=== PATIENT | female | born 1950 | race Caucasian/White ===

== ENCOUNTER 2024-05-13 22:28 | Inpatient (IN) | payer OTHER, SELFPAY ==
[2024-05-13 20:55] VITALS: BP 198/90
--- NOTE | 2024-05-13 20:57 | ED.GENMED ---
History of Present Illness
<Nav Garcia PA-C - Last Filed: 05/13/24 21:42>
General
Chief Complaint: Breathing Problem
Source: patient
Exam Limitations: none
Time Seen by Provider: 05/13/24 20:55
History of Present Illness
History of Present Illness:
74-year-old female with history of myasthenia gravis presents with difficulty breathing. She is followed by neurologist at [place]. Her myasthenia gravis medication was increased recently. Patient denies any chest pain. No sore throat. There has
been no fever. No vomiting. Daughter noticed that her bilateral face seemed to be drooping as of 2 days ago which is typical of her MG.
Past History
<SELIN Angel Last Filed: 05/13/24 21:42>
Past History
ED Past Medical History: GERD, HTN, Hypercholesterolemia, Hypothyroidism, Psychiatric and Other (Osteoarthritis, neuropathy)
ED Past Surgical History: Orthopedic
Social History
Alcohol: Occasional
Personal:
Living: with family
Employment: Employed
Family History
Family History: Other (Noncontributory)
Phy Exam
<SELIN Angel Last Filed: 05/13/24 21:42>
Physical Exam
Physical Exam:
General: Well developed female with increased work of breathing
HEENT: Normocephalic no obvious facial droop posterior pharynx patent no asymmetry no stridor no drooling
Heart: Tachycardic but regular
Lungs: Subtle wheeze noted upon inspiration
Extremities: No cyanosis
Skin is warm no rash
Scores
<SELIN Angel Last Filed: 05/13/24 21:42>
Heart Failure Risk
Heart Failure Risk Score: Not Applicable
Course
<Nav Garcia PA-C - Last Filed: 05/13/24 21:42>
Orders/Labs/Results
Orders:
Orders
05/13/24 20:55
EKG [Electrocardiogram (*1)] Urgent
Reason for Study: Shortness of Breath
05/13/24 20:56
EKG- Treatment ONCE
CXR [CR Chest Portable - 1 View] Urgent
Comment:
Reason For Exam: dyspnea
Reason Study Needs to be Portable: Unable to Transport
05/13/24 20:57
Complete Blood Count/With Diff Urgent
Comprehensive Metabolic Panel Urgent
05/13/24 21:29
TSH Reflex To Free T4 Urgent
Urinalysis Reflex To Culture Urgent
05/13/24 21:30
Immune Globulin Per Pharmacy [Immune Globulin- Pharmacy To Place] 130 gram IV DIRECTED ONE
Abnormal Lab Results
05/13/24
20:57
WBC 11.4 H 10^3/uL
(4.8-10.8)
Hct 47.5 H %
(37.0-47.0)
MCH 31.2 H pg
(27.0-31.0)
Abs Immat Gran (auto) 0.1 H 10^3/uL
(0-0.05)
Absolute Neuts (auto) 8.1 H 10^3/uL
(1.4-6.5)
Absolute Monos (auto) 0.7 H 10^3/uL
(0.1-0.6)
Lymphocytes % 19.1 L %
(20.5-51.1)
BUN 21 H mg/dl
(7-17)
Glucose 132 H mg/dl
(70-99)
05/13/24 20:57
05/13/24 20:57
Vital Signs
Initial and Last Documented VS:
Initial Vital Signs
Temp Pulse Resp Pulse Ox
98.7 F 107 29 98
05/13/24 20:54 05/13/24 20:54 05/13/24 20:54 05/13/24 20:54
Last Documented Vital Signs
Temp Pulse Resp BP Pulse Ox
98.7 F 100 13 168/96 96
05/13/24 20:54 05/13/24 21:02 05/13/24 21:00 05/13/24 21:00 05/13/24 21:02
<Antonio Parkinson, DO - Last Filed: 05/13/24 21:52>
Orders/Labs/Results
Orders:
Orders
05/13/24 20:55
EKG [Electrocardiogram (*1)] Urgent
Reason for Study: Shortness of Breath
05/13/24 20:56
EKG- Treatment ONCE
CXR [CR Chest Portable - 1 View] Urgent
Comment:
Reason For Exam: dyspnea
Reason Study Needs to be Portable: Unable to Transport
05/13/24 20:57
Complete Blood Count/With Diff Urgent
Comprehensive Metabolic Panel Urgent
05/13/24 21:29
TSH Reflex To Free T4 Urgent
Urinalysis Reflex To Culture Urgent
05/13/24 21:30
Immune Globulin Per Pharmacy [Immune Globulin- Pharmacy To Place] 130 gram IV DIRECTED ONE
Abnormal Lab Results
05/13/24
20:57
WBC 11.4 H 10^3/uL
(4.8-10.8)
Hct 47.5 H %
(37.0-47.0)
MCH 31.2 H pg
(27.0-31.0)
Abs Immat Gran (auto) 0.1 H 10^3/uL
(0-0.05)
Absolute Neuts (auto) 8.1 H 10^3/uL
(1.4-6.5)
Absolute Monos (auto) 0.7 H 10^3/uL
(0.1-0.6)
Lymphocytes % 19.1 L %
(20.5-51.1)
BUN 21 H mg/dl
(7-17)
Glucose 132 H mg/dl
(70-99)
05/13/24 20:57
05/13/24 20:57
Vital Signs
Initial and Last Documented VS:
Initial Vital Signs
Temp Pulse Resp Pulse Ox
98.7 F 107 29 98
05/13/24 20:54 05/13/24 20:54 05/13/24 20:54 05/13/24 20:54
Last Documented Vital Signs
Temp Pulse Resp BP Pulse Ox
98.7 F 100 13 168/96 96
05/13/24 20:54 05/13/24 21:02 05/13/24 21:00 05/13/24 21:00 05/13/24 21:02
<Nav Garcia PA-C - Last Filed: 05/13/24 21:42>
MDM/Problems Addressed
Differential Diagnosis Includes:
Respiratory difficulty. Consider asthma versus pneumonia versus CHF versus COPD versus flare of myasthenia gravis.
Patient improved dramatically after receiving nasal cannula oxygen. Vital signs are stable other than slight tachycardia. Portable chest x-ray pending
<Nav Garcia PA-C - Last Filed: 05/13/24 21:42>
*Critical Care Note
Total Time (30-74mins, 75-104mins- exclusive of procedures): Not Applicable
<Nav Garcia PA-C - Last Filed: 05/13/24 21:42>
Update Note
Update Note:
Chest x-ray clear. Discussed with neurology. There is concern for possible myasthenia gravis flare. The daughter states that over 2 days ago the corners of her eyelids and the corners of her mouth bilaterally were drooping and this is similar to
her prior presentation of myasthenia. They also endorse that her medication for her myasthenia has been adjusted recently. Currently patient is on 2 L of oxygen respiratory status has improved. Neurology recommended 2 g/kg of IVIG and admission
to hospital.
ED Attending Note
<Nav Garcia PA-C - Last Filed: 05/13/24 21:42>
-
Portions of this chart may have been created with voice recognition software.� Occasional wrong word or��sound alike� substitutions may have occurred due to the inherent limitations of voice recognition software.
<Antonio Parkinson DO - Last Filed: 05/13/24 21:52>
ED Attending Note
Patient seen and examined by attending physician: Yes
ED Attending Note:
I reviewed and agree with patient treatment normal. My exam revealed 74-year-old, initially severely short of breath, right sided ptosis. Concern for myasthenia gravis exacerbation. Will start IVIG. Admit to ICU.
Discharge Plan
Departure
Patient Disposition: Admit
Date of Disposition: 05/13/24
Time of Disposition: 21:41
Presentation/result/management discussed w/ accepting MD/DO: Hospitalist
Discharge Problem:
Myasthenia gravis
Prescriptions:
No Action
lisinopril 20 MG tablet
20 mg PO DAILY
levothyroxine [Levothroid] 50 MCG tablet
50 mcg PO DAILY
diclofenac sodium 25 MG tablet,delayed release (DR/EC)
50 mg PO DAILY
pravastatin 20 MG tablet
20 mg PO DAILY
oxybutynin chloride 5 MG tablet
5 mg PO DAILY
alprazolam 0.5 MG tablet
0.5 mg PO HS
gabapentin 100 MG capsule
100 mg PO TID
melatonin 10 MG capsule
10 mg PO HS
oxycodone-acetaminophen 5 MG/325 MG tablet
1 tab PO Q4HPRN PRN (Reason: Headache) Qty: 10 0RF
estradiol 1 APPLIC cream
1 applic S DAILY Qty: 1 0RF
tramadol 50 MG tablet
50 mg PO Q6HPRN PRN (Reason: pain) Qty: 10 0RF
Referrals:
[facility],Guerline Carbajal MD [Family Provider] -
Interventions
Interventions:
*Risk Screen - Suicide Last Done: 05/13/24 20:54
*General Assessment Last Done: 05/13/24 20:54
*Neglect/Abuse Screening Last Done: 05/13/24 21:02
ED- Fall Risk Assessment Last Done: 05/13/24 21:00
*ED COVID-19 Vaccine History Last Done: 05/13/24 21:02
ED- Cardiac Assessment Last Done: 05/13/24 21:00
ED- Pulmonary Assessment Last Done: 05/13/24 21:00
Discharge Date and Time
Print Language: CHINESE
[2024-05-13 21:00] VITALS: BP 168/96
[2024-05-13 21:04] LABS: % Basophils 0.9 % (0-2); % Immature Granulocytes 0.5 % (0-0.5); % Lymphocytes 19.1 % (20.5-51.1); % Monocytes 6.1 % (1.7-9.3); % Neutrophils 71.4 % (42.2-75.2); Absolute Basophils 0.1 10^3/uL (0-0.2); Absolute Eosinophils 0.2 10^3/uL (0-0.7); Absolute Immature Granulocytes 0.1 10^3/uL (0-0.05); Absolute Lymphocytes 2.2 10^3/uL (1.2-3.4); Absolute Monocytes 0.7 10^3/uL (0.1-0.6); Absolute Neutrophils 8.1 10^3/uL (1.4-6.5); Hematocrit 47.5 % (37.0-47.0); Hemoglobin 15.8 g/dL (12.0-16.0); Mean Corp Hgb Conc. 33.3 g/dL (33.0-37.0); Mean Corpuscular Hgb 31.2 pg (27.0-31.0); Mean Corpuscular Volume 93.7 fL (81.0-99.0); Mean Platelet Volume 8.8 fL (7.4-10.4); Nucleated Red Blood Cells % 0 %; Platelet Count 375 10^3/uL (130-400); Red Blood Cell Count 5.07 10^6/uL (4.20-5.40); Red Cell Dist. Width 12.7 % (11.5-14.5); White Blood Cell Count 11.4 10^3/uL (4.8-10.8)
[2024-05-13 21:19] LABS: ALT (SGPT) 24 U/L (0-35); AST (SGOT) 30 U/L (14-36); Albumin 4.9 g/dl (3.5-5.0); Alkaline Phosphatase 94 U/L (38-126); Blood Urea Nitrogen 21 mg/dl (7-17); Calcium 9.9 mg/dl (8.4-10.2); Carbon Dioxide 27 mmol/L (22-30); Chloride 105 mmol/L (98-107); Glucose 132 mg/dl (70-99); Sodium 140 mmol/L (135-145); Total Bilirubin 1.2 mg/dl (0.2-1.3); Total Protein 7.2 g/dl (6.3-8.2); eGFR > 60.00
[2024-05-13 22:00] VITALS: BP 173/89
--- NOTE | 2024-05-13 22:18 | HPS.HSE ---
Addendum entered and electronically signed by Crystal Farrell MD 05/13/24 22:27:
Essential Home meds added and reconciled.
Original Note:
Family Physician
-
Family Physician: Guerline Araya MD
Chief Complaint
-
eyelid droop
History of Present Illness
74-year-old female past medical history of myasthenia gravis diagnosed 2 years ago follows at [facility], hypertension, GERD, hypercholesterolemia, hypothyroidism, osteoarthritis, chronic stool incontinence secondary to Mestinon, bladder prolapse with
pessary, presenting with 1 week of right eyelid droop. She saw her neurologist at [facility] who increased her Mestinon and prednisone. Today she developed difficulty chewing as well as shortness of breath and some chest tightness.
She had a major myasthenia gravis flare 2 years ago at which time she received IVIG. She tolerated IVIG without any complications. She has been relatively well-controlled on Mestinon and prednisone over the past 2 years with minor worsening of
symptoms. Mestinon and prednisone doses were attempted to be decreased.
She has also been having some bladder discomfort with urination over the past few days. No fevers or chills. No cough. No vomiting or diarrhea.
Her blood pressure is normally well-controlled.
She denies smoking or alcohol use.
Her daughter has Yola's/Graves' disease.
Medical History
Past Medical History
Past Medical History: Reports Other (myasthenia gravis diagnosed 2 years ago follows at [facility], hypertension, GERD, hypercholesterolemia, hypothyroidism, osteoarthritis, chronic stool incontinence secondary to Mestinon, bladder prolapse with pessary)
Past Surgical History: Reports None
Social History
Tobacco: Non-smoker
Alcohol: None
Drug: None
Family History
Family History: Not pertinent
Allergies / Home Medications
Allergies reflects when Allergies were last updated in [facility].
Home Medications with original date entered in [facility]
Allergy/Medication List:
Allergies
Allergy/AdvReac Type Severity Reaction Status Date / Time
Penicillins Allergy Severe Hives Verified 02/23/19 17:54
adhesive tape Allergy Unknown Verified 02/23/19 17:54
sulfamethoxazole Allergy chest Verified 02/23/19 17:54
[From Bactrim] tightness
trimethoprim [From Bactrim] Allergy chest Verified 02/23/19 17:54
tightness
Home Medications
diclofenac sodium 25 mg tablet,delayed release 50 mg PO DAILY 07/09/16
levothyroxine 50 mcg tablet (Levothroid) 50 mcg PO DAILY 07/09/16
lisinopril 20 mg tablet 20 mg PO DAILY 07/09/16
oxybutynin chloride 5 mg tablet 5 mg PO DAILY 07/09/16
pravastatin 20 mg tablet 20 mg PO DAILY 07/09/16
alprazolam 0.5 mg tablet 0.5 mg PO HS 07/10/16
gabapentin 100 mg capsule 100 mg PO TID 07/10/16
melatonin 10 mg capsule 10 mg PO HS 07/10/16
oxycodone-acetaminophen 5 mg-325 mg tablet 1 tab PO Q4HPRN PRN Headache #10 tabs 07/11/16
estradiol 0.01% (0.1 mg/gram) vaginal cream 1 applic S DAILY #1 tube 02/23/19
tramadol 50 mg tablet 50 mg PO Q6HPRN PRN pain #10 tabs 02/23/19
Review of Systems
-
History Source: Patient
A 12 point ROS was completed and negative except as noted: Yes
Constitutional: Reports No Symptoms
EENT: Reports No Symptoms
Respiratory: Reports See HPI
Cardiac: Reports No Symptoms
Abdomen/GI: Reports No Symptoms
: Reports See HPI
Musculoskeletal: Reports No Symptoms
Skin: Reports No Symptoms
Neurological: Reports No Symptoms
Endocrine: Reports No Symptoms
Hematologic/Lymphatic: Reports No Symptoms
Psych: Reports No Symptoms
Physical Exam
Vital Signs
Vital Signs
Temp Pulse Resp BP Pulse Ox
98.7 F 100 13 168/96 96
05/13/24 20:54 05/13/24 21:02 05/13/24 21:00 05/13/24 21:00 05/13/24 21:02
Physical Exam
General: Well Developed, Well Nourished and No Apparent Distress
HEENT: NormoCephalic, Moist mucous membranes and Atraumatic
Respiratory: Clear
Cardiac: S1/S2 and Regular Rhythm; No Murmur or Rub
GI: Soft, Non Tender, Non Distended and Normal Bowel Sounds; No Organomegaly
Rectal: Deferred by Provider
Musculoskeletal: No Clubbing, No Cyanosis and No Edema
Skin: No Rash
Neuro: Nonfocal/grossly intact
Laboratory Results
-
05/13/24 20:57
05/13/24 20:57
Laboratory Results
Total Bilirubin 1.2 mg/dl (0.2-1.3) 05/13/24 20:57
AST 30 U/L (14-36) 05/13/24 20:57
ALT 24 U/L (0-35) 05/13/24 20:57
Alkaline Phosphatase 94 U/L (38-126) 05/13/24 20:57
Data Reviewed
-
Lab Data: Labs Reviewed by me
Old Records: Reviewed
Impression/Plan
-
IMPRESSION:
PLAN:
# Myasthenia gravis flare with right eyelid droop/respiratory symptoms
-Chest x-ray appears to be normal, report pending
-Neurology recommended IVIG
-NIF every 4 hours
-Continue Mestinon, prednisone
-Neurology consulted
# Likely UTI
-Leukocytosis
-Check urinalysis
# Elevated blood pressure secondary to anxiety
-As needed hydralazine
History of bladder prolapse with current pessary
History of stool incontinence secondary to Mestinon
Essential hypertension
GERD
-Continue PPI
Hypercholesterolemia
Hypothyroidism
-Continue levothyroxine
Osteoarthritis
-Continue tramadol
DNR/DNI
DVT prophylaxis�heparin
Regular diet
[2024-05-13] MEDS: GAMMAGARD 300 IV (22:42)
[2024-05-13 23:00] VITALS: BP 179/95
[2024-05-13 23:32] LABS: TSH Reflex To Free T4 2.44 uIU/ml (0.47-4.68)
[2024-05-13 23:48] VITALS: BMI 24.6
[2024-05-14] VITALS (25 sets, daily range): BP systolic 93–198; BP diastolic 58–100; BMI 24.7
[2024-05-14] MEDS: APRESOLINE 5 MG IV ×2 (00:15→01:42)
[2024-05-14 00:31] LABS: Magnesium 2.2 mg/dl (1.6-2.3); Phosphorus 3.5 mg/dl (2.5-4.5)
[2024-05-14 00:33] LABS: APTT 24.7 Sec (23.4-35.0); INR 0.88; PT 12.2 Sec (11.4-14.6)
[2024-05-14] MEDS: XANAX 0.5 MG PO ×2 (01:15→22:42)
--- NOTE | 2024-05-14 01:22 | PTCARENOTE ---
Received patient in room 3358 on 2L/O2 nc from ED RN Nely3, and receiving IVIG therapy. Patient transferred herself to the ICU bed. Plan of care for the shift reviewed with the patient. NSR on the monitor. Palpable pulses throughout. SBP in the
170s. Clear breath sounds. SpO2 at 97% on 2L. Occasional nonproductive cough. +BS. Skin is intact. Pt's cheeks are flushed. Pt stated that her daughter made her aware of it earlier. Labs drawn and sent. Assisted the patient to the bedside commode
and voided 400 cc yellow urine. Apresoline and Xanax administered. Pt oriented to the unit. Bed in the lowest position. Call farris and personal belongings are within reach.
[2024-05-14 01:33] LABS: Urine Albumin Negative (Neg - Trace); Urine Bilirubin Negative (Negative); Urine Character Slightly Cloudy (Clear); Urine Color Yellow; Urine Glucose Negative (Negative); Urine Ketone Negative (Negative); Urine Leukocyte 2+ (Negative); Urine Nitrite Negative (Negative); Urine Occult Blood 1+ (Negative); Urine Urobilinogen Negative (Neg - 1+)
[2024-05-14 01:43] LABS: Urine Bacteria Many (Negative); Urine White Cell 16-20 /HPF (0-5)
[2024-05-14 01:47] LABS: COVID-19 Antigen Negative (Negative)
--- NOTE | 2024-05-14 04:58 | PTCARENOTE ---
Patient is awake. Reassessed pt. BP 116/58. HR 95 and remains on the 2L/o2 nc. Patient turns and repositions herself. labs drawn and sent.
[2024-05-14 05:13] LABS: % Basophils 0.8 % (0-2); % Eosinophils 2.4 % (0-6); % Immature Granulocytes 0.6 % (0-0.5); % Lymphocytes 15.1 % (20.5-51.1); % Monocytes 7.3 % (1.7-9.3); % Neutrophils 73.8 % (42.2-75.2); Absolute Basophils 0.1 10^3/uL (0-0.2); Absolute Eosinophils 0.3 10^3/uL (0-0.7); Absolute Immature Granulocytes 0.1 10^3/uL (0-0.05); Absolute Lymphocytes 1.8 10^3/uL (1.2-3.4); Absolute Monocytes 0.9 10^3/uL (0.1-0.6); Absolute Neutrophils 8.7 10^3/uL (1.4-6.5); Hematocrit 42.4 % (37.0-47.0); Mean Corpuscular Hgb 30.7 pg (27.0-31.0); Mean Platelet Volume 9.1 fL (7.4-10.4); Nucleated Red Blood Cells % 0 %; Platelet Count 337 10^3/uL (130-400); Red Blood Cell Count 4.56 10^6/uL (4.20-5.40); Red Cell Dist. Width 12.8 % (11.5-14.5); White Blood Cell Count 11.8 10^3/uL (4.8-10.8)
[2024-05-14 05:22] LABS: ALT (SGPT) 22 U/L (0-35); AST (SGOT) 25 U/L (14-36); Albumin 3.6 g/dl (3.5-5.0); Alkaline Phosphatase 75 U/L (38-126); Blood Urea Nitrogen 19 mg/dl (7-17); Calcium 9.1 mg/dl (8.4-10.2); Carbon Dioxide 28 mmol/L (22-30); Chloride 109 mmol/L (98-107); Estimated Creatinine Clearance 68 ml/min; Glucose 96 mg/dl (70-99); Potassium 3.9 mmol/L (3.5-5.1); Sodium 140 mmol/L (135-145); Total Protein 6.2 g/dl (6.3-8.2); eGFR > 60.00
[2024-05-14] MEDS: SYNTHROID 75 MCG PO (06:14)
--- NOTE | 2024-05-14 08:08 | W.PN.HOSP.TC ---
Today's Communication/Plan
-
see bold
Assessment / Plan
Assessment / Plan
Gen: NAD, AAOx3.
Eyes: EOMI, PERRLA, no scleral icterus. R ptosis, no lid lag
Neck: supple.
CV: RRR, +S1/S2, no m/r/g.
Resp: CTAB, no rales, wheezes, or rhonchi.
Abd: +BS, soft, NT, ND
Skin: No rashes.
Neuro: CN 2-12 intact, non-focal.
Psych: Normal mood and affect.
CXR:
1. Mildly decreased bilateral lung volumes.
2. Moderate-sized hiatal hernia.
Myasthenia gravis flare:
-with right eyelid droop/respiratory symptoms
-cont IVIG
-c/s neuro
-NIF Q4H
-Continue Mestinon, prednisone
Likely UTI:
-start Rocephin
-follow UCx
Other problems:
History of bladder prolapse with current pessary
History of stool incontinence secondary to Mestinon
Essential hypertension with elevated blood pressure secondary to anxiety: PRN hydralazine
GERD: Continue PPI
Hypercholesterolemia
Hypothyroidism: Continue levothyroxine
Osteoarthritis: Continue tramadol
DNR/DNI/heparin
Anticipated Discharge: > 48 hours
Subjective/Interval History
-
Date of Service: May 14, 2024
Denies shortness of breath. Patient states she feels much better than yesterday.
Objective Data
-
Labs:
Laboratory Results
05/13/24 05/14/24 05/14/24
20:57 00:07 04:50
WBC 11.4 H 11.8 H
Hgb 15.8 14.0
Hct 47.5 H 42.4
Plt Count 375 337
PT 12.2
INR 0.88
APTT 24.7
Sodium 140 140
Potassium 4.0 3.9
Chloride 105 109 H
Carbon Dioxide 27 28
BUN 21 H 19 H
Creatinine 0.7 0.6
Glucose 132 H 96
Calcium 9.9 9.1
Total Bilirubin 1.2 1.0
AST 30 25
ALT 24 22
Alkaline Phosphatase 94 75
Vital Signs:
Vital Signs
Temp Pulse Resp BP Pulse Ox
98.5 F 92 21 143/80 96
05/14/24 07:00 05/14/24 07:22 05/14/24 06:15 05/14/24 07:22 05/14/24 06:15
I&O
05/13/24 05/14/24 05/15/24
06:59 06:59 06:59
Intake Total 138.6 / 138.6
Output Total 400 / 400
Balance -261.4 / -261.4
[2024-05-14] MEDS: DITROPAN 5 MG PO (08:53)
[2024-05-14] MEDS: HEPARIN 5000 UNITS SC ×2 (08:53→20:57)
[2024-05-14] MEDS: DELTASONE 10 MG PO (08:53)
[2024-05-14] MEDS: MESTINON 60 MG PO ×3 (08:54→22:42)
[2024-05-14] MEDS: PEPCID 40 MG PO (08:54)
--- NOTE | 2024-05-14 09:13 | CON.NEURO ---
Consultation
Order
Date of Consultation: 05/14/24
Requesting Provider: Crystal Farrell MD
Reason for Consult: Myasthenia gravis
Neurology Consultation Note.
HPI: This is a 74-year-old woman who presented to [facility] on 05/13/2024 with dyspnea and dysphagia. According to the patient she noted worsening of dysphagia to solids and liquids as long as dyspnea upon awakening on the day of
presentation. She also experienced difficulty drinking water through a straw. Prior to this incident, the patient had noticed a gradual worsening of fluctuating blurred vision over the past two weeks.
Ms. Hernandez states that she was diagnosed with generalized myasthenia gravis in 2021. She underwent thymectomy in 2022. The patient is under care of Dr. Terry and was maintained on prednisone and Mestinon.
Her prednisone was reportedly reduced to 5 mg around 6 months ago and Mestinon was increased from 30 to 60 mg 3 times daily 2 weeks ago.
She also mentions having bowel incontinence, which she attributes to the Mestinon.
ER VS: 198/90, 107, 29, afebrile, 95% on 2 L.
EKG: NSR, QTc Int : 457 ms
PDMP: Alprazolam 0.5 Mg 30 tablets filled in on 01/28/2024, 04/18/2024
Labs:WBCs�11.4, normal sodium, creatinine, glucose�132, UA�positive for leukocyte esterase, WBCs, bacteria, negative for nitrates, SARS-CoV-2�negative
MAR:GAMMAGARD 30 grams given on 05/13/24 at 22:42
PMH: Generalized myasthenia gravis(2021), HTN, DLP, GERD, hypothyroidism, OA, cystocele, DIXON
PSH: thymectomy (2022) R TKA, R MATILDE, BL cataract surgery
SH: Former remote smoker; lives with family; retired mail clerk bills; denies history of excessive alcohol use; independent in IADLs
FH:daughter-Yola's/Graves' disease.
All: Penicillin, sulfas,
ROS: Constitutional: Negative. Negative for chills, fever and unexpected weight change.
HENT: Positive for right ptosis
Eyes: Positive for intermittent blurred vision
Respiratory: Negative for cough, choking and shortness of breath.
Cardiovascular: Negative for chest pain, palpitations and leg swelling.
Gastrointestinal: Positive for dysphagia to liquids and solids, chornic bowel incontinence
Endocrine: Negative. Negative for cold intolerance.
Genitourinary: Negative for dysuria, flank pain and urgency.
Musculoskeletal: Negative for back pain, gait problem, neck pain and neck stiffness.
Skin: Negative for rash.
Allergic/Immunologic: Negative. Negative for immunocompromised state.
Neurological: Positive for imbalance, numbness in the feet
Psychiatric/Behavioral: Positive for anxiety
General: Well developed. In no acute distress.
Cardio: Regular rate and rhythm without murmur. Extremities are without cyanosis or edema.
Neuro:
Mental Status: Alert, oriented to person, place, and date. Impaired attention and comprehension. Good fund of knowledge. Follows complex requests. Expressive dysphagia.
Cranial Nerves: Pupils are equally round, surgical. EOMs full. Visual richard full to confrontation. Right ptosis, no nystagmus. V1-V3 intact to light touch and pinprick bilaterally, symmetric. Face symmetric. Unable to whistle. Normal
hearing AU. The palate elevated well. SCMs and traps 5/5. Tongue midline. No dysarthria.
Motor: Normal bulk and tone. No pronator or arm drift. Strength 5/5 throughout except for neck flexors 5-5, bilateral dates, triceps 4 out of 5, bilateral iliopsoas 4 out of 5. No clonus.
Reflexes: 3+ throughout the upper extremities and knees. Plantar responses flexor bilaterally. Negative Fartun's bilaterally
Sensory: Absent vibration at the toes and impaired at the ankles
Coordination: No dysmetria or tremor.
Gait: deferred
Assessment and Plan:
I. Myasthenic crisis.
II. Seropositive generalized myasthenia gravis, status post thymectomy
III. Mild encephalopathy.
IV. 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
-Aspiration precautions
-Frequent NIFs. Elective intubation should be considered if serial measurements demonstrate one or both of the following: Vital capacity�falls below 15 to 20 mL/kg or MIP is less negative than -25 to -30 cmH20; clinical signs of respiratory
distress, evidence of progressive respiratory acidosis, difficulty handling oral secretions
- NPO. Dysphagia evaluation
- Brain MRI wo dixon.
- Continue Gammagard 400 mg/kg per day (today is day 04/27) with IV hydration as a rapid immunotherapy
- Increase Prednisone to 60 mg per day. Will consider starting azathioprine, mycophenolate mofetil after reviewing medical records as a chronic chemotherapy
- Continue Mestinon 60 mg TID
- Avoid Aminoglycosides (gentamicin, neomycin, tobramycin), Clindamycin, Fluoroquinolones (ciprofloxacin, levofloxacin, norfloxacin), Vancomycin, Beta blockers ��(atenolol, labetalol, metoprolol, propranolol), Procainamide, Quinidine, Botulinum toxin
- Please obtain medical records from [facility] and [facility]
- Outpatient urogynecology consult
- DVT prophylaxis.
I personally reviewed all radiology and labs along with past medical records pertinent to current medical problems. Total time spent in patient care is 65 minutes.
Thank you for allowing us to participate in the care of this patient. We will continue to follow. Please do not hesitate to contact us with any questions or concerns.
Subjective/Objective
Subjective Data
Date of Service: May 14, 2024
Objective Data
Vital Signs
Temp Pulse Resp BP Pulse Ox
36.9 C 92 21 143/80 96
05/14/24 07:00 05/14/24 07:22 05/14/24 06:15 05/14/24 07:22 05/14/24 06:15
Lab Results
05/14/24 04:50
05/14/24 04:50
PT 12.2 Sec (11.4-14.6) 05/14/24 00:07
INR 0.88 05/14/24 00:07
APTT 24.7 Sec (23.4-35.0) 05/14/24 00:07
Sodium 140 mmol/L (135-145) 05/14/24 04:50
Potassium 3.9 mmol/L (3.5-5.1) 05/14/24 04:50
BUN 19 mg/dl (7-17) H 05/14/24 04:50
Glucose 96 mg/dl (70-99) 05/14/24 04:50
Calcium 9.1 mg/dl (8.4-10.2) 05/14/24 04:50
Phosphorus 3.5 mg/dl (2.5-4.5) 05/14/24 00:07
Patient Allergies
Penicillins Allergy (Severe, Verified 02/23/19 17:54)
Hives
adhesive tape Allergy (Verified 02/23/19 17:54)
Unknown
sulfamethoxazole [From Bactrim] Allergy (Verified 02/23/19 17:54)
chest tightness
trimethoprim [From Bactrim] Allergy (Verified 02/23/19 17:54)
chest tightness
Medications
-
Active Medications
Generic Name Dose Route Start Last Admin
Trade Name Freq PRN Reason Stop Dose Admin
Alprazolam 0.5 mg 05/13/24 23:03 05/14/24 01:15
Alprazolam 0.5 Mg Tablet PO 06/10/24 23:02 0.5 mg
HSPRN PRN Administration
insomnia
Ceftriaxone Sodium 1,000 mg 05/14/24 10:00
Ceftriaxone 1000 Mg / 10 Ml Vial IV
Q24H ELIDIA
Famotidine 40 mg 05/14/24 08:00 05/14/24 08:54
Famotidine 40 Mg Tablet PO 06/11/24 07:59 40 mg
DAILY ELIDIA Administration
Heparin Sodium 5,000 units 05/14/24 08:00 05/14/24 08:53
Heparin 5,000 Units/Ml 1 Ml Vial SC 06/11/24 07:59 5,000 units
Q12 ELIDIA Administration
Hydralazine HCl 10 mg 05/14/24 01:32
Hydralazine 20 Mg/Ml Vial IV 06/10/24 23:02
Q6HPRN PRN
SBP>160
Immune Globulin 30 grams in 300 mls @ 0 mls/hr 05/13/24 23:00 05/13/24 22:42
Gammagard IV 05/15/24 01:01 300 mls
DAILY@0100,2300 ELIDIA Administration
Protocol
Per Protocol
Levothyroxine Sodium 75 mcg 05/14/24 06:00 05/14/24 06:14
Levothyroxine 75 Mcg Tablet PO 06/11/24 05:59 75 mcg
DAILY @ 0600 ELIDIA Administration
Oxybutynin Chloride 5 mg 05/14/24 08:00 05/14/24 08:53
Oxybutynin 5 Mg Tablet PO 06/11/24 07:59 5 mg
DAILY ELIDIA Administration
Prednisone 10 mg 05/14/24 08:00 05/14/24 08:53
Prednisone 10 Mg Tablet PO 06/11/24 07:59 10 mg
DAILY ELIDIA Administration
Pyridostigmine [place] 60 mg 05/14/24 08:00 05/14/24 08:54
Pyridostigmine 60 Mg Tablet PO 06/11/24 07:59 60 mg
TID ELIDIA Administration
Sodium Chloride 0 flush 05/13/24 23:00
Sodium Chloride 0.9% (Flush) Syringe IV 06/10/24 22:59
PER PROTOCOL ELIDIA
Sterile Water 10 ml 05/14/24 10:00
Sterile Water For Injection 10 Ml Vial IV 06/11/24 09:59
Q24H ELIDIA
Tramadol HCl 50 mg 05/13/24 23:03
Tramadol Hcl 50 Mg Tablet PO 06/10/24 23:02
Q6HPRN PRN
MODERATE PAIN
Home Medications
�Medication �Instructions �Recorded
oxybutynin chloride 5 mg tablet 5 mg PO BID Urinary Issue 07/09/16
alprazolam 0.5 mg tablet 0.5 mg PO HS Mental Health/Anxiety 07/10/16
tramadol 50 mg tablet 50 mg PO Q6HPRN PRN pain #10 tabs 02/23/19
alprazolam 0.5 mg tablet 0.25 mg PO BIDPRN PRN anxiety 05/13/24
famotidine 40 mg tablet 40 mg PO BID Gastrointestinal Issue 05/13/24
levothyroxine 75 mcg tablet 75 mcg PO HS Thyroid 05/13/24
prednisone 10 mg tablet 10 mg PO DAILY Anti-Inflammatory 05/13/24
pyridostigmine bromide 60 mg 60 mg PO TID Myashenia gravis 05/13/24
tablet (Mestinon)
acetaminophen 500 mg capsule 500 mg PO Q6H PRN pain 05/14/24
calcium 600 mg capsule 600 mg PO DAILY Supplement 05/14/24
calcium carbonate (Tums) 200 mg PO QIDPRN PRN heartburn 05/14/24
estradiol 0.01% (0.1 mg/gram) 1 applic S PRE PROCEDURE PRN prior 05/14/24
vaginal cream to pessury
naproxen 220 mg-diphenhydramine 25 2 tab PO HS Pain 05/14/24
mg tablet (Aleve PM)
vit B12 50 mcg-folic acid 200 1 cap PO DAILY Supplement 05/14/24
mcg-vit D3 100 [id number]
capsule
vitamin D3 125 mcg (5,000 1 cap PO DAILY Supplement 05/14/24
unit)-vitamin K2 100 mcg capsule
Vital Signs and Labs
-
Vital Signs and Labs:
Vital Signs
Temp Pulse Resp BP Pulse Ox
36.9 C 92 21 143/80 96
05/14/24 07:00 05/14/24 07:22 05/14/24 06:15 05/14/24 07:22 05/14/24 06:15
Lab Results
05/14/24 04:50
05/14/24 04:50
PT 12.2 Sec (11.4-14.6) 05/14/24 00:07
INR 0.88 05/14/24 00:07
APTT 24.7 Sec (23.4-35.0) 05/14/24 00:07
Sodium 140 mmol/L (135-145) 05/14/24 04:50
Potassium 3.9 mmol/L (3.5-5.1) 05/14/24 04:50
BUN 19 mg/dl (7-17) H 05/14/24 04:50
Glucose 96 mg/dl (70-99) 05/14/24 04:50
Calcium 9.1 mg/dl (8.4-10.2) 05/14/24 04:50
Phosphorus 3.5 mg/dl (2.5-4.5) 05/14/24 00:07
Medications
-
Medications:
Generic Name Dose Route Start Last Admin
Trade Name Freq PRN Reason Stop Dose Admin
Alprazolam 0.5 mg 05/13/24 23:03 05/14/24 01:15
Alprazolam 0.5 Mg Tablet PO 06/10/24 23:02 0.5 mg
HSPRN PRN Administration
insomnia
Ceftriaxone Sodium 1,000 mg 05/14/24 10:00
Ceftriaxone 1000 Mg / 10 Ml Vial IV
Q24H ELIDIA
Famotidine 40 mg 05/14/24 08:00 05/14/24 08:54
Famotidine 40 Mg Tablet PO 06/11/24 07:59 40 mg
DAILY ELIDIA Administration
Heparin Sodium 5,000 units 05/14/24 08:00 05/14/24 08:53
Heparin 5,000 Units/Ml 1 Ml Vial SC 06/11/24 07:59 5,000 units
Q12 ELIDIA Administration
Hydralazine HCl 10 mg 05/14/24 01:32
Hydralazine 20 Mg/Ml Vial IV 06/10/24 23:02
Q6HPRN PRN
SBP>160
Immune Globulin 30 grams in 300 mls @ 0 mls/hr 05/13/24 23:00 05/13/24 22:42
Gammagard IV 05/15/24 01:01 300 mls
DAILY@0100,2300 ELIDIA Administration
Protocol
Per Protocol
Levothyroxine Sodium 75 mcg 05/14/24 06:00 05/14/24 06:14
Levothyroxine 75 Mcg Tablet PO 06/11/24 05:59 75 mcg
DAILY @ 0600 ELIDIA Administration
Oxybutynin Chloride 5 mg 05/14/24 08:00 05/14/24 08:53
Oxybutynin 5 Mg Tablet PO 06/11/24 07:59 5 mg
DAILY ELIDIA Administration
Prednisone 10 mg 05/14/24 08:00 05/14/24 08:53
Prednisone 10 Mg Tablet PO 06/11/24 07:59 10 mg
DAILY ELIDIA Administration
Pyridostigmine [place] 60 mg 05/14/24 08:00 05/14/24 08:54
Pyridostigmine 60 Mg Tablet PO 06/11/24 07:59 60 mg
TID ELIDIA Administration
Sodium Chloride 0 flush 05/13/24 23:00
Sodium Chloride 0.9% (Flush) Syringe IV 06/10/24 22:59
PER PROTOCOL ELIDIA
Sterile Water 10 ml 05/14/24 10:00
Sterile Water For Injection 10 Ml Vial IV 06/11/24 09:59
Q24H ELIDIA
Tramadol HCl 50 mg 05/13/24 23:03
Tramadol Hcl 50 Mg Tablet PO 06/10/24 23:02
Q6HPRN PRN
MODERATE PAIN
Home Medications
-
Home Medications
oxybutynin chloride 5 mg tablet 5 mg PO BID Urinary Issue 07/09/16
alprazolam 0.5 mg tablet 0.5 mg PO HS Mental Health/Anxiety 07/10/16
tramadol 50 mg tablet 50 mg PO Q6HPRN PRN pain #10 tabs 02/23/19
alprazolam 0.5 mg tablet 0.25 mg PO BIDPRN PRN anxiety 05/13/24
famotidine 40 mg tablet 40 mg PO BID Gastrointestinal Issue 05/13/24
levothyroxine 75 mcg tablet 75 mcg PO HS Thyroid 05/13/24
prednisone 10 mg tablet 10 mg PO DAILY Anti-Inflammatory 05/13/24
pyridostigmine bromide 60 mg tablet (Mestinon) 60 mg PO TID Myashenia gravis 05/13/24
acetaminophen 500 mg capsule 500 mg PO Q6H PRN pain 05/14/24
calcium 600 mg capsule 600 mg PO DAILY Supplement 05/14/24
calcium carbonate (Tums) 200 mg PO QIDPRN PRN heartburn 05/14/24
estradiol 0.01% (0.1 mg/gram) vaginal cream 1 applic S PRE PROCEDURE PRN prior to pessury 05/14/24
naproxen 220 mg-diphenhydramine 25 mg tablet (Aleve PM) 2 tab PO HS Pain 05/14/24
vit B12 50 mcg-folic acid 200 mcg-vit D3 100 [id number] capsule 1 cap PO DAILY Supplement 05/14/24
vitamin D3 125 mcg (5,000 unit)-vitamin K2 100 mcg capsule 1 cap PO DAILY Supplement 05/14/24
--- NOTE | 2024-05-14 09:51 | W.PN.UPDATE ---
Update Note
Progress Note Update
Patient was admitted to the ICU overnight for suspected MG flare. No official shrimp pond laborer consult placed. I discussed the case this morning with Dr. Mark, and patient being downgraded. If official consultation is required then please contact the
on-call pulmonary/shrimp pond laborer.
[2024-05-14] MEDS: NSS 1000 IV ×2 (10:59→23:38)
[2024-05-14] MEDS: ROCEPHIN 1000 MG IV (10:59)
[2024-05-14] MEDS: STERILE WATER FOR INJECTION 10 ML IV (10:59)
[2024-05-14] MEDS: TYLENOL 500 MG PO (11:01)
--- NOTE | 2024-05-14 11:19 | CM ---
CM following re: discharge planning.
Reviewed pt's chart, met with pt.
Pt is a 74 year old female, admitted with primary dx of Myasthenia gravis flare.
Pt reports she lives with daughter 2SH, 1 step to enter, has 2 supportive children. Pt reports she has a Rollator, cane and uses them as needed. Pt reports she had VN services in the past, cannot recall the name. Pt expressed her desire to return
back home at discharge.
PT and OT will evaluate the pt to determine a level of care at discharge.
PCP: Guerline Araya
Pharmacy: [facility] [place]
D/C plan: home with anticipated no needs vs VN if recommended by PT/OT
CM will follow with discharge plan updates as hospitalization progresses
[2024-05-14 11:36] LABS: C-Reactive Protein < 5.00 mg/L (0.0-10.00)
[2024-05-14] MEDS: ATIVAN 1 MG IV (11:39)
[2024-05-14 12:49] LABS: Folate > 20.0 ng/ml (2.76-20); Vitamin B12 584 pg/ml (239-931)
--- NOTE | 2024-05-14 13:25 | PTCARENOTE ---
pt extremely claustrophobic, said ativan did not help her in past with mri. went with pt to MRI, remained in room with pt, gave some of dose prior to transfer and the rest of dose of ativan prior to test in MRI. Pt tolerated well. Fell asleep
during study.
[2024-05-14] MEDS: GAMMAGARD IV (13:55)
--- NOTE | 2024-05-14 18:23 | PTCARENOTE ---
After eating lunch, pt slept mostly until waking to see what she wanted for dinner. Pt then assisted to bathroom and sitting up in chair for dinner.
[2024-05-14] MEDS: TYLENOL 650 MG PO (20:57)
--- NOTE | 2024-05-14 21:18 | PTCARENOTE ---
Received patient OOB to chair and watching TV. AAOX3 and able to make her needs known. NIHSS 0. Pt verbalized having a headache and asked for a Tylenol. Plan of care for the shift reviewed with the patient. NSR on the monitor. Clear breath sounds on
room air. +BS. Normal saline at 75 mL/hr. Pt's family asked for physician to update them on the patient's MRI result. SANIPRACTIC PHYSICIAN made aware and the patient updated. Tylenol administered. All needs are within reach. Family remains at the bedside.
[2024-05-14] MEDS: GAMMAGARD 200 IV (22:23)
[2024-05-15] VITALS (29 sets, daily range): BP systolic 99–166; BP diastolic 54–129; PULSE 77; O2SAT 96; BMI 23.6
[2024-05-15 00:04] LABS: Erythrocyte Sed Rate 54 mm/hour (0-20)
[2024-05-15] MEDS: APRESOLINE 10 MG IV (00:39)
--- NOTE | 2024-05-15 02:17 | PTCARENOTE ---
Patient's SaO2 decreased to 78% on room air. Placed on 2L/O2 nc without improvement. Oxygen increased to 4L. SpO2 95 with intermittent desat to 84%. Patient's lying on her right side. Patient encouraged to turn to her left side. SpO2 improved and
sustained at 97% on 4L/nc
[2024-05-15 04:47] LABS: Hematocrit 38.9 % (37.0-47.0); Hemoglobin 12.9 g/dL (12.0-16.0); Mean Corp Hgb Conc. 33.2 g/dL (33.0-37.0); Mean Corpuscular Hgb 31.4 pg (27.0-31.0); Mean Corpuscular Volume 94.6 fL (81.0-99.0); Mean Platelet Volume 9.4 fL (7.4-10.4); Platelet Count 293 10^3/uL (130-400); Red Blood Cell Count 4.11 10^6/uL (4.20-5.40); Red Cell Dist. Width 12.8 % (11.5-14.5); White Blood Cell Count 8.9 10^3/uL (4.8-10.8)
[2024-05-15 05:36] LABS: Blood Urea Nitrogen 26 mg/dl (7-17); Calcium 8.7 mg/dl (8.4-10.2); Carbon Dioxide 24 mmol/L (22-30); Chloride 110 mmol/L (98-107); Estimated Creatinine Clearance 59 ml/min; Glucose 93 mg/dl (70-99); Potassium 4.1 mmol/L (3.5-5.1); Sodium 138 mmol/L (135-145); eGFR > 60.00
[2024-05-15] MEDS: SYNTHROID 75 MCG PO (07:27)
[2024-05-15] MEDS: TYLENOL 650 MG PO ×2 (07:27→21:27)
[2024-05-15] MEDS: DELTASONE 60 MG PO (07:28)
[2024-05-15] MEDS: DITROPAN 5 MG PO (07:28)
[2024-05-15] MEDS: MESTINON 60 MG PO ×3 (07:28→21:26)
[2024-05-15] MEDS: HEPARIN 5000 UNITS SC ×2 (07:28→20:16)
[2024-05-15] MEDS: PEPCID 40 MG PO (07:28)
--- NOTE | 2024-05-15 09:41 | W.PN.HOSP.TC ---
Today's Communication/Plan
-
see bold
Assessment / Plan
Assessment / Plan
Gen: NAD, AAOx3.
Eyes: EOMI, PERRLA, no scleral icterus. minimal R ptosis, no lid lag
Neck: supple.
CV: remains RRR, +S1/S2, no m/r/g.
Resp: CTAB anteriorly, no rales, wheezes, or rhonchi.
Abd: +BS, soft, NT, ND
Skin: No rashes.
Neuro: CN 2-12 intact (aside from eye findings above), non-focal.
Psych: Normal mood and affect.
CXR:
1. Mildly decreased bilateral lung volumes.
2. Moderate-sized hiatal hernia.
Myasthenia gravis flare:
-with right eyelid droop/respiratory symptoms
-cont IVIG/Mestinon/Prednisone
-neuro following
-NIF Q4H
-note, pt with hypoxemia overnight. She was saturating in the 70s and required 4L NC O2. This AM saturating 96% RA. Check nocturnal pulse ox.
Likely UTI:
-cont Rocephin
-follow UCx
Other problems:
History of bladder prolapse with current pessary
History of stool incontinence secondary to Mestinon
Essential hypertension with elevated blood pressure secondary to anxiety: PRN hydralazine
GERD: Continue PPI
Hypercholesterolemia
Hypothyroidism: Continue levothyroxine
Osteoarthritis: Continue tramadol
DNR/DNI/heparin
Transfer to Med-surg
Anticipated Discharge: 24 - 48 hours
Subjective/Interval History
-
Date of Service: May 15, 2024
Reports bifrontal headache. Denies SOB. Vision in R eye has improved.
Objective Data
-
Labs:
Laboratory Results
05/15/24
04:11
WBC 8.9
Hgb 12.9
Hct 38.9
Plt Count 293
Sodium 138
Potassium 4.1
Chloride 110 H
Carbon Dioxide 24
BUN 26 H
Creatinine 0.7
Glucose 93
Calcium 8.7
Vital Signs:
Vital Signs
Temp Pulse Resp BP Pulse Ox
97.8 F 80 20 153/83 96
05/15/24 07:37 05/15/24 09:33 05/15/24 09:33 05/15/24 09:33 05/15/24 06:30
I&O
05/14/24 05/15/24 05/16/24
06:59 06:59 06:59
Intake Total 138.6 / 178.1 1518.6 / 1593.6 225 / 225
Output Total 400 / 400 1190 / 1190
Balance -261.4 / -221.9 328.6 / 403.6 225 / 225
--- NOTE | 2024-05-15 09:54 | PTCARENOTE ---
all vss prior to 7am from previous shift
[2024-05-15] MEDS: STERILE WATER FOR INJECTION 10 ML IV (10:21)
[2024-05-15] MEDS: ROCEPHIN 1000 MG IV (10:22)
--- NOTE | 2024-05-15 12:09 | W.PN.NEURO.1 ---
Today's Communication / Plan
-
.
Subjective/Objective
Subjective Data
Date of Service: May 15, 2024
Neurology Follow Up.
Ms. Germain endorses moderate holocephalic headache.
Blood pressure has improved, afebrile. Dysphagia has improved. No reports of diplopia, dysarthria, dyspnea.
Brain MRI wo dixon(05/14/2024)no acute infarcts.
PMH: Generalized myasthenia gravis(2021), HTN, DLP, GERD, hypothyroidism, OA, cystocele, DIXON
PSH: thymectomy (2022) R TKA, R MATILDE, BL cataract surgery
SH: former remote smoker; lives with family; retired supervisor contact and service clerks; denies history of excessive alcohol use; independent in IADLs
FH:daughter-Yola's/Graves' disease.
All: Penicillin, sulfas,
ROS: Constitutional: Negative. Negative for chills, fever and unexpected weight change.
HENT: Positive for right ptosis
Eyes: Positive for intermittent blurred vision
Respiratory: Negative for cough, choking and shortness of breath.
Cardiovascular: Negative for chest pain, palpitations and leg swelling.
Gastrointestinal: Positive for dysphagia to liquids and solids, chornic bowel incontinence
Endocrine: Negative. Negative for cold intolerance.
Genitourinary: Negative for dysuria, flank pain and urgency.
Musculoskeletal: Negative for back pain, gait problem, neck pain and neck stiffness.
Skin: Negative for rash.
Allergic/Immunologic: Negative. Negative for immunocompromised state.
Neurological: Positive for imbalance, numbness in the feet
Psychiatric/Behavioral: Positive for anxiety
General: Well developed. In no acute distress.
Cardio: Regular rate and rhythm without murmur. Extremities are without cyanosis or edema.
Neuro:
Mental Status: Alert, oriented to person, place, and date. Impaired attention and comprehension. Good fund of knowledge. Follows complex requests. Expressive dysphagia.
Cranial Nerves: Pupils are equally round, surgical. EOMs full. Visual richard full to confrontation. Right ptosis, no nystagmus. V1-V3 intact to light touch and pinprick bilaterally, symmetric. Face symmetric. Unable to whistle. Normal
hearing AU. The palate elevated well. SCMs and traps 5/5. Tongue midline. No dysarthria.
Motor: Normal bulk and tone. No pronator or arm drift. Strength 5/5 throughout except for neck flexors 5-5, bilateral dates, triceps 4 out of 5, bilateral iliopsoas 4 out of 5. No clonus.
Reflexes: 3+ throughout the upper extremities and knees. Plantar responses flexor bilaterally. Negative Fartun's bilaterally
Sensory: Absent vibration at the toes and impaired at the ankles
Coordination: No dysmetria or tremor.
Gait: deferred
Assessment and Plan:
I. Myasthenic crisis
II. Seropositive generalized myasthenia gravis, status post thymectomy
III. Mild encephalopathy.
IV. 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
- Continue IV hydration
- Benadryl 25 mg IV and Tylenol 650 mg once prior Gammaguard infusion.
- Continue Gammagard 400 mg/kg per day (today is day 3/5) with IV hydration as a rapid immunotherapy
- Continue Prednisone to 60 mg per day, Mestinon 60 mg TID
- Will consider starting azathioprine, mycophenolate mofetil after reviewing medical records as a chronic immunotherapy
- Please obtain medical records from [facility] and [facility]
- DVT prophylaxis.
I personally reviewed all radiology and labs along with past medical records pertinent to current medical problems. Total time spent in patient care is 35 minutes.
Thank you for allowing us to participate in the care of this patient. We will continue to follow. Please do not hesitate to contact us with any questions or concerns.
Objective Data
Vital Signs
Temp Pulse Resp BP Pulse Ox
36.8 C 80 20 153/83 96
05/15/24 11:12 05/15/24 09:33 05/15/24 09:33 05/15/24 09:33 05/15/24 09:45
Lab Results
05/15/24 04:11
05/15/24 04:11
PT 12.2 Sec (11.4-14.6) 05/14/24 00:07
INR 0.88 05/14/24 00:07
APTT 24.7 Sec (23.4-35.0) 05/14/24 00:07
Sodium 138 mmol/L (135-145) 05/15/24 04:11
Potassium 4.1 mmol/L (3.5-5.1) 05/15/24 04:11
BUN 26 mg/dl (7-17) H 05/15/24 04:11
Glucose 93 mg/dl (70-99) 05/15/24 04:11
Calcium 8.7 mg/dl (8.4-10.2) 05/15/24 04:11
Phosphorus 3.5 mg/dl (2.5-4.5) 05/14/24 00:07
Vitamin B12 584 pg/ml (239-931) 05/14/24 10:56
Patient Allergies
Penicillins Allergy (Severe, Verified 02/23/19 17:54)
Hives
adhesive tape Allergy (Verified 02/23/19 17:54)
Unknown
sulfamethoxazole [From Bactrim] Allergy (Verified 02/23/19 17:54)
chest tightness
trimethoprim [From Bactrim] Allergy (Verified 02/23/19 17:54)
chest tightness
gabapentin Adverse Reaction (Verified 05/14/24 16:37)
severe headache
Vital Signs and Labs
-
Vital Signs and Labs:
Vital Signs
Temp Pulse Resp BP Pulse Ox
36.8 C 97 16 160/88 96
05/15/24 11:12 05/15/24 11:12 05/15/24 10:54 05/15/24 11:12 05/15/24 09:45
Lab Results
05/15/24 04:11
05/15/24 04:11
PT 12.2 Sec (11.4-14.6) 05/14/24 00:07
INR 0.88 05/14/24 00:07
APTT 24.7 Sec (23.4-35.0) 05/14/24 00:07
Sodium 138 mmol/L (135-145) 05/15/24 04:11
Potassium 4.1 mmol/L (3.5-5.1) 05/15/24 04:11
BUN 26 mg/dl (7-17) H 05/15/24 04:11
Glucose 93 mg/dl (70-99) 05/15/24 04:11
Calcium 8.7 mg/dl (8.4-10.2) 05/15/24 04:11
Phosphorus 3.5 mg/dl (2.5-4.5) 05/14/24 00:07
Vitamin B12 584 pg/ml (239-931) 05/14/24 10:56
Medications
-
Medications:
Generic Name Dose Route Start Last Admin
Trade Name Freq PRN Reason Stop Dose Admin
Acetaminophen 650 mg 05/14/24 11:18 05/15/24 07:27
Acetaminophen 325 Mg Tablet PO 06/11/24 11:17 650 mg
Q6HPRN PRN Administration
mild pain/ fever>100.5F
Alprazolam 0.5 mg 05/13/24 23:03 05/14/24 22:42
Alprazolam 0.5 Mg Tablet PO 06/10/24 23:02 0.5 mg
HSPRN PRN Administration
insomnia
Ceftriaxone Sodium 1,000 mg 05/14/24 10:00 05/15/24 10:22
Ceftriaxone 1000 Mg / 10 Ml Vial IV 1,000 mg
Q24H ELIDIA Administration
Famotidine 40 mg 05/14/24 08:00 05/15/24 07:28
Famotidine 40 Mg Tablet PO 06/11/24 07:59 40 mg
DAILY ELIDIA Administration
Heparin Sodium 5,000 units 05/14/24 08:00 05/15/24 07:28
Heparin 5,000 Units/Ml 1 Ml Vial SC 06/11/24 07:59 5,000 units
Q12 ELIDIA Administration
Hydralazine HCl 10 mg 05/14/24 01:32 05/15/24 00:39
Hydralazine 20 Mg/Ml Vial IV 06/10/24 23:02 10 mg
Q6HPRN PRN Administration
SBP>160
Sodium Chloride 1,000 mls @ 75 mls/hr 05/14/24 10:30 05/14/24 23:38
Nss IV 1,000 mls
.[id number] ELIDIA Administration
Immune Globulin 20 gram in 200 mls @ 0 mls/hr 05/14/24 22:00 05/14/24 22:23
Gammagard IV 05/17/24 22:01 200 mls
DAILY@2200 ELIDIA Administration
Protocol
Per Protocol
Levothyroxine Sodium 75 mcg 05/14/24 06:00 05/15/24 07:27
Levothyroxine 75 Mcg Tablet PO 06/11/24 05:59 75 mcg
DAILY @ 0600 ELIDIA Administration
Oxybutynin Chloride 5 mg 05/14/24 08:00 05/15/24 07:28
Oxybutynin 5 Mg Tablet PO 06/11/24 07:59 5 mg
DAILY ELIDIA Administration
Prednisone 60 mg 05/15/24 08:00 05/15/24 07:28
Prednisone 20 Mg Tablet PO 06/12/24 07:59 60 mg
DAILY ELIDIA Administration
Pyridostigmine Hasty 60 mg 05/14/24 08:00 05/15/24 07:28
Pyridostigmine 60 Mg Tablet PO 06/11/24 07:59 60 mg
TID ELIDIA Administration
Sodium Chloride 0 flush 05/13/24 23:00
Sodium Chloride 0.9% (Flush) Syringe IV 06/10/24 22:59
PER PROTOCOL ELIDIA
Sterile Water 10 ml 05/14/24 10:00 05/15/24 10:21
Sterile Water For Injection 10 Ml Vial IV 06/11/24 09:59 10 ml
Q24H ELIDIA Administration
Tramadol HCl 50 mg 05/13/24 23:03
Tramadol Hcl 50 Mg Tablet PO 06/10/24 23:02
Q6HPRN PRN
MODERATE PAIN
Home Medications
-
Home Medications
oxybutynin chloride 5 mg tablet 5 mg PO BID Urinary Issue 07/09/16
alprazolam 0.5 mg tablet 0.5 mg PO HS Mental Health/Anxiety 07/10/16
tramadol 50 mg tablet 50 mg PO Q6HPRN PRN pain #10 tabs 02/23/19
alprazolam 0.5 mg tablet 0.25 mg PO BIDPRN PRN anxiety 05/13/24
famotidine 40 mg tablet 40 mg PO BID Gastrointestinal Issue 05/13/24
levothyroxine 75 mcg tablet 75 mcg PO HS Thyroid 05/13/24
prednisone 10 mg tablet 10 mg PO DAILY Anti-Inflammatory 05/13/24
pyridostigmine bromide 60 mg tablet (Mestinon) 60 mg PO TID Myashenia gravis 05/13/24
acetaminophen 500 mg capsule 500 mg PO Q6H PRN pain 05/14/24
calcium 600 mg capsule 600 mg PO DAILY Supplement 05/14/24
calcium carbonate (Tums) 200 mg PO QIDPRN PRN heartburn 05/14/24
estradiol 0.01% (0.1 mg/gram) vaginal cream 1 applic S PRE PROCEDURE PRN prior to pessury 05/14/24
naproxen 220 mg-diphenhydramine 25 mg tablet (Aleve PM) 2 tab PO HS Pain 05/14/24
vit B12 50 mcg-folic acid 200 mcg-vit D3 100 [id number] capsule 1 cap PO DAILY Supplement 05/14/24
vitamin D3 125 mcg (5,000 unit)-vitamin K2 100 mcg capsule 1 cap PO DAILY Supplement 05/14/24
[2024-05-15] MEDS: NSS 1000 IV (12:41)
--- NOTE | 2024-05-15 13:24 | PTOTSP ---
SPEECH THERAPY SWALLOW EVALUATION:
Patient exhibits grossly functional oropharyngeal swallow at this time. Patient remains at risk for dysphagia/aspiration given MG flare and worsened dysphagia symptoms yesterday per patient report. Patient reported symptoms have largely resolved at
this time. Recommend continue Regular texture solids, thin liquids. Medications whole in puree or with thin liquid as best tolerated. General Aspiration/Reflux precautions: Upright positioning; Small single sips/bites; Slow rate of intake;
Intersperse liquids; Thorough mastication; Monitor for signs of aspiration or recurring dysphagia symptoms; Remain upright 30 minutes after eating/drinking. Oral care 3x/day and increased mobility as able/tolerated to reduce risk for nosocomial
infection. ST to follow, monitor CXR and labs, assess diet tolerance and modify as appropriate, and determine indication for VSE as appropriate.
RECOMMEND:
1) Regular texture solids, thin liquids
2) Medications whole in puree or with thin liquid as best tolerated
3) General Aspiration/Reflux precautions: Upright positioning; Small single sips/bites; Slow rate of intake; Intersperse liquids; Thorough mastication; Monitor for signs of aspiration or recurring dysphagia symptoms; Remain upright 30 minutes after
eating/drinking
4) Oral care 3x/day and increased mobility as able/tolerated to reduce risk for nosocomial infection
5) ST to follow, monitor CXR and labs, determine indication for VSE as appropriate
--- NOTE | 2024-05-15 20:00 | PTCARENOTE ---
Rec'd pt resting in bed, amb to bathroom w/o difficulty, BROOKE at 3mm, has old R smile droop per pt, MANLEY, follows commmands, speach clear, + pulses, no edema, RA, lungs clear, + bowel sounds, no n/v, voiding in bathroom
[2024-05-15] MEDS: BENADRYL 25 MG IV (21:27)
[2024-05-15] MEDS: GAMMAGARD 200 IV (21:49)
--- NOTE | 2024-05-15 22:02 | PTCARENOTE ---
IVIG started per protocal after pre med w/ tylenol & Benadryl
[2024-05-16] VITALS (31 sets, daily range): BP systolic 110–175; BP diastolic 66–108; BMI 24.6
[2024-05-16] MEDS: NSS 1000 IV (01:46)
[2024-05-16] MEDS: SYNTHROID 75 MCG PO (05:12)
[2024-05-16] MEDS: HEPARIN 5000 UNITS SC ×2 (08:21→20:37)
[2024-05-16] MEDS: DELTASONE 60 MG PO (08:21)
[2024-05-16] MEDS: MESTINON 60 MG PO ×3 (08:21→20:45)
[2024-05-16] MEDS: PEPCID 40 MG PO (08:21)
[2024-05-16] MEDS: DITROPAN 5 MG PO (08:21)
--- NOTE | 2024-05-16 09:00 | PTCARENOTE ---
Rec'd pt at 0800 awake alert and oriented resting in bed. Denies dizziness or headache. Pt still with R eyelid droop and admits to a 'sand like' sensation in her eye but not itchy. BROOKE at 3mm. SINDHU. Neuro check completed with off going shift and
currently smile is even-no droop noted. SINDHU. Will admit to intermittent 'numbness' in her legs but not currently and states its chronic. Skin is pink wm and dry. Respirs are unlabored on RA with sats of 93-94%. BS are clear. Pt aware of having an O2
study last night and admits at home that she does snore a lot. Ht tones are regular. VS as documented. No edema. + pulses. Abd is soft with + BS. Had a loose BM last pm. Voided in the toilet- denies difficulty with voiding. IV NS infusing at 75
ml/hr via L wrist IV site. Capped ints intact LAC and RAC-sites wnl. Assisted to the bathroom this am- gait steady and no c/o dizziness. Did own AM care in the bathroom and currently resting back in bed. Good appetite for breakfast. Plan of care
reviewed with pt and call farris in reach.
[2024-05-16] MEDS: ROCEPHIN 1000 MG IV (10:32)
[2024-05-16] MEDS: STERILE WATER FOR INJECTION 10 ML IV (10:34)
--- NOTE | 2024-05-16 10:40 | PTCARENOTE ---
Remains resting oob in the chair. No distinct complaints. Watching assigned Health videos
--- NOTE | 2024-05-16 13:00 | PTCARENOTE ---
Good appetite for lunch. IV fluids capped. Remains oob in the chair. Neurology in to see pt
[2024-05-16 13:18] LABS: Lyme Antibody Screen, EIA Negative (Negative)
--- NOTE | 2024-05-16 14:18 | W.PN.HOSP.TC ---
Addendum entered and electronically signed by Nehal Reaves MD 05/16/24 15:14:
I saw and evaluated the patient independently. I reviewed the resident�s note and agree with findings and plan as documented by Dr. Holloway.
GENERAL: well developed, well nourished, female in no apparent distress
HEENT: NC/AT
HEART: regular rate and rhythm, +S1, +S2
LUNGS : clear to auscultation bilaterally
ABDOM: soft, nontender, nondistended, + bowel sounds
EXT: no cyanosis, clubbing, or edema
NEUROLOGIC: grossly intact
Myasthenia gravis flare--presented with right eyelid ptosis and respiratory symptoms--apprec neuro--cont IVIG--today day 4 of 5--prednisone lowered per neuro (Dr. Stephens) today--cont mestinon
acute hypoxemic resp insufficiency--Pt desaturated to 70s a few nights ago, nocturnal pulse ox with desat <89% total about 3 minutes-- Does not meet criteria for outpt O2-- Outpt eval with pulm--may need sleep study
Likely UTI from UA perspective--urine culture negative--nevertheless, completed rocephin
History of bladder prolapse with current pessary
History of stool incontinence secondary to Mestinon
Essential hypertension with elevated blood pressure secondary to anxiety-- PRN hydralazine
GERD-- Continue PPI
Hyperlipidemia -- diet controlled
Hypothyroidism-- Continue levothyroxine
Osteoarthritis-- Continue tramadol
code status -- DNR/DNI
Original Note:
Today's Communication/Plan
-
Continue IVIG/mestinon/prednisone
PT/OT
Assessment / Plan
Assessment / Plan
74 yr old female with hx of myastenia gravis, who presents with myastenia gravis flare.
Myasthenia gravis flare:
-with right eyelid droop/respiratory symptoms
-cont IVIG day 4 of 5/Mestinon/Prednisone. Prednisone reduced to 10mg per neuro recs
-neuro following
-Pt desaturated to 70s a few nights ago, nocturnal pulse ox with desat <89% total about 3 minutes. Does not meet criteria for outpt O2. Outpt eval with pulm
Likely UTI:
-Completed recephin
-Urine Cx negative
Other problems:
History of bladder prolapse with current pessary
History of stool incontinence secondary to Mestinon
Essential hypertension with elevated blood pressure secondary to anxiety: PRN hydralazine
GERD: Continue PPI
Hypercholesterolemia
Hypothyroidism: Continue levothyroxine
Osteoarthritis: Continue tramadol
DNR/DNI/heparin
Anticipated Discharge: Within 24 hours
Subjective/Interval History
-
Date of Service: May 16, 2024
Pt reports feeling much improved, but not quite at baseline.
Objective Data
-
Vital Signs:
Vital Signs
Temp Pulse Resp BP Pulse Ox
98.6 F 102 18 163/88 93
05/16/24 07:20 05/16/24 12:45 05/16/24 12:45 05/16/24 12:45 05/16/24 08:00
I&O
05/15/24 05/16/24 05/17/24
06:59 06:59 06:59
Intake Total 1518.6 / 1593.6 1360 / 1435 725 / 725
Output Total 1190 / 1190 725 / 725
Balance 328.6 / 403.6 635 / 710 725 / 725
Review of Systems
-
History Source: Patient
Constitutional: Denies No Appetite
Respiratory: Denies Trouble Breathing
Abdomen/GI: Reports Diarrhea and Other (No dysphagia, tolerates diet); Denies Nausea or Vomiting
Neuro: Reports Weakness (mild weakness in RLL. Mild difficulty keeping right eye shut tightly, mild difficulty with L-R tongue movement)
Physical Exam
-
General: Well Developed, Well Nourished, No Apparent Distress and Comfortable
HEENT: Normocephalic, Atraumatic and Moist Mucous Membranes
Respiratory: Clear to Auscultation and Non Labored Respirations; Negative Wheezes, Rales, Rhonchi or Crackles
Cardiac: Regular Rhythm and S1/S2; Negative Murmur, Rub or Calf Tenderness
GI: Soft, Nontender, Nondistended and Normal Bowel Sounds
Musculoskeletal: No Clubbing, No Cyanosis and No Edema
Skin: Warm and Dry
Neuro: Awake, Alert, Oriented and Nonfocal/Grossly Intact
Psych: Calm
[2024-05-16 15:05] LABS: SSA 52 (Ro)(ENA) Ab, IgG 13 AU/mL (0-40); SSA 60 (Ro)(ENA) Ab, IgG 21 AU/mL (0-40); SSB (La)(ENA) Ab, IgG 4 AU/mL (0-40)
--- NOTE | 2024-05-16 15:27 | CM ---
Patient seen at bedside with physicians. PT recommending home health, CM working with physicians to clarify if patient qualified for home O2. CM will continue to follow for discharge planning needs.
Plan; home with VN; watch for home O2 needs
[2024-05-16] MEDS: APRESOLINE 10 MG IV (16:53)
[2024-05-16] MEDS: FLUSH (NSS) 2 FLUSH IV (16:54)
[2024-05-16] MEDS: FLUSH (NSS) 1 FLUSH IV (16:55)
--- NOTE | 2024-05-16 17:00 | PTCARENOTE ---
Assesssment overall is unchanged. Still with sl R eye droop and intermittently a sl R facial droop but barely noticeable. No complaints offered. BP elevated 162/101 after taking several times was the lowest reading. Hydralazine 10 mg IV given at
1655. Pt informed of possible transfer to a semi private room and anxious and concerned as she tends to have loose stools with the Mestinon. Will await a private room if possible. Remains oob- ambulates in the room intermittently. Gait is steady
--- NOTE | 2024-05-16 17:40 | PTCARENOTE ---
Bp 152/90m post Hydralazine
--- NOTE | 2024-05-16 20:00 | PTCARENOTE ---
Rec'd pt resting in bed, amb ad jenni in room without difficulty, slight droop when smiling R lip-per pt this is not new, + pulses,no pain, RA, lungs clear, sat 97, + bowel sounds, having loose stool, no n/v, abd soft, voiding without problem in
bathroom
[2024-05-16] MEDS: NORVASC 5 MG PO (20:37)
[2024-05-16] MEDS: TYLENOL 650 MG PO (20:44)
[2024-05-16] MEDS: BENADRYL 25 MG IV (20:44)
[2024-05-16] MEDS: GAMMAGARD 200 IV (21:19)
--- NOTE | 2024-05-16 21:28 | PTCARENOTE ---
IVIG started after premed w/ tylenol & benadryl
[2024-05-17] VITALS (8 sets, daily range): BP systolic 111–167; BP diastolic 59–103; BMI 24.4
--- NOTE | 2024-05-17 | PTCARENOTE ---
IVIG completed, pt sleeping
[2024-05-17] MEDS: TYLENOL 650 MG PO ×2 (03:02→07:08)
--- NOTE | 2024-05-17 03:04 | PTCARENOTE ---
2 tabs tylenolpo given for mild frontal headache
[2024-05-17 03:22] LABS: Hematocrit 36.4 % (37.0-47.0); Hemoglobin 12.5 g/dL (12.0-16.0); Mean Corp Hgb Conc. 34.3 g/dL (33.0-37.0); Mean Corpuscular Hgb 32.1 pg (27.0-31.0); Mean Corpuscular Volume 93.6 fL (81.0-99.0); Mean Platelet Volume 9.1 fL (7.4-10.4); Platelet Count 283 10^3/uL (130-400); Red Blood Cell Count 3.89 10^6/uL (4.20-5.40); White Blood Cell Count 11.1 10^3/uL (4.8-10.8)
[2024-05-17 03:45] LABS: Blood Urea Nitrogen 30 mg/dl (7-17); Calcium 9.4 mg/dl (8.4-10.2); Carbon Dioxide 22 mmol/L (22-30); Chloride 109 mmol/L (98-107); Estimated Creatinine Clearance 51 ml/min; Glucose 94 mg/dl (70-99); Magnesium 1.9 mg/dl (1.6-2.3); Sodium 138 mmol/L (135-145); eGFR > 60.00
[2024-05-17] MEDS: ULTRAM 50 MG PO ×2 (05:41→14:43)
[2024-05-17] MEDS: APRESOLINE 10 MG IV (05:41)
--- NOTE | 2024-05-17 05:42 | PTCARENOTE ---
ultram 50 mg po given for headahe, apresoline 10mg IV given for elevated bp
--- NOTE | 2024-05-17 06:34 | PTCARENOTE ---
pt states headache has not improved, Eduardo Garrido NP notified-awaiting orders
--- NOTE | 2024-05-17 07:09 | PTCARENOTE ---
tylenol 650 mg po given as ordered
--- NOTE | 2024-05-17 08:26 | PTCARENOTE ---
pt awake oriented to self confused to time and place. anxious. follows commands with encouragement. inc of urine and stool. condom cath on pt. ivf running as ordered. pt states pain in arms.
[2024-05-17 08:32] LABS: Alpha 1 Globulin 0.26 g/dL (0.19-0.46); SPEP IFE Reflex Not Done; Total Protein-Electrophoresis 8.1 g/dL (6.3-8.2)
[2024-05-17] MEDS: DITROPAN 5 MG PO (09:31)
[2024-05-17] MEDS: NORVASC 5 MG PO ×2 (09:31→20:06)
[2024-05-17] MEDS: DELTASONE 10 MG PO (09:32)
[2024-05-17] MEDS: STERILE WATER FOR INJECTION 10 ML IV (09:32)
[2024-05-17] MEDS: ROCEPHIN 1000 MG IV (09:32)
[2024-05-17] MEDS: HEPARIN 5000 UNITS SC ×2 (09:32→20:05)
[2024-05-17] MEDS: PEPCID 40 MG PO (09:32)
[2024-05-17] MEDS: MESTINON 60 MG PO ×3 (09:32→21:52)
--- NOTE | 2024-05-17 09:58 | PTCARENOTE ---
pt aaox3. forgetful at times. states pain on top of head that she gets with ivig. pain meds given as ordered. pt daughter at bedside. reviewed pt condition and plan of care. slight right eye droop noted. pt states her jaw is sore from chewing.
--- NOTE | 2024-05-17 10:42 | W.PN.NEURO.1 ---
Today's Communication / Plan
-
IVIG Day 5
prednisone 60 daily
Mestinon 60 TID
Neuro Assessment/Plan
Assessment
Myesthenia crisis, symptoms worsening worsening today
IVIG day 5 tonight
can't blame it on changing steroid dose, as the worsening symptoms began before the drop in dose took effect; however decision to not drop her dose to prednisone 10; and instead continue prednisone 60 until she sees her neurologist Dr Terry.
continue Mestinon 60 TID
hope for discharge tomorrow
Subjective/Objective
Subjective Data
Date of Service: May 17, 2024
seen yesterday - patient was doing well, feeling stronger. She had received 3 doses of IVIG, and was doing well, so we planned to lower prednisone dose back to 10 for today.
seen this morning - patient feels more fatigued, more face/eye drooping. c/o headache, moderate severity, got tramadol ~6 am, and just got tylenol - helping a little bit
Objective Data
Vital Signs
Temp Pulse Resp BP Pulse Ox
37.0 C 95 18 111/61 95
05/17/24 08:11 05/17/24 09:31 05/17/24 09:30 05/17/24 09:31 05/17/24 09:30
Lab Results
05/17/24 02:56
05/17/24 02:56
PT 12.2 Sec (11.4-14.6) 05/14/24 00:07
INR 0.88 05/14/24 00:07
APTT 24.7 Sec (23.4-35.0) 05/14/24 00:07
Sodium 138 mmol/L (135-145) 05/17/24 02:56
Potassium 4.0 mmol/L (3.5-5.1) 05/17/24 02:56
BUN 30 mg/dl (7-17) H 05/17/24 02:56
Glucose 94 mg/dl (70-99) 05/17/24 02:56
Calcium 9.4 mg/dl (8.4-10.2) 05/17/24 02:56
Phosphorus 3.5 mg/dl (2.5-4.5) 05/14/24 00:07
Vitamin B12 584 pg/ml (239-931) 05/14/24 10:56
Patient Allergies
Penicillins Allergy (Severe, Verified 02/23/19 17:54)
Hives
adhesive tape Allergy (Verified 02/23/19 17:54)
Unknown
sulfamethoxazole [From Bactrim] Allergy (Verified 02/23/19 17:54)
chest tightness
trimethoprim [From Bactrim] Allergy (Verified 02/23/19 17:54)
chest tightness
gabapentin Adverse Reaction (Verified 05/14/24 16:37)
severe headache
Physical Exam
-
transfers self bed to chair
grossly full strength
decreased tone
mild ptosis, facial droop bilateral
--- NOTE | 2024-05-17 10:47 | PN.CDI ---
CDI
- -
CDI:
Physician Documentation Request
Admit Date: 05/13/24 22:28
Dear Doctor Jelly/Resident,
Please review the following and provide your response in the progress notes.
Clinical Indicators:
Pt admitted with Myasthenia gravis flare/UTI
Documented per H&P and progress notes 05/16 & 05/17, 'Essential hypertension with elevated blood pressure secondary to anxiety-- PRN hydralazine'
Pt care note 05/16 @ 1700,'BP elevated 162/101 after taking several times was the lowest reading. Hydralazine 10 mg IV given at 1655.'
Pt care note 05/17@ 0542,' ...apresoline 10mg IV given for elevated bp.'
Per MAR Hydralazine given 5 mg IV 05/13, 10 mg IV 05/14 and 5 mg IV 05/14/Brain MRI also done
05/13/24
20:55 05/14/24
00:10 05/14/24
00:15
Blood pressure 198/90 198/99 183/93
05/14/24
08:00 05/16/24
17:00 05/16/24
21:00
Blood pressure 158/100 164/108 156/101
05/16/24
21:27 05/17/24
05:41
Blood pressure 172/90 167/103
Clarify which, if any of the following, is a more accurate diagnosis reflecting the type and acuity of the documented hypertension:
Hypertensive Urgency - B/P is severely elevated (systolic > or = to 180 or diastolic > or = to 110) but there is no associated organ damage. Symptoms may include: headache, shortness of breath, nosebleeds, severe anxiety. Treatment usually consists
of addition to or adjusting of oral medications and does not generally necessitate hospitalization.
Hypertensive Emergency - B/P is severely elevated (systolic > or = to 180 or diastolic > or = to 110) but can occur at lower levels especially in patients who did not previously have high B/P. There is usually associated organ damage. Symptoms may
include: memory loss, LOC, CVA, DC, angina, renal failure, pulmonary edema. Generally requires more aggressive treatment and a hospitalization.
Essential HTN only
Other (please specify)
Use of terms such as suspected, likely, concern for, or probable (associated with a specific diagnosis that is being evaluated, monitored, or treated as if it exists) are acceptable and can be coded in the inpatient setting, when documented at the
time of discharge.
Thank you,
Mireya Moore RN
CDI Specialist
[place] [facility]
Please use your independent medical judgment in providing your response.
--- NOTE | 2024-05-17 11:35 | CM ---
Patient seen at bedside with daughter and physicians. Patient stated that she would like PT/OT and VN and was updated that she does not qualify for home O2 at home. Patient to follow up with Pulmonary and Muscle physician. Patient daughters in
agreement when patient medically appropriate for transfer. Patient complained of feeling weaker and patient not for discharge today per physician. Family would be able to transport home. CM will continue to follow for discharge planning needs.
Plan; home with VN; pending family choice and therapy recommendation
[2024-05-17] MEDS: DELTASONE 50 MG PO (12:16)
[2024-05-17] MEDS: MOTRIN 400 MG PO (12:16)
--- NOTE | 2024-05-17 13:34 | W.PN.HOSP.TC ---
Addendum entered and electronically signed by Nehal Reaves MD 05/17/24 15:49:
I saw and evaluated the patient independently. I reviewed the resident�s note and agree with findings and plan as documented by Dr. Holloway.
GENERAL: well developed, well nourished, female in no apparent distress
HEENT: NC/AT
HEART: regular rate and rhythm, +S1, +S2
LUNGS : clear to auscultation bilaterally
ABDOM: soft, nontender, nondistended, + bowel sounds
EXT: no cyanosis, clubbing, or edema
NEUROLOGIC: grossly intact
Myasthenia gravis flare--presented with right eyelid ptosis and respiratory symptoms--apprec neuro--cont IVIG--today day 5 of 5--prednisone lowered per neuro (Dr. Stephens) but pt felt worse today--agree with Dr. Stephens, keep prednisone at 60 mg daily and f/u
with outside neurologist--cont Mestinon
acute hypoxemic resp insufficiency--Pt desaturated to 70s a few nights ago, nocturnal pulse ox with desat <89% total about 3 minutes-- Does not meet criteria for outpt O2-- Outpt eval with pulm--may need sleep study
Likely UTI from UA perspective--urine culture negative--nevertheless, completed rocephin
History of bladder prolapse with current pessary
History of stool incontinence secondary to Mestinon
Essential hypertension with elevated blood pressure secondary to anxiety-- PRN hydralazine
GERD-- Continue PPI
Hyperlipidemia -- diet controlled
Hypothyroidism-- Continue levothyroxine
Osteoarthritis-- Continue tramadol
code status -- DNR/DNI
hopeful d/c tomorrow
Original Note:
Today's Communication/Plan
-
Continue abx, discharge planning
Assessment / Plan
Assessment / Plan
74 yr old female with hx of myastenia gravis, who presents with myastenia gravis flare.
Myasthenia gravis flare:
-with right eyelid droop/respiratory symptoms
-cont IVIG day 5 of 5/Mestinon/Prednisone. Pt reports headaches, aches and gen weakness, likely secondary to steroid dose reduction. Prednisone increased to 60 daily
-appreciate neuro
-Pt desaturated to 70s a few nights ago, nocturnal pulse ox with desat <89% total about 3 minutes. Does not meet criteria for outpt O2. Outpt eval with pulm
Likely UTI:
-Completed recephin
-Urine Cx negative
Hypertensive urgency:
Hx of essential HTN. SBP >180. likely secondary to anxiety. More controlled now. Continue Amlodipine 5mg BID, PRN hydralazine.
Other problems:
History of bladder prolapse with current pessary
History of stool incontinence secondary to Mestinon
GERD: Continue PPI
Hypercholesterolemia
Hypothyroidism: Continue levothyroxine
Osteoarthritis: Continue tramadol
DNR/DNI/heparin
Anticipated Discharge: Within 24 hours
Subjective/Interval History
-
Date of Service: May 17, 2024
Feels worse today
Objective Data
-
Labs:
Laboratory Results
05/17/24
02:56
WBC 11.1 H
Hgb 12.5
Hct 36.4 L
Plt Count 283
Sodium 138
Potassium 4.0
Chloride 109 H
Carbon Dioxide 22
BUN 30 H
Creatinine 0.8
Glucose 94
Calcium 9.4
Vital Signs:
Vital Signs
Temp Pulse Resp BP Pulse Ox
98.6 F 95 18 111/61 95
05/17/24 08:11 05/17/24 09:31 05/17/24 09:30 05/17/24 09:31 05/17/24 09:30
I&O
05/16/24 05/17/24 05/18/24
06:59 06:59 06:59
Intake Total 1360 / 1435 1225 / 1225
Output Total 725 / 725
Balance 635 / 710 1225 / 1225
Review of Systems
-
History Source: Patient and Family (daughter at bedside says her mother seems somewhat confused)
Constitutional: Reports Fatigue
EENT: Reports Other (bulbar muscle fatigue, unable to finish breakfast)
Respiratory: Reports Trouble Breathing (some SOB with prolonged speaking)
Cardiac: Denies Chest Pain
Abdomen/GI: Reports Diarrhea; Denies Abdominal Pain, Nausea or Vomiting
Musculoskeletal: Reports Joint Pain and Muscle Pain (aches)
Neuro: Reports Headache
Physical Exam
-
General: Well Developed, Well Nourished, No Apparent Distress, Comfortable and Other (appears tired)
HEENT: Normocephalic, Atraumatic and Moist Mucous Membranes
Respiratory: Clear to Auscultation and Non Labored Respirations; Negative Wheezes, Rales, Rhonchi or Crackles
Cardiac: Regular Rhythm and S1/S2; Negative Murmur, Rub or Calf Tenderness
GI: Soft, Nontender, Nondistended and Normal Bowel Sounds
Skin: Warm and Dry
Neuro: Awake, Alert, Oriented and Other (mild squint of right eye)
Psych: Calm
[2024-05-17 13:49] LABS: Vitamin B1, Whole Blood 354 nmol/L (70-180)
--- NOTE | 2024-05-17 15:00 | PTCARENOTE ---
report received. aaox3. vss. plan of care updated. call farris in reach. will monitor.
[2024-05-17] MEDS: GAMMAGARD 200 IV (21:47)
[2024-05-17] MEDS: SYNTHROID 75 MCG PO (21:52)
[2024-05-18 00:46] VITALS: BP 128/71
[2024-05-18 06:38] LABS: Hematocrit 39.8 % (37.0-47.0); Mean Corp Hgb Conc. 35.2 g/dL (33.0-37.0); Mean Corpuscular Hgb 32.3 pg (27.0-31.0); Mean Corpuscular Volume 91.9 fL (81.0-99.0); Mean Platelet Volume 9.2 fL (7.4-10.4); Platelet Count 328 10^3/uL (130-400); Red Blood Cell Count 4.33 10^6/uL (4.20-5.40); Red Cell Dist. Width 13.1 % (11.5-14.5); White Blood Cell Count 12.9 10^3/uL (4.8-10.8)
[2024-05-18 07:00] VITALS: BP 151/92
[2024-05-18 07:12] LABS: Blood Urea Nitrogen 34 mg/dl (7-17); Calcium 9.5 mg/dl (8.4-10.2); Carbon Dioxide 24 mmol/L (22-30); Chloride 108 mmol/L (98-107); Estimated Creatinine Clearance 59 ml/min; Glucose 94 mg/dl (70-99); Sodium 138 mmol/L (135-145); eGFR > 60.00
[2024-05-18] MEDS: MESTINON 60 MG PO (08:52)
[2024-05-18] MEDS: DELTASONE 60 MG PO (08:52)
[2024-05-18] MEDS: PEPCID 40 MG PO (08:52)
[2024-05-18] MEDS: DITROPAN 5 MG PO (08:52)
[2024-05-18] MEDS: NORVASC 5 MG PO (08:53)
[2024-05-18] MEDS: HEPARIN 5000 UNITS SC (08:53)
--- NOTE | 2024-05-18 10:38 | CM ---
Patient seen at bedside with physicians and daughter. Plan for discharge home today. Patient referral to [facility] and daughter to transport home. IMM completed and signed form placed on chart. CM will continue to follow for discharge planning
needs.
Plan;home with family; [facility]
--- NOTE | 2024-05-18 11:44 | VNURNOTE ---
Chart reviewed. Patient DC'ed home before liaison could meet with her. Call made to patient's daughters Mansi and Annabel. Explained [facility] declined patient. daughters are agreeable to VN. Liaison explained [facility] nurse/therapy, visits,
schedule and homebound status. Daughters are agreeable and understand that visits at home will be 2-3 x per week to assess and teach medical management. [facility] contact information provided. Daughters are aware that [facility] will contact them for start of
care in 1-2 days..
[facility] referral completed in [facility].
--- NOTE | 2024-05-18 20:32 | W.PN.HOSP.TC ---
Addendum entered and electronically signed by Nehal Reaves MD 05/18/24 20:47:
I saw and evaluated the patient independently. I reviewed the resident�s note and agree with findings and plan as documented by Dr. Holloway.
GENERAL: well developed, well nourished, female in no apparent distress
HEENT: NC/AT
HEART: regular rate and rhythm, +S1, +S2
LUNGS : clear to auscultation bilaterally
ABDOM: soft, nontender, nondistended, + bowel sounds
EXT: no cyanosis, clubbing, or edema
NEUROLOGIC: grossly intact
Myasthenia gravis flare--presented with right eyelid ptosis and respiratory symptoms--apprec neuro--finished IVIG---prednisone lowered per neuro (Dr. Stephens) but pt felt worse today--agree with Dr. Stephens, keep prednisone at 60 mg daily and f/u with outside
neurologist--cont Mestinon
acute hypoxemic resp insufficiency--Pt desaturated to 70s a few nights ago, nocturnal pulse ox with desat <89% total about 3 minutes-- Does not meet criteria for outpt O2-- Outpt eval with pulm--may need sleep study
Likely UTI from UA perspective--urine culture negative--nevertheless, completed rocephin
History of bladder prolapse with current pessary
History of stool incontinence secondary to Mestinon
Essential hypertension with elevated blood pressure secondary to anxiety/IVIG/steroids-- PRN hydralazine--but started norvasc at d/c
GERD-- Continue PPI
Hyperlipidemia -- diet controlled
Hypothyroidism-- Continue levothyroxine
Osteoarthritis-- Continue tramadol
code status -- DNR/DNI
OK for d/c
Original Note:
Today's Communication/Plan
-
DC planning
Assessment / Plan
Assessment / Plan
74 yr old female with hx of myastenia gravis, who presents with myastenia gravis flare.
Myasthenia gravis flare:
-with right eyelid droop/respiratory symptoms
-completed IVIG course. Continue Mestinon and Prednisone at 60mg daily. Patients feels better today but still reports some facial fatigue with prolonged talking
-appreciate neuro. Stable for DC. Will DC with one week rx for Prednisone 60mg daily, pt is to follow up immediately with neuromuscular specialist for dose adjustment/taper
UTI:
-Completed recephin
-Urine Cx negative
Hypertensive urgency:
Hx of essential HTN. SBP >180. likely secondary to anxiety, steroids potentially contributory. More controlled now. Continue Amlodipine 5mg BID. Follow up with PCP outpt.
Other problems:
History of bladder prolapse with current pessary
History of loose stool/stool incontinence secondary to Mestinon. Loose stool currently
GERD: Continue PPI
Hypercholesterolemia
Hypothyroidism: Continue levothyroxine
Osteoarthritis: Continue tramadol
DNR/DNI/heparin
Anticipated Discharge: Today
Subjective/Interval History
-
Date of Service: May 18, 2024
No acute overnight events
Objective Data
-
Vital Signs:
Vital Signs
Temp Pulse Resp BP Pulse Ox
98.3 F 82 18 151/92 96
05/18/24 07:00 05/18/24 08:53 05/18/24 07:00 05/18/24 08:53 05/18/24 07:00
I&O
05/17/24 05/18/24 05/19/24
06:59 06:59 06:59
Intake Total 1225 / 1225 680 / 680
Balance 1225 / 1225 680 / 680
Review of Systems
-
History Source: Family
Constitutional: Reports No Symptoms
Respiratory: Denies Cough or Trouble Breathing
Cardiac: Denies Chest Pain
Abdomen/GI: Denies Abdominal Pain, Nausea or Vomiting
Neuro: Reports Other (facial fatigue with prolonged speech )
Physical Exam
-
General: No Apparent Distress and Comfortable
HEENT: Normocephalic, Atraumatic and Other (cheek flushing)
Respiratory: Clear to Auscultation and Non Labored Respirations; Negative Wheezes, Rales, Rhonchi or Crackles
Cardiac: Regular Rhythm and S1/S2; Negative Murmur, Rub or Calf Tenderness
GI: Soft, Nontender, Nondistended and Normal Bowel Sounds
Musculoskeletal: No Clubbing, No Cyanosis and No Edema
Skin: Warm and Dry
Neuro: Awake and Alert
Psych: Calm
--- NOTE | 2024-05-19 17:47 | W.DCSUMMARY ---
Addendum entered and electronically signed by Nehal Reaves MD 05/20/24 07:25:
Read, reviewed, and agree. See same day progress note for additional details. Time spent coordinating care, DC planning, review of DC plan of care with resident, transition of care, review of records in EMR, med rec, consults, notes, d/w
consultants, nursing, family, and CM = 32 minutes
Actual date of discharge was 05/18/2024.
Original Note:
Discharge Summary
Discharge Data
Date of Admission: 05/13/24
Date of Discharge: 05/19/24
-
Pending Results: No
Hospital Course
Discharging Physician : Radha Holloway MD.; Nehal Reaves MD.
Disposition : Home with home care
Primary care physician : Guerline Araya MD.
Principal Discharge diagnosis : Myasthenia gravis flare, Urinary tract infection
Chronic Discharge diagnosis : Myasthenia gravis, GERD, Essential hypertension, hyperlipidemia, hypothyroidism, osteoarthritis
Hospital Course :
HPI 05/13/2024:
74-year-old female with above history who presents with difficulty breathing. She is followed by neurologist at [facility]. Her myasthenia gravis medication was increased recently. Patient denies any chest pain. No sore throat. There has been no fever.
No vomiting. Daughter noticed that her bilateral face seemed to be drooping as of 2 days ago which is typical of her MG.
In the ED, BP was 168/96, and she was mildly tachycardic with increased work of breathing. WBC 11.4. Respiratory status improved dramatically with 2L O2 NC. She was admitted and IVIG with high dose steroids were started. Mestinon was continued. IVIG
therapy was continued for 5 days. Neurologist was in contact with patient's outpatient neuromuscular specialist throughout her treatment while admitted. Adjustments to steroid course were made as deemed appropriate.
Urinalysis was positive, and patient completed a course of Ceftriaxone. Urine cx negative.
There was an episode of acute hypoxemic respiratory insufficiency, with pt desaturating 70s at night. Nocturnal pulse ox showed desat <89% total 3 mins. This does not meet criteria for home O2, but patient can follow up with outpatient pulmonary
eval.
Chronic medications were continued as appropriate. Amlodipine 5mg BID was started while admitted with PRN Hydralazine.
Pt continued to improve and was deemed stable for discharge to home with home PT and OT, with the following recommendations:
-Continue 60mg Prednisone daily. 7-day rx provided. Be sure to follow up with your neuromuscular specialist, DR. Terry, immediately after discharge to plan taper/next steps.
-Continue Amlodipine 5mg BID
-Follow up with your PCP within one week. Also discuss your blood pressure medication.
Important imaging findings :
CXR 05/13/2024:
1. Mildly decreased bilateral lung volumes.
2. Moderate-sized hiatal hernia.
Brain MRI 05/14/2024:
1. No MRI evidence for acute infarct or intracranial hemorrhage.
2. 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
3. Moderate to severe bilateral signal abnormality in the deep pineda and white matter (basal ganglia, internal capsule, and external capsule) which asymmetrically involves the left internal capsule and surrounds bilateral dilated perivascular
spaces.
4. Mild diffuse cerebral and cerebellar volume loss.
5. Moderate chronic microvascular ischemic disease in the rashaad.
Discharge Plan
-
Patient Disposition: Home with Home Care
Discharge Diagnosis/Procedures: Myastenia Gravis flare
Condition: Fair
Diet: Low Sodium
Activity: As tolerated
Driving Restrictions: No driving
Bathing Restrictions: None
Other Services: VN, PT and OT
Referrals:
Tenthoff,Guerline Carbajal MD [Family Provider] - in less than 1 week
Additional Discharge Medication Instructions: Be sure to follow up with your neuromuscular specialist, DR. Terry, right away.
Follow up with your PCP within one week. Also discuss your blood pressure medication.
Prescriptions:
New
prednisone 20 mg Tablet
60 mg PO DAILY Qty: 7 0RF
amlodipine 5 mg Tablet
5 mg PO BID 30 Days Qty: 60 0RF
Continued
oxybutynin chloride 5 MG tablet
5 mg PO BID
alprazolam 0.5 MG tablet
0.5 mg PO HS
tramadol 50 MG tablet
50 mg PO Q6HPRN PRN (Reason: pain) Qty: 10 0RF
famotidine 40 mg Tablet
40 mg PO BID
levothyroxine 75 mcg Tablet
75 mcg PO HS
alprazolam 0.5 mg Tablet
0.25 mg PO BIDPRN PRN (Reason: anxiety)
pyridostigmine bromide [Mestinon] 60 mg Tablet
60 mg PO TID
estradiol 1 APPLIC cream
1 applic S PRE PROCEDURE PRN (Reason: prior to pessury)
calcium 600 mg Capsule
600 mg PO DAILY
calcium carbonate [Tums] 200 mg calcium (500 mg) Tablet,Chewable
200 mg PO QIDPRN PRN (Reason: heartburn)
acetaminophen 500 mg Capsule
500 mg PO Q6H PRN (Reason: pain)
vit O73-TO-mnb D3-calc cit-Zn 53-126-197-100 klv-[id number]-[id number]-mg Capsule
1 cap PO DAILY
Aleve PM 220-25 mg Tablet
2 tab PO HS
vitamin D3-vitamin K2 125 mcg (5,000 unit)-100 mcg Capsule
1 cap PO DAILY
Discontinued
prednisone 10 mg Tablet
10 mg PO DAILY
Discharge Orders:
Discharge Patient (As Directed); Ordered 05/18/24
Ordered By: Radha Holloway
Discharge Date and Time
Discharge Date/Time: 05/18/24 10:48
Print Language: SETSWANA
== END 2024-05-18 10:48 | disposition home health service (06) | DRG 57 ==
LOC: 1 ACUTE 22:28
PROVIDERS: Nurse Practitioner Family; Physician Assistant; Student in an Organized Health Care Education/Training Program; ADMITTING PHYSICIAN Hospitalist; ATTENDING PHYSICIAN Internal Medicine; CONSULT PHYSICIAN Psychiatry & Neurology Neurology; EMERGENCY PHYSICIAN Emergency Medicine; FAMILY PHYSICIAN Family Medicine
PROC: 30233S1 Transfusion of Nonautologous Globulin into Peripheral Vein, Percutaneous Approach (ICD-10-PCS; 2024-05-14)
DX: G70.01 Myasthenia gravis with (acute) exacerbation (principal); N39.0 Urinary tract infection, site not specified; G93.40 Encephalopathy, unspecified; I16.0 Hypertensive urgency; Z66 Do not resuscitate; E03.9 Hypothyroidism, unspecified; E78.00 Pure hypercholesterolemia, unspecified; F41.9 Anxiety disorder, unspecified; H02.401 Unspecified ptosis of right eyelid; R09.02 Hypoxemia; R06.89 Other abnormalities of breathing; I10 Essential (primary) hypertension; K21.9 Gastro-esophageal reflux disease without esophagitis; G62.9 Polyneuropathy, unspecified; M19.90 Unspecified osteoarthritis, unspecified site; Z88.0 Allergy status to penicillin; Z79.890 Hormone replacement therapy; Z88.2 Allergy status to sulfonamides; Z79.899 Other long term (current) drug therapy; Z87.891 Personal history of nicotine dependence; Z11.52 Encounter for screening for COVID-19; Z96.651 Presence of right artificial knee joint; Z96.641 Presence of right artificial hip joint
CPT/HCPCS: 70551; 71045; 80048; 80053; 81003; 81015; 82607; 82746; 83735; 84100; 84155; 84165; 84425; 84443; 85025; 85027; 85610; 85652; 85730; 86140; 86235; 86618; 87086; 87502; 87811; 92610; 93005; 94762; 96374; 97163; 97530; 99285; J1569

== ENCOUNTER 2024-05-29 22:46 | Emergency (ER) | payer OTHER, SELFPAY ==
[2024-05-29 22:48] VITALS: BP 157/93
[2024-05-30 00:30] VITALS: BMI 25.9
--- NOTE | 2024-05-30 00:34 | ED.GENMED ---
History of Present Illness
General
Chief Complaint: Urinary Symptoms
Source: patient and family
Time Seen by Provider: 05/30/24 00:00
History of Present Illness
History of Present Illness:
74-year-old female presents to the emergency room for evaluation of possible urinary tract infection. Patient has been having some mild flank pain. She also has some minor dysuria. She has a history of UTIs. Patient has chronic diarrhea for
which she needs to wear depends. Because of this her daughter believes she is prone to urinary tract infections. Daughter is also concerned because the patient developed 'sepsis' from a urinary tract infection that went untreated. Patient denies
any fever, chills, abdominal pain. No nausea or vomiting.
Past History
Past History
ED Past Medical History: GERD, HTN, Hypercholesterolemia, Hypothyroidism, Psychiatric and Other (Osteoarthritis, neuropathy)
ED Past Surgical History: Orthopedic
Social History
Alcohol: Occasional
Personal:
Living: with family
Employment: Employed
Family History
Family History: Other (Noncontributory)
Phy Exam
Physical Exam
Physical Exam:
General: Awake, Alert, Oriented X3. No acute distress.
Vitals: unremarkable
Head: Atraumatic
Eyes: Pupils equal, EOMI
Throat: Airway intact, no exudates
Neck: Trachea midline
Lungs: Clear and equal b/l
Heart: Regular rate, no murmurs
Abd: Soft, Nontender, No pulsatile mass
Back: No CVA tenderness to percussion
Neuro: Nonfocal
Skin: Warm, dry, no rash
Extremities: pulses equal b/l, no edema
Course
Orders/Labs/Results
Orders:
Orders
05/30/24 00:30
Urine Microscopic Reflex Cult Urgent
Urine Reflex Culture from UA [Urinalysis Reflex To Culture] Urgent
Date Specimen was Collected: 05/30/24
Time Specimen was Collected: 00:29
Urine Culture Urgent
NII Source: U
Specimen Description:
Date Specimen was Collected: 05/30/24
Time Specimen was Collected: 00:29
05/30/24 02:18
Cephalexin Monohydrate [Keflex] 500 mg PO NOW STA
Abnormal Lab Results
05/30/24
00:30
Ur Occult Blood Reflex 3+ A
(Negative)
Leukocyte Esterase Rfl 3+ A
(Negative)
Urine RBC 26-30 A /HPF
(0-2)
Urine WBC (Reflex) >100 A /HPF
(0-5)
Urine Bacteria (Reflex) Many A
(Negative)
Urine Albumin (Reflex) 1+ A
(Neg - Trace)
Vital Signs
Initial and Last Documented VS:
Initial Vital Signs
Temp Pulse Resp BP Pulse Ox
97.8 F 91 20 157/93 98
05/29/24 22:48 05/29/24 22:48 05/29/24 22:48 05/29/24 22:48 05/29/24 22:48
Last Documented Vital Signs
Temp Pulse Resp BP Pulse Ox
97.8 F 74 18 154/89 99
05/29/24 22:48 05/30/24 02:59 05/30/24 02:59 05/30/24 02:59 05/30/24 02:59
MDM/Problems Addressed
Differential Diagnosis Includes:
Cystitis, musculoskeletal back pain, pyelonephritis
MDM/Problems Addressed:
Patient presents with some dysuria and back pain. Her urinalysis is suggestive of a urinary tract infection. Patient started on Keflex. Stable for discharge to take medication at home.
*Pulse Oximetry
Patient hypoxic: no
*Critical Care Note
Total Time (30-74mins, 75-104mins- exclusive of procedures): Not Applicable
ED Attending Note
-
Portions of this chart may have been created with voice recognition software.� Occasional wrong word or��sound alike� substitutions may have occurred due to the inherent limitations of voice recognition software.
Discharge Plan
Departure
Patient Disposition: Home (Routine Discharge)
Date of Disposition: 05/30/24
Time of Disposition: 02:18
Patient with high blood pressure during this ER visit?: Yes
Condition: Good
Discharge Problem:
UTI (urinary tract infection)
Instructions: Urinary Tract Infection, Adult (DC), BLOOD PRESSURE
Prescriptions:
New
cephalexin 500 mg capsule
500 mg PO BID 7 Days Qty: 14 0RF
No Action
oxybutynin chloride 5 MG tablet
5 mg PO BID
alprazolam 0.5 MG tablet
0.5 mg PO HS
tramadol 50 MG tablet
50 mg PO Q6HPRN PRN (Reason: pain) Qty: 10 0RF
famotidine 40 mg Tablet
40 mg PO BID
levothyroxine 75 mcg Tablet
75 mcg PO HS
alprazolam 0.5 mg Tablet
0.25 mg PO BIDPRN PRN (Reason: anxiety)
pyridostigmine bromide [Mestinon] 60 mg Tablet
60 mg PO TID
estradiol 1 APPLIC cream
1 applic S PRE PROCEDURE PRN (Reason: prior to pessury)
calcium 600 mg Capsule
600 mg PO DAILY
calcium carbonate [Tums] 200 mg calcium (500 mg) Tablet,Chewable
200 mg PO QIDPRN PRN (Reason: heartburn)
acetaminophen 500 mg Capsule
500 mg PO Q6H PRN (Reason: pain)
vit D65-ZA-bgb D3-calc cit-Zn [id number] jpw-bva-utzh-mg Capsule
1 cap PO DAILY
Aleve PM 220-25 mg Tablet
2 tab PO HS
vitamin D3-vitamin K2 125 mcg (5,000 unit)-100 mcg Capsule
1 cap PO DAILY
prednisone 20 mg Tablet
60 mg PO DAILY Qty: 7 0RF
amlodipine 5 mg Tablet
5 mg PO BID 30 Days Qty: 60 0RF
Referrals:
Tenthoff,Guerline Carbajal MD [Family Provider] -
Interventions
Interventions:
*Risk Screen - Suicide Last Done: 05/29/24 22:48
*General Assessment Last Done: 05/30/24 02:59
*Neglect/Abuse Screening Last Done: 05/29/24 22:48
*ED- Fall Risk Assessment Last Done: 05/30/24 01:42
*ED COVID-19 Vaccine History Last Done: 05/30/24 02:59
*Nursing Disposition Last Done: 05/30/24 02:59
ED-Female Genitourinary Assessment Last Done: 05/30/24 01:42
Discharge Date and Time
Discharge Date/Time: 05/30/24 02:50
Print Language: [id number]
[2024-05-30 01:02] LABS: Urine Albumin 1+ (Neg - Trace); Urine Bilirubin Negative (Negative); Urine Character Slightly Cloudy (Clear); Urine Color Yellow; Urine Glucose Negative (Negative); Urine Ketone Negative (Negative); Urine Leukocyte 3+ (Negative); Urine Nitrite Negative (Negative); Urine Occult Blood 3+ (Negative); Urine Specific Gravity 1.025 (<1.030); Urine Urobilinogen Negative (Neg - 1+)
[2024-05-30 01:59] LABS: Urine Amorphous Seen; Urine Calcium Oxalate Crystals Seen; Urine Mucus Moderate; Urine Squamous Cell >30 /LPF (Few)
[2024-05-30 02:00] LABS: Urine Bacteria Many (Negative); Urine Red Blood Cell 26-30 /HPF (0-2); Urine White Cell >100 /HPF (0-5)
[2024-05-30] MEDS: KEFLEX 500 MG PO (02:39)
[2024-05-30 02:59] VITALS: BP 154/89
== END 2024-05-30 02:50 | disposition home or self-care (01) ==
LOC: EMR 22:46
PROVIDERS: EMERGENCY PHYSICIAN Emergency Medicine; FAMILY PHYSICIAN Family Medicine
DX: N39.0 Urinary tract infection, site not specified (principal); I10 Essential (primary) hypertension; K21.9 Gastro-esophageal reflux disease without esophagitis; R19.7 Diarrhea, unspecified; E78.00 Pure hypercholesterolemia, unspecified; E03.9 Hypothyroidism, unspecified; M19.90 Unspecified osteoarthritis, unspecified site; G62.9 Polyneuropathy, unspecified; Z87.440 Personal history of urinary (tract) infections; Z88.1 Allergy status to other antibiotic agents; Z88.0 Allergy status to penicillin; Z88.2 Allergy status to sulfonamides; Z88.8 Allergy status to other drugs, medicaments and biological substances; Z91.048 Other nonmedicinal substance allergy status
CPT/HCPCS: 99283; 81003; 81015; 87086

== ENCOUNTER 2024-09-14 20:29 | Inpatient (IN) | payer OTHER, SELFPAY ==
[2024-09-14 12:23] VITALS: BP 158/88
[2024-09-14 14:16] VITALS: BP 112/72
--- NOTE | 2024-09-14 17:14 | ED.SKININJ ---
HPI-Injury
General
Chief Complaint: Bite
Source: patient and family
Exam Limitations: none
Time Seen by Provider: 09/14/24 16:30
Nursing documentation reviewed up to this point in time: agreed with
History of Present Illness-Injury
Is this injury a work related problem?: No
Initial Injury comments:
Patient with right upper arm fracture from fall 2 weeks ago, presents to ED secondary to dog bite which occurred 1 week ago in her right hand by family dog. Patient's dog's vaccinations are up-to-date. Patient was evaluated at urgent care center
on the day of the incident, and was not started on antibiotics. For the past 2 days, patient and family report that her right hand appears to be more swollen. Denies open drainage. Denies fever or chills. No nausea or vomiting.
Past History
Past History
ED Past Medical History: GERD, HTN, Hypercholesterolemia, Hypothyroidism, Psychiatric and Other (Osteoarthritis, neuropathy)
ED Past Surgical History: Orthopedic
Social History
Alcohol: Occasional
Personal:
Living: with family
Employment: Employed
Family History
Family History: Other (Noncontributory)
Review of Systems
Review of Systems
Allergies reviewed?: Yes
All Other Systems: ROS reviewed and negative except as documented in HPI and ROS
Constitutional: Reports no symptoms
ABD/GI: Reports no symptoms
Musculoskeletal: Reports other (Dog bite with hand swelling)
Skin: Reports no symptoms
Neurological: Reports no symptoms
Phy Exam
Physical Exam
Physical Exam:
Physical Exam
General: no apparent distress, not acutely ill. afebrile
Head: nc/at. eomi
Neck: supple. no meningeal signs.
Neuro: alert and oriented x 3. no focal neurological deficits
Skin: right hand: puncture wound noted approx 1cm diameter over dorsal aspect without open drainage/swelling with minimal erythema. no warmth noted
Psychiatric: well kept. interactive and cooperative
Extremities: no edema. no calf tenderness.
Course
Orders/Labs/Results
Orders:
Orders
09/14/24 12:26
Hand, Right 3 View [CR Hand - Right Min 3 Views] Urgent
Comment:
Reason For Exam: R hand dog bite and pain/swelling
09/14/24 12:27
Wrist, Right 3 Views [CR Wrist - Right Min 3 Views] Urgent
Comment:
Reason For Exam: pain/swelling
09/14/24 Dinner
Regular
At Your Request: Full Participation
09/14/24 17:07
Urinalysis Reflex To Culture Urgent
Date Specimen was Collected: 09/14/24
Time Specimen was Collected: 16:57
Urine Microscopic Reflex Cult Urgent
Urine Culture Urgent
NII Source: U
Specimen Description:
Date Specimen was Collected: 09/14/24
Time Specimen was Collected: 16:57
09/14/24 18:31
Complete Blood Count/With Diff Urgent
Comprehensive Metabolic Panel Urgent
09/14/24 19:31
CefTRIAXone [Rocephin] 1,000 mg IV NOW STA
MetroNIDAZOLE 500 MG/100 ML [Flagyl 500 mg] 100 ml IV NOW
09/14/24 19:47
Blood Culture Q30M
NII Source: Blood/Venous
Specimen Description:
Blood Culture Q30M
NII Source: Blood/Venous
Specimen Description:
09/14/24 19:59
Admit/Transfer Patient As Directed
Co-Sign Provider:
Level of Care: Inpatient admission
Assign to:: Medical/Surgical
Physician / Group: Sofya
Diagnosis: Hand cellulitis,
Reason for Hospitalization: Hand cellulitis
Expected length of stay greater than two midnights?: Yes
ELOS- Estimated Length of Stay in days: 2
I certify the patient meets the requirements for IP care: Yes
PRN Pain Medication Management As Directed
May give lesser potent ordered pain med per pt: Yes
preference::
Protocol:: Medication orders for pain may be administered in a
manner that supports deferring to patient preference
when the pt is:
- Requesting an ordered lesser potent pain medication.
Least to most potent pain medications are defined
as: acetaminophen < NSAID < tramadol < opioids
(morphine, oxycodone, hydromorphone).
- Requesting a lesser dose of the same medication IF
ORDERED.
- Requesting a less intrusive route of administration
if both routes are prescribed by the provider (PO <
IV).
09/14/24 20:01
Code Status As Directed
Resuscitation Status: Full Code
09/14/24 21:18
Acetaminophen [Tylenol] 650 mg PO Q4HPRN PRN
Bisacodyl [Dulcolax] 10 mg RECTAL [id number] PRN
Docusate W/Senna [Senokot-S] 1 tablet PO BIDPRN PRN
Ketorolac [Toradol] 10 mg IV Q6HPRN PRN
Oxybutynin Chloride [Ditropan] 5 mg PO BID
Polyethylene Glycol Powder [Miralax] 17 grams PO DAILYPRN PRN
09/14/24 21:18
Activity As Directed
Activity Level: With Assistance
Elevate Extremity As Directed
Extremity:: Right hand
Elevate with:: pillow
Vital Signs As Directed
Frequency: Per unit guidelines
DX Deep Vein Thrombosis Video Routine
09/14/24 22:00
Alprazolam [Xanax] 0.5 mg PO HS
Famotidine [Pepcid] 20 mg PO BID
Levothyroxine [Synthroid] 75 mcg PO HS
Pyridostigmine [Mestinon] 60 mg PO TID
09/14/24 22:01
MRSA Screen Routine
NII Source: Nose
Specimen Description:
09/15/24 04:00
MetroNIDAZOLE 500 MG/100 ML [Flagyl 500 mg] 100 ml IV Q8H
09/15/24 06:00
Basic Metabolic Panel IN AM
Complete Blood Count/No Diff IN AM
09/15/24 08:00
Amlodipine [Norvasc] 5 mg PO DAILY
Prednisone [Deltasone] 40 mg PO Q48H
09/15/24 18:00
Enoxaparin Sodium [Lovenox] 40 mg SC QPM
09/15/24 20:00
CefTRIAXone [Rocephin] 1,000 mg IV Q24H
09/16/24 08:00
Prednisone [Deltasone] 30 mg PO Q48H
Abnormal Lab Results
09/14/24 09/14/24
17:07 18:31
WBC 15.4 H 10^3/uL
(4.8-10.8)
RBC 3.91 L 10^6/uL
(4.20-5.40)
MCH 32.5 H pg
(27.0-31.0)
Abs Immat Gran (auto) 0.3 H 10^3/uL
(0-0.05)
Absolute Neuts (auto) 13.6 H 10^3/uL
(1.4-6.5)
Absolute Lymphs (auto) 0.8 L 10^3/uL
(1.2-3.4)
Absolute Monos (auto) 0.7 H 10^3/uL
(0.1-0.6)
Immature Gran % 1.6 H %
(0-0.5)
Neutrophils % 88.3 H %
(42.2-75.2)
Lymphocytes % 5.1 L %
(20.5-51.1)
Chloride 114 H mmol/L
(98-107)
BUN 23 H mg/dl
(7-17)
Glucose 101 H mg/dl
(70-99)
Total Bilirubin 1.5 H mg/dl
(0.2-1.3)
Alkaline Phosphatase 139 H U/L
(38-126)
Total Protein 6.1 L g/dl
(6.3-8.2)
Ur Occult Blood Reflex 3+ A
(Negative)
Leukocyte Esterase Rfl 3+ A
(Negative)
Urine RBC 7-10 A /HPF
(0-2)
Urine WBC (Reflex) 40-50 A /HPF
(0-5)
Urine Bacteria (Reflex) Moderate A
(Negative)
Urine Glucose 3+ A
(Negative)
Urine Albumin (Reflex) 1+ A
(Neg - Trace)
09/14/24 18:31
09/14/24 18:31
Vital Signs
Initial and Last Documented VS:
Initial Vital Signs
Temp Pulse Resp BP Pulse Ox
98.4 F 95 16 158/88 97
09/14/24 12:23 09/14/24 12:23 09/14/24 12:23 09/14/24 12:23 09/14/24 12:23
Last Documented Vital Signs
Temp Pulse Resp BP Pulse Ox
98.1 F 105 18 132/96 97
09/14/24 21:27 09/14/24 21:27 09/14/24 21:27 09/14/24 21:27 09/14/24 21:27
MDM/Problems Addressed
MDM/Problems Addressed:
History and exam concerning for infected dog bite along with pyelonephritis. In light of patient's previous history of sepsis along with history of myasthenia gravis, limiting antibiotic use, patient will be admitted for further evaluation.
Discussed with on-call ID physician, , who recommends patient to be started on Rocephin and Flagyl.
*Pulse Oximetry
SaO2: 97
Oxygen Mode of Delivery: Room air
Patient hypoxic: no
*Critical Care Note
Total Time (30-74mins, 75-104mins- exclusive of procedures): Not Applicable
ED Attending Note
-
Portions of this chart may have been created with voice recognition software.� Occasional wrong word or��sound alike� substitutions may have occurred due to the inherent limitations of voice recognition software.
Discharge Plan
Departure
Patient Disposition: Admit
Date of Disposition: 09/14/24
Time of Disposition: 19:31
Presentation/result/management discussed w/ accepting MD/DO: Hospitalist
Discharge Problem:
Dog bite, Acute UTI
Interventions
Interventions:
*Risk Screen - Suicide Last Done: 09/14/24 22:03
*General Assessment Last Done: 09/14/24 16:30
*Neglect/Abuse Screening Last Done: 09/14/24 16:30
*ED- Fall Risk Assessment Last Done: 09/14/24 16:30
*ED COVID-19 Vaccine History Last Done: 09/14/24 22:03
*Nursing Disposition Last Done: 09/14/24 21:14
ED-Skin Assessment Last Done: 09/14/24 16:30
Discharge Date and Time
Discharge Date/Time: 09/14/24 21:14
[2024-09-14 17:16] LABS: Urine Albumin 1+ (Neg - Trace); Urine Bilirubin Negative (Negative); Urine Character Slightly Cloudy (Clear); Urine Color Yellow; Urine Glucose 3+ (Negative); Urine Ketone Negative (Negative); Urine Leukocyte 3+ (Negative); Urine Nitrite Negative (Negative); Urine Occult Blood 3+ (Negative); Urine Specific Gravity 1.025 (<1.030); Urine Urobilinogen Negative (Neg - 1+)
[2024-09-14 17:47] LABS: Urine Bacteria Moderate (Negative); Urine White Cell 40-50 /HPF (0-5)
[2024-09-14 18:32] VITALS: BP 157/89
[2024-09-14 18:39] LABS: % Basophils 0.3 % (0-2); % Immature Granulocytes 1.6 % (0-0.5); % Lymphocytes 5.1 % (20.5-51.1); % Monocytes 4.7 % (1.7-9.3); % Neutrophils 88.3 % (42.2-75.2); Absolute Basophils 0.1 10^3/uL (0-0.2); Absolute Immature Granulocytes 0.3 10^3/uL (0-0.05); Absolute Lymphocytes 0.8 10^3/uL (1.2-3.4); Absolute Monocytes 0.7 10^3/uL (0.1-0.6); Absolute Neutrophils 13.6 10^3/uL (1.4-6.5); Hematocrit 37.2 % (37.0-47.0); Hemoglobin 12.7 g/dL (12.0-16.0); Mean Corp Hgb Conc. 34.1 g/dL (33.0-37.0); Mean Corpuscular Hgb 32.5 pg (27.0-31.0); Mean Corpuscular Volume 95.1 fL (81.0-99.0); Mean Platelet Volume 8.9 fL (7.4-10.4); Nucleated Red Blood Cells % 0 %; Platelet Count 340 10^3/uL (130-400); Red Blood Cell Count 3.91 10^6/uL (4.20-5.40); Red Cell Dist. Width 14.5 % (11.5-14.5); White Blood Cell Count 15.4 10^3/uL (4.8-10.8)
[2024-09-14 18:54] LABS: ALT (SGPT) 25 U/L (0-35); AST (SGOT) 34 U/L (14-36); Albumin 3.9 g/dl (3.5-5.0); Alkaline Phosphatase 139 U/L (38-126); Blood Urea Nitrogen 23 mg/dl (7-17); Carbon Dioxide 22 mmol/L (22-30); Chloride 114 mmol/L (98-107); Glucose 101 mg/dl (70-99); Potassium 4.2 mmol/L (3.5-5.1); Sodium 139 mmol/L (135-145); Total Bilirubin 1.5 mg/dl (0.2-1.3); Total Protein 6.1 g/dl (6.3-8.2); eGFR > 60.00
--- NOTE | 2024-09-14 19:33 | HPS.HSE ---
Family Physician
-
Family Physician: Guerline Araya MD
Chief Complaint
-
Animal bite
History of Present Illness
This is a 74-year-old female with past medical history significant for myasthenia gravis, hypertension, hyperlipidemia, hypothyroid, GERD, UTI presenting to the emergency department with hand swelling following animal bite 1 week ago.
Patient suffered bite to her right hand about 1 week ago. She was seen at urgent care at that time 8 hours after the bite and was sent home with bandage. No antibiotics were provided at that time. She appeared to have had open wound with ongoing
drainage for several days. Over the last 2 days there is being right hand swelling. And then he developed swelling and redness. She was seen at urgent care and had wound culture done with a Q-tip. Thereafter the drainage stopped. The swelling
continued and she was sent to the emergency department. The dog had vaccinations are up-to-date.
Patient also noticed episode of back pain and flank pain starting today. This is typical of her urinary tract infections for which she is on suppressive methamphetamine and follows with urology. She has a history of pelvic floor prolapse/bladder
prolapse with recurrent utis.
Here in the emergency department the patient has remained afebrile, blood pressure was 150/90 with a pulse of 72 and she satting 96% on room air.
The x-ray of the hand shows no fracture or dislocation. There is soft tissue swelling. No foreign body and no subcutaneous gas. He has leukocytosis to 15,000, hemoglobin and platelets were normal. Electrolytes BUN/creatinine were all normal.
Patient had significant positive UA.
Medical History
Past Medical History
Past Medical History: Reports Other (myasthenia gravis diagnosed 2 years ago follows at [facility], hypertension, GERD, hypercholesterolemia, hypothyroidism, osteoarthritis, chronic stool incontinence secondary to Mestinon, bladder prolapse with pessary)
Past Surgical History: Reports None
Social History
Tobacco: Non-smoker
Alcohol: None
Drug: None
Family History
Family History: Not pertinent
Allergies / Home Medications
Allergies reflects when Allergies were last updated in [employer].
Home Medications with original date entered in [employer]
Allergy/Medication List:
Allergies
Allergy/AdvReac Type Severity Reaction Status Date / Time
Penicillins Allergy Severe Hives Verified 02/23/19 17:54
adhesive tape Allergy Unknown Verified 02/23/19 17:54
sulfamethoxazole Allergy chest Verified 02/23/19 17:54
[From Bactrim] tightness
trimethoprim [From Bactrim] Allergy chest Verified 02/23/19 17:54
tightness
Home Medications
diclofenac sodium 25 mg tablet,delayed release 50 mg PO DAILY 07/09/16
levothyroxine 50 mcg tablet (Levothroid) 50 mcg PO DAILY 07/09/16
lisinopril 20 mg tablet 20 mg PO DAILY 07/09/16
oxybutynin chloride 5 mg tablet 5 mg PO DAILY 07/09/16
pravastatin 20 mg tablet 20 mg PO DAILY 07/09/16
alprazolam 0.5 mg tablet 0.5 mg PO HS 07/10/16
gabapentin 100 mg capsule 100 mg PO TID 07/10/16
melatonin 10 mg capsule 10 mg PO HS 07/10/16
oxycodone-acetaminophen 5 mg-325 mg tablet 1 tab PO Q4HPRN PRN Headache #10 tabs 07/11/16
estradiol 0.01% (0.1 mg/gram) vaginal cream 1 applic S DAILY #1 tube 02/23/19
tramadol 50 mg tablet 50 mg PO Q6HPRN PRN pain #10 tabs 02/23/19
Review of Systems
-
History Source: Patient
A 12 point ROS was completed and negative except as noted: Yes
Constitutional: Reports No Symptoms
EENT: Reports No Symptoms
Respiratory: Reports See HPI
Cardiac: Reports No Symptoms
Abdomen/GI: Reports No Symptoms
: Reports See HPI
Musculoskeletal: Reports No Symptoms
Skin: Reports See HPI
Neurological: Reports No Symptoms
Endocrine: Reports No Symptoms
Hematologic/Lymphatic: Reports No Symptoms
Psych: Reports No Symptoms
Physical Exam
Vital Signs
Vital Signs
Temp Pulse Resp BP Pulse Ox
98.4 F 77 18 157/89 96
09/14/24 12:23 09/14/24 18:32 09/14/24 18:32 09/14/24 18:32 09/14/24 18:32
Physical Exam
General: Well Developed, Well Nourished and No Apparent Distress
HEENT: NormoCephalic, Moist mucous membranes and Atraumatic
Respiratory: Clear
Cardiac: S1/S2 and Regular Rhythm; No Murmur or Rub
GI: Soft, Non Tender, Non Distended and Normal Bowel Sounds; No Organomegaly
Rectal: Deferred by Provider
Musculoskeletal: No Clubbing, No Cyanosis, No Edema and Other (Right arm in sling, edematous right hand with edema and erythema from the dorsum of the right hand to just proximal to wrist. No fluid collection. No open drainage at this time. She
has difficulty making a complete fist. Range of motion at the wrist remains intact but limited due to pain.)
Skin: No Rash
Neuro: Nonfocal/grossly intact
Laboratory Results
-
09/14/24 18:31
09/14/24 18:31
Laboratory Results
Total Bilirubin 1.5 mg/dl (0.2-1.3) H 09/14/24 18:31
AST 34 U/L (14-36) 09/14/24 18:31
ALT 25 U/L (0-35) 09/14/24 18:31
Alkaline Phosphatase 139 U/L (38-126) H 09/14/24 18:31
Data Reviewed
-
Diagnostic Radiology: Image Personally Visualized and interpreted and Report Reviewed by me
Lab Data: Labs Reviewed by me
Old Records: Reviewed
Impression/Plan
-
IMPRESSION:
Cellulitis of the hand following dog bite to 1 week ago. No evidence of flexor tenosynovitis. No foreign body. Prior records were animal vaccinations were up-to-date and patient did not receive any rabies vaccine. There is no abscess or open
drainage.
PLAN:
Hand infection secondary animal bite
- Ad[facility] to [facility]
- Blood cultures
- No abscess or fluid collection for cultures at this time
- IV ceftriaxone plus Flagyl
- ID consult
UTI-history of recurrent UTI now on suppressive methenamine
- Urine culture sent
- Continue with the ceftriaxone as above
- Holding methenamine for now
- Continue oxybutynin
Myasthenia gravis -stable
- Continue pyridostigmine 60 mg 3 times daily
- Continue prednisone 30/40 alternating
Hypothyroid
- Continue levothyroxine 75 mcg
Hypertension
- Continue amlodipine
[2024-09-14] MEDS: ROCEPHIN 1000 MG IV (19:48)
[2024-09-14] MEDS: FLAGYL 500 MG 100 IV (20:05)
[2024-09-14 21:27] VITALS: BP 132/96; BMI 25.5
[2024-09-14] MEDS: MESTINON 60 MG PO (21:57)
[2024-09-14] MEDS: PEPCID 20 MG PO (21:57)
[2024-09-14] MEDS: DITROPAN 5 MG PO (21:57)
[2024-09-14] MEDS: ULTRAM 50 MG PO (21:57)
[2024-09-14] MEDS: SYNTHROID 75 MCG PO (21:57)
[2024-09-14] MEDS: XANAX 0.5 MG PO (21:57)
[2024-09-14] MEDS: TORADOL 10 MG IV (23:28)
[2024-09-14 23:29] VITALS: BP 138/78
[2024-09-15] MEDS: FLAGYL 500 MG 100 IV ×3 (03:30→19:22)
[2024-09-15 06:00] VITALS: BMI 25.6
[2024-09-15 06:46] LABS: Hematocrit 34.8 % (37.0-47.0); Hemoglobin 11.5 g/dL (12.0-16.0); Mean Corpuscular Volume 96.9 fL (81.0-99.0); Platelet Count 325 10^3/uL (130-400); Red Blood Cell Count 3.59 10^6/uL (4.20-5.40); Red Cell Dist. Width 14.6 % (11.5-14.5); White Blood Cell Count 12.2 10^3/uL (4.8-10.8)
[2024-09-15 07:00] VITALS: BP 120/70
[2024-09-15 07:14] LABS: Blood Urea Nitrogen 24 mg/dl (7-17); Calcium 8.6 mg/dl (8.4-10.2); Carbon Dioxide 26 mmol/L (22-30); Chloride 114 mmol/L (98-107); Estimated Creatinine Clearance 57 ml/min; Glucose 81 mg/dl (70-99); Potassium 3.8 mmol/L (3.5-5.1); Sodium 141 mmol/L (135-145); eGFR > 60.00
[2024-09-15] MEDS: NORVASC 5 MG PO (08:34)
[2024-09-15] MEDS: MESTINON 60 MG PO ×3 (08:34→21:25)
[2024-09-15] MEDS: DELTASONE 40 MG PO (08:34)
[2024-09-15] MEDS: DITROPAN 5 MG PO ×2 (08:34→19:22)
[2024-09-15] MEDS: PEPCID 20 MG PO ×2 (08:34→19:22)
--- NOTE | 2024-09-15 10:58 | W.PN.HOSP.TC ---
Today's Communication/Plan
-
CT scan RUE
continue current abx
ID consult
consider hand surgery consult depending on results of CT scan
Assessment / Plan
Assessment / Plan
This is a 74-year-old female with past medical history significant for myasthenia gravis, hypertension, hyperlipidemia, hypothyroid, GERD, UTI presenting to the emergency department with hand swelling following animal bite 1 week ago.
Patient suffered bite to her right hand about 1 week ago. She was seen at urgent care at that time 8 hours after the bite and was sent home with bandage. No antibiotics were provided at that time. She appeared to have had open wound with ongoing
drainage for several days. Over the last 2 days there is being right hand swelling. And then he developed swelling and redness. She was seen at urgent care and had wound culture done with a Q-tip. Thereafter the drainage stopped. The swelling
continued and she was sent to the emergency department. The dog had vaccinations are up-to-date.
Patient also noticed episode of back pain and flank pain starting today. This is typical of her urinary tract infections for which she is on suppressive methamphetamine and follows with urology. She has a history of pelvic floor prolapse/bladder
prolapse with recurrent utis.
Cellulitis of the hand following dog bite to 1 week ago. No evidence of flexor tenosynovitis. No foreign body. Prior records were animal vaccinations were up-to-date and patient did not receive any rabies vaccine. There is no abscess or open
drainage.
PLAN:
Hand infection secondary animal bite
- Admit to [facility]
- Blood cultures
- No abscess or fluid collection for cultures at this time
- IV ceftriaxone plus Flagyl
- ID consult
-CT scan of hand and wrist
WBC 15.4-->12.2
UTI-history of recurrent UTI now on suppressive methenamine
- Urine culture sent
- Continue with the ceftriaxone as above
- Holding methenamine for now
- Continue oxybutynin
UA: E.Coli, sens pending
Myasthenia gravis -stable
- Continue pyridostigmine 60 mg 3 times daily
- Continue prednisone 30/40 alternating
Hypothyroid
- Continue levothyroxine 75 mcg
Hypertension
- Continue amlodipine
Full code
Anticipated Discharge: > 48 hours
Subjective/Interval History
-
Date of Service: September 15, 2024
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 Became more swollen and red past 2 days
Objective Data
-
Labs:
Laboratory Results
09/15/24
05:55
WBC 12.2 H
Hgb 11.5 L
Hct 34.8 L
Plt Count 325
Sodium 141
Potassium 3.8
Chloride 114 H
Carbon Dioxide 26
BUN 24 H
Creatinine 0.7
Glucose 81
Calcium 8.6
Vital Signs:
Vital Signs
Temp Pulse Resp BP Pulse Ox
98.1 F 81 16 120/70 94
09/15/24 07:00 09/15/24 08:34 09/15/24 07:00 09/15/24 08:34 09/15/24 08:10
I&O
09/14/24 09/15/24 09/16/24
06:59 06:59 06:59
Intake Total 480 / 480 320 / 320
Balance 480 / 480 320 / 320
Review of Systems
-
History Source: Patient and Coordinated Provider
Constitutional: Denies Fever
EENT: Reports No Symptoms Reported
Respiratory: Reports No Symptoms
Cardiac: Reports No Symptoms
Abdomen/GI: Reports No Symptoms
Genitourinary: Reports Dysuria and Flank Pain (bilaterally)
Neuro: Reports No Symptoms
Physical Exam
-
General: Well Developed, Well Nourished and No Apparent Distress
HEENT: Normocephalic, Atraumatic and Moist Mucous Membranes
Respiratory: Clear to Auscultation; Negative Wheezes, Rales or Rhonchi
Cardiac: Regular Rhythm and S1/S2
GI: Soft, Nontender and Nondistended
Genito-urinary: Costovertebral Angle Tend
Musculoskeletal: No Clubbing, No Cyanosis and Other (rt hand, swollen, warm and tender)
Neuro: Awake, Alert and Oriented
--- NOTE | 2024-09-15 11:39 | CON.ID ---
Consultation
-
Date/Time Consultation Requested: September 15, 2024 1048
Date/Time Consultation Performed: September 15, 2024 1140
Requesting Provider: Dr. Gene Rodriguez
Performing Provider: Dr. Gaby Bobby
Reason for Consultation: Dog bite
Chief Complaint / Past History
Chief Complaint
Right hand dog bite
History of Present Illness
74-year-old female with history of myasthenia gravis, hypertension who presented to the hospital on September 14 due to right hand swelling after a dog bite. Last week, her pet dog got spooked and unintentionally bit her dorsal right hand .. Dog is
up-to-date with vaccinations. Patient cannot recall last tetanus vaccine but she reports since diagnosis of myasthenia gravis, does not want to receive any vaccines. After the dog bite the next day she went to urgent care due to the open wound.
She did not get any antibiotic. 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 3 days ago, right hand started to become edematous with redness and therefore came to the
ER for yesterday. White count 15.4. Hand x-ray, no osteomyelitis. Penicillin and sulfa allergies ED upon discussion with infectious disease, started her on ceftriaxone and metronidazole. Patient reports no fevers or chills. No drainage from the
wound. No other complaints.
Past History
Additional Past Medical History:
Myasthenia gravis status post thymectomy
Hypertension
Hypothyroidism
Stool incontinence
Osteoarthritis
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
Allergy History:
adhesive tape Allergy (Verified 09/14/24 21:22)
causes skin tears easily
amoxicillin Allergy (Verified 09/14/24 12:28)
Hives
gabapentin Allergy (Verified 09/14/24 21:22)
severe headache
lidocaine Allergy (Verified 09/14/24 21:22)
IV only causes Mystinia gravis
Penicillins Allergy (Verified 09/14/24 21:22)
Hives/SWELLING
sulfamethoxazole (From Bactrim) Allergy (Verified 09/14/24 12:28)
chest tightness
trimethoprim (From Bactrim) Allergy (Verified 09/14/24 12:28)
chest tightness
Medications Reviewed: Yes
Current Antibiotics:
Ceftriaxone
Metronidazole
Social History
Tobacco: Non-Smoker
Alcohol: None
Drug: None
Living: With Family
Family History
Family History: Not Pertinent
Review of Systems
Review of Systems
General: Negative Fever, Chills or Change in Appetite
HEENT: Negative Sinus Problems or Headache
Cardiovascular: Negative Chest Pain
Respiratory: Negative Dyspnea or Cough
Gasteroenterology: Negative Nausea, Vomiting or Diarrhea
Genital / Urological: Negative Dysuria or Flank Pain
Endocrine: Negative Weakness
Neurological: Negative Headache
All systems: All other systems were reviewed and were negative
Vital Signs
Temp Pulse Resp BP Pulse Ox
98.1 F 81 16 120/70 94
09/15/24 07:00 09/15/24 08:34 09/15/24 07:00 09/15/24 08:34 09/15/24 08:10
Physical Exam
Physical Exam
Constitutional: No Acute Distress and Comfortable
Eyes: No Conjunctival Hemorrhage and Sclera Anicteric
Cardiovascular: Regular Rate and S1/S2
Pulmonary: Clear
Gastrointestinal: Soft, Non Tender and Non Distended
Genito-Urinary: Negative CVA Tenderness
Extremities: Other (Dorsum of right hand 3+ edema, mild erythema. Wound on mid- MCP no drainage, closed)
Musculoskeletal: Other (RUE in sling due to recent bone fracture.); Negative Spinal Tenderness
Neurological: AO x 3
Lab / Diagnostic Study Results
09/15/24 05:55
09/15/24 05:55
Abs Immat Gran (auto) 0.3 10^3/uL (0-0.05) H 09/14/24 18:31
Absolute Neuts (auto) 13.6 10^3/uL (1.4-6.5) H 09/14/24 18:31
Absolute Lymphs (auto) 0.8 10^3/uL (1.2-3.4) L 09/14/24 18:31
Absolute Monos (auto) 0.7 10^3/uL (0.1-0.6) H 09/14/24 18:31
Absolute Basos (auto) 0.1 10^3/uL (0-0.2) 09/14/24 18:31
Immature Gran % 1.6 % (0-0.5) H 09/14/24 18:31
Neutrophils % 88.3 % (42.2-75.2) H 09/14/24 18:31
Lymphocytes % 5.1 % (20.5-51.1) L 09/14/24 18:31
Monocytes % 4.7 % (1.7-9.3) 09/14/24 18:31
Eosinophils % 0.0 % (0-6) 09/14/24 18:31
Basophils % 0.3 % (0-2) 09/14/24 18:31
Ur Squamous Epith Cells 3-5 /LPF (Few) 09/14/24 17:07
Microbiology Results
Micro:
09/14/24 17:07 Urine Culture - Preliminary
Urine Escherichia coli
Diptheroids
09/14/24 22:01 MRSA Screen - Pending
Nose
09/14/24 19:47 Blood Culture - Pending
Blood/Venous
09/14/24 19:47 Blood Culture - Pending
Blood/Venous
09/14/24 Hand XRAY: No acute fracture or dislocation. Soft tissue swelling about the hand and wrist. No radiopaque foreign body or soft tissue gas
Assessment / Plan
# Right hand dog bite cellulitis
# Leukocytosis
# History of myasthenia gravis
# Penicillin and sulfa allergies
- CT RUE + subcut edema, no abscess, no emphysema, no osteomyelitis.
- Continue with ceftriaxone and metronidazole.
- Elevate extremity.
- Follow clinically.
- Follow WBC
# Conditions LITIGATION ASSISTANT
Myasthenia gravis status post thymectomy
Hypertension
Hypothyroidism
Stool incontinence
Osteoarthritis
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
[2024-09-15 15:00] VITALS: BP 120/80
[2024-09-15] MEDS: LOVENOX 40 MG SC (17:04)
--- NOTE | 2024-09-15 17:18 | CM ---
Alert awake oriented patient who lives with her dgt Jing and her family in a 2 story home with 2 steps to enter and 11 steps to bed/bathroom. She is independent in activates of daily living.She does not drive .She used a walker as needed.She has a
sling on right arm due to fx 2 weeks ago.
Had [facility] in past [facility]
Pharmacy [facility]
PCP Dr Araya
PLAN Will depend on hospital course of care
[2024-09-15] MEDS: ROCEPHIN 1000 MG IV (19:22)
[2024-09-15] MEDS: STERILE WATER FOR INJECTION 10 ML IV (19:22)
[2024-09-15] MEDS: XANAX 0.5 MG PO (21:25)
[2024-09-15] MEDS: SYNTHROID 75 MCG PO (21:25)
[2024-09-15] MEDS: ULTRAM 50 MG PO (21:27)
[2024-09-15 23:15] VITALS: BP 141/84
[2024-09-16] MEDS: TORADOL 10 MG IV (02:13)
[2024-09-16] MEDS: FLAGYL 500 MG 100 IV (04:02)
[2024-09-16 07:17] LABS: % Basophils 0.5 % (0-2); % Eosinophils 0.7 % (0-6); % Immature Granulocytes 1.9 % (0-0.5); % Lymphocytes 11.7 % (20.5-51.1); % Monocytes 6.7 % (1.7-9.3); % Neutrophils 78.5 % (42.2-75.2); Absolute Basophils 0.1 10^3/uL (0-0.2); Absolute Eosinophils 0.1 10^3/uL (0-0.7); Absolute Immature Granulocytes 0.2 10^3/uL (0-0.05); Absolute Lymphocytes 1.5 10^3/uL (1.2-3.4); Absolute Monocytes 0.9 10^3/uL (0.1-0.6); Hematocrit 34.2 % (37.0-47.0); Hemoglobin 11.5 g/dL (12.0-16.0); Mean Corp Hgb Conc. 33.6 g/dL (33.0-37.0); Mean Corpuscular Hgb 32.5 pg (27.0-31.0); Mean Corpuscular Volume 96.6 fL (81.0-99.0); Mean Platelet Volume 9.1 fL (7.4-10.4); Nucleated Red Blood Cells % 0 %; Platelet Count 306 10^3/uL (130-400); Red Blood Cell Count 3.54 10^6/uL (4.20-5.40); Red Cell Dist. Width 14.4 % (11.5-14.5); White Blood Cell Count 12.8 10^3/uL (4.8-10.8)
[2024-09-16 07:45] LABS: Blood Urea Nitrogen 25 mg/dl (7-17); Calcium 8.5 mg/dl (8.4-10.2); Carbon Dioxide 24 mmol/L (22-30); Chloride 114 mmol/L (98-107); Estimated Creatinine Clearance 57 ml/min; Glucose 74 mg/dl (70-99); Potassium 3.5 mmol/L (3.5-5.1); Sodium 141 mmol/L (135-145); eGFR > 60.00
[2024-09-16] MEDS: NORVASC 5 MG PO (08:05)
[2024-09-16] MEDS: PEPCID 20 MG PO ×2 (08:05→21:39)
[2024-09-16] MEDS: DITROPAN 5 MG PO ×2 (08:05→21:39)
[2024-09-16] MEDS: MESTINON 60 MG PO ×3 (08:05→21:39)
[2024-09-16] MEDS: DELTASONE 30 MG PO (08:06)
[2024-09-16 08:15] VITALS: BP 130/79
--- NOTE | 2024-09-16 10:46 | W.PN.ID1 ---
Date of Service
Date of Service: September 16, 2024
Today's Communication
See below.
Assessment / Plan
# Right hand dog bite cellulitis improving
# Leukocytosis, on prednisone
# History of myasthenia gravis
# E coli (pansensitive) bacteruria
# Penicillin and sulfa allergies
- CT RUE + subcut edema, no abscess, no emphysema, no osteomyelitis.
- Elevate extremity.
- Continue with ceftriaxone and metronidazole (d3)
- At time of dc, can transition to cefdinir 300mg po bid and metronidazole 500mg po bid through 09/23/24.
# Erythematous nodules/papules
- Do not appear infectious
- ? 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
- Refer to derm or rheum
# Conditions [employer]
Myasthenia gravis status post thymectomy
Hypertension
Hypothyroidism
Stool incontinence
Osteoarthritis
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
Chief Complaint
-: Cellulitis
Subjective / Review of Systems
Right hand swelling improving.
c/o migrating papular red lesions left hand.
Also nodule over right wrist.
Vital Signs / Physical Exam
Vital Signs
Vital Signs
Temp Pulse Resp BP Pulse Ox
97.7 F 94 18 130/79 98
09/16/24 08:15 09/16/24 08:15 09/16/24 08:15 09/16/24 08:15 09/16/24 08:15
Physical Exam
Constitutional: No Acute Distress and Comfortable
Cardiovascular: Regular Rate and S1/S2
Pulmonary: Clear
Gastrointestinal: Soft, Non Tender and Non Distended
Extremities: Other (Right hand dorsum edema decreased, no erythema, puncture wound dry.)
Skin: Other (Round firm red nodule over dorsal right wrist , ulnar side. Round firm red papule on medial pointer finger; healing papule palmar 2nd MCP)
Neurological: AO x 3
Objective Data
Lab Data
Lab Results
09/16/24 05:45
09/16/24 05:45
Estimated Creat Clear 57 ml/min 09/16/24 05:45
Total Bilirubin 1.5 mg/dl (0.2-1.3) H 09/14/24 18:31
AST 34 U/L (14-36) 09/14/24 18:31
ALT 25 U/L (0-35) 09/14/24 18:31
Alkaline Phosphatase 139 U/L (38-126) H 09/14/24 18:31
Most recent labs reviewed.
Micro Results:
09/14/24 17:07 Urine Culture - Final
Urine Escherichia coli
Diptheroids
09/14/24 22:01 MRSA Screen - Final
Nose No Methicillin Resistant Staphylococcus aureus isolated.
09/14/24 19:47 Blood Culture - Preliminary
Blood/Venous No Growth in 24 hours- Final report to follow
09/14/24 19:47 Blood Culture - Preliminary
Blood/Venous No Growth in 24 hours- Final report to follow
09/14/24 Hand XRAY: No acute fracture or dislocation. Soft tissue swelling about the hand and wrist. No radiopaque foreign body or soft tissue gas
Care Review
Plan reviewed with: Physician (Dr. Rodriguez)
--- NOTE | 2024-09-16 11:47 | W.PN.HOSP.TC ---
Today's Communication/Plan
-
continue IV abx
reviewed with Dr. Bobby
Assessment / Plan
Assessment / Plan
This is a 74-year-old female with past medical history significant for myasthenia gravis, hypertension, hyperlipidemia, hypothyroid, GERD, UTI presenting to the emergency department with hand swelling following animal bite 1 week ago.
Patient suffered bite to her right hand about 1 week ago. She was seen at urgent care at that time 8 hours after the bite and was sent home with bandage. No antibiotics were provided at that time. She appeared to have had open wound with ongoing
drainage for several days. Over the last 2 days there is being right hand swelling. And then he developed swelling and redness. She was seen at urgent care and had wound culture done with a Q-tip. Thereafter the drainage stopped. The swelling
continued and she was sent to the emergency department. The dog had vaccinations are up-to-date.
Patient also noticed episode of back pain and flank pain starting today. This is typical of her urinary tract infections for which she is on suppressive methamphetamine and follows with urology. She has a history of pelvic floor prolapse/bladder
prolapse with recurrent utis.
Cellulitis of the hand following dog bite to 1 week ago. No evidence of flexor tenosynovitis. No foreign body. Prior records were animal vaccinations were up-to-date and patient did not receive any rabies vaccine. There is no abscess or open
drainage.
rt arm with small red lesion - not warm, not tender. Pt and dgt want my opinion as to what this is. Not sure, examined with Dr. Bobby who also did not know, possibly rheumatologic in origin. Will need outpt follow up
PLAN:
Hand infection secondary animal bite
- Admit to [facility]
- Blood cultures
- No abscess or fluid collection for cultures at this time
- IV ceftriaxone plus Flagyl
- ID consult appreciated and discussed with Dr. Bobby
-CT scan of hand and wrist: Edema within the subcutaneous fat and dorsal soft tissues involving the hands, wrists, and forearm. No focal rim-enhancing fluid collection to indicate abscess. No subcutaneous emphysema. No radiopaque foreign body. No
periosteal reaction, localized demineralization, or bony destruction to suggest osteomyelitis. No fracture.
WBC 15.4-->12.2-->12.8
UTI-history of recurrent UTI now on suppressive methenamine
- Continue with the ceftriaxone as above
- Holding methenamine for now
- Continue oxybutynin
UA: E.Coli, pansensitive
Myasthenia gravis -stable
- Continue pyridostigmine 60 mg 3 times daily
- Continue prednisone 30/40 alternating
Hypothyroid
- Continue levothyroxine 75 mcg
Hypertension
- Continue amlodipine
reviewed with dgt on patient's cellphone speaker, many questions and concerns answered 20 minutes explaining
total time 55 minutes
Full code
Anticipated Discharge: > 48 hours
Subjective/Interval History
-
Date of Service: September 16, 2024
In good spirits
Objective Data
-
Labs:
Laboratory Results
09/16/24
05:45
WBC 12.8 H
Hgb 11.5 L
Hct 34.2 L
Plt Count 306
Sodium 141
Potassium 3.5
Chloride 114 H
Carbon Dioxide 24
BUN 25 H
Creatinine 0.7
Glucose 74
Calcium 8.5
Vital Signs:
Vital Signs
Temp Pulse Resp BP Pulse Ox
97.7 F 94 18 130/79 98
09/16/24 08:15 09/16/24 08:15 09/16/24 08:15 09/16/24 08:15 09/16/24 08:15
I&O
09/15/24 09/16/24 09/17/24
06:59 06:59 06:59
Intake Total 480 / 480 960 / 960 480 / 480
Balance 480 / 480 960 / 960 480 / 480
Review of Systems
-
History Source: Patient and Coordinated Provider
Constitutional: Denies Fever
EENT: Reports No Symptoms Reported
Respiratory: Reports No Symptoms
Cardiac: Reports No Symptoms
Abdomen/GI: Reports No Symptoms
Genitourinary: Reports Dysuria and Flank Pain (bilaterally, better)
Musculoskeletal: Reports Other (rt hand swelling and pain less severe)
Neuro: Reports No Symptoms
Physical Exam
-
General: Well Developed, Well Nourished and No Apparent Distress
HEENT: Normocephalic, Atraumatic and Moist Mucous Membranes
Respiratory: Clear to Auscultation; Negative Wheezes, Rales or Rhonchi
Cardiac: Regular Rhythm and S1/S2
GI: Soft, Nontender and Nondistended
Genito-urinary: Costovertebral Angle Tend
Musculoskeletal: No Clubbing, No Cyanosis and Other (rt hand, swollen, warm and tender, though probably 25% reduced)
Skin: Lesions (small lesion noted rt lower forearm, ?rheumatologic, should be eval by derm or rheum post dc)
Neuro: Awake, Alert and Oriented
[2024-09-16 14:24] VITALS: BP 144/84; PULSE 104; O2SAT 95
--- NOTE | 2024-09-16 14:30 | PN.CDI ---
CDI
- -
CDI:
Physician Documentation Request
Admit Date: 09/14/24 20:29
Dear Doctor Michael,
Please review the following and provide your response in the progress notes.
Clinical Indicators:
Pt admitted with right hand cellulitis / UTI /Being treated with Flagyl/Ceftriaxone
Progress note 09/16,' WBC 15.4-->12.2-->12.8...'
On admission WBC 15.4, HR 105
Please clarify which of the following most accurately describes the status of the patient's infection:
Sepsis-POA
- Systemic manifestations of infection, with 2 or more SIRS criteria which include:
- Fever >100.9 degrees F or hypothermia < 96.8 degrees F
- Leukocytosis - WBC > 12,000 or leukopenia - WBC < 4,000 or > 10% bands
- Tachycardia > 90 beats per minute
- Tachypnea - RR > 20 breaths per minute or PaCO2 , 32mmHg
Source: Merck Manual 2013
Right hand cellulitis/ UTI only , Without Systemic Illness
Other ( please specify)
Use of terms such as suspected, likely, concern for, or probable (associated with a specific diagnosis that is being evaluated, monitored, or treated as if it exists) are acceptable and can be coded in the inpatient setting, when documented at the
time of discharge.
Thank you,
Mireya Moore RN
CDI Specialist
[facility] [employer]
Please use your independent medical judgment in providing your response.
--- NOTE | 2024-09-16 14:38 | PTOTSP ---
Patient demonstrates safe and independent mobility, no skilled physical therapy needs at this time.
--- NOTE | 2024-09-16 14:55 | CM ---
Spoke with patient in room.
On IV antibiotics.ID note said change to po antibiotics at dc.
Offered VN she requested [facility] . DR Araya.
[facility] liaison aware of referral.
PLAN Home with [facility]
[2024-09-16 15:32] VITALS: BP 134/78
[2024-09-16 15:42] VITALS: BMI 25.7
--- NOTE | 2024-09-16 16:19 | VNURNOTE ---
Home Health Liaison met with patient at bedside to discuss [facility] nurse/therapy, visits, schedule and homebound status. Patient is agreeable and understands that visits at home will be 2-3 x per week to assess and teach medical management.
Patient is aware that [facility] will contact them for start of care in 1-2 days after discharge from .
[facility] referral completed in [facility].
[2024-09-16] MEDS: LOVENOX 40 MG SC (17:09)
[2024-09-16] MEDS: SYNTHROID 75 MCG PO (21:39)
[2024-09-16] MEDS: ULTRAM 50 MG PO (21:39)
[2024-09-16] MEDS: TUMS CHEWABLE TABLET 200 MG PO (21:39)
[2024-09-16] MEDS: FLAGYL 500 MG PO (21:39)
[2024-09-16] MEDS: STERILE WATER FOR INJECTION 10 ML IV (21:40)
[2024-09-16] MEDS: XANAX 0.5 MG PO (21:40)
[2024-09-16] MEDS: ROCEPHIN 1000 MG IV (21:40)
[2024-09-16 23:37] VITALS: BP 124/76
[2024-09-17] MEDS: BENADRYL 25 MG PO (03:19)
[2024-09-17 05:15] LABS: % Basophils 0.5 % (0-2); % Eosinophils 0.9 % (0-6); % Immature Granulocytes 2.3 % (0-0.5); % Lymphocytes 11.5 % (20.5-51.1); % Neutrophils 78.8 % (42.2-75.2); Absolute Basophils 0.1 10^3/uL (0-0.2); Absolute Eosinophils 0.1 10^3/uL (0-0.7); Absolute Immature Granulocytes 0.3 10^3/uL (0-0.05); Absolute Lymphocytes 1.5 10^3/uL (1.2-3.4); Absolute Monocytes 0.8 10^3/uL (0.1-0.6); Absolute Neutrophils 10.5 10^3/uL (1.4-6.5); Hematocrit 34.3 % (37.0-47.0); Hemoglobin 11.7 g/dL (12.0-16.0); Mean Corp Hgb Conc. 34.1 g/dL (33.0-37.0); Mean Corpuscular Hgb 32.7 pg (27.0-31.0); Mean Corpuscular Volume 95.8 fL (81.0-99.0); Mean Platelet Volume 8.8 fL (7.4-10.4); Nucleated Red Blood Cells % 0 %; Platelet Count 311 10^3/uL (130-400); Red Blood Cell Count 3.58 10^6/uL (4.20-5.40); Red Cell Dist. Width 14.4 % (11.5-14.5); White Blood Cell Count 13.3 10^3/uL (4.8-10.8)
[2024-09-17 05:41] LABS: Blood Urea Nitrogen 28 mg/dl (7-17); Carbon Dioxide 24 mmol/L (22-30); Chloride 115 mmol/L (98-107); Estimated Creatinine Clearance 57 ml/min; Glucose 87 mg/dl (70-99); Potassium 3.5 mmol/L (3.5-5.1); Sodium 141 mmol/L (135-145); eGFR > 60.00
[2024-09-17 07:05] VITALS: BP 155/82
[2024-09-17] MEDS: PEPCID 20 MG PO ×2 (08:24→21:23)
[2024-09-17] MEDS: DELTASONE 40 MG PO (08:24)
[2024-09-17] MEDS: MESTINON 60 MG PO ×3 (08:24→21:23)
[2024-09-17] MEDS: FLAGYL 500 MG PO ×2 (08:24→21:23)
[2024-09-17] MEDS: DITROPAN 5 MG PO ×2 (08:24→21:23)
[2024-09-17] MEDS: NORVASC 5 MG PO (08:24)
[2024-09-17] MEDS: ULTRAM 50 MG PO ×2 (08:29→21:23)
[2024-09-17] MEDS: TYLENOL 650 MG PO (08:30)
--- NOTE | 2024-09-17 10:01 | W.PN.HOSP.TC ---
Today's Communication/Plan
-
continue abx for potential dc tomorrow
Assessment / Plan
Assessment / Plan
This is a 74-year-old female with past medical history significant for myasthenia gravis, hypertension, hyperlipidemia, hypothyroid, GERD, UTI presenting to the emergency department with hand swelling following dog bite 1 week ago.
Patient suffered bite to her right hand about 1 week ago. She was seen at urgent care at that time 8 hours after the bite and was sent home with bandage. No antibiotics were provided at that time. She appeared to have had open wound with ongoing
drainage for several days. Over the last 2 days [employer] there is being right hand swelling. And then she developed swelling and redness. She was seen at urgent care and had wound culture done with a Q-tip. Thereafter the drainage stopped. The
swelling continued and she was sent to the emergency department. The dog had vaccinations are up-to-date.
Patient also noticed episode of back pain and flank pain starting day of admission. This is typical of her urinary tract infections for which she is on suppressive methamphetamine and follows with urology. She has a history of pelvic floor
prolapse/bladder prolapse with recurrent utis. UA - E. Coli, pansensitive
Right hand cellulitis/ UTI only , Without Systemic Illness
pt never had a fever, WBC elevation most likely due to steroids, she was tachycardic, most likely due to pain
Cellulitis of the hand following dog bite to 1 week ago. No evidence of flexor tenosynovitis. No foreign body. Prior records were animal vaccinations were up-to-date and patient did not receive any rabies vaccine. There is no abscess or open
drainage.
rt arm with small red lesion - not warm, not tender. Pt and dgt want my opinion as to what this is. Not sure, examined with Dr. Bobby who also did not know, possibly rheumatologic in origin. Will need outpt follow up, ?related to sling
left index finger with 2 small areas of redness, ?insect biet
PLAN:
Hand infection secondary animal bite
- Admit to [facility]
- Blood cultures
- No abscess or fluid collection for cultures at this time
- IV ceftriaxone plus Flagyl
- ID consult appreciated and discussed with Dr. Bobby
-CT scan of hand and wrist: Edema within the subcutaneous fat and dorsal soft tissues involving the hands, wrists, and forearm. No focal rim-enhancing fluid collection to indicate abscess. No subcutaneous emphysema. No radiopaque foreign body. No
periosteal reaction, localized demineralization, or bony destruction to suggest osteomyelitis. No fracture.
WBC 15.4-->12.2-->12.8-->13.3
pt on chronic steroids
UTI-history of recurrent UTI now on suppressive methenamine
- Continue with the ceftriaxone as above
- Holding methenamine for now
- Continue oxybutynin
UA: E.Coli, pansensitive
Myasthenia gravis -stable
- Continue pyridostigmine 60 mg 3 times daily
- Continue prednisone 30/40 alternating
Hypothyroid
- Continue levothyroxine 75 mcg
Hypertension
- Continue amlodipine
reviewed with 2 dgts on patient's cellphone speaker, many questions and concerns answered 10 minutes explaining
total time 40 minutes
Full code
Anticipated Discharge: Within 24 hours
Subjective/Interval History
-
Date of Service: September 17, 2024
Still with hand limitation on ability to close, but pain has lessened
Objective Data
-
Labs:
Laboratory Results
09/17/24
05:00
WBC 13.3 H
Hgb 11.7 L
Hct 34.3 L
Plt Count 311
Sodium 141
Potassium 3.5
Chloride 115 H
Carbon Dioxide 24
BUN 28 H
Creatinine 0.7
Glucose 87
Calcium 9.0
Vital Signs:
Vital Signs
Temp Pulse Resp BP Pulse Ox
97.9 F 82 18 155/82 94
09/17/24 07:05 09/17/24 07:05 09/17/24 07:05 09/17/24 07:05 09/17/24 07:05
I&O
09/16/24 09/17/24 09/18/24
06:59 06:59 06:59
Intake Total 960 / 960 960 / 960
Balance 960 / 960 960 / 960
Review of Systems
-
History Source: Patient and Coordinated Provider
Constitutional: Denies Fever
EENT: Reports No Symptoms Reported
Respiratory: Reports No Symptoms
Cardiac: Reports No Symptoms
Abdomen/GI: Reports No Symptoms
Genitourinary: Reports Dysuria and Flank Pain (bilaterally, better, almost fully resolved)
Musculoskeletal: Reports Other (rt hand swelling and pain less severe, redness now limited to 3rd MCP joint and significantly reduced)
Neuro: Reports No Symptoms
Physical Exam
-
General: Well Developed, Well Nourished and No Apparent Distress
HEENT: Normocephalic, Atraumatic and Moist Mucous Membranes
Respiratory: Clear to Auscultation; Negative Wheezes, Rales or Rhonchi
Cardiac: Regular Rhythm and S1/S2
GI: Soft, Nontender and Nondistended
Genito-urinary: Negative Costovertebral Angle Tend (resolved)
Musculoskeletal: No Clubbing, No Cyanosis and Other (rt hand, swollen, warm and tender, though probably 75% reduced)
Skin: Rash (small (<1 cm) circular area on left index finger PIP joint and resolving area on MCP joint) and Lesions (small lesion noted rt lower forearm, ?rheumatologic, should be eval by derm or rheum post dc, pt believes may be irritation from her
sling and this is certainly feasible)
Neuro: Awake, Alert and Oriented
[2024-09-17 15:05] VITALS: BP 116/71
[2024-09-17] MEDS: LOVENOX 40 MG SC (16:57)
[2024-09-17] MEDS: ROCEPHIN 1000 MG IV (21:22)
[2024-09-17] MEDS: STERILE WATER FOR INJECTION 10 ML IV (21:23)
[2024-09-17] MEDS: XANAX 0.5 MG PO (21:23)
[2024-09-17] MEDS: SYNTHROID 75 MCG PO (21:23)
[2024-09-17] MEDS: TUMS CHEWABLE TABLET 200 MG PO (21:29)
[2024-09-17 23:18] VITALS: BP 140/89
[2024-09-18] MEDS: TYLENOL 650 MG PO (04:17)
[2024-09-18] MEDS: BENADRYL 25 MG PO (04:18)
[2024-09-18 07:15] VITALS: BP 122/74
[2024-09-18] MEDS: DELTASONE 30 MG PO (07:48)
[2024-09-18] MEDS: MESTINON 60 MG PO (07:48)
[2024-09-18] MEDS: DITROPAN 5 MG PO (07:48)
[2024-09-18] MEDS: FLAGYL 500 MG PO (07:48)
[2024-09-18] MEDS: ULTRAM 50 MG PO (07:49)
[2024-09-18] MEDS: PEPCID 20 MG PO (07:49)
[2024-09-18] MEDS: NORVASC 5 MG PO (07:49)
--- NOTE | 2024-09-18 10:23 | W.PN.HOSP.TC ---
Today's Communication/Plan
-
dc now
Assessment / Plan
Assessment / Plan
This is a 74-year-old female with past medical history significant for myasthenia gravis, hypertension, hyperlipidemia, hypothyroid, GERD, UTI presenting to the emergency department with hand swelling following dog bite 1 week ago.
Patient suffered bite to her right hand about 1 week ago. She was seen at urgent care at that time 8 hours after the bite and was sent home with bandage. No antibiotics were provided at that time. She appeared to have had open wound with ongoing
drainage for several days. Over the last 2 days [employer] there is being right hand swelling. And then she developed swelling and redness. She was seen at urgent care and had wound culture done with a Q-tip. Thereafter the drainage stopped. The
swelling continued and she was sent to the emergency department. The dog had vaccinations are up-to-date.
Patient also noticed episode of back pain and flank pain starting day of admission. This is typical of her urinary tract infections for which she is on suppressive methamphetamine and follows with urology. She has a history of pelvic floor
prolapse/bladder prolapse with recurrent utis. UA - E. Coli, pansensitive. Much improved/resolved
Right hand cellulitis/ UTI only , Without Systemic Illness
pt never had a fever, WBC elevation most likely due to steroids, she was tachycardic, most likely due to pain
Cellulitis of the hand following dog bite to 1 week ago. No evidence of flexor tenosynovitis. No foreign body. Prior records were animal vaccinations were up-to-date and patient did not receive any rabies vaccine. There is no abscess or open
drainage.
rt arm with small red lesion - not warm, not tender. Pt and dgt want my opinion as to what this is. Not sure, examined with Dr. Bobby who also did not know, possibly rheumatologic in origin. Will need outpt follow up, ?related to sling
left index finger with 2 small areas of redness, ?insect biet
PLAN:
Hand infection secondary animal bite
- Admit to [facility]
- Blood cultures
- No abscess or fluid collection for cultures at this time
- IV ceftriaxone plus Flagyl
- ID consult appreciated and discussed with Dr. Bobby
-CT scan of hand and wrist: Edema within the subcutaneous fat and dorsal soft tissues involving the hands, wrists, and forearm. No focal rim-enhancing fluid collection to indicate abscess. No subcutaneous emphysema. No radiopaque foreign body. No
periosteal reaction, localized demineralization, or bony destruction to suggest osteomyelitis. No fracture.
WBC 15.4-->12.2-->12.8-->13.3
pt on chronic steroids
UTI-history of recurrent UTI now on suppressive methenamine
- Continue with the ceftriaxone as above
- Holding methenamine for now
- Continue oxybutynin
UA: E.Coli, pansensitive
Myasthenia gravis -stable
- Continue pyridostigmine 60 mg 3 times daily
- Continue prednisone 30/40 alternating
Hypothyroid
- Continue levothyroxine 75 mcg
Hypertension
- Continue amlodipine
hand infection doing well, will dc
see dictated note
Full code
More than 30 minutes spent in discharge including
Final examination of the patient
Summarizing hospital stay
Instructions for continuing care to all relevant caregivers
Preparation of discharge records, prescriptions, and referral forms
Total time spent (in minutes): 45
Anticipated Discharge: Today
Subjective/Interval History
-
Date of Service: September 18, 2024
Hand is less swollen and tender
Objective Data
-
Vital Signs:
Vital Signs
Temp Pulse Resp BP Pulse Ox
98.5 F 80 16 122/74 94
09/18/24 07:15 09/18/24 07:15 09/18/24 07:15 09/18/24 07:15 09/18/24 07:15
I&O
09/17/24 09/18/24 09/19/24
06:59 06:59 06:59
Intake Total 960 / 960 1140 / 1140
Balance 960 / 960 1140 / 1140
Review of Systems
-
History Source: Patient and Coordinated Provider
Constitutional: Denies Fever
EENT: Reports No Symptoms Reported
Respiratory: Reports No Symptoms
Cardiac: Reports No Symptoms
Abdomen/GI: Reports No Symptoms
Genitourinary: Reports Dysuria and Flank Pain (bilaterally, better, almost fully resolved)
Musculoskeletal: Reports Other (rt hand swelling and pain less severe, redness now limited to 3rd MCP joint and significantly reduced)
Neuro: Reports No Symptoms
Physical Exam
-
General: Well Developed, Well Nourished and No Apparent Distress
HEENT: Normocephalic, Atraumatic and Moist Mucous Membranes
Respiratory: Clear to Auscultation; Negative Wheezes, Rales or Rhonchi
Cardiac: Regular Rhythm and S1/S2
GI: Soft, Nontender and Nondistended
Genito-urinary: Negative Costovertebral Angle Tend (resolved)
Musculoskeletal: No Clubbing, No Cyanosis and Other (rt hand, swelling essentially resolved, minimal redness over 3rd MCP)
Skin: Rash (small (<1 cm) circular area on left index finger PIP joint and resolving area on MCP joint) and Lesions (small lesion noted rt lower forearm, ?rheumatologic, should be eval by derm or rheum post dc, pt believes may be irritation from her
sling and this is certainly feasible)
Neuro: Awake, Alert and Oriented
--- NOTE | 2024-09-18 11:18 | CM ---
Spoke with RN. Patient medically stable for discharge. Met with patient who signed IMM. It was reviewed and is on chart. She is still agreeable to [facility]. Sent TT to Ashley weekend coverage at [facility]. She confirmed that she had received referral.
Plan: Case management will continue to follow and assist with discharge planning. Patient's daughter will transport home. VN will call to schedule.
--- NOTE | 2024-09-18 14:41 | W.DS.TRANS ---
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
-
Discharge Instructions:
Discharge Diagnosis/Procedures Right Hand Dog Bite Infection
Diet No restrictions
Activity No restrictions
Driving Restrictions No driving
Bathing Restrictions OK to Shower
Other Services VN,PT,OT
Instructions:
Stand-Alone Forms:
Changes to Home Medications: Yes
Discharge Medications:
DC Medications w/original date entered in [employer]
oxybutynin chloride 5 mg tablet 5 mg PO BID Urinary Issue 07/09/16
alprazolam 0.5 mg tablet 0.5 mg PO HS Mental Health/Anxiety 07/10/16
famotidine 40 mg tablet 40 mg PO BID Gastrointestinal Issue 05/13/24
levothyroxine 75 mcg tablet 75 mcg PO HS Thyroid 05/13/24
pyridostigmine bromide 60 mg tablet (Mestinon) 60 mg PO AC Myashenia gravis 05/13/24
calcium carbonate (Tums) 200 mg PO QIDPRN PRN heartburn 05/14/24
Vitamin O97-[place] D3 1 tab PO DAILY 09/14/24
acetaminophen 500 mg tablet 500 mg PO Q6H PRN mild pain 09/14/24
amlodipine 5 mg tablet 5 mg PO DAILY Blood pressure 09/14/24
ascorbic acid (vitamin C) 500 mg tablet (Vitamin C) 500 mg PO DAILY 09/14/24
aspirin 81 mg tablet,delayed release 81 mg PO HS 09/14/24
calcium carbonate (Calcium 600) 600 mg PO DAILY 09/14/24
methenamine hippurate 1 gram tablet 1 g PO DAILY 09/14/24
prednisone 20 mg tablet 30 mg PO Q48H Autoimmune disorder 09/14/24
prednisone 20 mg tablet 40 mg PO Q48H 09/14/24
tramadol 50 mg tablet 50 mg PO Q6HPRN PRN mild pain 09/14/24
vitamin D3-vitamin K2 1 tab PO DAILY 09/14/24
cefdinir 300 mg capsule 300 mg PO BID #10 caps 09/18/24
metronidazole 500 mg tablet 500 mg PO BID #10 tabs 09/18/24
mupirocin 2 % topical ointment 1 applic topical BID #22 grams 09/18/24
Home Medication Changes
antibiotics added
Pending Results: No
== END 2024-09-18 11:49 | disposition home health service (06) | DRG 603 ==
LOC: 4 EAST ACU 20:29
PROVIDERS: Emergency Medicine; ADMITTING PHYSICIAN Internal Medicine; ATTENDING PHYSICIAN Internal Medicine; CONSULT PHYSICIAN Internal Medicine Infectious Disease; EMERGENCY PHYSICIAN Emergency Medicine; FAMILY PHYSICIAN Family Medicine
DX: L03.113 Cellulitis of right upper limb (principal); N39.0 Urinary tract infection, site not specified; W54.0XXA Bitten by dog, initial encounter; S61.451A Open bite of right hand, initial encounter; G70.00 Myasthenia gravis without (acute) exacerbation; E03.9 Hypothyroidism, unspecified; I10 Essential (primary) hypertension
CPT/HCPCS: 73110; 73130; 73201; 80048; 80053; 81003; 81015; 85025; 85027; 87040; 87070; 87086; 87088; 87186; 96374; 97162; 97166; 99285; Q9967

== ENCOUNTER 2024-09-26 08:19 | Inpatient (IN) | payer OTHER, SELFPAY ==
[2024-09-22 16:23] VITALS: BP 147/94
--- NOTE | 2024-09-22 18:17 | ED.SKININJ ---
HPI-Injury
<Nav Garcia PA-C - Last Filed: 09/22/24 20:06>
General
Chief Complaint: Skin Problem
Source: patient
Exam Limitations: none
Time Seen by Provider: 09/22/24 18:06
History of Present Illness-Injury
Initial Injury comments:
74-year-old female presents for reevaluation. She was discharged from this hospital 4 days ago for recurrent UTI and dog bite to the right hand with infection. She was discharged on cefdinir and metronidazole. She is due to finish her antibiotics
tomorrow. She saw her family doctor for the first time in follow-up and they sent her here as they felt that the wrist and hand did not look well. She notes chills. She denies fever. She notes increased swelling pain and stiffness to the hand
and wrist. She also is in a sling for a right humerus fracture.
Past History
<Nav Garcia PA-C - Last Filed: 09/22/24 20:06>
Past History
ED Past Medical History: GERD, HTN, Hypercholesterolemia, Hypothyroidism, Psychiatric and Other (Osteoarthritis, neuropathy)
ED Past Surgical History: Orthopedic
Social History
Alcohol: Occasional
Personal:
Living: with family
Employment: Employed
Family History
Family History: Other (Noncontributory)
Phy Exam
<Nav Garcia PA-C - Last Filed: 09/22/24 20:06>
Physical Exam
Physical Exam:
General: Well-appearing female no acute respiratory distress
HEENT: Normocephalic atraumatic
Heart: Regular rate and rhythm
Lungs: Clear no wheeze
Skin: Subtle erythema noted of the MCP joint of the long finger with soft tissue swelling of the dorsum of the hand and mild swelling into the wrist. Range of motion of the fingers is slightly limited with extreme flexion of the fingers. There is
no lymphangitic streaking.
Vascular: 2+ radial pulse right wrist with brisk capillary refill to the fingers
Course
<Nav Garcia PA-C - Last Filed: 09/22/24 20:06>
Orders/Labs/Results
Orders:
Orders
09/22/24 18:26
CRP [C-Reactive Protein] Urgent
Complete Blood Count/With Diff Urgent
Comprehensive Metabolic Panel Urgent
Sed Rate [Erythrocyte Sed Rate] Urgent
09/22/24 19:59
CefTRIAXone [Rocephin] 1,000 mg IV NOW STA
MetroNIDAZOLE 500 MG/100 ML [Flagyl 500 mg] 100 ml IV NOW
Abnormal Lab Results
09/22/24
18:26
WBC 12.5 H 10^3/uL
(4.8-10.8)
RBC 3.92 L 10^6/uL
(4.20-5.40)
MCH 31.6 H pg
(27.0-31.0)
MCHC 32.8 L g/dL
(33.0-37.0)
RDW 14.6 H %
(11.5-14.5)
Abs Immat Gran (auto) 0.2 H 10^3/uL
(0-0.05)
Absolute Neuts (auto) 10.8 H 10^3/uL
(1.4-6.5)
Absolute Lymphs (auto) 0.9 L 10^3/uL
(1.2-3.4)
Immature Gran % 1.7 H %
(0-0.5)
Neutrophils % 86.1 H %
(42.2-75.2)
Lymphocytes % 7.0 L %
(20.5-51.1)
Chloride 112 H mmol/L
(98-107)
AST 37 H U/L
(14-36)
Alkaline Phosphatase 157 H U/L
(38-126)
Total Protein 6.0 L g/dl
(6.3-8.2)
09/22/24 18:26
09/22/24 18:26
Vital Signs
Initial and Last Documented VS:
Initial Vital Signs
Temp Pulse Resp BP Pulse Ox
98.6 F 95 18 147/94 95
09/22/24 16:23 09/22/24 16:23 09/22/24 16:23 09/22/24 16:23 09/22/24 16:23
Last Documented Vital Signs
Temp Pulse Resp BP Pulse Ox
98.6 F 95 18 147/94 95
09/22/24 16:23 09/22/24 16:23 09/22/24 16:23 09/22/24 16:23 09/22/24 18:17
<John Zapata, DO - Last Filed: 09/22/24 19:58>
Orders/Labs/Results
Orders:
Orders
09/22/24 18:26
CRP [C-Reactive Protein] Urgent
Complete Blood Count/With Diff Urgent
Comprehensive Metabolic Panel Urgent
Sed Rate [Erythrocyte Sed Rate] Urgent
09/22/24 19:59
CefTRIAXone [Rocephin] 1,000 mg IV NOW STA
MetroNIDAZOLE 500 MG/100 ML [Flagyl 500 mg] 100 ml IV NOW
Abnormal Lab Results
09/22/24
18:26
WBC 12.5 H 10^3/uL
(4.8-10.8)
RBC 3.92 L 10^6/uL
(4.20-5.40)
MCH 31.6 H pg
(27.0-31.0)
MCHC 32.8 L g/dL
(33.0-37.0)
RDW 14.6 H %
(11.5-14.5)
Abs Immat Gran (auto) 0.2 H 10^3/uL
(0-0.05)
Absolute Neuts (auto) 10.8 H 10^3/uL
(1.4-6.5)
Absolute Lymphs (auto) 0.9 L 10^3/uL
(1.2-3.4)
Immature Gran % 1.7 H %
(0-0.5)
Neutrophils % 86.1 H %
(42.2-75.2)
Lymphocytes % 7.0 L %
(20.5-51.1)
Chloride 112 H mmol/L
(98-107)
AST 37 H U/L
(14-36)
Alkaline Phosphatase 157 H U/L
(38-126)
Total Protein 6.0 L g/dl
(6.3-8.2)
09/22/24 18:26
09/22/24 18:26
Vital Signs
Initial and Last Documented VS:
Initial Vital Signs
Temp Pulse Resp BP Pulse Ox
98.6 F 95 18 147/94 95
09/22/24 16:23 09/22/24 16:23 09/22/24 16:23 09/22/24 16:23 09/22/24 16:23
Last Documented Vital Signs
Temp Pulse Resp BP Pulse Ox
98.6 F 95 18 147/94 95
09/22/24 16:23 09/22/24 16:23 09/22/24 16:23 09/22/24 16:23 09/22/24 18:17
Christinelt;Nav Garcia PA-C - Last Filed: 09/22/24 20:06>
MDM/Problems Addressed
Differential Diagnosis Includes:
Patient with worsening symptoms of swelling and pain to the right hand. Recent dog bite with cellulitis to right hand and recently discharged. Sent in by family doctor for further IV antibiotics secondary to increased swelling and pain. Labs
reviewed. Discussed with emergency room attending who saw the patient as well. Given worsening symptoms and prior history of sepsis secondary to infection similar to this we will keep patient in hospital.
<Nav Garcia PA-C - Last Filed: 09/22/24 20:06>
*Pulse Oximetry
SaO2: 95
Patient hypoxic: no
*Critical Care Note
Total Time (30-74mins, 75-104mins- exclusive of procedures): Not Applicable
ED Attending Note
<Nav Garcia PA-C - Last Filed: 09/22/24 20:06>
-
Portions of this chart may have been created with voice recognition software.� Occasional wrong word or��sound alike� substitutions may have occurred due to the inherent limitations of voice recognition software.
<John Zapata DO - Last Filed: 09/22/24 19:58>
ED Attending Note
Patient seen and examined by attending physician: Yes
I performed the substantive portion of visit, reviewed & personally made and approve the management plan that is documented in note by myself or FRANCESCA.: Yes
ED Attending Note:
I evaluated the patient at bedside. The patient was sent to a hospital for admission for IV antibiotics by primary care. The patient refused to go to [facility]. She was just discharged here recently. Overall she does not feel that she is
improving appropriately on oral antibiotics. White count remains elevated but slightly lower than prior. Although the overall appearance is not significantly concerning, she does report decreased function at the right hand. Daughter is very
concerned that she has been septic in the past.
Discharge Plan
Departure
Patient Disposition: Admit
Date of Disposition: 09/22/24
Time of Disposition: 20:05
Presentation/result/management discussed w/ accepting MD/DO: Hospitalist
Discharge Problem:
Dog bite
Prescriptions:
No Action
oxybutynin chloride 5 MG tablet
5 mg PO BID
alprazolam 0.5 MG tablet
0.5 mg PO HS
famotidine 40 mg Tablet
40 mg PO BID
levothyroxine 75 mcg Tablet
75 mcg PO HS
pyridostigmine bromide [Mestinon] 60 mg Tablet
60 mg PO AC
calcium carbonate [Tums] 200 mg calcium (500 mg) Tablet,Chewable
200 mg PO QIDPRN PRN (Reason: heartburn)
prednisone 20 mg Tablet
40 mg PO Q48H
aspirin 81 mg Tablet,Delayed Release (Dr/Ec)
81 mg PO HS
acetaminophen 500 mg Tablet
500 mg PO Q6H PRN (Reason: mild pain)
calcium carbonate [Calcium 600] 600 mg calcium (1,500 mg) Tablet
600 mg PO DAILY
methenamine hippurate 1 gram Tablet
1 g PO DAILY
Patient Comments:
09/14/2024, take with 500 mg of vitamin C.
ascorbic acid (vitamin C) [Vitamin C] 500 mg Tablet
500 mg PO DAILY
Patient Comments:
09/14/2024, take with 1 gm of methenamine hippurate.
Vitamin M36-Hsgqezj D3
1 tab PO DAILY
vitamin D3-vitamin K2
1 tab PO DAILY
prednisone 20 mg tablet
30 mg PO Q48H
amlodipine 5 mg tablet
5 mg PO DAILY
tramadol 50 MG tablet
50 mg PO Q6HPRN PRN (Reason: mild pain)
metronidazole 500 mg Tablet
500 mg PO BID Qty: 10 0RF
cefdinir 300 mg capsule
300 mg PO BID Qty: 10 0RF
mupirocin 2 % ointment
1 applic topical BID Qty: 22 0RF
Referrals:
Guerline Araya MD [Family Provider, Family Practice]
Interventions
Interventions:
*Risk Screen - Suicide Last Done: 09/22/24 16:24
Discharge Date and Time
Print Language: SAMI
[2024-09-22 18:32] LABS: Hematocrit 37.8 % (37.0-47.0); Hemoglobin 12.4 g/dL (12.0-16.0); Mean Corp Hgb Conc. 32.8 g/dL (33.0-37.0); Mean Corpuscular Volume 96.4 fL (81.0-99.0); Nucleated Red Blood Cells % 0 %; Platelet Count 379 10^3/uL (130-400); Red Cell Dist. Width 14.6 % (11.5-14.5)
[2024-09-22 19:06] LABS: ALT (SGPT) 31 U/L (0-35); AST (SGOT) 37 U/L (14-36); Albumin 3.8 g/dl (3.5-5.0); Alkaline Phosphatase 157 U/L (38-126); Blood Urea Nitrogen 17 mg/dl (7-17); Calcium 9.2 mg/dl (8.4-10.2); Carbon Dioxide 24 mmol/L (22-30); Chloride 112 mmol/L (98-107); Glucose 96 mg/dl (70-99); Potassium 4.1 mmol/L (3.5-5.1); Sodium 138 mmol/L (135-145); Total Protein 6.0 g/dl (6.3-8.2); eGFR > 60.00
[2024-09-22 19:08] LABS: C-Reactive Protein < 5.00 mg/L (0.0-10.00)
--- NOTE | 2024-09-22 20:23 | HPS.HSE ---
Family Physician
-
Family Physician: Guerline Araya MD
Chief Complaint
-
R Wrist swelling
History of Present Illness
Patient is a 74y F with PMH significant for myasthenia, hypertension and hypothyroidism who presents to ED complaining of R hand / wrist swelling and redness. Patient was admitted to 09/14 - 09/18 for R hand cellulitis. Initial injury was dog
bite (her own pet) in mid-August (approx 09/07). Swelling and redness occurred some time later. Patient received IV ceftriaxone and metronidazole from 09/14 - 09/18 and was discharged to home on cefdinir and metronidazole. She denies any fevers /
chills, N/V or other systemic symptoms. She complains of continued swelling and discomfort in the R hand - mostly in the dorsal wrist area.
She was seen by her PCP today for follow-up who advised her to present immediately to the ED for further evaluation and additional IV antibiotics.
Patient notes that she has had sepsis in the past from a completely different / unrelated infection.
Medical History
Past Medical History
Past Medical History: Reports Other (myasthenia gravis diagnosed 2 years ago follows at [place], hypertension, GERD, hypercholesterolemia, hypothyroidism, osteoarthritis, chronic stool incontinence secondary to Mestinon, bladder prolapse with pessary)
Past Surgical History: Reports None
Social History
Tobacco: Non-smoker
Alcohol: None
Drug: None
Family History
Family History: Not pertinent
Allergies / Home Medications
Allergies reflects when Allergies were last updated in [facility].
Home Medications with original date entered in [facility]
Allergy/Medication List:
Allergies
Allergy/AdvReac Type Severity Reaction Status Date / Time
adhesive tape Allergy causes Verified 09/14/24 21:22
skin tears
easily
amoxicillin Allergy Hives Verified 09/14/24 12:28
gabapentin Allergy severe Verified 09/14/24 21:22
headache
lidocaine Allergy IV only Verified 09/14/24 21:22
causes
Mystinia
gravis
Penicillins Allergy Hives/SWELL Verified 09/14/24 21:22
ING
sulfamethoxazole (From Allergy chest Verified 09/14/24 12:28
Bactrim) tightness
trimethoprim (From Bactrim) Allergy chest Verified 09/14/24 12:28
tightness
Home Medications
oxybutynin chloride 5 mg tablet 5 mg PO BID Urinary Issue 07/09/16
alprazolam 0.5 mg tablet 0.5 mg PO HS Mental Health/Anxiety 07/10/16
famotidine 40 mg tablet 40 mg PO BID Gastrointestinal Issue 05/13/24
levothyroxine 75 mcg tablet 75 mcg PO HS Thyroid 05/13/24
pyridostigmine bromide 60 mg tablet (Mestinon) 60 mg PO AC Myashenia gravis 05/13/24
calcium carbonate (Tums) 200 mg PO QIDPRN PRN heartburn 05/14/24
Vitamin F93-Btupgay D3 1 tab PO DAILY 09/14/24
acetaminophen 500 mg tablet 500 mg PO Q6H PRN mild pain 09/14/24
amlodipine 5 mg tablet 5 mg PO DAILY Blood pressure 09/14/24
ascorbic acid (vitamin C) 500 mg tablet (Vitamin C) 500 mg PO DAILY 09/14/24
aspirin 81 mg tablet,delayed release 81 mg PO HS 09/14/24
calcium carbonate (Calcium 600) 600 mg PO DAILY 09/14/24
methenamine hippurate 1 gram tablet 1 g PO DAILY 09/14/24
prednisone 20 mg tablet 30 mg PO Q48H Autoimmune disorder 09/14/24
prednisone 20 mg tablet 40 mg PO Q48H 09/14/24
tramadol 50 mg tablet 50 mg PO Q6HPRN PRN mild pain 09/14/24
vitamin D3-vitamin K2 1 tab PO DAILY 09/14/24
cefdinir 300 mg capsule 300 mg PO BID #10 caps 09/18/24
metronidazole 500 mg tablet 500 mg PO BID #10 tabs 09/18/24
mupirocin 2 % topical ointment 1 applic topical BID #22 grams 09/18/24
Review of Systems
-
History Source: Patient
A 12 point ROS was completed and negative except as noted: Yes
Constitutional: Denies Fever or Chills
Respiratory: Denies Cough or Trouble Breathing
Cardiac: Denies Chest Pain or Palpitations
Abdomen/GI: Denies Abdominal Pain, Nausea, Vomiting or Diarrhea
: Denies Dysuria or Frequency
Musculoskeletal: Reports Joint Pain and Edema
Psych: Denies Depression or Anxiety
Physical Exam
Vital Signs
Vital Signs
Temp Pulse Resp BP Pulse Ox
98.6 F 95 18 147/94 95
09/22/24 16:23 09/22/24 16:23 09/22/24 16:23 09/22/24 16:23 09/22/24 18:17
Physical Exam
General: Other (74y F in no acute distress.)
HEENT: Moist mucous membranes and PERRLA
Respiratory: Clear; No Wheezes, Rales or Rhonchi
Cardiac: S1/S2 and Regular Rhythm; No Murmur
GI: Soft, Non Tender, Non Distended and Normal Bowel Sounds
Musculoskeletal: Other (RUE in sling secondary to proximal humerus fracture (present on admission))
Skin: Other (Erythema with focal tenderness and swelling over the R ulnar head. Lesion over dorsum of hand / bite healing well without significant erythema / discharge / etc.)
Neuro: AO x 3 and Nonfocal/grossly intact
Laboratory Results
-
09/22/24 18:26
09/22/24 18:26
Laboratory Results
Total Bilirubin 0.8 mg/dl (0.2-1.3) 09/22/24 18:26
AST 37 U/L (14-36) H 09/22/24 18:26
ALT 31 U/L (0-35) 09/22/24 18:26
Alkaline Phosphatase 157 U/L (38-126) H 09/22/24 18:26
Impression/Plan
-
A/P: Patient is a 74y F with PMH significant for myasthenia, hypertension and recent admission for cellulitis following dog bite who presents to ED complaining of continued swelling and redness.
Right Hand / Wrist Cellulitis
- Observe overnight for further evaluation and treatment.
- Minimal erythema and tenderness over ulna / wrist - as described during previous admission.
- Change back to IV ceftriaxone for now. Continue PO metronidazole.
- ID re-evaluation.
- Note that x-ray and CT imaging of the wrist / hand done during recent admission and was negative for collection, abscess, osteo, etc.
- Pain control / supportive care.
- OT eval given wrist discomfort AND proximal humerus fracture.
Right Humerus Fracture
- Fall about 3 weeks ago with proximal, non-displaced humerus fracture.
- Maintain sling / immobility.
- OT eval as noted above.
- Follow-up with Ortho as an outpatient as planned.
Myasthenia Gravis
- Stable. No current / new complaints.
- Continue current med regimen including prednisone.
- Note chronic leukocytosis secondary to prednisone.
Benign Hypertension
- Stable. Continue usual BP med regimen.
Hypothyroidism
- Stable. Continue T4 supplementation.
DVT Prophylaxis: SCDs
Code Status: Full
[2024-09-22] MEDS: ROCEPHIN 1000 MG IV (20:33)
[2024-09-22] MEDS: FLAGYL 500 MG 100 IV (20:33)
[2024-09-22 20:34] VITALS: BMI 25.7
[2024-09-22 21:18] VITALS: BP 166/93; BMI 25.6
--- NOTE | 2024-09-22 21:48 | TRANSFER ---
pt rec'd from ED at 2100. pt ambulated from stretcher to bed without assistance. pt AAOx3, c/o 5/10 pain in R hand. BP elevated at 166/93 and HR 101 upon arrival. all other VSS. will continue to monitor.
[2024-09-22] MEDS: ASPIR LOW (ENTERIC COATED) 81 MG PO (22:02)
[2024-09-22] MEDS: SYNTHROID 75 MCG PO (22:02)
[2024-09-22] MEDS: XANAX 0.5 MG PO (22:02)
[2024-09-22] MEDS: ULTRAM 50 MG PO (22:03)
[2024-09-22] MEDS: MESTINON 60 MG PO (22:34)
[2024-09-22 23:25] VITALS: BP 108/65
[2024-09-23] MEDS: TYLENOL 650 MG PO (03:07)
[2024-09-23] MEDS: ULTRAM 50 MG PO ×2 (04:14→20:58)
[2024-09-23] MEDS: FLAGYL 500 MG PO ×3 (05:15→20:59)
[2024-09-23 07:08] LABS: Hematocrit 35.2 % (37.0-47.0); Hemoglobin 11.5 g/dL (12.0-16.0); Mean Corp Hgb Conc. 32.7 g/dL (33.0-37.0); Mean Corpuscular Volume 98.1 fL (81.0-99.0); Platelet Count 371 10^3/uL (130-400); Red Cell Dist. Width 14.6 % (11.5-14.5)
[2024-09-23 07:47] LABS: Blood Urea Nitrogen 19 mg/dl (7-17); Calcium 8.7 mg/dl (8.4-10.2); Carbon Dioxide 23 mmol/L (22-30); Chloride 113 mmol/L (98-107); Estimated Creatinine Clearance 57 ml/min; Glucose 76 mg/dl (70-99); Potassium 3.8 mmol/L (3.5-5.1); Sodium 139 mmol/L (135-145); eGFR > 60.00
[2024-09-23 07:55] VITALS: BP 123/75
[2024-09-23] MEDS: NORVASC 5 MG PO (08:09)
[2024-09-23] MEDS: DELTASONE 30 MG PO (08:10)
[2024-09-23] MEDS: MESTINON 60 MG PO ×3 (08:11→15:39)
[2024-09-23] MEDS: PEPCID 20 MG PO (08:11)
[2024-09-23] MEDS: DITROPAN 5 MG PO ×2 (08:11→20:49)
--- NOTE | 2024-09-23 13:28 | CON.ID ---
Consultation
-
Date/Time Consultation Requested: 09/23/2024 0049
Date/Time Consultation Performed: 09/23/2024 1400
Requesting Provider: Dr. Marsh
Performing Provider: Dr. Marquez
Reason for Consultation: Right wrist swelling
Chief Complaint / Past History
Chief Complaint
Right hand dog bite
History of Present Illness
Jennifer Germain is a 74-year-old female being evaluated at the request of Dr. Deshpande in regards to right wrist swelling. History is obtained from chart review, along with patient interview. Additional history was obtained from the patient's
daughters via telephone conversation.
The patient is known to the Infectious Diseases service, having been seen on her last admission in late August. At that time, she reports that she had sustained a dog bite to her right hand by her family dog. The dog is up-to-date on all
vaccinations. After the bite, the patient was seen at a urgent care center and the area was dressed, but she was not placed on any antibiotics. She noted several days of swelling and presented to [facility] on 09/14. She was placed on
antibiotics, with improvement, and was ultimately discharged on 09/18 to complete a course of cefdinir and metronidazole. The patient presents back to the hospital yesterday secondary to swelling of the right wrist (proximal to the actual bite
area), following evaluation by her PCP. At the time of admission, she was still on her course of outpatient antibiotics.
At this time she reports ongoing swelling of the right wrist and some difficulty with hand clenching. She notes right wrist discomfort. Prior site of the dog bite has crusted over and without the surrounding erythema. Patient denies any fevers or
chills.
Past History
Additional Past Medical History:
Myasthenia gravis status post thymectomy
Hypertension
Hypothyroidism
Stool incontinence
Osteoarthritis
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
Allergy History:
adhesive tape Allergy (Verified 09/14/24 21:22)
causes skin tears easily
amoxicillin Allergy (Verified 09/14/24 12:28)
Hives
gabapentin Allergy (Verified 09/14/24 21:22)
severe headache
lidocaine Allergy (Verified 09/14/24 21:22)
IV only causes Mystinia gravis
Penicillins Allergy (Verified 09/14/24 21:22)
Hives/SWELLING
sulfamethoxazole (From Bactrim) Allergy (Verified 09/14/24 12:28)
chest tightness
trimethoprim (From Bactrim) Allergy (Verified 09/14/24 12:28)
chest tightness
Medications Reviewed: Yes
Current Antibiotics:
Ceftriaxone
Metronidazole
Social History
Tobacco: Non-Smoker
Alcohol: None
Drug: None
Living: With Family
Family History
Family History: Not Pertinent
Review of Systems
Vital Signs
Temp Pulse Resp BP Pulse Ox
97.9 F 82 16 123/75 96
09/23/24 07:55 09/23/24 07:55 09/23/24 07:55 09/23/24 07:55 09/23/24 07:55
Physical Exam
Physical Exam
Constitutional: No Acute Distress and Comfortable
Eyes: No Conjunctival Hemorrhage and Sclera Anicteric
Cardiovascular: Regular Rate and S1/S2; Negative S3/S4
Pulmonary: Clear and Non Labored
Gastrointestinal: Soft, Non Tender and Non Distended
Genito-Urinary: Negative CVA Tenderness
Extremities: Other (Hand properties without significant edema. No erythema. Wrist area with swelling and tenderness to palpation. Only mild erythema.)
Musculoskeletal: Other (RUE in sling due to recent bone fracture.); Negative Spinal Tenderness
Neurological: AO x 3
Lab / Diagnostic Study Results
09/23/24 05:47
09/23/24 05:47
Abs Immat Gran (auto) 0.2 10^3/uL (0-0.05) H 09/22/24 18:26
Absolute Neuts (auto) 10.8 10^3/uL (1.4-6.5) H 09/22/24 18:26
Absolute Lymphs (auto) 0.9 10^3/uL (1.2-3.4) L 09/22/24 18:26
Absolute Monos (auto) 0.6 10^3/uL (0.1-0.6) 09/22/24 18:26
Absolute Basos (auto) 0.0 10^3/uL (0-0.2) 09/22/24 18:
Immature Gran % 1.7 % (0-0.5) H 09/22/24 18:
Neutrophils % 86.1 % (42.2-75.2) H 09/22/24 18:26
Lymphocytes % 7.0 % (20.5-51.1) L 09/22/24 18:
Monocytes % 4.8 % (1.7-9.3) 09/22/24 18:
Eosinophils % 0.1 % (0-6) 09/22/24 18:
Basophils % 0.3 % (0-2) 09/22/24 18:
ESR 9 mm/hour (0-20) 09/22/24 18:26
C-Reactive Protein < 5.00 mg/L (0.0-10.00) 09/22/24 18:
Microbiology Results
Micro:
09/14/24 17:07 Urine Culture - Preliminary
Urine Escherichia coli
Diptheroids
09/14/24 22:01 MRSA Screen - Pending
Nose
09/14/24 19:47 Blood Culture - Pending
Blood/Venous
09/14/24 19:47 Blood Culture - Pending
Blood/Venous
09/14/24 Hand XRAY: No acute fracture or dislocation. Soft tissue swelling about the hand and wrist. No radiopaque foreign body or soft tissue gas
Assessment / Plan
Hx recent dog bite right hand.
Right wrist swelling ?infection ?Crystal arthropathy ?Other
Leukocytosis
Myasthenia gravis status post thymectomy
Hypertension
Hypothyroidism
Stool incontinence
Osteoarthritis
Recommendations:
Patient has been restarted on ceftriaxone and metronidazole.
Anaerobic infection somewhat unlikely. Further metronidazole can be discontinued.
Continue with ceftriaxone. Add doxycycline.
Consider Orthopedics evaluation for possible wrist aspiration.
Check MRI to assess for tenosynovitis or possible septic arthritis, although normal ESR and CRP suggest against a septic arthritis picture.
[2024-09-23 14:10] VITALS: BP 122/75
--- NOTE | 2024-09-23 14:55 | W.PN.HOSP.TC ---
Today's Communication/Plan
-
Assessment / Plan
Assessment / Plan
NAD
Scleral Anicteric
MMM
No JVD
CTABL
RRR, S1/S2
Soft, NT, ND, BS+
Warm, Dry
Right hand/wrist upper aspect of the right wrist noted slight bump with erythema but no drainage.
AAOx3
Calm
Dog bite of right hand right wrist
Continue Rocephin
ID added doxycycline and Flagyl was discontinued
MRI ordered
Orthopedic consulted however they have recommended IR sure arthrocentesis
ESR/CRP negative, interventional radiology has recommended to await MRI to determine if they will do a arthrocentesis
Myasthenia gravis s/p thymectomy continue pyridostigmine
Hypertension continue antihypertensives
Hypothyroidism continue levothyroxine
Anticipated Discharge: > 48 hours
Subjective/Interval History
-
Date of Service: September 23, 2024
Seen and examined. No new complaints. No acute overnight events.
States that the redness swelling has improved. Has focality on the top of her right wrist where her pain is
Objective Data
-
Labs:
Laboratory Results
09/23/24
05:47
WBC 11.4 H
Hgb 11.5 L
Hct 35.2 L
Plt Count 371
Sodium 139
Potassium 3.8
Chloride 113 H
Carbon Dioxide 23
BUN 19 H
Creatinine 0.7
Glucose 76
Calcium 8.7
Vital Signs:
Vital Signs
Temp Pulse Resp BP Pulse Ox
97.9 F 82 16 123/75 96
09/23/24 07:55 09/23/24 07:55 09/23/24 07:55 09/23/24 07:55 09/23/24 07:55
I&O
09/22/24 09/23/24 09/24/24
06:59 06:59 06:59
Intake Total 240 / 240
Balance 240 / 240
[2024-09-23 15:05] LABS: C-Reactive Protein < 5.00 mg/L (0.0-10.00)
[2024-09-23 15:50] VITALS: BP 127/76
[2024-09-23] MEDS: ASPIR LOW (ENTERIC COATED) 81 MG PO (20:48)
[2024-09-23] MEDS: ROCEPHIN 1000 MG IV (20:49)
[2024-09-23] MEDS: VIBRAMYCIN 100 MG PO (20:49)
[2024-09-23] MEDS: STERILE WATER FOR INJECTION 10 ML IV (20:49)
[2024-09-23] MEDS: SYNTHROID 75 MCG PO (20:49)
[2024-09-23] MEDS: XANAX 0.5 MG PO (20:58)
[2024-09-23 23:46] VITALS: BP 116/74
[2024-09-24] MEDS: TYLENOL 650 MG PO (02:07)
[2024-09-24] MEDS: FLAGYL 500 MG PO (05:01)
[2024-09-24 07:52] VITALS: BP 131/83
[2024-09-24] MEDS: MESTINON 60 MG PO ×3 (07:54→18:12)
[2024-09-24] MEDS: NORVASC 5 MG PO (07:54)
[2024-09-24] MEDS: VIBRAMYCIN 100 MG PO ×2 (07:55→20:13)
[2024-09-24] MEDS: DITROPAN 5 MG PO ×2 (07:55→20:13)
[2024-09-24] MEDS: DELTASONE 40 MG PO (07:56)
[2024-09-24] MEDS: ATIVAN 1 MG PO (07:56)
[2024-09-24] MEDS: PEPCID 20 MG PO (07:56)
--- NOTE | 2024-09-24 09:46 | W.PN.HOSP.TC ---
Today's Communication/Plan
-
Assessment / Plan
Assessment / Plan
NAD
Scleral Anicteric
MMM
No JVD
CTABL
RRR, S1/S2
Soft, NT, ND, BS+
Warm, Dry
Right hand/wrist upper aspect of the right wrist noted slight bump with erythema but no drainage. pain when wrist flex
AAOx3
Calm
Dog bite of right hand right wrist
Continue Rocephin and odxy
ID following
MRI right wrist pending
Orthopedic consulted however they have recommended IR sure arthrocentesis
ESR/CRP negative, interventional radiology has recommended to await MRI to determine if they will do a arthrocentesis
Myasthenia gravis s/p thymectomy continue pyridostigmine
Hypertension continue antihypertensives
Hypothyroidism continue levothyroxine
Anticipated Discharge: 24 - 48 hours
Subjective/Interval History
-
Date of Service: September 24, 2024
seen and examined
no new complaints
no acute overnight events
Objective Data
-
Vital Signs:
Vital Signs
Temp Pulse Resp BP Pulse Ox
98.4 F 79 16 131/83 95
09/24/24 07:52 09/24/24 07:52 09/24/24 07:52 09/24/24 07:54 09/24/24 07:52
I&O
09/23/24 09/24/24 09/25/24
06:59 06:59 06:59
Intake Total 720 / 720 1110 / 1110
Output Total 900 / 900
Balance 720 / 720 210 / 210
--- NOTE | 2024-09-24 12:57 | CON.ORTHO ---
Consultation
-
Date/Time Consultation Performed: 1245 09/24/24
Consultation - Orthopedics
History
74-year-old female history of myasthenia's gravis and recent dog bite to right hand presented to the emergency department complaints of right hand/wrist swelling and redness. She was subsequently admitted to the hospitalist service. ID was
consulted. Orthopedics is consulted for further evaluation and treatment. This morning patient reports that redness and pain have substantially improved. She reports that she has a history of a dog bite to her hand about 4 weeks ago. She was
previously admitted treated with antibiotics and discharged. She had worsening wrist pain that prompted her reevaluation emergency department. She lives at home with her daughter uses a walker for ambulatory assistance. Denies any fevers or chills
Allergies / Home Medications
Past medical history: Myasthenia's gravis, hypertension, GERD, hypercholesterolemia, hypothyroidism
Past surgical history: None reported
Family history: Not pertinent
Social history: Non-smoker, lives with daughter
Allergy/AdvReac Type Severity Reaction Status Date / Time
adhesive tape Allergy causes Verified 09/14/24 21:22
skin tears
easily
amoxicillin Allergy Hives Verified 09/14/24 12:28
gabapentin Allergy severe Verified 09/14/24 21:22
headache
lidocaine Allergy IV only Verified 09/14/24 21:22
causes
Mystinia
gravis
Penicillins Allergy Hives/SWELL Verified 09/14/24 21:22
ING
sulfamethoxazole (From Allergy chest Verified 09/14/24 12:28
Bactrim) tightness
trimethoprim (From Bactrim) Allergy chest Verified 09/14/24 12:28
tightness
�Medication �Instructions �Recorded
oxybutynin chloride 5 mg tablet 5 mg PO BID Urinary Issue 07/09/16
alprazolam 0.5 mg tablet 0.5 mg PO HS Mental Health/Anxiety 07/10/16
famotidine 40 mg tablet 40 mg PO BID Gastrointestinal Issue 05/13/24
levothyroxine 75 mcg tablet 75 mcg PO HS Thyroid 05/13/24
pyridostigmine bromide 60 mg 60 mg PO AC Myashenia gravis 05/13/24
tablet (Mestinon)
calcium carbonate (Tums) 200 mg PO QIDPRN PRN heartburn 05/14/24
Vitamin M45-Qrhfnot D3 1 tab PO DAILY Supplement 09/14/24
acetaminophen 500 mg tablet 500 mg PO Q6H PRN mild pain 09/14/24
amlodipine 5 mg tablet 5 mg PO DAILY Blood pressure 09/14/24
ascorbic acid (vitamin C) 500 mg 500 mg PO DAILY Supplement 09/14/24
tablet (Vitamin C)
aspirin 81 mg tablet,delayed 81 mg PO HS Blood Clot 09/14/24
release Prevention/Tx
calcium carbonate (Calcium 600) 600 mg PO DAILY Supplement 09/14/24
methenamine hippurate 1 gram tablet 1 g PO DAILY Infection 09/14/24
prednisone 20 mg tablet 30 mg PO Q48H Autoimmune disorder 09/14/24
prednisone 20 mg tablet 40 mg PO Q48H INFLAMMATION 09/14/24
tramadol 50 mg tablet 50 mg PO Q6HPRN PRN mild pain 09/14/24
vitamin D3-vitamin K2 1 tab PO DAILY Supplement 09/14/24
cefdinir 300 mg capsule 300 mg PO BID #10 caps 09/18/24
metronidazole 500 mg tablet 500 mg PO BID #10 tabs 09/18/24
Vital Signs / Lab Results
Temp Pulse Resp BP Pulse Ox
98.4 F 79 16 131/83 95
09/24/24 07:52 09/24/24 07:52 09/24/24 07:52 09/24/24 07:54 09/24/24 07:52
09/23/24 05:47
09/23/24 05:47
10 point review systems reviewed and negative unless otherwise stated
General: Pleasant, no acute distress at rest
Musculoskeletal right upper extremity
Small scab over the dorsal aspect of the hand in line with the long finger
No palpable excessive warmth compared to contralateral extremity
No significant erythema today visualized on examination
There is some mild swelling noted over the dorsal aspect of her wrist
Nontender to palpation over flexor tendon sheath digits without any significant tenderness palpation or swelling
Patient is able to actively flex and extend wrist with mild pain
Brisk cap refill
Diagnostic studies
MRI pending
X-ray hand without evidence of radiopaque foreign bodies
Assessment / Plan
74-year-old female now 4-week status post dog bite to right hand with right wrist pain mild swelling. Reportedly erythema has improved significantly during this hospitalization. Patient does have normal inflammatory markers CRP/ESR. Given
examination low index of suspicion for septic joint or flexor tenosynovitis. MRI is pending to rule out any fluid collection or soft tissue abscesses although again her examination is relatively benign today. Will plan to follow-up final MRI
results. Would recommend continued immobilization ice pain control. Antibiotics per infectious disease recommendations. Please reach out any questions or concerns
--- NOTE | 2024-09-24 13:11 | W.PN.ID1 ---
Date of Service
Date of Service: September 24, 2024
Today's Communication
Continue antibiotics.
Assessment / Plan
Hx recent dog bite right hand.
Right wrist swelling ?infection ?Crystal arthropathy ?Other
Leukocytosis
Myasthenia gravis status post thymectomy
Hypertension
Hypothyroidism
Stool incontinence
Osteoarthritis
Recommendations:
Continue with ceftriaxone / doxycycline
MRI performed; awaiting report.
����������������������������������������������������������
Chief Complaint
-: Other (Right wrist swelling)
Subjective / Review of Systems
Patient seen and examined. Reports some mild improvement in right wrist swelling.
Review of Systems: No Fever and No Chills
Vital Signs / Physical Exam
Vital Signs
Vital Signs
Temp Pulse Resp BP Pulse Ox
98.4 F 79 16 131/83 95
09/24/24 07:52 09/24/24 07:52 09/24/24 07:52 09/24/24 07:54 09/24/24 07:52
Physical Exam
Constitutional: No Acute Distress, Comfortable and Non-toxic
Eyes: Sclera Anicteric
Pulmonary: Non Labored
Extremities: Edema (Right wrist)
Neurological: Awake and Alert
Psychological: Calm
Objective Data
Lab Data
Lab Results
09/23/24 05:47
09/23/24 05:47
ESR 6 mm/hour (0-20) 09/23/24 05:47
Estimated Creat Clear 57 ml/min 09/23/24 05:47
Total Bilirubin 0.8 mg/dl (0.2-1.3) 09/22/24 18:26
AST 37 U/L (14-36) H 09/22/24 18:26
ALT 31 U/L (0-35) 09/22/24 18:26
Alkaline Phosphatase 157 U/L (38-126) H 09/22/24 18:26
C-Reactive Protein < 5.00 mg/L (0.0-10.00) 09/23/24 05:47
Most recent labs reviewed.
09/14/24 Hand XRAY: No acute fracture or dislocation. Soft tissue swelling about the hand and wrist. No radiopaque foreign body or soft tissue gas
Care Review
Plan reviewed with: Physician (Orthopedics)
[2024-09-24 15:45] VITALS: BP 116/72
--- NOTE | 2024-09-24 16:30 | CM ---
Alert awake oriented patient who lives with her dgt Jing and her family in a 2 story home with 2 steps to enter and 11 steps to bed/bathroom. She is independent in activates of daily living.She does not drive .She uses a walker as needed.She has a
sling on right arm due to fx 3 weeks ago. [facility] letter given explained signed on chart.
Had [facility] in past [facility] [place]
Pharmacy [facility]
PCP Dr Araya
PLAN Home with [facility]
[2024-09-24] MEDS: ROCEPHIN 1000 MG IV (20:13)
[2024-09-24] MEDS: STERILE WATER FOR INJECTION 10 ML IV (20:14)
[2024-09-24] MEDS: SYNTHROID 75 MCG PO (21:49)
[2024-09-24] MEDS: ASPIR LOW (ENTERIC COATED) 81 MG PO (21:49)
[2024-09-24] MEDS: XANAX 0.5 MG PO (21:53)
[2024-09-24 23:24] VITALS: BP 129/75
[2024-09-25 07:15] VITALS: BP 137/92
[2024-09-25 07:44] LABS: C-Reactive Protein 5.20 mg/L (0.0-10.00)
[2024-09-25] MEDS: DELTASONE 30 MG PO (09:11)
[2024-09-25] MEDS: VIBRAMYCIN 100 MG PO ×2 (09:12→20:20)
[2024-09-25] MEDS: NORVASC 5 MG PO (09:12)
[2024-09-25] MEDS: DITROPAN 5 MG PO ×2 (09:12→20:20)
[2024-09-25] MEDS: PEPCID 20 MG PO (09:12)
[2024-09-25] MEDS: MESTINON 60 MG PO ×3 (09:12→16:26)
[2024-09-25] MEDS: ULTRAM 50 MG PO ×2 (09:14→20:25)
--- NOTE | 2024-09-25 11:05 | W.PN.ORTHO ---
Today's Communication / Plan
-
74-year-old female myasthenia's gravis several weeks status post dog bite with right extensor tenosynovitis. MRI does show some she is enhancement extensor tendons wrist. Her inflammatory markers however remain within normal limits and she is not
ill in appearance. At this point would recommend continued observation immobilization with splint elevation. I would defer antibiotic treatment to the infectious disease specialist. I would not be overly aggressive treating this surgically given
involvement of extensor tendons as well as normal inflammatory markers. Will continue to follow patient. Please reach out with any questions or concerns.
Subjective
.
.:
Patient resting comfortably in bed this morning. Reports room no change in symptoms. Continues to complain of some right wrist pain along dorsal aspect of wrist.
Vital Signs and Labs
.
Vital Signs and Labs:
Lab Results
09/23/24 05:47
09/23/24 05:47
Temp Pulse Resp BP Pulse Ox
99.2 F 100 16 137/92 97
09/25/24 07:15 09/25/24 07:15 09/25/24 07:15 09/25/24 07:15 09/25/24 07:15
Physical Exam
-
Musculoskeletal right upper extremity
Skin intact, scab noted over the dorsal aspect of the hand with very minimal surrounding erythema
Mild to moderate swelling noted fairly discretely over the dorsal ulnar aspect of the wrist, this area is mildly tender to palpation
Patient with some restriction and associated pain with active wrist extension
Brisk cap refill
[2024-09-25 15:55] VITALS: BP 128/75
--- NOTE | 2024-09-25 16:16 | W.PN.HOSP.TC ---
Today's Communication/Plan
-
Assessment / Plan
Assessment / Plan
NAD
Scleral Anicteric
MMM
No JVD
CTABL
RRR, S1/S2
Soft, NT, ND, BS+
Warm, Dry
Right hand/wrist upper aspect of the right wrist noted slight bump with erythema but no drainage. pain when wrist flex
AAOx3
Calm
Dog bite of right hand right wrist
Continue Rocephin and odxy
ID following
MRI right wrist showing tenosynovitis that is mild, Ortho updated about findings does not think needs washout right now/today, reassess tomorrow
Orthopedic following
Myasthenia gravis s/p thymectomy continue pyridostigmine
Hypertension continue antihypertensives
Hypothyroidism continue levothyroxine
Anticipated Discharge: 24 - 48 hours
Subjective/Interval History
-
Date of Service: September 25, 2024
Seen and examined. no new complaints. No acute overnight events
Objective Data
-
Vital Signs:
Vital Signs
Temp Pulse Resp BP Pulse Ox
98.5 F 95 16 128/75 95
09/25/24 15:55 09/25/24 15:55 09/25/24 15:55 09/25/24 15:55 09/25/24 15:55
I&O
09/24/24 09/25/24 09/26/24
06:59 06:59 06:59
Intake Total 1110 / 1110 720 / 720 960 / 960
Output Total 900 / 900
Balance 210 / 210 720 / 720 960 / 960
[2024-09-25] MEDS: STERILE WATER FOR INJECTION 10 ML IV (20:21)
[2024-09-25] MEDS: ROCEPHIN 1000 MG IV (20:21)
[2024-09-25] MEDS: XANAX 0.5 MG PO (22:13)
[2024-09-25] MEDS: ASPIR LOW (ENTERIC COATED) 81 MG PO (22:13)
[2024-09-25] MEDS: SYNTHROID 75 MCG PO (22:13)
[2024-09-25 23:14] VITALS: BP 133/82
[2024-09-26 07:25] VITALS: BP 140/73
[2024-09-26] MEDS: DITROPAN 5 MG PO (09:38)
[2024-09-26] MEDS: PEPCID 20 MG PO (09:38)
[2024-09-26] MEDS: DELTASONE 40 MG PO (09:39)
[2024-09-26] MEDS: NORVASC 5 MG PO (09:39)
[2024-09-26] MEDS: VIBRAMYCIN 100 MG PO (09:40)
[2024-09-26] MEDS: MESTINON 60 MG PO ×2 (09:40→11:55)
--- NOTE | 2024-09-26 10:11 | VNURNOTE ---
Chart reviewed.� Patient is current with [facility] nursing.� Will continue to follow hospital course and DC plans.
--- NOTE | 2024-09-26 10:36 | CM ---
Addendum entered by Yolanda Fu 09/26/24 11:26:
LOC change to inpatient - per tt from UR
IMM explained & signed. In chart
Original Note:
Patient chart reviewed
Current with [facility]
referral in [facility] - accepted
PLAN: home with [facility] when stable
--- NOTE | 2024-09-26 12:56 | W.PN.ORTHO ---
Today's Communication / Plan
-
74-year-old female now 4 weeks status post cat bite with MRI evidence of some extensor tenosynovitis. No large abscesses fluid collections noted MRI. At this point patient continues to improve on conservative treatment. Would not recommend any
surgical intervention. Recommend continued temporary splinting. Certainly if symptoms should worsen or change, reevaluation/reconsideration of surgical intervention I would be recommended.
Nonweightbearing right upper extremity in splint
Continue medical management per primary team/infectious disease
Pain control
Elevate extremity
Follow-up outpatient with myself or Win Turner in 7 to 10 days for repeat clinical assessment
Subjective
.
.:
Patient resting comfortably in bed. She does report that symptoms have improved with use of splint.
Vital Signs and Labs
.
Vital Signs and Labs:
Lab Results
09/23/24 05:47
09/23/24 05:47
Temp Pulse Resp BP Pulse Ox
98.1 F 89 16 140/73 93
09/26/24 07:25 09/26/24 09:39 09/26/24 07:25 09/26/24 09:39 09/26/24 07:25
Physical Exam
-
Musculoskeletal right upper extremity
Skin intact, improved swelling over dorsal hand and wrist, no significant erythema noted today
Patient is able to actively extend flex all fingers now brisk cap refill distally
Sensation tact light touch
--- NOTE | 2024-09-26 13:06 | W.PN.HOSP.TC ---
Today's Communication/Plan
-
Discharge
Assessment / Plan
Assessment / Plan
Gen-AAOx3, NAD
HEENT-NC, AT, anicteric, clear oral mm
Neck-supple
CV-reg, no M, +S1/S2
Lungs-clear B/L
Abd-soft, NT, ND
Ext-no edema
Musculoskeletal-no cyanosis, clubbing, tender right wrist with limited range of motion due to pain, no edema
Skin-warm and dry
Neuro-grossly non-focal
Psych-calm, cooperative
Acute right wrist tenosynovitis -proximal location compared to recent dog bite wound. Unclear if infectious versus noninfectious such as crystal synovitis, unfortunately no fluid aspirate was performed. No cultures obtained.
Inflammatory markers remain normal. Presentation with mild leukocytosis, afebrile.
MRI of the wrist confirms soft tissue edema and tenosynovitis.
Discussed with ID service, empiric trial of antibiotics.
Myasthenia gravis -s/p thymectomy, continue pyridostigmine, prednisone taper.
Essential hypertension -continue antihypertensives
Hypothyroidism -continue levothyroxine
Full code
Dispo -anticipate discharge today if cleared by ID service. Outpatient follow-up.
Anticipated Discharge: Within 24 hours
Subjective/Interval History
-
Date of Service: September 26, 2024
Patient seen and examined. No complaints.
Objective Data
-
Vital Signs:
Vital Signs
Temp Pulse Resp BP Pulse Ox
98.1 F 89 16 140/73 93
09/26/24 07:25 09/26/24 09:39 09/26/24 07:25 09/26/24 09:39 09/26/24 07:25
I&O
09/25/24 09/26/24 09/27/24
06:59 06:59 06:59
Intake Total 720 / 720 1680 / 1680
Balance 1679
Review of Systems
-
History Source: Patient
All other systems: Reviewed and negative
--- NOTE | 2024-09-26 13:14 | W.PN.ID1 ---
Date of Service
Date of Service: September 26, 2024
Today's Communication
Continue antibiotics. See below�
Assessment / Plan
Hx recent dog bite right hand.
Right wrist swelling ?infection ?Crystal arthropathy ?Other
Leukocytosis
Myasthenia gravis status post thymectomy
Hypertension
Hypothyroidism
Stool incontinence
Osteoarthritis
Recommendations:
Etiology of recurrent swelling of the right wrist is unclear. Blood cultures unrevealing.
Discussed further care with patient. Offered both IV and oral antibiotic therapy, but did note that it is unclear if it is going to do anything as all cultures thus far have been negative
Patient declined IV therapy, and via shared decision making, have settled on ongoing oral antibiotic therapy
At discharge, will transition to oral cefdinir 300 mg p.o. twice daily, along with twice daily doxycycline 100 mg, with both to continue for an additional 21 days.
Patient has been counseled to follow for any additional swelling.
Would advise follow-up with Ortho hand
����������������������������������������������������������
Chief Complaint
-: Other (Right wrist swelling)
Subjective / Review of Systems
Patient seen and examined. Reports right wrist is feeling somewhat improved. Decreased overall edema. Some increase in ROM.
Review of Systems: No Fever and No Chills
Vital Signs / Physical Exam
Vital Signs
Vital Signs
Temp Pulse Resp BP Pulse Ox
98.1 F 89 16 140/73 93
09/26/24 07:25 09/26/24 09:39 09/26/24 07:25 09/26/24 09:39 09/26/24 07:25
Physical Exam
Constitutional: No Acute Distress, Comfortable and Non-toxic
Eyes: Sclera Anicteric
Pulmonary: Non Labored
Musculoskeletal: Joint Swelling (Right wrist) and Joint Effusion (Right wrist)
Skin: Warm and Dry; Negative Rash
Neurological: Awake and Alert
Psychological: Calm
Objective Data
Lab Data
Lab Results
09/23/24 05:47
09/23/24 05:47
ESR 15 mm/hour (0-20) 09/25/24 08:33
Estimated Creat Clear 57 ml/min 09/23/24 05:47
Total Bilirubin 0.8 mg/dl (0.2-1.3) 09/22/24 18:26
AST 37 U/L (14-36) H 09/22/24 18:26
ALT 31 U/L (0-35) 09/22/24 18:26
Alkaline Phosphatase 157 U/L (38-126) H 09/22/24 18:26
C-Reactive Protein 5.20 mg/L (0.0-10.00) 09/25/24 06:57
Most recent labs reviewed.
09/14/24 Hand XRAY: No acute fracture or dislocation. Soft tissue swelling about the hand and wrist. No radiopaque foreign body or soft tissue gas
Care Review
Plan reviewed with: Physician (Hospitalist)
--- NOTE | 2024-09-26 13:22 | W.DS.TRANS ---
DC Summary - [facility]
-
Discharge Instructions:
Discharge Diagnosis/Procedures Right wrist tenosynovitis
Diet Regular
Activity As tolerated
Driving Restrictions As prior to admission
Bathing Restrictions None
Instructions:
Stand-Alone Forms:
Changes to Home Medications: No
Discharge Medications:
DC Medications w/original date entered in [facility]
oxybutynin chloride 5 mg tablet 5 mg PO BID Urinary Issue 07/09/16
alprazolam 0.5 mg tablet 0.5 mg PO HS Mental Health/Anxiety 07/10/16
famotidine 40 mg tablet 40 mg PO BID Gastrointestinal Issue 05/13/24
levothyroxine 75 mcg tablet 75 mcg PO HS Thyroid 05/13/24
pyridostigmine bromide 60 mg tablet (Mestinon) 60 mg PO AC Myashenia gravis 05/13/24
calcium carbonate (Tums) 200 mg PO QIDPRN PRN heartburn 05/14/24
Vitamin J71-Zmvleiq D3 1 tab PO DAILY Supplement 09/14/24
acetaminophen 500 mg tablet 500 mg PO Q6H PRN mild pain 09/14/24
amlodipine 5 mg tablet 5 mg PO DAILY Blood pressure 09/14/24
ascorbic acid (vitamin C) 500 mg tablet (Vitamin C) 500 mg PO DAILY Supplement 09/14/24
aspirin 81 mg tablet,delayed release 81 mg PO HS Blood Clot Prevention/Tx 09/14/24
calcium carbonate (Calcium 600) 600 mg PO DAILY Supplement 09/14/24
methenamine hippurate 1 gram tablet 1 g PO DAILY Infection 09/14/24
prednisone 20 mg tablet 30 mg PO Q48H Autoimmune disorder 09/14/24
prednisone 20 mg tablet 40 mg PO Q48H INFLAMMATION 09/14/24
tramadol 50 mg tablet 50 mg PO Q6HPRN PRN mild pain 09/14/24
vitamin D3-vitamin K2 1 tab PO DAILY Supplement 09/14/24
cefdinir 300 mg capsule 300 mg PO BID #42 caps 09/26/24
doxycycline monohydrate 100 mg tablet 100 mg PO BID #42 tabs 09/26/24
Home Medication Changes
Pending Results: No
[2024-09-26 15:25] VITALS: BP 121/73
[2024-09-26] MEDS: MESTINON PO (15:51)
== END 2024-09-26 16:45 | disposition home health service (06) | DRG 558 ==
LOC: 4 EAST ACU 08:19
PROVIDERS: Hospitalist; Physician Assistant; ADMITTING PHYSICIAN Hospitalist; ATTENDING PHYSICIAN Hospitalist; CONSULT PHYSICIAN Internal Medicine Infectious Disease; CONSULT PHYSICIAN Orthopaedic Surgery; EMERGENCY PHYSICIAN Emergency Medicine; FAMILY PHYSICIAN Family Medicine
DX: M65.931 Unspecified synovitis and tenosynovitis, right forearm (principal); S61.451D Open bite of right hand, subsequent encounter; W54.0XXD Bitten by dog, subsequent encounter; G70.00 Myasthenia gravis without (acute) exacerbation; I10 Essential (primary) hypertension; E03.9 Hypothyroidism, unspecified; D72.829 Elevated white blood cell count, unspecified; Z88.0 Allergy status to penicillin; Z88.1 Allergy status to other antibiotic agents; Z88.2 Allergy status to sulfonamides; Z79.82 Long term (current) use of aspirin; Z79.890 Hormone replacement therapy; Z87.440 Personal history of urinary (tract) infections; E78.00 Pure hypercholesterolemia, unspecified; G62.9 Polyneuropathy, unspecified; K21.9 Gastro-esophageal reflux disease without esophagitis; T38.0X5A Adverse effect of glucocorticoids and synthetic analogues, initial encounter
CPT/HCPCS: 73223; 80048; 80053; 85025; 85027; 85652; 86140; 96365; 96375; 97166; 99284; A9575

== ENCOUNTER 2024-11-10 10:32 | Emergency (ER) | payer OTHER, SELFPAY ==
[2024-11-10 10:37] VITALS: BP 144/80
--- NOTE | 2024-11-10 11:16 | ED.GENMED ---
History of Present Illness
<MARIETTA Dietz - Last Filed: 11/10/24 15:51>
General
Chief Complaint: Breathing Problem
Source: patient
Exam Limitations: none
Time Seen by Provider: 11/10/24 11:03
Nursing documentation reviewed up to this point in time: agreed with
History of Present Illness
History of Present Illness:
74-year-old female past medical history of myasthenia gravis, hypertension hyperlipidemia presents to the ER for evaluation. Patient has had low back for the past several weeks however 2 days ago noticed some worsening of urinary incontinence and
urgency. She seemed a little irritable and confused as well as per daughter. Urinalysis was obtained by PCP not resulted yet however patient was started on Macrobid 2 days ago Thursday. This morning however she noticed increasing weakness in both
legs and felt like she was having difficulty breathing while doing physical therapy. She is unsure if this is an acute myasthenia gravis flare. Daughter reports she is followed Dr. Steffany Terry of neurology and they have been decreasing her
prednisone since October 21. She is presently on 30 mg a day.
Past History
<MARIETTA Dietz - Last Filed: 11/10/24 15:51>
Past History
ED Past Medical History: GERD, HTN, Hypercholesterolemia, Hypothyroidism, Psychiatric and Other (Osteoarthritis, neuropathy)
ED Past Surgical History: Orthopedic
Social History
Alcohol: Occasional
Personal:
Living: with family
Employment: Employed
Family History
Family History: Other (Noncontributory)
Phy Exam
<MARIETTA Dietz - Last Filed: 11/10/24 15:51>
General Physical Exam
General Presentation: no apparent distress
General age: appears stated age
General Skin: warm and dry
General Habitus: normal
General Mental: alert
General Hydration: appears well hydrated
ENT Exam
ENT Exam: EOMI and neck supple
Cardiovascular Exam
Cardiovascular Exam: regular rate/rhythm, no murmur and normal peripheral pulses
Pulmonary Exam
Pulmonary Exam: lungs clear and no respiratory distress
Neurological Exam
Neurological Exam: alert and oriented x3
Musculoskeletal Exam
Musculoskeletal Exam: full ROM
Skin Exam
Skin Exam: normal color and warm/dry
Psychiatric Exam
Psychiatric Exam: normal mood/affect
Scores
<MARIETTA Dietz - Last Filed: 11/10/24 15:51>
Heart Failure Risk
Heart Failure Risk Score: Not Applicable
Course
<MARIETTA Dietz - Last Filed: 11/10/24 15:51>
Orders/Labs/Results
Orders:
Orders
11/10/24 11:29
IV Insert/Care/Rem.- Treatment PRN
11/10/24 11:30
Electrocardiogram (*1) Stat
Reason for Study: Other
Other Reason for Exam: chest pain
Cardiac Monitoring- Treatment ONCE
EKG- Treatment ONCE
11/10/24 11:53
Chest [CR Chest - 2 Views ] Urgent
Comment:
Reason For Exam: sob
11/10/24 12:06
Pft Nif [RESP] Urgent
11/10/24 12:27
Complete Blood Count/With Diff Urgent
UA [Urinalysis] Urgent
Date Specimen was Collected: 11/10/24
Time Specimen was Collected: 12:19
Urine Microscopic Urgent
Date Specimen was Collected: 11/10/24
Time Specimen was Collected: 12:19
11/10/24 13:30
Lidocaine [Lidocaine 4% Patch] 1 patch TOPICAL DAILY
Apply Lidocaine patch(s) to:: back
11/10/24 13:31
Basic Metabolic Panel Urgent
Abnormal Lab Results
11/10/24 11/10/24
12:27 13:31
WBC 17.2 H 10^3/uL
(4.8-10.8)
MCH 31.1 H pg
(27.0-31.0)
MCHC 32.5 L g/dL
(33.0-37.0)
Abs Immat Gran (auto) 0.2 H 10^3/uL
(0-0.05)
Absolute Neuts (auto) 16.0 H 10^3/uL
(1.4-6.5)
Absolute Lymphs (auto) 0.6 L 10^3/uL
(1.2-3.4)
Immature Gran % 1.0 H %
(0-0.5)
Neutrophils % 93.3 H %
(42.2-75.2)
Lymphocytes % 3.3 L %
(20.5-51.1)
Chloride 113 H mmol/L
(98-107)
BUN 19 H mg/dl
(7-17)
Glucose 118 H mg/dl
(70-99)
Ur Leukocyte Esterase 2+ A
(Negative)
Urine RBC 3-6 A /HPF
(0-2)
Urine WBC 6-10 A /HPF
(0-5)
11/10/24 12:27
11/10/24 13:31
Vital Signs
Initial and Last Documented VS:
Initial Vital Signs
Temp Pulse Resp BP Pulse Ox
98 F 88 16 144/80 96
11/10/24 10:37 11/10/24 10:37 11/10/24 10:37 11/10/24 10:37 11/10/24 10:37
Last Documented Vital Signs
Temp Pulse Resp BP Pulse Ox
98 F 85 16 144/80 96
11/10/24 10:37 11/10/24 13:37 11/10/24 13:37 11/10/24 13:37 11/10/24 13:37
<Jessica Baez MD - Last Filed: 11/10/24 12:27>
Orders/Labs/Results
Orders:
Orders
11/10/24 11:29
IV Insert/Care/Rem.- Treatment PRN
11/10/24 11:30
Electrocardiogram (*1) Stat
Reason for Study: Other
Other Reason for Exam: chest pain
Cardiac Monitoring- Treatment ONCE
EKG- Treatment ONCE
11/10/24 11:53
Chest [CR Chest - 2 Views ] Urgent
Comment:
Reason For Exam: sob
11/10/24 12:06
Pft Nif [RESP] Urgent
11/10/24 12:27
Complete Blood Count/With Diff Urgent
UA [Urinalysis] Urgent
Date Specimen was Collected: 11/10/24
Time Specimen was Collected: 12:19
Urine Microscopic Urgent
Date Specimen was Collected: 11/10/24
Time Specimen was Collected: 12:19
11/10/24 13:30
Lidocaine [Lidocaine 4% Patch] 1 patch TOPICAL DAILY
Apply Lidocaine patch(s) to:: back
11/10/24 13:31
Basic Metabolic Panel Urgent
Abnormal Lab Results
11/10/24 11/10/24
12:27 13:31
WBC 17.2 H 10^3/uL
(4.8-10.8)
MCH 31.1 H pg
(27.0-31.0)
MCHC 32.5 L g/dL
(33.0-37.0)
Abs Immat Gran (auto) 0.2 H 10^3/uL
(0-0.05)
Absolute Neuts (auto) 16.0 H 10^3/uL
(1.4-6.5)
Absolute Lymphs (auto) 0.6 L 10^3/uL
(1.2-3.4)
Immature Gran % 1.0 H %
(0-0.5)
Neutrophils % 93.3 H %
(42.2-75.2)
Lymphocytes % 3.3 L %
(20.5-51.1)
Chloride 113 H mmol/L
(98-107)
BUN 19 H mg/dl
(7-17)
Glucose 118 H mg/dl
(70-99)
Ur Leukocyte Esterase 2+ A
(Negative)
Urine RBC 3-6 A /HPF
(0-2)
Urine WBC 6-10 A /HPF
(0-5)
11/10/24 12:27
11/10/24 13:31
Vital Signs
Initial and Last Documented VS:
Initial Vital Signs
Temp Pulse Resp BP Pulse Ox
98 F 88 16 144/80 96
11/10/24 10:37 11/10/24 10:37 11/10/24 10:37 11/10/24 10:37 11/10/24 10:37
Last Documented Vital Signs
Temp Pulse Resp BP Pulse Ox
98 F 85 16 144/80 96
11/10/24 10:37 11/10/24 13:37 11/10/24 13:37 11/10/24 13:37 11/10/24 13:37
<MARIETTA Dietz - Last Filed: 11/10/24 15:51>
MDM/Problems Addressed
Differential Diagnosis Includes:
Not limited to myasthenia gravis flare UTI dehydration infection
MDM/Problems Addressed:
74 yr old female with history of myasthenia gravis presents for some weakness in her legs when she felt that she has some difficulty breathing. She is being treated for UTI. She is a patient of Dr. Terry. She presents however awake alert no
acute distress not hypoxic lungs are clear nontachypneic. She denies any recent fevers white count is minimally elevated 17,000 but she is on steroids her neurologist Dr. Terry has weaned her her prednisone since October 21 she is currently on 30
mg of prednisone a day. Case reviewed with Dr. Baez. Respiratory consulted and NIF (negative inspiratory force test) done and normal.
patient was initially seen by Dr. Mcmillan here as a neuro consult. He did recommend increasing prednisone back up to 60 mg however patient was uncomfortable with this I did reach out to her primary neurologist Dr. Terry.
Who does state the patient was supposed to get IVIG. I did speak again with patient IVIG has been approved she is waiting for the call to come in to receive it. Neurology Dr. Terry recommends that she calls [facility] and if she cannot get that within
the week then she is to call Dr. Terry's office.
Patient otherwise stable for discharge home. She is currently being treated for UTI on Macrobid, will have pt continue.
Chronic conditions affecting care:
Myasthenia gravis
<MARIETTA Dietz - Last Filed: 11/10/24 15:51>
*Radiology
Radiology exam reviewed: radiology read reviewed
*Pulse Oximetry
SaO2: 96
Oxygen Mode of Delivery: Room air
Patient hypoxic: no
*EKG
Interpreted by ED Provider?: Yes
Heart Rate: 75
Rate: normal
Rhythm: sinus
Ischemia: no ischemia
*Critical Care Note
Total Time (30-74mins, 75-104mins- exclusive of procedures): Not Applicable
<MARIETTA Dietz - Last Filed: 11/10/24 15:51>
Patient Management
Discussion with other providers: Clinic Nurse
Escalation/DeEscalation of care consider admission/obs:
neuro DR Terry
ED Attending Note
<MARIETTA Dietz - Last Filed: 11/10/24 15:51>
-
Portions of this chart may have been created with voice recognition software.� Occasional wrong word or��sound alike� substitutions may have occurred due to the inherent limitations of voice recognition software.
<Jessica Baez MD - Last Filed: 11/10/24 12:27>
ED Attending Note
Patient seen and examined by attending physician: Yes
I performed the substantive portion of visit, reviewed & personally made and approve the management plan that is documented in note by myself or FRANCESCA.: Yes
ED Attending Note:
74-year-old female presents emergency department with recent agitation and irritability, associated with mild urinary incontinence. Daughter says she seemed a little bit confused. She had a UA done and was started on Macrobid. Then, she developed
leg weakness bilaterally yesterday, and mild dyspnea on exertion. Patient is concerned that this may be an MG flare. She denies fever, chills, nausea, vomiting, chest pain, headache, dizziness, numbness, tingling, focal weakness. Patient is
compliant with her medications. She also notes pain across her lower back, no recent trauma or falls. Pain is present with certain movements. On exam, patient overall well-appearing, no respiratory distress, speaks in full sentences easily, pulse
ox normal. Lungs CTA, heart regular rate and rhythm. Able to pull herself up in an upright position but notes discomfort across her lower back with these movements. No CVA tenderness, no abdominal tenderness. Moves all extremities equally but
expresses a feeling of weakness with raising legs bilaterally, 4+/5 bilat. NIF performed. Ua pending. doubt sepsis. Will ask neuro c/s re possibility of MG flare.
Discharge Plan
Departure
Patient Disposition: Home (Routine Discharge)
Date of Disposition: 11/10/24
Time of Disposition: 15:43
Patient with high blood pressure during this ER visit?: Yes
Condition: Fair
Covid-19: Not Applicable
Discharge Problem:
MG (myasthenia gravis)
Instructions: BLOOD PRESSURE
Prescriptions:
No Action
oxybutynin chloride 5 MG tablet
5 mg PO BID
alprazolam 0.5 MG tablet
0.5 mg PO HS
famotidine 40 mg Tablet
40 mg PO BID
levothyroxine 75 mcg Tablet
75 mcg PO HS
pyridostigmine bromide [Mestinon] 60 mg Tablet
60 mg PO AC
calcium carbonate [Tums] 200 mg calcium (500 mg) Tablet,Chewable
200 mg PO QIDPRN PRN (Reason: heartburn)
prednisone 20 mg Tablet
40 mg PO Q48H
aspirin 81 mg Tablet,Delayed Release (Dr/Ec)
81 mg PO HS
acetaminophen 500 mg Tablet
500 mg PO Q6H PRN (Reason: mild pain)
calcium carbonate [Calcium 600] 600 mg calcium (1,500 mg) Tablet
600 mg PO DAILY
methenamine hippurate 1 gram Tablet
1 g PO DAILY
Patient Comments:
09/22/2024, take with 500 mg of vitamin C.
ascorbic acid (vitamin C) [Vitamin C] 500 mg Tablet
500 mg PO DAILY
Patient Comments:
09/22/2024, take with 1 gm of methenamine hippurate.
Vitamin [id number] D3
1 tab PO DAILY
vitamin D3-vitamin K2
1 tab PO DAILY
prednisone 20 mg tablet
30 mg PO Q48H
amlodipine 5 mg tablet
5 mg PO DAILY
tramadol 50 MG tablet
50 mg PO Q6HPRN PRN (Reason: mild pain)
cefdinir 300 mg capsule
300 mg PO BID Qty: 42 0RF
doxycycline monohydrate 100 mg tablet
100 mg PO BID Qty: 42 0RF
Referrals:
Steffany Terry MD [Non-Admitting Privileges, Psychiatry]
Guerline Arayaleen, MD [Family Provider, [facility]]
Activity Restrictions/Additional Instructions:
As discussed it is recommended that you call to get your IVIG as soon as possible. If you cannot get it within the next week and do not have an appointment to get it scheduled within the next week ,then please call your neurologist. Continue to
stay on antibiotics for urinary tract infection. Return if any worsening of symptoms
Interventions
Interventions:
ED- Cardiac Assessment Last Done: 11/10/24 12:47
ED- Pulmonary Assessment Last Done: 11/10/24 12:47
Discharge Date and Time
Print Language: IRANIAN
--- NOTE | 2024-11-10 12:37 | CON.NEURO4 ---
Addendum entered and electronically signed by Jeff Mcmillan MD 11/10/24 17:05:
Studies reviewed.
I have personally examined the patient. I reviewed and agree with the [employer] YE[employer] OPERATOR's Note.
My addenda:
Awake, alert, interactive. No acute distress.
Speech intact.
Follows 2-step requests w/o difficulty. No tremor.
Extra-ocular movements grossly intact.
Facial movements full and symmetric. Hearing intact to normal conversational volume.
Normal UE movements bilaterally.
Neck: full ROM.
Chest: no dyspnea
Heart: no JVD
Ext: (-) Clubbing, (-) Cyanosis, (-) Edema
IMPRESSIONS/RECOMMENDATIONS:
Abrupt onset of worsening shortness of breath, bilateral lower extremity weakness and urinary incontinence of longstanding
As the patient is not in extremis, negative inspiratory force is normal, would recommend increasing the patient's prednisone from current dosing of 30 mg to dosing of 60 mg with plan for restarting immunoglobulin as predetermined
Continue aspirin 81 mg daily
Outpatient consideration for MRI of thoracic spine
D/W patient / family / nursing
All questions answered.
Will continue to follow as needed. Patient should follow-up with her usual outpatient neurologist.
Original Note:
Consultation - Neurology 4
-
CONSULTING PHYSICIAN: Jeff Mcmillan MD
REFERRING PHYSICIAN: ER/MARIETTA Mcfadden
DICTATED BY: MARIETTA Flaherty
DATE/TIME OF REQUEST: 11/10/24
DATE/TIME OF CONSULTATION: 11/10/24
Reason for Consultation: Weakness and dyspnea
History of Present Illness:
This is a 74-year-old female who has presented to the hospital with report of back pain, worsened urinary incontinence, and bilateral lower extremity weakness. Patient has a history of myasthenia gravis s/p thymectomy in 2022 and is followed by
Neurology Dr. Steffany Terry at [facility].
From last outpatient encounter by Neurology Dr. Terry on 10/13/24:
'As you know, she had a shingles vaccine on 11/30/2021 and afterwards developed ptosis, dysarthria and dysphasia which progressed to involve shortness of breath and proximal right leg weakness (history of right hip replacement). She was admitted to
[facility] and had a negative stroke workup but did have a positive acetylcholine receptor antibody and was diagnosed with myasthenia gravis. She was started on prednisone 40 mg daily and Mestinon 120 mg t.i.d. but developed severe side effects to
both of these medications. The prednisone had unfortunately caused her to have brain fog, edema with facial sweating, irritability weight gain, reduced bone density and bruising, while the Mestinon caused significant diarrhea and fecal incontinence
prompting the medication to be weaned. She has been doing well in the prednisone wean up until May of 2022 in which her myasthenia gravis symptoms started to again return with the weaning of the medication, prompting her to receive a round of
IVIG x3 days in August of 2022 prior to her thymectomy on 09/11/2022. Her condition remained stable on prednisone 5 mg daily and Mestinon 30 mg t.i.d. between the months of September 2022 until early April 2024. At that time, she began to have weakness
in her legs, ptosis, followed by shortness of breath prompting an emergency room visit to [facility] on May 13, 2024. While in the hospital, she received 5 days of IVIG and her prednisone dosage was increased to 60 mg daily as well as
Mestinon dosage increase to 60 mg t.i.d.. She continues to have fatigability with chewing, shortness of breath with exertion, proximal muscle weakness, intermittent double vision, and ptosis. She desires to start a different immunosuppressive agent
for her myasthenia gravis and again attempt to wean off of prednisone and Mestinon due to side effects.'
Patient reports she has been slowly weaning off of her prednisone, since 10/21/24, she has been taking 30mg daily down from alternating 30mg/40mg. She has stopped Vyvgart due to side effects and is planning to start routine IVIG as an outpatient but
this has been challenging to get approved by insurance and has been delayed. About two weeks ago she reports starting to have mid back pain brought on by movement. She rates this a 7/10. She notes that her chronic stress incontinence has been worse
over the past few days. Starting last evening she began to feel mildly dyspneic and bilateral legs felt weak. She notes almost constant diplopia at baseline and intermittent mild dysphagia. She denies any headache, dizziness, numbness, and bowel
incontinence. She notes that she frequently gets UTIs and her family is concerned the back pain may be due to a kidney issue.
Past Medical History: Myasthenia gravis, HTN, HLD, GERD, chronic stress incontinence, osteoarthritis, osteoporosis, hypothyroidism, neuropathy
Surgical History: Thymectomy, tubal ligation, total hip replacement
Family History: Mother- Alzheimer's disease
Social History: Occasional alcohol. Denies tobacco and illicit drug use.
Allergies: Amoxicillin, gabapentin, penicillins, Bactrim, lidocaine,
Home Medications: See below.
Review of Symptoms:
Patient denies any fever, headache, chest pain, shortness of breath, GI or symptoms.
�Per the HPI.�All systems are reviewed negative except above.
Physical Exam:
The patient is afebrile, abdomen is nondistended, breathing is unlabored, skin is warm and dry, no edema.
Neurologic Examination:
The patient is awake, alert and oriented x 3. Next holiday- . Most recent holiday- September 23. She is able to follow commands and answer questions appropriately. There is no aphasia or dysarthria. On cranial nerve
assessment, pupils are 3 mm bilateral, round and reactive to light and accommodation. Visual richard are full. Extraocular movements are intact. Facial sensations are intact and bilaterally symmetrical, there is no facial asymmetry. Hearing is intact
bilaterally to normal conversation volume. Tongue palate and uvula are midline. Sternocleidomastoid strengths are full bilaterally. Neck flexion is 4+/5, neck ext 5/5, shoulder ext 5/5, hip flexion 5/5. Motor strengths are 5/5 bilateral upper and
lower extremities on medical research [place] scale. There is no drift or involuntary movement noted. Deep tendon reflexes are 2+ bilateral upper and lower extremities and Babinski is absent bilaterally. Coordination is intact by finger to nose
bilaterally.
Lab Results: See below.
Neuro Imaging:
1. MRI brain 11/10/24: No MRI evidence for acute infarct or intracranial hemorrhage. 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 Moderate to severe bilateral signal abnormality in the deep pineda and white matter (basal ganglia,
internal capsule, and external capsule) which asymmetrically involves the left internal capsule and surrounds bilateral dilated perivascular spaces. Mild diffuse cerebral and cerebellar volume loss. Moderate chronic microvascular ischemic disease in
the rashaad.
Differentials for the patient's presentation include:
1. Myasthenia gravis, not under great control currently but not in crisis.
2. History of a left cerebellar ischemic infarct.
Patient has the following risk factors for their symptoms: MG, frequent UTIs, back pain, hx stroke
Recommendations:
-Would recommend increasing steroids back up to 60mg daily until IVIG can be arranged as an outpatient. Family does not wish to do this and would like to speak to Dr. Terry before making decisions.
-No role for inpatient IVIG.
-Continue aspirin 81mg daily.
-Infection workup per primary team.
-Consideration for thoracic spine MRI imaging.
-Physical therapy evaluation.
Discussed patient care with: Dr. Mcmillan, the patient, patient's daughter on phone
Vital Signs and Labs
-
Vital Signs and Labs:
Vital Signs
Temp Pulse Resp BP Pulse Ox
98 F 88 16 149/93 96
11/10/24 10:37 11/10/24 12:47 11/10/24 12:47 11/10/24 12:47 11/10/24 12:47
Lab Results
11/10/24 12:27
Sodium Cancelled 11/10/24 12:27
Potassium Cancelled 11/10/24 12:27
BUN Cancelled 11/10/24 12:27
Glucose Cancelled 11/10/24 12:27
Calcium Cancelled 11/10/24 12:27
Medications
-
Home Medications
�Medication �Instructions �Recorded
oxybutynin chloride 5 mg tablet 5 mg PO BID Urinary Issue 07/09/16
alprazolam 0.5 mg tablet 0.5 mg PO HS Mental Health/Anxiety 07/10/16
famotidine 40 mg tablet 40 mg PO BID Gastrointestinal Issue 05/13/24
levothyroxine 75 mcg tablet 75 mcg PO HS Thyroid 05/13/24
pyridostigmine bromide 60 mg 60 mg PO AC Myashenia gravis 05/13/24
tablet (Mestinon)
calcium carbonate (Tums) 200 mg PO QIDPRN PRN heartburn 05/14/24
Vitamin K98-[id number] D3 1 tab PO DAILY Supplement 09/14/24
acetaminophen 500 mg tablet 500 mg PO Q6H PRN mild pain 09/14/24
amlodipine 5 mg tablet 5 mg PO DAILY Blood pressure 09/14/24
ascorbic acid (vitamin C) 500 mg 500 mg PO DAILY Supplement 09/14/24
tablet (Vitamin C)
aspirin 81 mg tablet,delayed 81 mg PO HS Blood Clot 09/14/24
release Prevention/Tx
calcium carbonate (Calcium 600) 600 mg PO DAILY Supplement 09/14/24
methenamine hippurate 1 gram tablet 1 g PO DAILY Infection 09/14/24
prednisone 20 mg tablet 30 mg PO Q48H Autoimmune disorder 09/14/24
prednisone 20 mg tablet 40 mg PO Q48H INFLAMMATION 09/14/24
tramadol 50 mg tablet 50 mg PO Q6HPRN PRN mild pain 09/14/24
vitamin D3-vitamin K2 1 tab PO DAILY Supplement 09/14/24
cefdinir 300 mg capsule 300 mg PO BID #42 caps 09/26/24
doxycycline monohydrate 100 mg 100 mg PO BID #42 tabs 09/26/24
tablet
[2024-11-10 12:47] VITALS: BP 149/93; BMI 26.2
[2024-11-10 13:03] LABS: Hematocrit 43.4 % (37.0-47.0); Hemoglobin 14.1 g/dL (12.0-16.0); Mean Corp Hgb Conc. 32.5 g/dL (33.0-37.0); Mean Corpuscular Volume 95.6 fL (81.0-99.0); Nucleated Red Blood Cells % 0 %; Platelet Count 337 10^3/uL (130-400); Red Cell Dist. Width 13.2 % (11.5-14.5)
[2024-11-10 13:04] LABS: Urine Character Clear (Clear)
[2024-11-10 13:35] LABS: Urine Squamous Cell >30 /LPF (Few)
[2024-11-10 13:37] VITALS: BP 144/80
[2024-11-10] MEDS: LIDOCAINE 4% PATCH 1 PATCH TOPICAL (13:42)
[2024-11-10 14:14] LABS: Blood Urea Nitrogen 19 mg/dl (7-17); Calcium 9.5 mg/dl (8.4-10.2); Carbon Dioxide 23 mmol/L (22-30); Chloride 113 mmol/L (98-107); Estimated Creatinine Clearance 67 ml/min; Glucose 118 mg/dl (70-99); Sodium 139 mmol/L (135-145); eGFR > 60.00
== END 2024-11-10 17:12 | disposition home or self-care (01) ==
LOC: EMR 10:32
PROVIDERS: Nurse Practitioner; EMERGENCY PHYSICIAN Emergency Medicine; FAMILY PHYSICIAN Family Medicine
DX: G70.00 Myasthenia gravis without (acute) exacerbation (principal); I10 Essential (primary) hypertension; E78.00 Pure hypercholesterolemia, unspecified; E03.9 Hypothyroidism, unspecified; K21.9 Gastro-esophageal reflux disease without esophagitis; N39.3 Stress incontinence (female) (male); G62.9 Polyneuropathy, unspecified; M19.90 Unspecified osteoarthritis, unspecified site; M81.0 Age-related osteoporosis without current pathological fracture; Z79.52 Long term (current) use of systemic steroids; Z79.82 Long term (current) use of aspirin; Z88.0 Allergy status to penicillin; Z88.1 Allergy status to other antibiotic agents; Z88.8 Allergy status to other drugs, medicaments and biological substances; Z96.641 Presence of right artificial hip joint
CPT/HCPCS: 99284; 71046; 80048; 81003; 81015; 85025; 93005

== ENCOUNTER 2025-03-12 23:02 | Inpatient (IN) | payer OTHER, SELFPAY ==
[2025-03-12] VITALS (17 sets, daily range): BP systolic 118–191; BP diastolic 69–118; BMI 22.8
[2025-03-12 16:10] LABS: Hematocrit 44.8 % (37.0-47.0); Hemoglobin 15.1 g/dL (12.0-16.0); Mean Corp Hgb Conc. 33.7 g/dL (33.0-37.0); Mean Corpuscular Volume 88.2 fL (81.0-99.0); Nucleated Red Blood Cells % 0 %; Platelet Count 354 10^3/uL (130-400); Red Cell Dist. Width 12.7 % (11.5-14.5)
--- NOTE | 2025-03-12 17:26 | EDRN ---
per Johanna Rodríguez NP the pt was placed on RA, Sp02 remains at 94%
--- NOTE | 2025-03-12 17:33 | ED.GENMED ---
History of Present Illness
<Johanna Rodríguez NP - Last Filed: 03/15/25 21:16>
General
Chief Complaint: Breathing Problem
Source: patient and family
Exam Limitations: none
Time Seen by Provider: 03/12/25 16:16
Nursing documentation reviewed up to this point in time: agreed with
History of Present Illness
History of Present Illness:
Patient to the emergency department with concern for possible myasthenia gravis crisis. Patient states that she has been on prednisone long-term. Her neurologist decreased her prednisone from 5 mg to 2.5 mg daily approximately 1 week ago. Patient
states that approximately 4 days ago she felt increasing weakness, increasing fatigue. Neurologist increased the prednisone from 2.5 mg to 10 mg daily on Thursday. Patient does not feel that there has been any improvement. Patient states that she
feels her lower extremities are becoming weaker with ambulation. Daughter feels that patient is experiencing an increase in drooping to the left side of her mouth. Daughter also reports tachypnea at home. Patient is not on home O2. She was
placed on nasal cannula O2 by EMS and route to ED. On room air patient pulse ox is measuring 92 to 93%. She is currently back on 2 L nasal cannula and measuring 95%. She denies any fever or chills. She denies any cough.
Past History
<Johanna Rodríguez WELFARE ELIGIBILITY WORKER - Last Filed: 03/15/25 21:16>
Past History
ED Past Medical History: GERD, HTN, Hypercholesterolemia, Hypothyroidism, Psychiatric and Other (Osteoarthritis, neuropathy)
ED Past Surgical History: Orthopedic
Social History
Alcohol: Occasional
Personal:
Living: with family
Employment: Employed
Family History
Family History: Other (Noncontributory)
Review of Systems
<Johanna Rordíguez WELFARE ELIGIBILITY WORKER - Last Filed: 03/15/25 21:16>
Review of Systems
Allergies reviewed?: Yes
All Other Systems: ROS reviewed and negative except as documented in HPI and ROS
Constitutional: Reports no symptoms
EENT: Reports no symptoms
Respiratory: Reports trouble breathing and other (Tachypnea)
Cardiac: Reports no symptoms
ABD/GI: Reports no symptoms
: Reports no symptoms
Musculoskeletal: Reports other (Patient reports weakness to bilateral lower extremities.)
Skin: Reports no symptoms
Neurological: Reports weakness (Generalized fatigue)
Psychiatric: Reports no symptoms
Phy Exam
<Johanna Rodríguez WELFARE ELIGIBILITY WORKER - Last Filed: 03/15/25 21:16>
General Physical Exam
General Presentation: mild distress
General age: appears stated age
General Skin: warm and dry
General Habitus: normal
General Mental: alert
Cardiovascular Exam
Cardiovascular Exam: regular rate/rhythm and no edema
Pulmonary Exam
Pulmonary Exam: decreased breath sounds
Oxygen Status: oxygen 2 liters via NC (95%.) and other (Pulse ox 92% RA)
Musculoskeletal Exam
Musculoskeletal Exam: full ROM and neuro vasc intact
Skin Exam
Skin Exam: normal color, warm/dry and no rash
Psychiatric Exam
Psychiatric Exam: normal mood/affect
Scores
<Johanna Rodríguez WELFARE ELIGIBILITY WORKER - Last Filed: 03/15/25 21:16>
Heart Failure Risk
Heart Failure Risk Score: Not Applicable
Course
<Johanna Rodríguez WELFARE ELIGIBILITY WORKER - Last Filed: 03/15/25 21:16>
Orders/Labs/Results
Orders:
Orders
03/12/25 16:01
Electrocardiogram (*1) Urgent
Reason for Study: Shortness of Breath
EKG- Treatment ONCE
CXR2 [CR Chest - 2 Views ] Urgent
Comment:
Reason For Exam: shortness of breath
03/12/25 16:03
Complete Blood Count/With Diff Urgent
NT-proBNP Urgent
03/12/25 17:34
Comprehensive Metabolic Panel Urgent
Magnesium Urgent
03/12/25 22:31
Consult Neurology [NEUROLOGY CONSULT] Urgent
Consulting Provider: Alejandro Finney
Was physician already notified: Yes
03/12/25 22:49
Admit/Transfer Patient As Directed
Co-Sign Provider:
Level of Care: Inpatient admission
Assign to:: IMU- Intermediate Care
Physician / Group: Sofya
Diagnosis: Myasthenia gravis exacerbation
Reason for Hospitalization: Myasthenia gravis exacerbation
Expected length of stay greater than two midnights?: Yes
ELOS- Estimated Length of Stay in days: 2
I certify the patient meets the requirements for IP care: Yes
PRN Pain Medication Management As Directed
May give lesser potent ordered pain med per pt: Yes
preference::
Protocol:: Medication orders for pain may be administered in a
manner that supports deferring to patient preference
when the pt is:
- Requesting an ordered lesser potent pain medication.
Least to most potent pain medications are defined
as: acetaminophen < NSAID < tramadol < opioids
(morphine, oxycodone, hydromorphone).
- Requesting a lesser dose of the same medication IF
ORDERED.
- Requesting a less intrusive route of administration
if both routes are prescribed by the provider (PO <
IV).
03/12/25 22:50
Code Status As Directed
Resuscitation Status: Full Code
03/12/25 23:00
Immune Globulin 5 Grams/50 ml [Gammagard] 5 gram in 50 ml IV ONCE
03/12/25 23:48
Acetaminophen [Tylenol] 650 mg PO Q4HPRN PRN
Bisacodyl [Dulcolax] 10 mg RECTAL [id number] PRN
Docusate W/Senna [Senokot-S] 1 tablet PO BIDPRN PRN
Ondansetron Injectable [Zofran] 4 mg IV Q6HPRN PRN
Polyethylene Glycol Powder [Miralax] 17 grams PO DAILYPRN PRN
03/12/25 23:48
Activity As Directed
Activity Level: With Assistance
Intake/ Output As Directed
Frequency: Per unit guidelines
Neurological Checks As Directed
Frequency: Per unit guidelines
Vital Signs As Directed
Frequency: Per unit guidelines
Pulse Ox/cont/shift [RESP] Routine
Quantity: 1
DX Deep Vein Thrombosis Video Routine
03/13/25 00:00
Immune Globulin 20 Grams/200Ml [Gammagard] 20 gram in 200 ml IV ONCE
03/13/25 04:25
Basic Metabolic Panel IN AM
Complete Blood Count/No Diff IN AM
Magnesium IN AM
Venous Blood Gas IN AM
%Oxygen/Room Air: RA
03/13/25 Breakfast
Regular
At Your Request: Full Participation
03/13/25 08:00
Famotidine [Pepcid] 40 mg PO BID
Oxybutynin Chloride [Ditropan] 5 mg PO BID
Prednisone [Deltasone] 10 mg PO DAILY
03/13/25 18:00
Enoxaparin Sodium [Lovenox] 40 mg SC QPM
03/13/25 22:00
Alprazolam [Xanax] 0.5 mg PO HS
Levothyroxine [Synthroid] 75 mcg PO HS
Abnormal Lab Results
03/12/25 03/12/25
16:03 17:34
Absolute Neuts (auto) 7.2 H 10^3/uL
(1.4-6.5)
Absolute Lymphs (auto) 1.0 L 10^3/uL
(1.2-3.4)
Neutrophils % 83.5 H %
(42.2-75.2)
Lymphocytes % 11.1 L %
(20.5-51.1)
Chloride 112 H mmol/L
(98-107)
BUN 20 H mg/dl
(7-17)
03/12/25 16:03
03/12/25 17:34
Vital Signs
Initial and Last Documented VS:
Initial Vital Signs
BP
167/108
03/12/25 15:58
Last Documented Vital Signs
Temp Pulse Resp BP Pulse Ox
98.2 F 87 20 141/86 95
03/15/25 19:12 03/15/25 20:00 03/14/25 20:00 03/15/25 20:00 03/15/25 20:00
<Jessica Baez MD - Last Filed: 03/12/25 18:06>
Orders/Labs/Results
Orders:
Orders
03/12/25 16:01
Electrocardiogram (*1) Urgent
Reason for Study: Shortness of Breath
EKG- Treatment ONCE
CXR2 [CR Chest - 2 Views ] Urgent
Comment:
Reason For Exam: shortness of breath
03/12/25 16:03
Complete Blood Count/With Diff Urgent
NT-proBNP Urgent
03/12/25 17:34
Comprehensive Metabolic Panel Urgent
Magnesium Urgent
03/12/25 22:31
Consult Neurology [NEUROLOGY CONSULT] Urgent
Consulting Provider: Alejandro Finney
Was physician already notified: Yes
03/12/25 22:49
Admit/Transfer Patient As Directed
Co-Sign Provider:
Level of Care: Inpatient admission
Assign to:: IMU- Intermediate Care
Physician / Group: Sofya
Diagnosis: Myasthenia gravis exacerbation
Reason for Hospitalization: Myasthenia gravis exacerbation
Expected length of stay greater than two midnights?: Yes
ELOS- Estimated Length of Stay in days: 2
I certify the patient meets the requirements for IP care: Yes
PRN Pain Medication Management As Directed
May give lesser potent ordered pain med per pt: Yes
preference::
Protocol:: Medication orders for pain may be administered in a
manner that supports deferring to patient preference
when the pt is:
- Requesting an ordered lesser potent pain medication.
Least to most potent pain medications are defined
as: acetaminophen < NSAID < tramadol < opioids
(morphine, oxycodone, hydromorphone).
- Requesting a lesser dose of the same medication IF
ORDERED.
- Requesting a less intrusive route of administration
if both routes are prescribed by the provider (PO <
IV).
03/12/25 22:50
Code Status As Directed
Resuscitation Status: Full Code
03/12/25 23:00
Immune Globulin 5 Grams/50 ml [Gammagard] 5 gram in 50 ml IV ONCE
03/12/25 23:48
Acetaminophen [Tylenol] 650 mg PO Q4HPRN PRN
Bisacodyl [Dulcolax] 10 mg RECTAL [id number] PRN
Docusate W/Senna [Senokot-S] 1 tablet PO BIDPRN PRN
Ondansetron Injectable [Zofran] 4 mg IV Q6HPRN PRN
Polyethylene Glycol Powder [Miralax] 17 grams PO DAILYPRN PRN
03/12/25 23:48
Activity As Directed
Activity Level: With Assistance
Intake/ Output As Directed
Frequency: Per unit guidelines
Neurological Checks As Directed
Frequency: Per unit guidelines
Vital Signs As Directed
Frequency: Per unit guidelines
Pulse Ox/cont/shift [RESP] Routine
Quantity: 1
DX Deep Vein Thrombosis Video Routine
03/13/25 00:00
Immune Globulin 20 Grams/200Ml [Gammagard] 20 gram in 200 ml IV ONCE
03/13/25 04:25
Basic Metabolic Panel IN AM
Complete Blood Count/No Diff IN AM
Magnesium IN AM
Venous Blood Gas IN AM
%Oxygen/Room Air: RA
03/13/25 Breakfast
Regular
At Your Request: Full Participation
03/13/25 08:00
Famotidine [Pepcid] 40 mg PO BID
Oxybutynin Chloride [Ditropan] 5 mg PO BID
Prednisone [Deltasone] 10 mg PO DAILY
03/13/25 18:00
Enoxaparin Sodium [Lovenox] 40 mg SC QPM
03/13/25 22:00
Alprazolam [Xanax] 0.5 mg PO HS
Levothyroxine [Synthroid] 75 mcg PO HS
Abnormal Lab Results
03/12/25 03/12/25
16:03 17:34
Absolute Neuts (auto) 7.2 H 10^3/uL
(1.4-6.5)
Absolute Lymphs (auto) 1.0 L 10^3/uL
(1.2-3.4)
Neutrophils % 83.5 H %
(42.2-75.2)
Lymphocytes % 11.1 L %
(20.5-51.1)
Chloride 112 H mmol/L
(98-107)
BUN 20 H mg/dl
(7-17)
03/12/25 16:03
03/12/25 17:34
Vital Signs
Initial and Last Documented VS:
Initial Vital Signs
BP
167/108
03/12/25 15:58
Last Documented Vital Signs
Temp Pulse Resp BP Pulse Ox
98.2 F 87 20 141/86 95
03/15/25 19:12 03/15/25 20:00 03/14/25 20:00 03/15/25 20:00 03/15/25 20:00
<Johanna Rodríguez NP - Last Filed: 03/15/25 21:16>
*Radiology
Radiology exam reviewed: radiology read reviewed
*Pulse Oximetry
SaO2: 96
Nasal Cannula flow liters per minute: 3
Patient hypoxic: no
*Critical Care Note
Total Time (30-74mins, 75-104mins- exclusive of procedures): Not Applicable
<Johanna Rodríguez NP - Last Filed: 03/15/25 21:16>
Update Note
Update Note:
Patient to the emergency department with concern for a myasthenia gravis flare. She follows with Dr. eTrry. She reports that she is taking prednisone daily. She was recently decreased from 5 mg daily to 2.5 mg. Over the past week she has noted
increasing weakness and fatigue. Prednisone was increased to 10 mg on Thursday. Patient states she has not noticed any improvement. Today her family felt that she was winded when she was talking. Patient reports feeling weakness in bilateral lower
extremities. She states that she feels some heaviness in her chest and is unable to take a deep breath. She was placed on 2 L of nasal cannula by EMS on arrival to home. On room air in the ED her pulse ox dropped to 91-92%. She remains on 2 L
nasal cannula in the ED and pulse ox is holding and it is 96-97%. She denies any cough. Chest x-ray shows low lung volume. NIF was completed by respiratory. Result 30. Case was discussed with Dr. Finney. Will start IVIG at 0.4 g/kg for 5
days. He advises to continue with her current steroid (Prednisone 10mg daily), hold Mestinon for now. He also recommends every 4 hour NIF, low threshold for intubation. Patient will be admitted to the hospital service. Discussed plan with
patient, she is agreeable to admission.
ED Attending Note
<Johanna Rodríguez NP - Last Filed: 03/15/25 21:16>
-
Portions of this chart may have been created with voice recognition software.� Occasional wrong word or��sound alike� substitutions may have occurred due to the inherent limitations of voice recognition software.
<Jessica Baez MD - Last Filed: 03/12/25 18:06>
ED Attending Note
Patient seen and examined by attending physician: Yes
I performed the substantive portion of visit, reviewed & personally made and approve the management plan that is documented in note by myself or FRANCESCA.: Yes
ED Attending Note:
74-year-old female who does not have a history of clotting disorder, heart failure, COPD, but does have myasthenia gravis who recently as per doctors instructions decreased her prednisone dose has been noted to be sleeping more than usual with
decreased energy for the past week or so. Then, on Thursday, patient was noted to be short of breath particular with exertion, not associated with chest pain or pressure. Case was discussed with neurology and her steroids were increased. However,
patient noted to have increasing dyspnea today which prompted her visit here. Of note, family thinks that her neck is slightly weak meaning that she is holding her head down more than she typically would. Patient also describes just overall limb
weakness. She denies cough, sore throat, rhinorrhea, fever, chills, chest pain, abdominal pain, or other complaints. On exam, no facial droop, cranial nerves II through XII intact, no respiratory distress, nasal cannula in place. Lungs CTA heart
regular rate and rhythm, abdomen soft and nontender, moves all extremities equally. Differential includes exacerbation of myasthenia gravis. Workup in progress including nif.
Discharge Plan
Departure
Patient Disposition: Admit
Date of Disposition: 03/12/25
Time of Disposition: 22:31
Presentation/result/management discussed w/ accepting MD/DO: Hospitalist
Patient with high blood pressure during this ER visit?: No
Condition: Fair
Covid-19: Not Applicable
Discharge Problem:
Myasthenia gravis with exacerbation
Interventions
Interventions:
*General Assessment Last Done: 03/12/25 16:30
*Neglect/Abuse Screening Last Done: 03/12/25 16:30
*ED Influenza Vaccine History Last Done: 03/12/25 16:30
[facility] Fall Risk Assessment Tool Last Done: 03/12/25 16:30
*Risk Screen - Suicide (C-SSRS) Last Done: 03/12/25 16:30
*Nursing Disposition Last Done: 03/12/25 23:40
ED- Cardiac Assessment Last Done: 03/12/25 16:30
ED- Pulmonary Assessment Last Done: 03/12/25 16:30
Discharge Date and Time
Discharge Date/Time: 03/12/25 23:59
[2025-03-12 18:06] LABS: ALT (SGPT) 23 U/L (0-35); AST (SGOT) 31 U/L (14-36); Albumin 4.1 g/dl (3.5-5.0); Alkaline Phosphatase 78 U/L (38-126); Blood Urea Nitrogen 20 mg/dl (7-17); Calcium 9.7 mg/dl (8.4-10.2); Carbon Dioxide 26 mmol/L (22-30); Chloride 112 mmol/L (98-107); Estimated Creatinine Clearance 73 ml/min; Glucose 99 mg/dl (70-99); Magnesium 1.9 mg/dl (1.6-2.3); Potassium 3.8 mmol/L (3.5-5.1); Sodium 140 mmol/L (135-145); Total Protein 7.0 g/dl (6.3-8.2); eGFR > 60.00
--- NOTE | 2025-03-12 22:43 | HPS.HSE ---
Family Physician
-
Family Physician: Steffany Terry
Chief Complaint
-
SOB
History of Present Illness
This is a 74-year-old female with past medical history significant for myasthenia gravis, hypertension, hyperlipidemia, hypothyroid, GERD, UTI presenting to the emergency department with shortness of breath.
The patient reported that she Premeal to bring down on prednisone over last several months when she was down to 2.5 mg few days ago. Few days later which she is now about 2 days ago she started having symptoms such as difficulty catching her
breath. Not able to inhale deeply. She also reports that she had some difficulty with ambulating such as dropping her foot when she walks. She denies having a fall. She discussed this with neurologist will recommended that she be admitted for
evaluation for myasthenia gravis exacerbation.
Patient does get monthly IVIG infusions for MS and gravis and her last infusion was on February 24. She reports no fevers or chills. No URI symptom. She denies any chest pain. She denies lower extremity swelling. She denies orthopnea or PND.
She denies any recent urinary infections, diarrhea nausea or vomiting. She denies any rash.
In the emergency department the patient was afebrile, blood pressure was 147 100, pulse was 95 and she was satting 95% on room air. Respiratory was 24. Chest x-ray shows mild atelectasis but no acute infiltrate. BNP was negative. ECG shows a
normal sinus rhythm. CBC was completely unremarkable. Electrolytes BUN and creatinine were all normal.
Medical History
Past Medical History
Past Medical History: Reports Other (myasthenia gravis diagnosed 2 years ago follows at [facility], hypertension, GERD, hypercholesterolemia, hypothyroidism, osteoarthritis, chronic stool incontinence secondary to Mestinon, bladder prolapse with pessary)
Past Surgical History: Reports None
Social History
Tobacco: Non-smoker
Alcohol: None
Drug: None
Family History
Family History: Not pertinent
Allergies / Home Medications
Allergies reflects when Allergies were last updated in [employer]
Home Medications with original date entered in [employer]
Allergy/Medication List:
Allergies
Allergy/AdvReac Type Severity Reaction Status Date / Time
adhesive tape Allergy causes Verified 11/10/24 10:37
skin tears
easily
amoxicillin Allergy Hives Verified 11/10/24 10:37
gabapentin Allergy severe Verified 11/10/24 10:37
headache
lidocaine Allergy IV only Verified 11/10/24 10:37
causes
Mystinia
gravis
Penicillins Allergy Hives/SWELL Verified 11/10/24 10:37
ING
sulfamethoxazole (From Allergy chest Verified 11/10/24 10:37
Bactrim) tightness
trimethoprim (From Bactrim) Allergy chest Verified 11/10/24 10:37
tightness
Home Medications
oxybutynin chloride 5 mg tablet 5 mg PO BID Urinary Issue 07/09/16
alprazolam 0.5 mg tablet 0.5 mg PO HS Mental Health/Anxiety 07/10/16
famotidine 40 mg tablet 40 mg PO BID Gastrointestinal Issue 05/13/24
levothyroxine 75 mcg tablet 75 mcg PO HS Thyroid 05/13/24
Vitamin X68-Ajacboz D3 1 tab PO DAILY Supplement 09/14/24
acetaminophen 500 mg tablet 500 mg PO Q6H PRN mild pain 09/14/24
ascorbic acid (vitamin C) 500 mg tablet (Vitamin C) 500 mg PO DAILY Supplement 09/14/24
calcium carbonate (Calcium 600) 600 mg PO DAILY Supplement 09/14/24
prednisone 20 mg tablet 7 mg PO DAILY Autoimmune disorder 09/14/24
vitamin D3-vitamin K2 1 tab PO DAILY Supplement 09/14/24
pyridostigmine bromide 60 mg tablet (Mestinon) 30 mg PO TID 03/12/25
Review of Systems
-
History Source: Patient
A 12 point ROS was completed and negative except as noted: Yes
Constitutional: Reports No Symptoms
EENT: Reports No Symptoms
Respiratory: Reports See HPI
Cardiac: Reports No Symptoms
Abdomen/GI: Reports No Symptoms
: Reports No Symptoms
Musculoskeletal: Reports No Symptoms
Skin: Reports No Symptoms
Neurological: Reports No Symptoms
Endocrine: Reports No Symptoms
Hematologic/Lymphatic: Reports No Symptoms
Psych: Reports No Symptoms
Physical Exam
Vital Signs
Vital Signs
Temp Pulse Resp BP Pulse Ox
98.6 F 95 24 147/101 95
03/12/25 16:30 03/12/25 22:15 03/12/25 22:15 03/12/25 22:00 03/12/25 22:15
Physical Exam
General: Well Developed, Well Nourished and No Apparent Distress
HEENT: NormoCephalic, Moist mucous membranes and Atraumatic
Respiratory: Clear
Cardiac: S1/S2 and Regular Rhythm; No Murmur or Rub
GI: Soft, Non Tender, Non Distended and Normal Bowel Sounds; No Organomegaly
Rectal: Deferred by Provider
Musculoskeletal: No Clubbing, No Cyanosis and No Edema
Skin: No Rash
Neuro: AO x 3 and Nonfocal/grossly intact
Laboratory Results
-
03/12/25 16:03
03/12/25 17:34
Laboratory Results
Total Bilirubin 1.0 mg/dl (0.2-1.3) 03/12/25 17:34
AST 31 U/L (14-36) 03/12/25 17:34
ALT 23 U/L (0-35) 03/12/25 17:34
Alkaline Phosphatase 78 U/L (38-126) 03/12/25 17:34
Data Reviewed
-
Diagnostic Radiology: Image Personally Visualized and interpreted and Report Reviewed by me
Medical Tests (Nuc Med, Echo, EKG etc): Image Personally Visualized and interpreted
Lab Data: Labs Reviewed by me
Old Records: Reviewed
Impression/Plan
-
IMPRESSION:
Is a 4-year-old female with history of myasthenia gravis, hypothyroidism who presents to the emergency department with complaints of worsening shortness of breath. She is not hypoxic and has no infiltrates on x-ray. She has no signs of an acute
infection. She has no evidence of congestive heart failure. She has no chest pain and no evidence of PE. She has no acute respiratory symptoms. This case was discussed with neurology and there is concern for exacerbation of myasthenia gravis.
PLAN:
Myasthenia gravis exacerbation
� Admit to IMU
� Start IVIG 0.4 g/kg for 5 days
� Continue prednisone 10 mg daily
� Hold Mestinon
� NIF every 4 hours
� Per neurology threshold for intubation
� Check daily VBG
Hypothyroid
- Continue levothyroxine 75 mcg
Hypertension
- Continue amlodipine
DVT prophylaxis�Lovenox subcu
CODE STATUS�full code
[2025-03-12] MEDS: GAMMAGARD 50 IV (23:20)
[2025-03-13] VITALS (23 sets, daily range): BP systolic 120–180; BP diastolic 73–104; BMI 22.7
[2025-03-13] MEDS: GAMMAGARD 200 IV (00:32)
[2025-03-13] MEDS: TYLENOL 650 MG PO ×3 (00:41→22:14)
--- NOTE | 2025-03-13 01:27 | PTCARENOTE ---
Received patient from ED at approximately 2345. AAOx3, drowsy/forgetful @ times - easily arouses to voice. Mildly anxious @ times. Complains of worsening weakness over past few weeks. SR on the monitor - HR in 80s-90s. BP elevated upon admission -
patient asymptomatic - house [employer]OP[employer] SUPER[employer] aware. (+) Pedal pulses bilaterally. POX 95% on 4L NC. Lungs diminished in the bases bilaterally. Patient's breathing shallow - complaining of [place] and occasional chest tightness which has been present prior to
admission. +BS - round/nontender abdomen. Patient reports stress incontinence of bowel and bladder @ baseline. Sacrum/groin w/ blanchable redness. 20 LAC w/ IVIG infusing as ordered - see worklist. Patient updated on plan of care. Call farris within
reach. Bed in lowest position. Bed alarm activated for patient safety.
[2025-03-13] MEDS: PEPCID 40 MG PO ×3 (01:47→19:21)
[2025-03-13] MEDS: XANAX 0.5 MG PO ×2 (01:47→22:14)
[2025-03-13] MEDS: DITROPAN 5 MG PO ×3 (01:47→19:21)
[2025-03-13 04:34] LABS: Venous Blood Gas B.E. 1.2 mmol/L (-4 to +4); Venous Blood Gas O2 Sat % 93.9 %
[2025-03-13 04:40] LABS: Hematocrit 41.8 % (37.0-47.0); Hemoglobin 14.1 g/dL (12.0-16.0); Mean Corp Hgb Conc. 33.7 g/dL (33.0-37.0); Mean Corpuscular Volume 89.7 fL (81.0-99.0); Platelet Count 335 10^3/uL (130-400); Red Cell Dist. Width 12.9 % (11.5-14.5)
[2025-03-13 05:15] LABS: Blood Urea Nitrogen 19 mg/dl (7-17); Calcium 9.6 mg/dl (8.4-10.2); Carbon Dioxide 27 mmol/L (22-30); Chloride 111 mmol/L (98-107); Estimated Creatinine Clearance 73 ml/min; Glucose 80 mg/dl (70-99); Magnesium 2.0 mg/dl (1.6-2.3); Potassium 3.7 mmol/L (3.5-5.1); Sodium 139 mmol/L (135-145); eGFR > 60.00
[2025-03-13] MEDS: DELTASONE 10 MG PO (09:03)
--- NOTE | 2025-03-13 09:52 | CON.NEURO ---
Addendum entered and electronically signed by Sergio Delong MD 03/13/25 21:23:
I saw and examined the patient along with the nurse practitioner Marichuy Caruso, and agree with her assessment and management plan. Given below is my addendum.
This is a 74-year-old female with past medical history significant for myasthenia gravis, hypertension, hyperlipidemia, hypothyroid, GERD, UTI presented to [facility] on 03/12/2025 with shortness of breath. Her symptoms are likely secondary to myasthenia
gravis exacerbation. The patient was on prednisone which was being tapered, and according to her she decreased her dose from 5 mg daily to 2.5 mg daily a few days ago, and she started to have difficulty catching her breath. Patient's prednisone
dose has been increased up to 10 mg daily and she says that she feels a little better today. The plan is to increase the dose of prednisone further to 20 mg daily.
On neurologic examination today, the patient was sitting in a chair and was able to breathe comfortably. She is alert and oriented x 3, speech is clear, she has antigravity strength in all 4 extremities and she does not appear to have limb ataxia.
Please have the vital capacity and and NIF done twice a day.
Original Note:
Neuro Assessment/Plan
Assessment
This is a 74-year-old female with past medical history significant for myasthenia gravis, hypertension, hyperlipidemia, hypothyroid, GERD, UTI presented to [facility] on 03/12/2025 with shortness of breath.
Plan
Impression: abrupt onset of shortness of breath most likely due to myasthenia gravis exacerbation
-increase prednisone from 10 mg to 20 mg
-continue to follow NIF and vital capacity
-continue IVIG
-continue aspirin 81 mg daily
-continue to follow up with usual neurologist Dr. Terry outpatient
All questions encouraged and answered, plan of care discussed with Dr. Delong and patient
Consultation
Order
Date of Consultation: 03/13/25
Requesting Provider: Hospitalist
Reason for Consult: MG
Subjective/Objective
Subjective Data
Date of Service: March 13, 2025
This is a 74-year-old female with past medical history significant for myasthenia gravis, hypertension, hyperlipidemia, hypothyroid, GERD, UTI presented to [facility] on 03/12/2025 with shortness of breath. The patient reports her neurologist has been
trying to decrease her Prednisone and she was down to 2.5 mg few days ago. Few days later which she is now about 2 days ago she started having symptoms such as difficulty catching her breath. Not able to inhale deeply. She also reports that she
had some difficulty with ambulating such as dropping her foot when she walks. She denies having a fall. On 03/10 she reached out to her neurologist who instructed her to increase her steroids to 10mg and if no improvement in symptoms to come to ED
to be evaluated for myasthenia gravis exacerbation. Patient does get monthly IVIG infusions for MS and gravis and her last infusion was on February 24. She reports no fevers or chills. No URI symptom. She denies any chest pain. She denies lower
extremity swelling. She denies orthopnea or PND. She denies any recent urinary infections, diarrhea nausea or vomiting. She denies any rash. In the emergency department the patient was afebrile, blood pressure was 147 100, pulse was 95 and she
was satting 95% on room air. Respiratory was 24. Chest x-ray shows mild atelectasis but no acute infiltrate. BNP was negative. ECG shows a normal sinus rhythm. CBC was completely unremarkable. Electrolytes BUN and creatinine were all normal.
Follows with neurologist Dr. Steffany Terry last seen 02/23 last dose of IVIG 02/24. Note taken from last visit.
'History of Present Illness
The patient is a 74-year-old female who presents for a follow-up on myasthenia gravis.
�
She has been on a regimen of prednisone 5 mg for the past month. She reports a slight decrease in her condition prior to each IVIG treatment, which she attributes to muscle weakness. However, she does not believe this warrants a change in the
frequency of her treatments. She continues to experience ptosis, but it has not worsened since the decrease in her prednisone dosage. She also reports watering eyes .A recent consultation with an territory sales representative at [facility] revealed excessive
lacrimation, but no further action was taken. She is currently on Mestinon, taking three full tablets daily.
�
She reports no issues with speech or swallowing, although she occasionally experiences difficulty swallowing large amounts of food, which resolves upon standing and drinking water.
�
She expresses concern about potential cognitive issues noting that she has been experiencing confusion and memory problems. She recalls an incident at [employer] where she was unable to locate her card and was unsure of their purpose at the store. She
also reports difficulty recalling words during conversation and frequently repeats herself. She is uncertain if these symptoms are related to her age or her medications.
�
INTERVAL: Since last visit, the patient has been on prednisone 5 mg for a month and continues to experience ptosis and muscle weakness prior to IVIG treatments. She has also noted new cognitive concerns.
Assessment & Plan
1. Myasthenia gravis.
Her symptoms of dry eyes are likely attributable to Mestinon (SLUDE).A reduction in her prednisone dosage to 2.5 mg was recommended for the next month.continue monthly IVIG
�
2. MCI
a computer-based neuropsychological evaluation will be scheduled to assess cognition and Blood work will be ordered . Consider checking [id number] depending on results of neurosych testing'
Objective Data
Vital Signs
Temp Pulse Resp BP Pulse Ox
98.2 F 92 23 136/88 97
03/13/25 07:26 03/13/25 06:00 03/13/25 06:00 03/13/25 06:00 03/13/25 05:00
Lab Results
03/13/25 04:25
03/13/25 04:25
Sodium 139 mmol/L (135-145) 03/13/25 04:25
Potassium 3.7 mmol/L (3.5-5.1) 03/13/25 04:25
BUN 19 mg/dl (7-17) H 03/13/25 04:25
Glucose 80 mg/dl (70-99) 03/13/25 04:25
Calcium 9.6 mg/dl (8.4-10.2) 03/13/25 04:25
Seu-O-Oykaapdxzqh Pept 107 pg/ml 03/12/25 16:03
Patient Allergies
adhesive tape Allergy (Verified 11/10/24 10:37)
causes skin tears easily
amoxicillin Allergy (Verified 11/10/24 10:37)
Hives
gabapentin Allergy (Verified 11/10/24 10:37)
severe headache
lidocaine Allergy (Verified 11/10/24 10:37)
IV only causes Mystinia gravis
Penicillins Allergy (Verified 11/10/24 10:37)
Hives/SWELLING
sulfamethoxazole (From Bactrim) Allergy (Verified 11/10/24 10:37)
chest tightness
trimethoprim (From Bactrim) Allergy (Verified 11/10/24 10:37)
chest tightness
Physical Exam
-
General: Appears Chronically Ill and Wearing Oxygen
HEENT: Normocephalic and Atraumatic
Neck: Full Range of Motion
Respiratory: Accessory Resp Muscle Use
Cardiac: No JVD
GI: Non-distended
Skin: Unremarkable
Extremities: No Clubbing, No Cyanosis and No Edema
Psych: Unremarkable
Extended Neurological Exam
Mood & Affect: Mood Unremarkable
Attention Span & Concentration: Awake, Alert, Interactive and No Difficulty with 2 Step Request
Memory: Unremarkable
Speech: Quality Unremarkable, Quantity Unremarkable and Rate of Production Unremarkable
Cranial Nerves III, IV, : Extraocular Movement: Extraocular Movement Full in all Directions and Ptosis on Right
Cranial Nerve VII: Facial Symmetry: Normal Facial Symmetry
Cranial Nerve VIII: Hearing: Unremarkable Hearing to Normal Conversational Volume
Data Reviewed
-
Medical Test Reports: Report Reviewed
Labs: Report Reviewed
Reviewed with: Physician and Patient
Old Records: Summarized
Medications
-
Active Medications
Generic Name Dose Route Start Last Admin
Trade Name Freq PRN Reason Stop Dose Admin
Acetaminophen 650 mg 03/12/25 23:48 03/13/25 00:41
Acetaminophen 325 Mg Tablet PO 04/09/25 23:47 650 mg
Q4HPRN PRN Administration
mild pain/NAVA/temp> 100.4F
Alprazolam 0.5 mg 03/13/25 02:00 03/13/25 01:47
Alprazolam 0.5 Mg Tablet PO 04/10/25 01:59 0.5 mg
HS ELIDIA Administration
Bisacodyl 10 mg 03/12/25 23:48
Bisacodyl 10 Mg Rectal Suppository RECTAL 04/09/25 23:47
[id number] PRN
constipation
Enoxaparin Sodium 40 mg 03/13/25 18:00
Enoxaparin Sodium 40 Mg/0.4 Ml Syringe SC 04/10/25 17:59
QPM ELIDIA
Famotidine 40 mg 03/13/25 02:00 03/13/25 09:03
Famotidine 20 Mg Tablet PO 04/10/25 01:59 40 mg
BID ELIDIA Administration
Immune Globulin 25 gram 03/13/25 08:00
Immune Globulin (Calculator Uses Ibw) - Pharmacy To Place Order 0.4 gram/kg (25 gram) 04/10/25 07:59
IV
DAILY ELIDIA
Levothyroxine Sodium 75 mcg 03/13/25 22:00
Levothyroxine 75 Mcg Tablet PO 04/10/25 21:59
HS ELIDIA
Ondansetron HCl 4 mg 03/12/25 23:48
Ondansetron 4 Mg/2 Ml Vial IV 04/09/25 23:47
Q6HPRN PRN
nausea and vomiting
Oxybutynin Chloride 5 mg 03/13/25 02:00 03/13/25 09:04
Oxybutynin 5 Mg Tablet PO 04/10/25 01:59 5 mg
BID ELIDIA Administration
Polyethylene Glycol 17 grams 03/12/25 23:48
Polyethylene Glycol Powder 17 Grams Packet PO 04/09/25 23:47
DAILYPRN PRN
constipation
Prednisone 10 mg 03/13/25 08:00 03/13/25 09:03
Prednisone 10 Mg Tablet PO 04/10/25 07:59 10 mg
DAILY ELIDIA Administration
Senna/Docusate Sodium 1 tablet 03/12/25 23:48
Docusate W/Senna (Doreen-Colace) Tablet PO 04/09/25 23:47
BIDPRN PRN
constipation
Sodium Chloride 0 flush 03/13/25 02:00
Sodium Chloride 0.9% (Flush) Syringe IV 04/10/25 01:59
PER PROTOCOL ELIDIA
Home Medications
�Medication �Instructions �Recorded
oxybutynin chloride 5 mg tablet 5 mg PO BID Urinary Issue 07/09/16
alprazolam 0.5 mg tablet 0.5 mg PO HS Mental Health/Anxiety 07/10/16
famotidine 40 mg tablet 40 mg PO BID Gastrointestinal Issue 05/13/24
levothyroxine 75 mcg tablet 75 mcg PO HS Thyroid 05/13/24
Vitamin S48-Izdtsoz D3 1 tab PO DAILY Supplement 09/14/24
acetaminophen 500 mg tablet 500 mg PO Q6H PRN mild pain 09/14/24
ascorbic acid (vitamin C) 500 mg 500 mg PO DAILY Supplement 09/14/24
tablet (Vitamin C)
calcium carbonate (Calcium 600) 600 mg PO DAILY Supplement 09/14/24
prednisone 20 mg tablet 7 mg PO DAILY Autoimmune disorder 09/14/24
vitamin D3-vitamin K2 1 tab PO DAILY Supplement 09/14/24
pyridostigmine bromide 60 mg 30 mg PO TID 03/12/25
tablet (Mestinon)
Past History
Past History
ED Past Medical History: GERD, HTN, Hypercholesterolemia, Hypothyroidism, Psychiatric and Other (Osteoarthritis, neuropathy)
ED Past Surgical History: Orthopedic
Family/Social History
Alcohol: Occasional
Personal:
Living: with family
Employment: Employed
Family History: Other (Noncontributory)
--- NOTE | 2025-03-13 10:40 | CM ---
I.A: Completed By DOMI Llamas. Unable to speak to patient. Chart reviewed. 74-year-old female with past medical history significant for myasthenia gravis, presenting to the emergency department with shortness of breath.
Patient lives with her daughter (Dtalejandro Ch and her family in a 2 story home with 2 SHREYA to enter and 11 STI. DME: [employer] Independent with [employer]. Had [facility] in past and STR at [facility].
PCP: / Steffany Terry
Pharmacy [facility]
Patient should have transport home. PLAN: Home VN vs. No Needs.
--- NOTE | 2025-03-13 11:46 | PTCARENOTE ---
Pt rec'd this morning from night RN, Salvatore, LANDERS, satting 97% on 4L, weaned to 2L at this time, sa02 maintaining mid 90s, will cont to monitor. Pt assisted oob to chair and to use bathroom for toileting and oral care, pt washed self at sink, new gown
provided. Pt tolerated 100% of breakfast tray. Pt complains of headache 8/10 intermittently, medicated with PRN Tylenol as ordered. Plan discussed with care team. Safe environment maintained.
--- NOTE | 2025-03-13 14:50 | W.PN.HOSP.TC ---
Today's Communication/Plan
-
see PN
Assessment / Plan
Assessment / Plan
74yo F with PMHx of anxiety, hypothyroidism, GERD, urinary urgency, Miasthenia Gravis came with worsening weakness and SOB started after her Prednisone was tapered to 2.5mg, found in MG crisis, started on IVIG with MIP and VC monitoring
A/P:
#MG crisis
#Acute hypoxic inefficiency 2/2 MG and atelectasis
usual MIP -[id number], now -30. COnt VC and MIP q4h with hypoxia monitoring in IMU
IVIG and Prednisone as per neurologist
proBNP low - no concern for CHF component
Incentive spirometry
cont O2 NC
#GERD
#Hypothyroidism
#Urinary urgency
#Anxiety
cont home meds
Check TSH
DVT ppx lovenox
Full code
I have spent at least 58min of critical care reviewing chart, test results, communication with consultants and providing direct patient care
Anticipated Discharge: > 48 hours
Subjective/Interval History
-
Date of Service: March 13, 2025
Objective Data
-
Labs:
Laboratory Results
03/13/25
04:25
WBC 8.2
Hgb 14.1
Hct 41.8
Plt Count 335
Sodium 139
Potassium 3.7
Chloride 111 H
Carbon Dioxide 27
BUN 19 H
Creatinine 0.6
Glucose 80
Calcium 9.6
Vital Signs:
Vital Signs
Temp Pulse Resp BP Pulse Ox
97.6 F 89 18 156/91 94
03/13/25 11:12 03/13/25 12:00 03/13/25 12:00 03/13/25 12:00 03/13/25 12:00
I&O
03/12/25 03/13/25 03/14/25
06:59 06:59 06:59
Intake Total 440 / 440 240 / 240
Balance 440 / 440 240 / 240
Review of Systems
-
History Source: Patient
Constitutional: Reports Fatigue
Physical Exam
-
General: Comfortable
HEENT: Normocephalic
Respiratory: Clear to Auscultation
GI: Soft, Nontender and Nondistended
Neuro: Awake, Alert, Oriented and AO x 3
Psych: Calm
[2025-03-13 16:58] LABS: TSH 1.84 uIU/ml (0.47-4.68)
[2025-03-13] MEDS: LOVENOX 40 MG SC (17:01)
--- NOTE | 2025-03-13 19:42 | PTCARENOTE ---
Vital signs downloaded from previous shift - unable to verify vitals prior to 1900.
[2025-03-13 19:50] LABS: Glucose - Point of Care 109 mg/dl (70-99)
--- NOTE | 2025-03-13 20:27 | W.PN.UPDATE ---
Update Note
Progress Note Update
-Reported by the nursing staff that the daughter Annabel is concerning about the patient`s mental status as she seems little confused. Vital signs and bs within baseline.
-On assessment, patient is alert and oriented x 3, patient mentioned that she probably was confused as she just woke from nap also morning med time switched to PM which gets her confused about time and thinking that still morning. Also she mentioned
that she had dementia test, no result yet but she thinking that confusion possibly is related to dementia.
-Spoke to both daughters on the phone and mentioned the patient seems different today with some of confusion at different times earlier.
-head CT, cbc, bmp, UA, abg ordered.
Head CT result shows
1. No CT evidence for acute intracranial hemorrhage or transcortical infarct.
2. SEVERE WHITE MATTER LEUKOARAIOSIS in the periventricular frontal lobes and internal capsules.
3. Mild diffuse cerebral and cerebellar volume loss.
Abg (Ph 7.4, PCO2 40, PO2 70, Hco3 25.4, Abg O2 Sat 95.2)
Abnormal UA result (Leukocyte 2+, Urine WBC 11-15, urine bacteria few A) Patient asymptomatic. afebrile. Urine culture is pending.
[2025-03-13 21:24] LABS: B.E. 0.7 mmol/L; HCO3 25.4 mmol/L (21-28); O2 Saturation % 95.2 % (94-98); PCO2 40 mmHg (32-35); PO2 70 mmHg (83-108)
[2025-03-13 21:27] LABS: Hematocrit 41.4 % (37.0-47.0); Hemoglobin 13.9 g/dL (12.0-16.0); Mean Corp Hgb Conc. 33.6 g/dL (33.0-37.0); Mean Corpuscular Volume 88.8 fL (81.0-99.0); Platelet Count 368 10^3/uL (130-400); Red Cell Dist. Width 13.0 % (11.5-14.5)
[2025-03-13 21:45] LABS: Blood Urea Nitrogen 30 mg/dl (7-17); Calcium 9.7 mg/dl (8.4-10.2); Carbon Dioxide 22 mmol/L (22-30); Chloride 109 mmol/L (98-107); Estimated Creatinine Clearance 55 ml/min; Glucose 94 mg/dl (70-99); Potassium 3.5 mmol/L (3.5-5.1); Sodium 137 mmol/L (135-145); eGFR > 60.00
[2025-03-13] MEDS: GAMMAGARD 50 IV (22:14)
[2025-03-13] MEDS: SYNTHROID 75 MCG PO (22:14)
[2025-03-13 22:32] LABS: Urine Character Clear (Clear)
[2025-03-13 23:03] LABS: Urine Red Blood Cell 0-2 /HPF (0-2); Urine Squamous Cell >30 /LPF (Few)
[2025-03-14] VITALS (26 sets, daily range): BP systolic 119–188; BP diastolic 71–108; BMI 22.1
--- NOTE | 2025-03-14 00:40 | PTCARENOTE ---
Assumed care of patient at 1900. Patient AAOx3 - having oriented conversation, but verbalizing she feels more confused. Patient w/ no other complaints at that time. Stated she thought it was morning, although this RN and her daughter explained to
her it was night. Patient reoriented multiple times. Patient's daughter, who was on phone with patient at the time, expressed her concerns to this RN. House provider notified of daughter's concerns. Vital signs and blood sugar obtained. COIL FORMER ordered
labs/UA and CT scan of head. Patient transported to CT scan w/ no event. After returning from CT scan - patient stated she was feeling less confused. Labs and urine sent. Patient remains AAOx3 and forgetful - no other complaints. COIL FORMER notified of
lab/CT results. No new orders at this time.
[2025-03-14] MEDS: GAMMAGARD 200 IV ×2 (01:10→20:34)
[2025-03-14] MEDS: TYLENOL 650 MG PO ×2 (02:33→20:31)
[2025-03-14 05:51] LABS: Hematocrit 44.3 % (37.0-47.0); Hemoglobin 14.5 g/dL (12.0-16.0); Mean Corp Hgb Conc. 32.7 g/dL (33.0-37.0); Mean Corpuscular Volume 90.4 fL (81.0-99.0); Nucleated Red Blood Cells % 0 %; Platelet Count 361 10^3/uL (130-400); Red Cell Dist. Width 12.9 % (11.5-14.5)
[2025-03-14 06:18] LABS: ALT (SGPT) 26 U/L (0-35); AST (SGOT) 31 U/L (14-36); Albumin 4.6 g/dl (3.5-5.0); Alkaline Phosphatase 93 U/L (38-126); Blood Urea Nitrogen 25 mg/dl (7-17); Calcium 9.9 mg/dl (8.4-10.2); Carbon Dioxide 27 mmol/L (22-30); Chloride 108 mmol/L (98-107); Estimated Creatinine Clearance 62 ml/min; Glucose 84 mg/dl (70-99); Potassium 3.7 mmol/L (3.5-5.1); Sodium 140 mmol/L (135-145); Total Protein 9.9 g/dl (6.3-8.2); eGFR > 60.00
--- NOTE | 2025-03-14 07:40 | PTCARENOTE ---
Pt rec'd from night RN, now awake and getting to side of bed, alarm set off. Aox3, pleasant, apologetic for setting off alarm. This RN assisted pt oob to use bathroom and sit in chair, pt is still having headache pain she states since yesterday,
will discuss with Dr. Rios upon rounds. Pt sa02 94% on 1L nc, still feels LANDERS and 'heaviness' with breathing. Orders reviewed, phone and call farris in reach.
[2025-03-14] MEDS: DELTASONE 20 MG PO (09:03)
[2025-03-14] MEDS: DITROPAN 5 MG PO ×2 (09:03→20:01)
[2025-03-14] MEDS: PEPCID 40 MG PO ×2 (09:03→20:01)
[2025-03-14] MEDS: ULTRAM 25 MG PO (09:04)
--- NOTE | 2025-03-14 10:02 | CM ---
patient chart reviewed
patient seen today
tt hospitalist for PT/OT orders
PLAN: anticipate home, CM to follow for VN needs, await PT/OT evals
--- NOTE | 2025-03-14 10:55 | W.PN.HOSP.TC ---
Today's Communication/Plan
-
cont q12h VC and MIP - stable and even slightly improving now
Cont IVIG and Prednisone
Mestinon still on hold due to upper airways secretions
Atrest patient ot hypoxic on RA as per AM rounds seen
Assessment / Plan
Assessment / Plan
74yo F with PMHx of anxiety, hypothyroidism, GERD, urinary urgency, Miasthenia Gravis came with worsening weakness and SOB started after her Prednisone was tapered to 2.5mg, found in MG crisis, started on IVIG with MIP and VC monitoring
A/P:
#MG crisis
#Acute hypoxic inefficiency 2/2 MG and atelectasis
usual MIP -[id number], now -30. COnt VC and MIP q4h with hypoxia monitoring in IMU
IVIG and Prednisone as per neurologist
proBNP low - no concern for CHF component
Incentive spirometry
cont O2 NC
#In hospital delirium
combination of sun-downing, increased steroids on baseline cognitive dficit. As previous discussed with daughter -patient with significant impairment of short memory, most likely due to dementia
Head CT neg
#Recurrent UTI
UA on 03/13/25 with minimaly elevated WBC, but no leukocytosis on CBC, no fever and patient does not report urinary symptoms
Will monitor off Abx
#GERD
#Hypothyroidism
#Urinary urgency
#Anxiety
cont home meds
TSH 1.84
DVT ppx lovenox
Full code
I have spent at least 51min of critical care reviewing chart, test results, communication with consultants and providing direct patient care
Anticipated Discharge: > 48 hours
Subjective/Interval History
-
Date of Service: March 14, 2025
Objective Data
-
Labs:
Laboratory Results
03/14/25
05:35
WBC 7.7
Hgb 14.5
Hct 44.3
Plt Count 361
Sodium 140
Potassium 3.7
Chloride 108 H
Carbon Dioxide 27
BUN 25 H
Creatinine 0.7
Glucose 84
Calcium 9.9
Total Bilirubin 1.3
AST 31
ALT 26
Alkaline Phosphatase 93
Vital Signs:
Vital Signs
Temp Pulse Resp BP Pulse Ox
97.7 F 95 19 156/95 96
03/14/25 08:00 03/14/25 06:00 03/14/25 06:00 03/14/25 06:00 03/14/25 06:00
I&O
03/13/25 03/14/25 03/15/25
06:59 06:59 06:59
Intake Total 440 / 440 480 / 480
Output Total 100 / 100
Balance 440 / 440 380 / 380
Review of Systems
-
History Source: Patient
All other systems: Reviewed and negative
Physical Exam
-
General: No Apparent Distress
HEENT: Normocephalic
Respiratory: Clear to Auscultation
Cardiac: Regular Rhythm
Skin: Warm
Neuro: Awake, Alert, Oriented, AO x 3, No Motor Deficits and Other (mild ptosis)
Psych: Apparent Dementia
[2025-03-14] MEDS: ATARAX 10 MG PO (12:20)
--- NOTE | 2025-03-14 12:29 | PTCARENOTE ---
Pt c/o anxiety re: her breathing, feeling SOB, sa02 remains stable on 1L, HTN continues, Dr. Rios notified, orders rec'd and carried out for 10 mg Atarax stat. continued close monitoring and emotional support provided.
[2025-03-14] MEDS: PROCARDIA XL (EXTENDED RELEASE) 30 MG PO (13:51)
--- NOTE | 2025-03-14 13:54 | PTCARENOTE ---
Pt bps continue running high, Dr. Rios updated, orders rec'd for procardia xl which was administered at this time. Pt updated and education provided, requires much reinforcement of medications and what they are for. Pleasantly forgetful as
prior, safe enviroment continues. Pt assisted to bathroom , now resting back in bed.
--- NOTE | 2025-03-14 14:27 | W.PN.NEURO.1 ---
Addendum entered and electronically signed by Sergio Delong MD 03/14/25 20:45:
The patient was seen and examined today along with the nurse practitioner Marichuy Caruso, and I agree with her assessment and management plan. Given below is my addendum.
The patient appears to be short of breath while lying in the bed, and she appeared to be anxious about her breathing.
She was alert and oriented x 3 and had antigravity strength in bilateral upper and lower extremities.
The MIP was -22 in the morning with a vital capacity of 0.91
In the evening the MIP was -25 and the vital capacity was 0.9
Plan to get VC and MIP every 4 hours.
Continue prednisone 60 mg daily and IVIG.
Mestinon is still on hold due to risk of increased upper airway secretions.
I had a detailed discussion with the patient and her daughter regarding the assessment and management plan, and they verbalized understanding of our discussion.
Original Note:
Today's Communication / Plan
-
-increase prednisone from 20 mg to 60 mg
-consider resuming her pyridostigmine 30 mg TID given no longer having secretions
-continue to follow NIF and vital capacity
-continue IVIG
Neuro Assessment/Plan
Assessment
This is a 74-year-old female with past medical history significant for myasthenia gravis, hypertension, hyperlipidemia, hypothyroid, GERD, UTI presented to [facility] on 03/12/2025 with shortness of breath.
Plan
Impression: abrupt onset of shortness of breath most likely due to myasthenia gravis exacerbation
-increase prednisone from 20 mg to 60 mg
-consider resuming her pyridostigmine 30 mg TID given no longer having secretions
-continue to follow NIF and vital capacity
-continue IVIG
-continue to follow up with usual neurologist Dr. Terry outpatient
All questions encouraged and answered, plan of care discussed with Dr. Delong and patient
Subjective/Objective
Subjective Data
Date of Service: March 14, 2025
One episode of confusion last night which prompted head CT which showed no CT evidence for acute intracranial hemorrhage or transcortical infarct. UA with Leukocyte 2+, Urine WBC 11-15, urine bacteria few A, culture pending. MIP worse today went
from 30 to 22. Patient states she feels like she is still having difficulty with breathing.
Objective Data
Vital Signs
Temp Pulse Resp BP Pulse Ox
97.9 F 109 33 163/88 95
03/14/25 12:01 03/14/25 13:51 03/14/25 08:41 03/14/25 14:00 03/14/25 14:00
Lab Results
03/14/25 05:35
03/14/25 05:35
Sodium 140 mmol/L (135-145) 03/14/25 05:35
Potassium 3.7 mmol/L (3.5-5.1) 03/14/25 05:35
BUN 25 mg/dl (7-17) H 03/14/25 05:35
Glucose 84 mg/dl (70-99) 03/14/25 05:35
Calcium 9.9 mg/dl (8.4-10.2) 03/14/25 05:35
Sib-K-Btlwcrvnkoh Pept 107 pg/ml 03/12/25 16:03
Patient Allergies
adhesive tape Allergy (Verified 11/10/24 10:37)
causes skin tears easily
amoxicillin Allergy (Verified 11/10/24 10:37)
Hives
gabapentin Allergy (Verified 11/10/24 10:37)
severe headache
lidocaine Allergy (Verified 11/10/24 10:37)
IV only causes Mystinia gravis
Penicillins Allergy (Verified 11/10/24 10:37)
Hives/SWELLING
sulfamethoxazole (From Bactrim) Allergy (Verified 11/10/24 10:37)
chest tightness
trimethoprim (From Bactrim) Allergy (Verified 11/10/24 10:37)
chest tightness
Physical Exam
-
General: Appears Chronically Ill and Wearing Oxygen
HEENT: Normocephalic and Atraumatic
Neck: Full Range of Motion
Respiratory: Accessory Resp Muscle Use
Cardiac: No JVD
GI: Non-distended
Skin: Unremarkable
Extremities: No Clubbing, No Cyanosis and No Edema
Psych: Unremarkable
Extended Neurological Exam
Mood & Affect: Mood Unremarkable
Attention Span & Concentration: Awake, Alert, Interactive and No Difficulty with 2 Step Request
Memory: Unremarkable
Speech: Quality Unremarkable, Quantity Unremarkable and Rate of Production Unremarkable
Cranial Nerves III, IV, : Extraocular Movement: Extraocular Movement Full in all Directions and Ptosis on Right
Cranial Nerve VII: Facial Symmetry: Normal Facial Symmetry
Cranial Nerve VIII: Hearing: Unremarkable Hearing to Normal Conversational Volume
Data Reviewed
-
CT Head: Report Reviewed and Image Reviewed
MRI Head: Report Reviewed and Image Reviewed
Medical Test Reports: Report Reviewed
Labs: Report Reviewed
Reviewed with: Physician, Patient and Family
Old Records: Summarized
--- NOTE | 2025-03-14 15:17 | PTCARENOTE ---
Daughter Sulema called to request neurologist to call her to discuss plan of care, upon rounds, plan discussed with neuro team -they will call daughter to discuss medications and adjustments. Orders for steroid increase to 60 mgn rec'd.
[2025-03-14] MEDS: LOVENOX 40 MG SC (16:26)
[2025-03-14] MEDS: DELTASONE 40 MG PO (16:26)
--- NOTE | 2025-03-14 17:26 | PTCARENOTE ---
Pt's daughter reported to RN that pt feels like she is choking when she eats food, Dr. Rios notified. Pt has not demonstrated any overt signs of aspiration but does acknowldge that soft or puree foods are easier for her to eat.
--- NOTE | 2025-03-14 18:10 | PTCARENOTE ---
Diet changed to pureed as ordered. CXR results noted, Mestinon ordered and given.
[2025-03-14] MEDS: MESTINON 30 MG PO (18:15)
--- NOTE | 2025-03-14 19:30 | PTCARENOTE ---
found pt walking in hallway, 'I'm trying to find the bathroom', pt disoriented to person & place, oriented to month, assisted back to bed, bed alarm on, pt denies pain, very forgetful, ST/SR, weak distal pulses, skin warm/dry, O2 1 liter nc, lungs
decr, sat 92, + LANDERS, + bowel sounds, no bm, abd soft, no n/v, voids in bathroom
[2025-03-14] MEDS: SYNTHROID 75 MCG PO (20:31)
[2025-03-14] MEDS: XANAX 0.5 MG PO (22:42)
[2025-03-14] MEDS: GAMMAGARD 50 IV (23:25)
[2025-03-15] VITALS (23 sets, daily range): BP systolic 109–187; BP diastolic 65–117; PULSE 98; O2SAT 93
--- NOTE | 2025-03-15 00:19 | PTCARENOTE ---
assumed care at 2300 ax2-3 forgetful ivig completed- sinus afebrile bp wnl. bed alarm in place
[2025-03-15] MEDS: MESTINON 30 MG PO ×4 (00:22→21:53)
[2025-03-15 04:35] LABS: Hematocrit 38.7 % (37.0-47.0); Hemoglobin 13.6 g/dL (12.0-16.0); Mean Corp Hgb Conc. 35.1 g/dL (33.0-37.0); Mean Corpuscular Volume 89.4 fL (81.0-99.0); Nucleated Red Blood Cells % 0 %; Platelet Count 332 10^3/uL (130-400); Red Cell Dist. Width 13.1 % (11.5-14.5)
--- NOTE | 2025-03-15 04:56 | PTCARENOTE ---
pt transferred to 0378- all belongings sent.
[2025-03-15 05:07] LABS: ALT (SGPT) 23 U/L (0-35); AST (SGOT) 29 U/L (14-36); Albumin 3.9 g/dl (3.5-5.0); Alkaline Phosphatase 74 U/L (38-126); Blood Urea Nitrogen 21 mg/dl (7-17); Calcium 9.3 mg/dl (8.4-10.2); Carbon Dioxide 26 mmol/L (22-30); Chloride 107 mmol/L (98-107); Estimated Creatinine Clearance 62 ml/min; Glucose 105 mg/dl (70-99); Potassium 4.5 mmol/L (3.5-5.1); Sodium 136 mmol/L (135-145); Total Protein 8.7 g/dl (6.3-8.2); eGFR > 60.00
[2025-03-15 06:52] LABS: LDH 231 U/L (120-246)
[2025-03-15] MEDS: PEPCID 40 MG PO ×2 (08:17→19:50)
[2025-03-15] MEDS: DITROPAN 5 MG PO ×2 (08:18→19:50)
[2025-03-15] MEDS: PROCARDIA XL (EXTENDED RELEASE) 30 MG PO (08:18)
[2025-03-15] MEDS: DELTASONE 60 MG PO (08:18)
[2025-03-15 08:40] LABS: Reticulocyte Count 1.4 % (0.4-2.8)
--- NOTE | 2025-03-15 09:00 | PTCARENOTE ---
Assumed care at 0700. BP elevated before receiving scheduled AM nifedipine, but trended down after administration. Oriented to self, place, time and situation but forgetful to details. Bed alarm on and monitoring.
--- NOTE | 2025-03-15 09:19 | W.PN.NEURO.1 ---
Addendum entered and electronically signed by Sergio Delong MD 03/15/25 21:28:
The patient was seen and examined with the Nurse Practitioner Marichuy Caruso, and I agree with her assessment and management plan. Given below is my addendum.
The patient is a 74 years old female, with a past medical history of Myasthenia Gravis, currently getting IVIG and also is on prednisone 60 mg daily and mestinon 30 mg TID.
The patient is clinically better and also the MIP has improved to -40. She denies any issue with increased secretions.
Continue current medications.
Discussed with Dr. Rich Rios.
Will follow.
Original Note:
Today's Communication / Plan
-
-continue prednisone 60 mg
-continue pyridostigmine 30 mg TID, monitor secretions
-continue to follow NIF and vital capacity
-continue IVIG
Neuro Assessment/Plan
Assessment
This is a 74-year-old female with past medical history significant for myasthenia gravis, hypertension, hyperlipidemia, hypothyroid, GERD, UTI presented to [facility] on 03/12/2025 with shortness of breath.
Plan
Impression: abrupt onset of shortness of breath most likely due to myasthenia gravis exacerbation
-continue prednisone 60 mg
-continue pyridostigmine 30 mg TID, monitor secretions
-continue to follow NIF and vital capacity
-continue IVIG
-continue to follow up with usual neurologist Dr. Terry outpatient
All questions encouraged and answered, plan of care discussed with Dr. Delong and patient
Subjective/Objective
Subjective Data
Date of Service: March 15, 2025
Today day 3/4 of IVIG. Patient continues to report difficulty 'catching her breath'. MIPs improved from 25 to 40. Denies issues with secretions.
Objective Data
Vital Signs
Temp Pulse Resp BP Pulse Ox
97.9 F 80 20 161/85 93
03/15/25 03:08 03/15/25 06:00 03/14/25 20:00 03/15/25 06:00 03/15/25 06:00
Lab Results
03/15/25 04:00
03/15/25 04:00
Sodium 136 mmol/L (135-145) 03/15/25 04:00
Potassium 4.5 mmol/L (3.5-5.1) 03/15/25 04:00
BUN 21 mg/dl (7-17) H 03/15/25 04:00
Glucose 105 mg/dl (70-99) H 03/15/25 04:00
Calcium 9.3 mg/dl (8.4-10.2) 03/15/25 04:00
Kgo-A-Isfhxquvrps Pept 107 pg/ml 03/12/25 16:03
Patient Allergies
adhesive tape Allergy (Verified 11/10/24 10:37)
causes skin tears easily
amoxicillin Allergy (Verified 11/10/24 10:37)
Hives
gabapentin Allergy (Verified 11/10/24 10:37)
severe headache
lidocaine Allergy (Verified 11/10/24 10:37)
IV only causes Mystinia gravis
Penicillins Allergy (Verified 11/10/24 10:37)
Hives/SWELLING
sulfamethoxazole (From Bactrim) Allergy (Verified 11/10/24 10:37)
chest tightness
trimethoprim (From Bactrim) Allergy (Verified 11/10/24 10:37)
chest tightness
Physical Exam
-
General: Appears Chronically Ill and Wearing Oxygen
HEENT: Normocephalic and Atraumatic
Neck: Full Range of Motion
Respiratory: Accessory Resp Muscle Use
Cardiac: No JVD
GI: Non-distended
Skin: Unremarkable
Extremities: No Clubbing, No Cyanosis and No Edema
Psych: Unremarkable
Extended Neurological Exam
Mood & Affect: Mood Unremarkable
Attention Span & Concentration: Awake, Alert, Interactive and No Difficulty with 2 Step Request
Memory: Unremarkable
Speech: Quality Unremarkable, Quantity Unremarkable and Rate of Production Unremarkable
Cranial Nerves III, IV, : Extraocular Movement: Extraocular Movement Full in all Directions and Ptosis on Right
Cranial Nerve VII: Facial Symmetry: Normal Facial Symmetry
Cranial Nerve VIII: Hearing: Unremarkable Hearing to Normal Conversational Volume
--- NOTE | 2025-03-15 10:23 | CON.PUL ---
Consultation
Consultation Request
Date/Time Consultation Requested: 03/15/2025
Date/Time Consultation Performed: 03/15/2024
Requesting Provider: Dr. Rios
Performing Provider: Dr. Omar Mckenzie
Reason for Consultation: Hypoxemic respiratory failure-myasthenia gravis crisis
Medical History
-
History of Present Illness:
74-year-old woman with past medical history significant for myasthenia gravis, hypertension, hyperlipidemia, hypothyroidism, GERD presented to the emergency room complaining of shortness of breath.
Previous to admission her prednisone was being tapered down, when she got to dose of 2.5 mg for a few days she started developing shortness of breath, difficulty taking a deep breath. Difficulty ambulating. She was referred to the emergency room
to be evaluated for myasthenia gravis crisis.
In the outpatient setting she gets IVIG infusions monthly her last infusion was February 24.
She denies any signs or symptoms suggestive of infection.
Past Medical History
Past Medical History: Other (See assessment and plan.)
Social History
Tobacco: Non-smoker
Alcohol: None
Drug: None
Family History
Family History: Reviewed & Not Pertinent
Allergies / Home Medications
Allergies
Allergy/AdvReac Type Severity Reaction Status Date / Time
adhesive tape Allergy causes Verified 11/10/24 10:37
skin tears
easily
amoxicillin Allergy Hives Verified 11/10/24 10:37
gabapentin Allergy severe Verified 11/10/24 10:37
headache
lidocaine Allergy IV only Verified 11/10/24 10:37
causes
Mystinia
gravis
Penicillins Allergy Hives/SWELL Verified 11/10/24 10:37
ING
sulfamethoxazole (From Allergy chest Verified 11/10/24 10:37
Bactrim) tightness
trimethoprim (From Bactrim) Allergy chest Verified 11/10/24 10:37
tightness
Home Medications
�Medication �Instructions �Recorded �Confirmed �Last Taken �Type
oxybutynin chloride 5 mg tablet 5 mg PO BID Urinary Issue 07/09/16 03/12/25 09/22/24 History
alprazolam 0.5 mg tablet 0.5 mg PO HS Mental Health/Anxiety 07/10/16 03/12/25 09/21/24 History
famotidine 40 mg tablet 40 mg PO BID Gastrointestinal Issue 05/13/24 03/12/25 09/22/24 History
levothyroxine 75 mcg tablet 75 mcg PO HS Thyroid 05/13/24 03/12/25 09/21/24 History
Vitamin G51-Onsacqv D3 1 tab PO DAILY Supplement 09/14/24 03/12/25 09/22/24 History
acetaminophen 500 mg tablet 500 mg PO Q6H PRN mild pain 09/14/24 03/12/25 09/22/24 History
ascorbic acid (vitamin C) 500 mg 500 mg PO DAILY Supplement 09/14/24 03/12/25 09/22/24 History
tablet (Vitamin C)
calcium carbonate (Calcium 600) 600 mg PO DAILY Supplement 09/14/24 03/12/25 09/22/24 History
prednisone 20 mg tablet 7 mg PO DAILY Autoimmune disorder 09/14/24 03/12/25 09/21/24 History
vitamin D3-vitamin K2 1 tab PO DAILY Supplement 09/14/24 03/12/25 09/22/24 History
pyridostigmine bromide 60 mg 30 mg PO TID myasthenia gravis 03/12/25 03/12/25 Unknown History
tablet (Mestinon)
Review of Systems
-
History Source: Patient
All other systems: Negative unless noted
Vitals / Labs / Diagnostic Testing
Vital Signs
Temp Pulse Resp BP Pulse Ox
97.9 F 100 20 149/83 92
03/15/25 03:08 03/15/25 10:00 03/14/25 20:00 03/15/25 10:00 03/15/25 10:00
Lab Data
03/15/25 04:00
03/15/25 04:00
Diagnostic Testing:
Physical Exam
-
HEENT: Normocephalic
Cardiovascular: S1/S2
Respiratory: Non-Labored Respirations
GI: Soft and Non Distended
Neurology: Awake and Oriented
Skin: Warm
General: Comfortable
Assessment
-
74-year-old woman with history of myasthenia gravis-reports worsening respiratory symptoms including shortness of breath, difficulty taking a deep breath as her prednisone was tapered down. She was referred to the emergency room and she was
diagnosed with myasthenia gravis crisis. Now we were consulted for pulmonary evaluation regarding worsening respiratory status,
Myasthenia gravis crisis
Hypoxemic respiratory failure: Likely due to hypoventilation from muscle weakness
Chest x-ray 03/14/2025: Low lung volumes with subsegmental atelectasis.
AB.41/40/70
Conditions present prior admission:
Myasthenia gravis-on low-dose prednisone and IVIG infusions/Mestinon in the outpatient setting--diagnosed 2 years ago follows up at [facility]
Hypertension
GERD
Hypercholesterolemia
Hypothyroidism
Osteoarthritis
Bladder prolapse
Assessment and plan:
-
Continue with myasthenia gravis crisis therapy per neurology
Prednisone 60 mg
Pyridostigmine
IVIG infusions
-
From the respiratory perspective we will continue to monitor closely: High risk for intubation.
Encourage incentive spirometry
ABG noted currently compensated--not hypercapnic.
-
Continue to monitor NIF and vital capacity daily and PRN.
Patient has a strong cough effort
Her voice is clear and strong
She does report some swallowing difficulty at times.
Vital capacity 43%-->(0.9L) 38% ---->1 L (43%)
MIP 22--->25---> - 40
Pressures appear to be holding to improve.
Continue to monitor once or twice a day.
-
1L NC -continue to maintain pulse ox above 90%
Avoid sedatives
Incentive spirometry encouraged
-
Avoid sedatives
-
Aspiration precautions
Intermittent suctioning if needed
-
Will continue to follow
--- NOTE | 2025-03-15 10:51 | W.PN.HOSP.TC ---
Today's Communication/Plan
-
Discussed plan in details [id number] with neurology - cont prednisone and IVIG. As per neurologist attending - would hold Mestinon, however no secretions at this time
Pulm eval
cont VC and MIP - unfortunately no imprvement
Assessment / Plan
Assessment / Plan
74yo F with PMHx of anxiety, hypothyroidism, GERD, urinary urgency, Miasthenia Gravis came with worsening weakness and SOB started after her Prednisone was tapered to 2.5mg, found in MG crisis, started on IVIG with MIP and VC monitoring
A/P:
#MG crisis
#Acute hypoxic inefficiency 2/2 MG and atelectasis
usual MIP -[id number], now -30. COnt VC and MIP q4h with hypoxia monitoring in IMU
IVIG and Prednisone as per neurologist. Inconsistent recommendations for Mestinon - discussed with pulm also - will defer to neurology to place order if they conisrer it useful in acute flare
proBNP low - no concern for CHF component
Incentive spirometry
cont O2 NC
Watch for deterioration as will need intubation
#In hospital delirium
combination of sun-downing, increased steroids on baseline cognitive dficit. As previous discussed with daughter -patient with significant impairment of short memory, most likely due to dementia
Head CT neg
#Indirect bilirubinemia
normal LDH and retics - [place]
#Recurrent UTI
UA on 03/13/25 with minimal elevated WBC, but no leukocytosis on CBC, no fever and patient does not report urinary symptoms
Will monitor off Abx
#GERD
#Hypothyroidism
#Urinary urgency
#Anxiety
cont home meds
TSH 1.84
DVT ppx Lovenox
Full code
I have spent at least 51min of critical care reviewing chart, test results, communication with consultants and providing direct patient care
Anticipated Discharge: > 48 hours
Subjective/Interval History
-
Date of Service: March 15, 2025
Objective Data
-
Labs:
Laboratory Results
03/15/25
04:00
WBC 5.6
Hgb 13.6
Hct 38.7
Plt Count 332
Sodium 136
Potassium 4.5
Chloride 107
Carbon Dioxide 26
BUN 21 H
Creatinine 0.7
Glucose 105 H
Calcium 9.3
Total Bilirubin 2.0 H
AST 29
ALT 23
Alkaline Phosphatase 74
Vital Signs:
Vital Signs
Temp Pulse Resp BP Pulse Ox
97.9 F 100 20 149/83 92
03/15/25 03:08 03/15/25 10:00 03/14/25 20:00 03/15/25 10:00 03/15/25 10:00
I&O
03/14/25 03/15/25 03/16/25
06:59 06:59 06:59
Intake Total 480 / 480 820 / 820
Output Total 100 / 100
Balance 380 / 380 820 / 820
Review of Systems
-
History Source: Patient
All other systems: Reviewed and negative
Physical Exam
-
General: No Apparent Distress
HEENT: Normocephalic and Other (ptosis b/l)
Respiratory: Clear to Auscultation; Negative Wheezes or Crackles
Cardiac: Regular Rhythm
GI: Soft, Nontender and Nondistended
Musculoskeletal: No Clubbing, No Cyanosis and No Edema
Neuro: Awake, Alert, Oriented and AO x 3
Psych: Calm
--- NOTE | 2025-03-15 11:08 | PTOTSP ---
Speech Therapy Evaluation:
Pt with acute on chronic risk factors of dysphagia including MG/MG flare with associated dyspnea. At beside, oral phase appeared WFL. No overt s/sx of aspiration, however pt reported intermittent globus sensation with puree, which cleared with
liquid wash (consistent with prior FACTORY MANAGER evaluation). CXRs without PNA. Recommend modified diet with low threshold for NPO given tenuous respiratory status.
Recommend:
1. Puree and thin liquids
2. Medications as best tolerated
3. Strict aspiration and reflux precautions
4. Oral care 3x/daily
5. ST to follow to monitor tolerance of diet, assess candidacy for diet upgrades, monitor CXR and labs, and determine indication for VSE as appropriate
[2025-03-15] MEDS: HIPREX 1 GRAM PO (12:05)
--- NOTE | 2025-03-15 14:41 | CM ---
Chart reviewed
Per Neuro attnding hold mestinon and cont prednison and IVIG. pending pulm eval
[2025-03-15] MEDS: ULTRAM 25 MG PO (16:19)
[2025-03-15] MEDS: LOVENOX 40 MG SC (16:19)
--- NOTE | 2025-03-15 17:34 | PTCARENOTE ---
Unable to wean O2. SaO2 88% on room air. Remains on 2L, 93-95%. Tolerating pureed diet and thin liquids. Able to take pills whole in puree without signs of aspiration. Able to sit OOB in chair x4 hours this afternoon. Chair alarm in place d/t fall
risk and forgetfulness.
--- NOTE | 2025-03-15 20:00 | PTCARENOTE ---
Assumed care, patient received sitting up in the chair, awake, alert and oriented watching TV. Noted to be forgetful. Cooperative and pleasant. See lead material handler charted on worklist flowsheet. BBS with UL clear anteriorly, diminished posteriorly
with left base coarse. S1S2 regular with positive murmur. Good pulses, no edema. Sats 95% on 2L/nc. Chair alarm on. Call farris within reach. No c/o pain.
[2025-03-15] MEDS: GAMMAGARD 50 IV (21:53)
[2025-03-15] MEDS: GAMMAGARD 200 IV (21:53)
[2025-03-15] MEDS: XANAX 0.5 MG PO (21:54)
[2025-03-15] MEDS: SYNTHROID 75 MCG PO (21:56)
--- NOTE | 2025-03-15 22:47 | PTCARENOTE ---
BP noted elevated 170-180s/98-107. JOHANNA Samano notified, no new orders at this time. Will continue to monitor.
[2025-03-16] VITALS (18 sets, daily range): BP systolic 126–175; BP diastolic 74–98
[2025-03-16 03:26] LABS: Hematocrit 42.2 % (37.0-47.0); Hemoglobin 14.6 g/dL (12.0-16.0); Mean Corp Hgb Conc. 34.6 g/dL (33.0-37.0); Mean Corpuscular Volume 90.9 fL (81.0-99.0); Nucleated Red Blood Cells % 0 %; Platelet Count 348 10^3/uL (130-400); Red Cell Dist. Width 13.6 % (11.5-14.5)
[2025-03-16 03:50] LABS: ALT (SGPT) 24 U/L (0-35); AST (SGOT) 29 U/L (14-36); Albumin 4.1 g/dl (3.5-5.0); Alkaline Phosphatase 78 U/L (38-126); Blood Urea Nitrogen 27 mg/dl (7-17); Calcium 9.4 mg/dl (8.4-10.2); Carbon Dioxide 28 mmol/L (22-30); Chloride 108 mmol/L (98-107); Estimated Creatinine Clearance 62 ml/min; Glucose 93 mg/dl (70-99); Potassium 4.2 mmol/L (3.5-5.1); Sodium 139 mmol/L (135-145); Total Protein 9.9 g/dl (6.3-8.2); eGFR > 60.00
--- NOTE | 2025-03-16 06:55 | PTCARENOTE ---
Report given verbally to oncoming lilibeth, Betsy LAM. Bedside rounds complete. Questions answered.
[2025-03-16] MEDS: PEPCID 40 MG PO ×2 (07:56→20:02)
[2025-03-16] MEDS: DELTASONE 60 MG PO (07:56)
[2025-03-16] MEDS: HIPREX 1 GRAM PO (07:56)
[2025-03-16] MEDS: MESTINON 30 MG PO ×3 (07:57→21:59)
[2025-03-16] MEDS: PROCARDIA XL (EXTENDED RELEASE) 30 MG PO (07:57)
[2025-03-16] MEDS: DITROPAN 5 MG PO ×2 (07:57→20:02)
[2025-03-16] MEDS: ULTRAM 25 MG PO (10:09)
--- NOTE | 2025-03-16 11:01 | PTCARENOTE ---
Rec'd care of patient at 0700. AAOx3. MAEx4. Anxious and forgetful at times. NSR, 90's. Pulse ox 93-95% on 2L nc. Lung sounds shallow, diminished throughout. LANDERS. Occasional non-productive cough. +BS. Tolerating PO medications whole in applesauce.
Voiding in bathroom. OOB to chair around 0810. Standby supervision with ambulation.
--- NOTE | 2025-03-16 11:04 | W.PN.HOSP.TC ---
Today's Communication/Plan
-
Numbers improving
plan for 5 days IVIG
PT/OT recommended home - possible D/C in AM if not hypoxic - home O2 assessmetn in AM
Assessment / Plan
Assessment / Plan
74yo F with PMHx of anxiety, hypothyroidism, GERD, urinary urgency, Miasthenia Gravis came with worsening weakness and SOB started after her Prednisone was tapered to 2.5mg, found in MG crisis, started on IVIG with MIP and VC monitoring
A/P:
#MG crisis
#Acute hypoxic inefficiency 2/2 MG and atelectasis
usual MIP -[id number], now -30. COnt VC and MIP q4h with hypoxia monitoring in IMU
IVIG and Prednisone as per neurologist. Inconsistent recommendations for Mestinon - discussed with pulm also - will defer to neurology to place order if they conisrer it useful in acute flare
proBNP low - no concern for CHF component
Incentive spirometry
cont O2 NC
Watch for deterioration as will need intubation
#In hospital delirium
combination of sun-downing, increased steroids on baseline cognitive dficit. As previous discussed with daughter -patient with significant impairment of short memory, most likely due to dementia
Head CT neg
#Indirect bilirubinemia
normal LDH and retics - [place]
#Recurrent UTI
UA on 03/13/25 with minimal elevated WBC, but no leukocytosis on CBC, no fever and patient does not report urinary symptoms
Will monitor off Abx
#GERD
#Hypothyroidism
#Urinary urgency
#Anxiety
cont home meds
TSH 1.84
DVT ppx Lovenox
Full code
I have spent at least 51min of critical care reviewing chart, test results, communication with consultants and providing direct patient care
Anticipated Discharge: Within 24 hours
Subjective/Interval History
-
Date of Service: March 16, 2025
Objective Data
-
Labs:
Laboratory Results
12/25/25
03:15
WBC 9.5
Hgb 14.6
Hct 42.2
Plt Count 348
Sodium 139
Potassium 4.2
Chloride 108 H
Carbon Dioxide 28
BUN 27 H
Creatinine 0.7
Glucose 93
Calcium 9.4
Total Bilirubin 2.8 H
AST 29
ALT 24
Alkaline Phosphatase 78
Vital Signs:
Vital Signs
Temp Pulse Resp BP Pulse Ox
97.8 F 94 16 127/90 95
03/16/25 07:20 03/16/25 10:00 03/16/25 10:11 03/16/25 10:00 03/16/25 10:00
I&O
03/15/25 03/16/25 03/17/25
06:59 06:59 06:59
Intake Total 820 / 820 850 / 850
Balance 820 / 820 850 / 850
Review of Systems
-
History Source: Patient
All other systems: Reviewed and negative
Physical Exam
-
General: No Apparent Distress
HEENT: Normocephalic
Respiratory: Clear to Auscultation
Neuro: Awake, Oriented and AO x 3
Psych: Calm
--- NOTE | 2025-03-16 11:45 | W.PN.PUL3 ---
Today's Communication / Plan
-
Home oxygen assessment tomorrow
Continue myasthenia gravis therapy
Incentive spirometer
Increase activity as able
Recommend outpatient pulmonary follow-up for obstructive sleep apnea evaluation and alpha-1 antitrypsin deficiency evaluation.
Assessment
-
74-year-old woman with history of myasthenia gravis-reports worsening respiratory symptoms including shortness of breath, difficulty taking a deep breath as her prednisone was tapered down. She was referred to the emergency room and she was
diagnosed with myasthenia gravis crisis. Now we were consulted for pulmonary evaluation regarding worsening respiratory status,
Myasthenia gravis crisis
Hypoxemic respiratory failure: Likely due to hypoventilation from muscle weakness
Chest x-ray 03/14/2025: Low lung volumes with subsegmental atelectasis.
AB.
Conditions present prior admission:
Myasthenia gravis-on low-dose prednisone and IVIG infusions/Mestinon in the outpatient setting--diagnosed 2 years ago follows up at [facility]
Hypertension
GERD
Hypercholesterolemia
Hypothyroidism
Osteoarthritis
Bladder prolapse
Assessment and plan:
-
Continue with myasthenia gravis crisis therapy per neurology
Prednisone 60 mg
Pyridostigmine
IVIG infusions-per neurology.05/24
-
From the respiratory perspective we will continue to monitor closely: She seems to be slowly improving.
Encourage incentive spirometry
ABG noted currently compensated--not hypercapnic.
-
Continue to monitor NIF and vital capacity daily and PRN.
Patient has a strong cough effort
Her voice is clear and strong
She does report some swallowing difficulty at times.
Vital capacity 43%-->(0.9L) 38% ---->1 L (43%)>>>1L(43%)
MIP 22--->25---> - ?40>>>>25
Pressures appear to be holding to improve.
Continue to monitor once or twice a day.
-
1L NC -continue to maintain pulse ox above 90%-wean off as able.
Avoid sedatives
Incentive spirometry encouraged
Home oxygen assessment tomorrow
-
Avoid sedatives
-
Aspiration precautions
Intermittent suctioning if needed
- Transfer to [facility].
Discussed with patient possibility of obstructive sleep apnea she is a snorer. She is interested.
She has family history of alpha-1 antitrypsin and she is a distant former smoker.
Pulmonary function testing will be performed.
Alpha-1 type analysis could be performed in the outpatient setting as well.
Agree with possible discharge in the next 24 hours if she continues to improve.
Pulmonary will follow
Subjective Data
-
Date of Service:
Date of Service: March 16, 2025
Chief Complaint: Pulmonary Follow Up (Myasthenia gravis crisis-hypoxemic respiratory insufficiency)
Subjective:
Patient reports that she is feeling better.
No significant difficulty swallowing this morning
She has a strong cough effort
Denies shortness of breath at rest
Review of Systems
Cardiopulmonary: Dyspnea (none at rest), Wheezing (n) and Chest Pain (n)
GI: Abdominal Pain (n) and Nausea (n)
Neuro: Headache (n)
Objective Data
Data Reviewed
Vital Signs / I&O / Oxygen:
Vital Signs
Temp Pulse Resp BP Pulse Ox
98.3 F 94 16 127/90 95
03/16/25 11:33 03/16/25 10:00 03/16/25 10:11 03/16/25 10:00 03/16/25 10:00
Intake and Output
03/15/25 03/16/25 03/17/25
06:59 06:59 06:59
Intake Total 820 / 820 850 / 850
Balance 820 / 820 850 / 850
SaO2 95
Nasal Cannula flow liters per 2
minute
Physical Exam
General: Comfortable
HEENT: Normocephalic
Cardiovascular: S1-S2
Respiratory: Non-Labored Respirations
GI: Soft and Non Distended
Neurology: Awake
Skin: Warm
Labs/Micro/Reports
Lab Data
03/16/25 03:15
03/16/25 03:15
Microbiology
03/13/25 22:17 Urine Urine Culture - Final
Escherichia coli
--- NOTE | 2025-03-16 14:50 | W.PN.NEURO.1 ---
Today's Communication / Plan
-
The patient is clinically better, however MIP is -25 today, which was -40 yesterday evening.
She denies any issue with increased secretions.
Continue current medications.
Discussed with Dr. Rich Rios.
Will follow.
Neuro Assessment/Plan
Assessment
This is a 74-year-old female with past medical history significant for myasthenia gravis, hypertension, hyperlipidemia, hypothyroid, GERD, UTI presented to [facility] on 03/12/2025 with shortness of breath.
Plan
Impression: abrupt onset of shortness of breath most likely due to myasthenia gravis exacerbation
-continue prednisone 60 mg
-continue pyridostigmine 30 mg TID, monitor secretions
-continue to follow NIF and vital capacity
-continue IVIG
-continue to follow up with usual neurologist Dr. Terry outpatient
All questions encouraged and answered, plan of care discussed with Dr. Delong and patient
Subjective/Objective
Subjective Data
Date of Service: March 16, 2025
The patient was seen and examined today. The patient was sitting comfortably in the chair and did not appear to have any breathing difficulty. The patient also says that she is feeling better today.
The patient is a 74 years old female, with a past medical history of Myasthenia Gravis, currently getting IVIG and also is on prednisone 60 mg daily and mestinon 30 mg TID.
The patient is clinically better, however MIP is -25 today, which was -40 yesterday evening.
She denies any issue with increased secretions.
Continue current medications.
Discussed with Dr. Rich Rios.
Objective Data
Vital Signs
Temp Pulse Resp BP Pulse Ox
36.8 C 100 14 132/98 94
03/16/25 11:33 03/16/25 14:07 03/16/25 14:07 03/16/25 14:07 03/16/25 14:07
Lab Results
03/16/25 03:15
03/16/25 03:15
Sodium 139 mmol/L (135-145) 03/16/25 03:15
Potassium 4.2 mmol/L (3.5-5.1) 03/16/25 03:15
BUN 27 mg/dl (7-17) H 03/16/25 03:15
Glucose 93 mg/dl (70-99) 03/16/25 03:15
Calcium 9.4 mg/dl (8.4-10.2) 03/16/25 03:15
Uhy-Q-Oxxcmyqyfis Pept 107 pg/ml 03/12/25 16:03
Patient Allergies
adhesive tape Allergy (Verified 11/10/24 10:37)
causes skin tears easily
amoxicillin Allergy (Verified 11/10/24 10:37)
Hives
gabapentin Allergy (Verified 11/10/24 10:37)
severe headache
lidocaine Allergy (Verified 11/10/24 10:37)
IV only causes Mystinia gravis
Penicillins Allergy (Verified 11/10/24 10:37)
Hives/SWELLING
sulfamethoxazole (From Bactrim) Allergy (Verified 11/10/24 10:37)
chest tightness
trimethoprim (From Bactrim) Allergy (Verified 11/10/24 10:37)
chest tightness
[2025-03-16] MEDS: LOVENOX 40 MG SC (17:49)
[2025-03-16] MEDS: SYNTHROID 75 MCG PO (21:58)
[2025-03-16] MEDS: XANAX 0.5 MG PO (21:59)
[2025-03-16] MEDS: GAMMAGARD 50 IV (22:00)
[2025-03-16] MEDS: GAMMAGARD 200 IV (22:04)
--- NOTE | 2025-03-16 22:48 | PTCARENOTE ---
Received pt from previous RN. Pt OOB in the chair, chair alarm in place. Pt is AAOx3, forgetful, anxious, neuro checks qshift. NSR on the monitor. 2L NC O2 sat 92%, lungs diminished. BRPx1 assist. Pt receiving IVIG (see worklist). Mouth care and CHG
bath provided. Call farris in reach. Safe environment maintained.
[2025-03-17] VITALS (13 sets, daily range): BP systolic 102–178; BP diastolic 64–100; BMI 21.9
[2025-03-17] MEDS: DITROPAN 5 MG PO ×2 (08:36→21:10)
[2025-03-17] MEDS: DELTASONE 60 MG PO (08:36)
[2025-03-17] MEDS: HIPREX 1 GRAM PO (08:36)
[2025-03-17] MEDS: MESTINON PO (08:36)
[2025-03-17] MEDS: PEPCID 40 MG PO ×2 (08:37→21:09)
[2025-03-17] MEDS: PROCARDIA XL (EXTENDED RELEASE) 60 MG PO (08:39)
[2025-03-17] MEDS: ULTRAM 25 MG PO (08:45)
[2025-03-17] MEDS: MESTINON 30 MG PO ×3 (08:55→21:11)
--- NOTE | 2025-03-17 09:29 | PTCARENOTE ---
Rec'd care of patient at 0700. AAOx3. MAEx4. OOB in chair. NSR, 90-100's. Lung sounds diminished throughout. Weaned to RA. Ambulatory in joseph with RN and RT. Pulse ox 92-94% during ambulation. X1 assistance during ambulation due to unsteady gait.
+BS. Appetite remains poor. No BM. Voiding in bathroom. Resting comfortably. No complaints.
--- NOTE | 2025-03-17 10:09 | W.PN.NEURO.1 ---
Addendum entered and electronically signed by Sergio Delong MD 03/18/25 16:51:
The patient is on prednisone 60 mg daily and pyridostigmine 30 mg 3 times a day. She is also on Pepcid 40 mg twice a day.
Addendum entered and electronically signed by Sergio Delong MD 03/17/25 23:11:
I saw and examined the patient along with the Nurse Practitioner Marichuy Caruso, and I agree with her assessment and management plan. Given below is my addendum.
The patient is a 74 years old female, with a past medical history of Myasthenia Gravis, who is doing better today than yesterday. She was sitting in the chair today, and did not have any difficulty with breathing. She likely had an exacerbation of
Myasthenia Gravis. She is reported to have walked in the hallway today.
Plan to continue with prednisone 60 mg daily and pyridostigmine 30 mg daily.
She denies any problem with excessive secretions.
Follow NIF and vital capacity.
Original Note:
Today's Communication / Plan
-
-continue prednisone 60 mg
-continue pyridostigmine 30 mg TID, monitor secretions
-continue to follow NIF and vital capacity
Neuro Assessment/Plan
Assessment
This is a 74-year-old female with past medical history significant for myasthenia gravis, hypertension, hyperlipidemia, hypothyroid, GERD, UTI presented to [facility] on 03/12/2025 with shortness of breath.
Plan
Impression: abrupt onset of shortness of breath most likely due to myasthenia gravis exacerbation
-continue prednisone 60 mg
-continue pyridostigmine 30 mg TID, monitor secretions
-continue to follow NIF and vital capacity
All questions encouraged and answered, plan of care discussed with Dr. Delong and patient
Subjective/Objective
Subjective Data
Date of Service: March 17, 2025
Patient feels much better today. She is off of her oxygen. She has been up and out of bed and walking about the halls. Denies secretions.
Objective Data
Vital Signs
Temp Pulse Resp BP Pulse Ox
97.5 F 109 16 114/86 91
03/17/25 08:04 03/17/25 10:00 03/16/25 18:04 03/17/25 10:00 03/17/25 10:00
Lab Results
03/16/25 03:15
03/16/25 03:15
Sodium 139 mmol/L (135-145) 03/16/25 03:15
Potassium 4.2 mmol/L (3.5-5.1) 03/16/25 03:15
BUN 27 mg/dl (7-17) H 03/16/25 03:15
Glucose 93 mg/dl (70-99) 03/16/25 03:15
Calcium 9.4 mg/dl (8.4-10.2) 03/16/25 03:15
Jjo-H-Vdwltnpckhr Pept 107 pg/ml 03/12/25 16:03
Patient Allergies
adhesive tape Allergy (Verified 11/10/24 10:37)
causes skin tears easily
amoxicillin Allergy (Verified 11/10/24 10:37)
Hives
gabapentin Allergy (Verified 11/10/24 10:37)
severe headache
lidocaine Allergy (Verified 11/10/24 10:37)
IV only causes Mystinia gravis
Penicillins Allergy (Verified 11/10/24 10:37)
Hives/SWELLING
sulfamethoxazole (From Bactrim) Allergy (Verified 11/10/24 10:37)
chest tightness
trimethoprim (From Bactrim) Allergy (Verified 11/10/24 10:37)
chest tightness
--- NOTE | 2025-03-17 10:21 | W.PN.HOSP.TC ---
Addendum entered and electronically signed by Rich Rios MD 03/17/25 10:26:
#Indirect bilirubinemia
Retics and LDH WNL - most likely gilberts
Original Note:
Today's Communication/Plan
-
Weaned off O2 - cont to monitor VC and MIP, possible d/c in the nxt 24h
transfer to [facility]
Assessment / Plan
Assessment / Plan
74yo F with PMHx of anxiety, hypothyroidism, GERD, urinary urgency, Myasthenia Gravis came with worsening weakness and SOB started after her Prednisone was tapered to 2.5mg, found in MG crisis, started on IVIG with MIP and VC monitoring. Functions
remained fluctuating however hypoxia resolved after IVIG course.
A/P:
#MG crisis
#Acute hypoxic inefficiency 2/2 MG and atelectasis
usual MIP -[id number], now -30. COnt VC and MIP q4h with hypoxia monitoring in IMU
IVIG and Prednisone as per neurologist. Mestinon as per neurology
proBNP low - no concern for CHF component
Incentive spirometry
cont O2 NC
Watch for deterioration as will need intubation
#In hospital delirium
combination of sun-downing, increased steroids on baseline cognitive deficit. As previous discussed with daughter -patient with significant impairment of short memory, most likely due to dementia
Head CT neg
#Indirect bilirubinemia
normal LDH and retics - [place]
#Recurrent UTI
#Asymptomatic bacteriuria
UA on 03/13/25 with minimal elevated WBC, but no leukocytosis on CBC, no fever and patient does not report urinary symptoms
Will monitor off Abx
Ucx with 30kk of E.coli - no indication to treat
#GERD
#Hypothyroidism
#Urinary urgency
#Anxiety
cont home meds
TSH 1.84
DVT ppx Lovenox
Full code
I have spent at least 51min of critical care reviewing chart, test results, communication with consultants and providing direct patient care
Anticipated Discharge: 24 - 48 hours
Subjective/Interval History
-
Date of Service: March 17, 2025
Objective Data
-
Vital Signs:
Vital Signs
Temp Pulse Resp BP Pulse Ox
97.5 F 109 16 114/86 91
03/17/25 08:04 03/17/25 10:00 03/16/25 18:04 03/17/25 10:00 03/17/25 10:00
I&O
03/16/25 03/17/25 03/18/25
06:59 06:59 06:59
Intake Total 850 / 850 970 / 970
Balance 850 / 850 970 / 970
Review of Systems
-
History Source: Patient
All other systems: Reviewed and negative
Physical Exam
-
General: No Apparent Distress
HEENT: Normocephalic
GI: Soft, Nontender and Nondistended
Musculoskeletal: No Clubbing, No Cyanosis and No Edema
Neuro: Awake, Alert, Oriented and AO x 3
Psych: Calm
--- NOTE | 2025-03-17 10:23 | CM ---
Chart reviewed and spoke with nurse Meyer at ICU
Plan to tx to med/surg Needs PT eval , pt wants to go home with VN over SNF
DC > 24 hours
--- NOTE | 2025-03-17 10:35 | PTCARENOTE ---
Patient downgraded to tele level.
--- NOTE | 2025-03-17 11:22 | W.PN.PUL3 ---
Today's Communication / Plan
-
Continue myasthenia gravis therapy
Oxygen has been weaned off
Discharge planning
Sign off
Please call with question
Assessment
-
74-year-old woman with history of myasthenia gravis-reports worsening respiratory symptoms including shortness of breath, difficulty taking a deep breath as her prednisone was tapered down. She was referred to the emergency room and she was
diagnosed with myasthenia gravis crisis. Now we were consulted for pulmonary evaluation regarding worsening respiratory status,
Myasthenia gravis crisis
Hypoxemic respiratory failure: Likely due to hypoventilation from muscle weakness
Chest x-ray 03/14/2025: Low lung volumes with subsegmental atelectasis.
AB.
Conditions present prior admission:
Myasthenia gravis-on low-dose prednisone and IVIG infusions/Mestinon in the outpatient setting--diagnosed 2 years ago follows up at [facility]
Hypertension
GERD
Hypercholesterolemia
Hypothyroidism
Osteoarthritis
Bladder prolapse
Assessment and plan:
-
Continue with myasthenia gravis crisis therapy per neurology
Prednisone 60 mg
Pyridostigmine
IVIG infusions-per neurology.06/24
-
Clinically improved.
Was able to ambulate in the hallway-no oxygen requirements 03/17/2025.
Encourage incentive spirometry
ABG noted currently compensated--not hypercapnic.
-
Continue to monitor NIF and vital capacity daily and PRN.
Patient has a strong cough effort
Her voice is clear and strong
She does report some swallowing difficulty at times.
Vital capacity 43%-->(0.9L) 38% ---->1 L (43%)>>>1L(43%)...1L
MIP 22--->25---> - ?40>>>>25...25 (03/17/2025)
Overall vital capacity and negative inspiratory pressure stable.
Continue to monitor once or twice a day.
-
Oxygen has been weaned off. No oxygen requirements with ambulation per
Avoid sedatives
Incentive spirometry encouraged
Home oxygen assessment tomorrow
-
Avoid sedatives
-
Aspiration precautions
Intermittent suctioning if needed
- Transfer to [facility].
Discussed with patient possibility of obstructive sleep apnea she is a snorer. She is interested.
She has family history of alpha-1 antitrypsin and she is a distant former smoker.
Pulmonary function testing will be performed.
Alpha-1 type analysis could be performed in the outpatient setting as well.
No additional recommendation from the pulmonary perspective.
Sign off
Information has been left in the chart for follow-up
Subjective Data
-
Date of Service:
Date of Service: March 17, 2025
Chief Complaint: Pulmonary Follow Up (Myasthenia gravis crisis-hypoxemic respiratory insufficiency)
Subjective:
She is clinically improved
Strong cough effort
Denies shortness of breath
Swallowing improved
No new complaints.
Review of Systems
Cardiopulmonary: Dyspnea (Improved) and Cough ( improved)
Objective Data
Data Reviewed
Vital Signs / I&O / Oxygen:
Vital Signs
Temp Pulse Resp BP Pulse Ox
97.5 F 109 16 114/86 91
03/17/25 08:04 03/17/25 10:00 03/16/25 18:04 03/17/25 10:00 03/17/25 10:00
Intake and Output
03/16/25 03/17/25 03/18/25
06:59 06:59 06:59
Intake Total 850 / 850 970 / 970
Balance 850 / 850 970 / 970
SaO2 91
Nasal Cannula flow liters per 2
minute
Physical Exam
General: Comfortable
HEENT: Normocephalic
Cardiovascular: S1-S2
Respiratory: Non-Labored Respirations
GI: Soft and Non Distended
Neurology: Awake
Skin: Warm
Labs/Micro/Reports
Lab Data
03/16/25 03:15
03/16/25 03:15
Microbiology
03/13/25 22:17 Urine Urine Culture - Final
Escherichia coli
--- NOTE | 2025-03-17 13:26 | PTOTSP ---
Speech Therapy
Patient tolerated solids with mild oral stasis mainly sticking to teeth - cleared with liquid wash. Thin liquid tolerated with cues to avoid hyperextending neck. No complaint or symptoms to suggest pharyngeal stasis. Mild belching which patient
reports is baseline.
Recommend
1. Advance to Level 6/soft/bite-sized and continue thin liquids
2. Aspiration precautions.
3. Alternate sips of liquid with solids.
4. Head in neutral posture.
5. Remain upright for at least 30 minutes after meals given esophageal complaints.
ST will follow to ensure diet tolerance or identify further modifications/advances.
--- NOTE | 2025-03-17 15:20 | PTCARENOTE ---
Report received from CAROLE Meyer.
Patient resting in bed, respirations even and unlabored. Pt offers no complaints. 2L NC 92-94%. NSR on tele. Call farris within reach.
[2025-03-17] MEDS: SENOKOT-S 1 TABLET PO (16:14)
[2025-03-17] MEDS: LOVENOX 40 MG SC (17:20)
--- NOTE | 2025-03-17 21:00 | PTCARENOTE ---
Patient with periods of confusion. Consistently oriented to person/birthday, month, but tends to not know where she is and why. Daughter on phone said she was told patient may be battling some ICU delirium. Forgetful and anxious at times, Xanax
given as ordered. MANLEY. No c/o pain. As per shift report, confusion seems worse at night time. Bed alarm on, chair alarm on when in chair. Frequent reorientation and education for safety. Afebrile, heart rate 90s-100. BP stable. Pulses palpable, no
edema. Nasal cannula removed by patient and she is currently angrily refusing to wear it. Will monitor pulse ox closely. 93% on room air. Encouraged IS. Tolerating diet. Voids in bathroom. Will monitor.
[2025-03-17] MEDS: XANAX 0.5 MG PO (21:10)
[2025-03-17] MEDS: SYNTHROID 75 MCG PO (21:11)
[2025-03-18] MEDS: ULTRAM 25 MG PO (01:09)
--- NOTE | 2025-03-18 04:24 | PTCARENOTE ---
Overnight patient more lucid and cooperative. Oriented and pleasant. Confusion if woken from sleep. Encouraged to rest and stay on a normal sleep schedule. Will monitor.
[2025-03-18 04:37] LABS: ALT (SGPT) 33 U/L (0-35); AST (SGOT) 47 U/L (14-36); Albumin 4.6 g/dl (3.5-5.0); Alkaline Phosphatase 89 U/L (38-126); Total Protein 11.4 g/dl (6.3-8.2)
--- NOTE | 2025-03-18 08:10 | PTCARENOTE ---
Assumed care at 0715 following shift report. Pt awake and resting quietly in bed. Pt denies c/o pain or SOB other than 'I can't breathe out very long'. Pt received on RA w/ POX 91-93%. No respiratory distress noted. Physical assessment completed as
documented. Pt assisted in calling to order breakfast. Call farris w/in pt reach and safe environment maintained.
[2025-03-18] MEDS: DELTASONE 60 MG PO (08:41)
[2025-03-18] MEDS: MESTINON 30 MG PO ×3 (08:41→21:16)
[2025-03-18] MEDS: PEPCID 40 MG PO ×2 (08:41→21:16)
[2025-03-18] MEDS: PROCARDIA XL (EXTENDED RELEASE) 60 MG PO (08:42)
[2025-03-18] MEDS: HIPREX 1 GRAM PO (08:42)
[2025-03-18 08:43] VITALS: BP 164/89
[2025-03-18] MEDS: DITROPAN 5 MG PO ×2 (08:44→21:16)
[2025-03-18 09:13] LABS: Hematocrit 41.0 % (37.0-47.0); Hemoglobin 14.6 g/dL (12.0-16.0); Mean Corp Hgb Conc. 35.6 g/dL (33.0-37.0); Mean Corpuscular Volume 87.6 fL (81.0-99.0); Nucleated Red Blood Cells % 0 %; Platelet Count 400 10^3/uL (130-400); Red Cell Dist. Width 15.1 % (11.5-14.5)
[2025-03-18 09:22] LABS: INR 0.99; PT 13.2 Sec (11.4-14.6)
[2025-03-18 09:25] LABS: GGTP 19 U/L (12-43); LDH 262 U/L (120-246)
--- NOTE | 2025-03-18 10:52 | W.PN.HOSP.TC ---
Addendum entered and electronically signed by Rich Rios MD 03/18/25 11:30:
As per daughter - she has alpha-antitrypsin deficiency as well as 4 grandkids. that can cause indirect bilirubinemia
appropriate to send test to follow up with pulm eventually
Ammonia level would be reasonable. Also US liver
Original Note:
Today's Communication/Plan
-
follow LFT
follow VC and MIP as still low last PM
Assessment / Plan
Assessment / Plan
74yo F with PMHx of anxiety, hypothyroidism, GERD, urinary urgency, Myasthenia Gravis came with worsening weakness and SOB started after her Prednisone was tapered to 2.5mg, found in MG crisis, started on IVIG with MIP and VC monitoring. Functions
remained fluctuating however hypoxia resolved after IVIG course.
A/P:
#MG crisis
#Acute hypoxic inefficiency 2/2 MG and atelectasis
usual MIP -[id number], now -30. COnt VC and MIP q4h with hypoxia monitoring in IMU
IVIG and Prednisone as per neurologist. Mestinon as per neurology
proBNP low - no concern for CHF component
Incentive spirometry
cont O2 NC
Watch for deterioration as will need intubation
#In hospital delirium
combination of sun-downing, increased steroids on baseline cognitive deficit. As previous discussed with daughter -patient with significant impairment of short memory, most likely due to dementia
Head CT neg
#Indirect bilirubinemia
minimal LDH elevation with no anemia and normal retics, but positive Celestino (IgG and complement pending)
Follow LFT
check Blood smear
GGT WNL
Retics not elevated
INR WNL
Unclear reason, can be liver uptake, however with normal alk.phos and GGT -would not be concernedof PBC
cont following
#Recurrent UTI
#Asymptomatic bacteriuria
UA on 03/13/25 with minimal elevated WBC, but no leukocytosis on CBC, no fever and patient does not report urinary symptoms
Will monitor off Abx
Ucx with 30kk of E.coli - no indication to treat
#GERD
#Hypothyroidism
#Urinary urgency
#Anxiety
cont home meds
TSH 1.84
DVT ppx Lovenox
Full code
I have spent at least 51min of critical care reviewing chart, test results, communication with consultants and providing direct patient care
Anticipated Discharge: 24 - 48 hours
Subjective/Interval History
-
Date of Service: March 18, 2025
Objective Data
-
Labs:
Laboratory Results
03/18/25 03/18/25
03:58 09:01
WBC 12.2 H
Hgb 14.6
Hct 41.0
Plt Count 400
PT 13.2
INR 0.99
Total Bilirubin 6.5 H D
AST 47 H
ALT 33
Alkaline Phosphatase 89
Vital Signs:
Vital Signs
Temp Pulse Resp BP Pulse Ox
97.4 F 99 16 164/89 91
03/18/25 07:39 03/18/25 10:00 03/17/25 12:14 03/18/25 08:43 03/18/25 08:43
I&O
03/17/25 03/18/25 03/19/25
06:59 06:59 06:59
Intake Total 970 / 970 240 / 240
Balance 970 / 970 240 / 240
Review of Systems
-
History Source: Patient
All other systems: Reviewed and negative
Physical Exam
-
General: Comfortable
HEENT: Normocephalic
GI: Soft, Nontender and Nondistended
Musculoskeletal: No Clubbing, No Cyanosis and No Edema
Neuro: Awake, Alert, Oriented and AO x 3
Psych: Calm
--- NOTE | 2025-03-18 10:56 | PTCARENOTE ---
Pt sitting OOB in chair. Pox dipping down to 88-90% on RA. No respiratory distress noted although pt reports breathing 'feels a little tight'. Breath sounds unchanged from previous assessment findings. O2 applied at 2l/min via NC w/ Pox improved to
93%. Will continue to monitor.
[2025-03-18 14:57] VITALS: BP 150/63
[2025-03-18 15:12] VITALS: BP 150/63; PULSE 109; O2SAT 93
[2025-03-18 16:06] VITALS: BP 152/83
--- NOTE | 2025-03-18 16:48 | W.PN.NEURO.1 ---
Today's Communication / Plan
-
Plan to continue with prednisone 60 mg daily and pyridostigmine 30 mg TID. She is also on Pepcid 40 mg twice a day.
The patient also received IVIG in hospital. She also get IVIG every month as an outpatient.
The MIP is -30 today and the vital capacity is 1.21
She denies any problem with excessive secretions.
Please get MIP and VC twice a day.
Will follow.
Neuro Assessment/Plan
Assessment
This is a 74-year-old female with past medical history significant for myasthenia gravis, hypertension, hyperlipidemia, hypothyroid, GERD, UTI presented to [facility] on 03/12/2025 with shortness of breath.
Plan
Impression: abrupt onset of shortness of breath most likely due to myasthenia gravis exacerbation
-continue prednisone 60 mg
-continue pyridostigmine 30 mg TID, monitor secretions
-continue to follow NIF and vital capacity
All questions encouraged and answered, plan of care discussed with Dr. Delong and patient
Subjective/Objective
Subjective Data
Date of Service: March 18, 2025
The patient is a 74 years old female, with a past medical history of Myasthenia Gravis, who says that she is doing better today than yesterday. She was sitting in the chair today, and did not have any difficulty with breathing. She likely had an
exacerbation of Myasthenia Gravis. She is reported to have walked in the hallway yesterday.
Plan to continue with prednisone 60 mg daily and pyridostigmine 30 mg TID. She is also on Pepcid 40 mg twice a day.
The patient also received IVIG in hospital. She also get IVIG every month as an outpatient.
The MIP is -30 today and the vital capacity is 1.21
She denies any problem with excessive secretions.
Objective Data
Vital Signs
Temp Pulse Resp BP Pulse Ox
36.4 C 94 16 164/89 95
12/27/25 15:25 03/18/25 12:00 03/17/25 12:14 03/18/25 08:43 03/18/25 12:00
Lab Results
03/18/25 09:01
03/16/25 03:15
PT 13.2 Sec (11.4-14.6) 03/18/25 09:01
INR 0.99 03/18/25 09:01
Sodium 139 mmol/L (135-145) 03/16/25 03:15
Potassium 4.2 mmol/L (3.5-5.1) 03/16/25 03:15
BUN 27 mg/dl (7-17) H 03/16/25 03:15
Glucose 93 mg/dl (70-99) 03/16/25 03:15
Calcium 9.4 mg/dl (8.4-10.2) 03/16/25 03:15
Rfu-E-Dgtpmhgldwr Pept 107 pg/ml 03/12/25 16:03
Patient Allergies
adhesive tape Allergy (Verified 11/10/24 10:37)
causes skin tears easily
amoxicillin Allergy (Verified 11/10/24 10:37)
Hives
gabapentin Allergy (Verified 11/10/24 10:37)
severe headache
lidocaine Allergy (Verified 11/10/24 10:37)
IV only causes Mystinia gravis
Penicillins Allergy (Verified 11/10/24 10:37)
Hives/SWELLING
sulfamethoxazole (From Bactrim) Allergy (Verified 11/10/24 10:37)
chest tightness
trimethoprim (From Bactrim) Allergy (Verified 11/10/24 10:37)
chest tightness
--- NOTE | 2025-03-18 16:58 | PTCARENOTE ---
Pt returned to bed after ambulating from chair to BR to void. LANDERS noted w/ Pox down to 89% w/ exertion- recovered to 95% at rest.
[2025-03-18 17:49] LABS: ALT (SGPT) 31 U/L (0-35); AST (SGOT) 41 U/L (14-36); Albumin 4.3 g/dl (3.5-5.0); Alkaline Phosphatase 77 U/L (38-126); Total Protein 9.9 g/dl (6.3-8.2)
[2025-03-18] MEDS: LOVENOX 40 MG SC (18:20)
[2025-03-18] MEDS: D5LR 1000 IV (18:21)
[2025-03-18 19:07] VITALS: BP 147/94
[2025-03-18] MEDS: SYNTHROID 75 MCG PO (21:17)
[2025-03-18] MEDS: XANAX 0.5 MG PO (22:05)
[2025-03-19 04:00] VITALS: BMI 21.8
[2025-03-19 04:02] VITALS: BP 163/83
[2025-03-19 04:15] LABS: Ammonia < 9 umol/L (9-30)
[2025-03-19 04:17] LABS: Hematocrit 38.2 % (37.0-47.0); Hemoglobin 13.6 g/dL (12.0-16.0); Mean Corp Hgb Conc. 35.6 g/dL (33.0-37.0); Mean Corpuscular Volume 89.7 fL (81.0-99.0); Nucleated Red Blood Cells % 0 %; Platelet Count 415 10^3/uL (130-400); Red Cell Dist. Width 15.9 % (11.5-14.5)
[2025-03-19 04:26] LABS: ALT (SGPT) 28 U/L (0-35); AST (SGOT) 34 U/L (14-36); Albumin 4.0 g/dl (3.5-5.0); Alkaline Phosphatase 77 U/L (38-126); Blood Urea Nitrogen 28 mg/dl (7-17); Calcium 9.4 mg/dl (8.4-10.2); Carbon Dioxide 29 mmol/L (22-30); Chloride 109 mmol/L (98-107); Estimated Creatinine Clearance 62 ml/min; Glucose 78 mg/dl (70-99); Potassium 4.0 mmol/L (3.5-5.1); Sodium 141 mmol/L (135-145); Total Protein 9.6 g/dl (6.3-8.2); eGFR > 60.00
[2025-03-19 07:16] LABS: LDH 313 U/L (120-246)
[2025-03-19 08:03] VITALS: BP 138/79
[2025-03-19] MEDS: D5LR IV (08:12)
[2025-03-19] MEDS: PEPCID 40 MG PO ×2 (08:12→20:24)
[2025-03-19] MEDS: ZESTRIL 10 MG PO (08:12)
[2025-03-19] MEDS: DITROPAN 5 MG PO ×2 (08:12→20:24)
[2025-03-19] MEDS: DELTASONE 60 MG PO (08:13)
[2025-03-19] MEDS: MESTINON 30 MG PO ×3 (08:13→21:36)
[2025-03-19 10:57] VITALS: BP 120/75
--- NOTE | 2025-03-19 11:30 | W.PN.HOSP.TC ---
Today's Communication/Plan
-
GI cosnult
US RUQ
follow AM labs
Assessment / Plan
Assessment / Plan
74yo F with PMHx of anxiety, hypothyroidism, GERD, urinary urgency, Myasthenia Gravis came with worsening weakness and SOB started after her Prednisone was tapered to 2.5mg, found in MG crisis, started on IVIG with MIP and VC monitoring. Functions
remained fluctuating however hypoxia resolved after IVIG course. Developed unexplained indirect bilirubinemia
A/P:
#Indirect bilirubinemia
minimal LDH elevation with no anemia and normal retics, but positive Celestino (IgG and complement pending)
Follow LFT
Blood smear neg for parasites
GGT WNL
Retics not elevated
INR WNL
Unclear reason, can be liver uptake, however with normal alk.phos and GGT - would not be concerned of PBC
IVF
GI consult
Follow CBC, LDH, LFT, retics
US RUQ
#MG crisis
#Acute hypoxic inefficiency 2/2 MG and atelectasis
usual MIP -[id number], now -30. COnt VC and MIP q12h - remains stable around -[id number] and 1.0L
IVIG (completed) and Prednisone as per neurologist. Mestinon as per neurology
proBNP low - no concern for CHF component
Incentive spirometry
cont O2 NC
#In hospital delirium
combination of sun-downing, increased steroids on baseline cognitive deficit. As previous discussed with daughter -patient with significant impairment of short memory, most likely due to dementia
Head CT neg
#Recurrent UTI
#Asymptomatic bacteriuria
UA on 03/13/25 with minimal elevated WBC, but no leukocytosis on CBC, no fever and patient does not report urinary symptoms
Will monitor off Abx
Ucx with 30kk of E.coli - no indication to treat
#GERD
#Hypothyroidism
#Urinary urgency
#Anxiety
cont home meds
TSH 1.84
DVT ppx Lovenox
Full code
I have spent at least 51min of critical care reviewing chart, test results, communication with consultants and providing direct patient care
Anticipated Discharge: Within 24 hours
Subjective/Interval History
-
Date of Service: March 19, 2025
Objective Data
-
Labs:
Laboratory Results
03/19/25 03/19/25
03:26 03:47
WBC 13.3 H
Hgb 13.6
Hct 38.2
Plt Count 415 H
Sodium 141
Potassium 4.0
Chloride 109 H
Carbon Dioxide 29
BUN 28 H
Creatinine 0.7
Glucose 78
Calcium 9.4
Total Bilirubin 6.6 H
AST 34
ALT 28
Alkaline Phosphatase 77
Vital Signs:
Vital Signs
Temp Pulse Resp BP Pulse Ox
98.1 F 102 18 120/75 93
03/19/25 11:22 03/19/25 10:57 03/19/25 10:59 03/19/25 10:57 03/19/25 10:57
I&O
03/18/25 03/19/25 03/20/25
06:59 06:59 06:59
Intake Total 480 / 480
Balance 480 / 480
Review of Systems
-
History Source: Patient
All other systems: Reviewed and negative
Physical Exam
-
General: Comfortable
HEENT: Normocephalic
Cardiac: Regular Rhythm
GI: Soft, Nontender and Nondistended
Musculoskeletal: No Clubbing, No Cyanosis and No Edema
Psych: Calm
--- NOTE | 2025-03-19 12:08 | CM ---
Chart reviewed, on O2 2L NC, Seen by PT yesterday who recommended Home PT/OT at discharge.
CM will continue to follow.
[2025-03-19] MEDS: D5LR 1000 IV (13:34)
[2025-03-19 13:49] VITALS: BP 155/92
--- NOTE | 2025-03-19 14:03 | TRANSFER ---
report provided to Vinh Pham via Phone. pt will be transported on bus driver/monitor on hospital bed.
--- NOTE | 2025-03-19 15:02 | PTCARENOTE ---
Pt was received from ICU. Pt ambulated from the wheelchair to the room with assistance. Steady gait. Pt is AAOx3, VSS. SR/ST on tele monitor. Pt oriented to the room. Bed alarm in use. Sent to US soon after admission on a stretcher.
--- NOTE | 2025-03-19 15:21 | CON.GI ---
Consultation
-
Date/Time Consultation Requested: 03/19/2025
Date/Time Consultation Performed: 03/19/2025
Requesting Provider: Hospitalist
Performing Provider: Marcie PASTOR
Reason for Consultation: Elevated indirect bilirubin
Medical History
Chief Complaint / HPI
Chief Complaint: SOB
History of Present Illness:
74-year-old female with past medical history of myasthenia gravis hypertension, dyslipidemia, hypothyroidism, GERD admitted to emergency room 03/12/2025 with shortness of breath. Patient is being treated for myasthenia gravis exacerbation and was
admitted to IMU and was started on IVIG by neurology . GI was consulted by medical team for elevated indirect bilirubinemia noted in the labs since 03/15/2025. No prior history of any liver disease. Denies any significant alcohol use in the past.
Ex- with history of alpha-1 antitrypsin deficiency
Past Medical History
Past Medical History: Other ((myasthenia gravis diagnosed 2 years ago follows at [place], hypertension, GERD, hypercholesterolemia, hypothyroidism, osteoarthritis, chronic stool incontinence secondary to Mestinon, bladder prolapse with pessary)
Social History
Tobacco: Non-Smoker
Alcohol: None
Allergies / Home Medications
Allergy/AdvReac Type Severity Reaction Status Date / Time
adhesive tape Allergy causes Verified 11/10/24 10:37
skin tears
easily
amoxicillin Allergy Hives Verified 11/10/24 10:37
gabapentin Allergy severe Verified 11/10/24 10:37
headache
lidocaine Allergy IV only Verified 11/10/24 10:37
causes
Mystinia
gravis
Penicillins Allergy Hives/SWELL Verified 11/10/24 10:37
ING
sulfamethoxazole (From Allergy chest Verified 11/10/24 10:37
Bactrim) tightness
trimethoprim (From Bactrim) Allergy chest Verified 11/10/24 10:37
tightness
�Medication �Instructions �Recorded
oxybutynin chloride 5 mg tablet 5 mg PO BID Urinary Issue 07/09/16
alprazolam 0.5 mg tablet 0.5 mg PO HS Mental Health/Anxiety 07/10/16
famotidine 40 mg tablet 40 mg PO BID Gastrointestinal Issue 05/13/24
levothyroxine 75 mcg tablet 75 mcg PO HS Thyroid 05/13/24
Vitamin Z85-Poxzjxg D3 1 tab PO DAILY Supplement 09/14/24
acetaminophen 500 mg tablet 500 mg PO Q6H PRN mild pain 09/14/24
ascorbic acid (vitamin C) 500 mg 500 mg PO DAILY Supplement 09/14/24
tablet (Vitamin C)
calcium carbonate (Calcium 600) 600 mg PO DAILY Supplement 09/14/24
prednisone 20 mg tablet 7 mg PO DAILY Autoimmune disorder 09/14/24
vitamin D3-vitamin K2 1 tab PO DAILY Supplement 09/14/24
pyridostigmine bromide 60 mg 30 mg PO TID myasthenia gravis 03/12/25
tablet (Mestinon)
Review of Systems
Vital Signs
Temp Pulse Resp BP Pulse Ox
97.9 F 98 18 155/92 93
03/19/25 13:51 03/19/25 14:00 03/19/25 13:51 03/19/25 13:49 03/19/25 14:53
Physical Exam
Exam
General: Comfortable
Respiratory: Clear
Cardiac: S1/S2
GI: Soft, Non Tender, Non Distended and Normal Bowel Sounds
Results
WBC 13.3 10^3/uL (4.8-10.8) H 03/19/25 03:47
Hgb 13.6 g/dL (12.0-16.0) 03/19/25 03:47
Hct 38.2 % (37.0-47.0) 03/19/25 03:47
MCV 89.7 fL (81.0-99.0) 03/19/25 03:47
Plt Count 415 10^3/uL (130-400) H 03/19/25 03:47
Absolute Neuts (auto) 10.1 10^3/uL (1.4-6.5) H 03/19/25 03:47
PT 13.2 Sec (11.4-14.6) 03/18/25 09:01
INR 0.99 03/18/25 09:01
Sodium 141 mmol/L (135-145) 03/19/25 03:26
Potassium 4.0 mmol/L (3.5-5.1) 03/19/25 03:26
Chloride 109 mmol/L (98-107) H 03/19/25 03:26
Carbon Dioxide 29 mmol/L (22-30) 03/19/25 03:26
BUN 28 mg/dl (7-17) H 03/19/25 03:26
Creatinine 0.7 mg/dL (0.6-1.0) 03/19/25 03:26
Calcium 9.4 mg/dl (8.4-10.2) 03/19/25 03:26
Total Bilirubin 6.6 mg/dl (0.2-1.3) H 03/19/25 03:26
AST 34 U/L (14-36) 03/19/25 03:26
ALT 28 U/L (0-35) 03/19/25 03:26
Alkaline Phosphatase 77 U/L (38-126) 03/19/25 03:26
Diagnostic Image Results:
Prior GI Procedures:
EGD: Unable to recall
Colonoscopy: Unable to recall
Assessment / Plan
-
74-year-old female with prior history of myasthenia gravis admitted with shortness of breath/ weakness. Treated as exacerbation of myasthenia gravis with IVIG during this admission (completed) . GI was consulted for elevated indirect bilirubin
noted since 03/15/2025 - Initially total bilirubin was 2 with indirect bilirubin 1.8. Recent labs 03/19/2025 total bilirubin 6.6 with indirect bilirubin 6.2. AST/ALT/alkaline phosphatase/albumin normal.
Platelets normal. No prior history of any liver disease.
Patient was noted to have elevated LDH 262 --- repeat 313 . Reticulocyte count/haptoglobin normal. Celestino test was positive as well. As per medical note blood smear is pending.
Indirect bilirubinemia with normal AST/ALT/alkaline phosphatase/albumin/platelets -less likely secondary to any intrinsic liver disease. (Of note alpha-1 antitrypsin deficiency does not cause elevated indirect bilirubinemia)
Elevated LDH/positive Celestino test suggestive of possible hemolytic anemia although normal reticulocyte count/haptoglobin. Other differential possibilities are component of Gilbert's disease ( exacerbated by MG crisis ) with component of hemolytic
anemia with IVIG use.
-- Will follow-up ultrasound abdomen ordered by medical team
-- Continue to monitor LFT/Hb/LDH/reticulocyte count/blood smear
-- Will recommend hematology evaluation
Total Time Spent with Patient (in minutes): 35
-
-
Thank you for consultation and allowing me to participate in the patient's care. Please call the solutions operator GI physician during the after hours with any questions or concerns.
[2025-03-19] MEDS: LOVENOX 40 MG SC (17:01)
--- NOTE | 2025-03-19 18:39 | W.PN.NEURO.1 ---
Today's Communication / Plan
-
She has had the MIP and VC around -30 and 1.0 L respectively for last many days. She has been stable for the last many days and was transferred to regular floor today, however considering the patient's overall condition the plan is to transfer the
patient to IMU. The plan is to give consider plasma exchange if there is no significant improvement in MIP and VC. The plan is to gradually increase the dose of Mestinon if excessive secretions do not cause a problem.
Continue incentive spirometry.
Plan to continue with prednisone 60 mg daily and pyridostigmine 30 mg TID. She is also on Pepcid 40 mg twice a day.
The patient also received IVIG in hospital. She also get IVIG every month as an outpatient.
She denies any problem with excessive secretions.
Please get MIP and VC twice a day.
Neuro Assessment/Plan
Assessment
This is a 74-year-old female with past medical history significant for myasthenia gravis, hypertension, hyperlipidemia, hypothyroid, GERD, UTI presented to [facility] on 03/12/2025 with shortness of breath.
Plan
Impression: abrupt onset of shortness of breath most likely due to myasthenia gravis exacerbation
-continue prednisone 60 mg
-continue pyridostigmine 30 mg TID, monitor secretions
-continue to follow NIF and vital capacity
All questions encouraged and answered, plan of care discussed with Dr. Delong and patient
Subjective/Objective
Subjective Data
Date of Service: March 19, 2025
This is a 74-year-old female with past medical history significant for myasthenia gravis, hypertension, hyperlipidemia, hypothyroid, GERD, UTI presented to [facility] on 03/12/2025 with shortness of breath.
The NIF is -30 and VC is 1.04 today. The NIF was -30 and VC was 1.2 yesterday.
She has had the MIP and VC around -30 and 1.0 L respectively for last many days. She has been stable for the last many days and was transferred to regular floor today, however considering the patient's overall condition the plan is to transfer the
patient to IMU. The plan is to give consider plasma exchange if there is no significant improvement in MIP and VC. The plan is to gradually increase the dose of Mestinon if excessive secretions do not cause a problem.
Continue incentive spirometry.
Plan to continue with prednisone 60 mg daily and pyridostigmine 30 mg TID. She is also on Pepcid 40 mg twice a day.
The patient also received IVIG in hospital. She also get IVIG every month as an outpatient.
She denies any problem with excessive secretions.
Please get MIP and VC twice a day.
Objective Data
Vital Signs
Temp Pulse Resp BP Pulse Ox
36.6 C 98 18 155/92 93
03/19/25 13:51 03/19/25 14:00 03/19/25 13:51 03/19/25 13:49 03/19/25 14:53
Lab Results
03/19/25 03:47
03/19/25 03:26
PT 13.2 Sec (11.4-14.6) 03/18/25 09:01
INR 0.99 03/18/25 09:01
Sodium 141 mmol/L (135-145) 03/19/25 03:26
Potassium 4.0 mmol/L (3.5-5.1) 03/19/25 03:26
BUN 28 mg/dl (7-17) H 03/19/25 03:26
Glucose 78 mg/dl (70-99) 03/19/25 03:26
Calcium 9.4 mg/dl (8.4-10.2) 03/19/25 03:26
Ojc-D-Pwkrstclxtu Pept 107 pg/ml 03/12/25 16:03
Patient Allergies
adhesive tape Allergy (Verified 11/10/24 10:37)
causes skin tears easily
amoxicillin Allergy (Verified 11/10/24 10:37)
Hives
gabapentin Allergy (Verified 11/10/24 10:37)
severe headache
lidocaine Allergy (Verified 11/10/24 10:37)
IV only causes Mystinia gravis
Penicillins Allergy (Verified 11/10/24 10:37)
Hives/SWELLING
sulfamethoxazole (From Bactrim) Allergy (Verified 11/10/24 10:37)
chest tightness
trimethoprim (From Bactrim) Allergy (Verified 11/10/24 10:37)
chest tightness
Vital Signs and Labs
-
Vital Signs and Labs:
Vital Signs
Temp Pulse Resp BP Pulse Ox
36.6 C 98 18 155/92 93
03/19/25 13:51 03/19/25 14:00 03/19/25 13:51 03/19/25 13:49 03/19/25 14:53
Lab Results
03/19/25 03:47
03/19/25 03:26
PT 13.2 Sec (11.4-14.6) 03/18/25 09:01
INR 0.99 03/18/25 09:01
Sodium 141 mmol/L (135-145) 03/19/25 03:26
Potassium 4.0 mmol/L (3.5-5.1) 03/19/25 03:26
BUN 28 mg/dl (7-17) H 03/19/25 03:26
Glucose 78 mg/dl (70-99) 03/19/25 03:26
Calcium 9.4 mg/dl (8.4-10.2) 03/19/25 03:26
Fzq-Y-Kunvjfivnab Pept 107 pg/ml 03/12/25 16:03
Medications
-
Active Medications
Generic Name Dose Route Start Last Admin
Trade Name Freq PRN Reason Stop Dose Admin
Acetaminophen 650 mg 03/12/25 23:48 03/14/25 20:31
Acetaminophen 325 Mg Tablet PO 04/09/25 23:47 650 mg
Q4HPRN PRN Administration
mild pain/NAVA/temp> 100.4F
Alprazolam 0.5 mg 03/14/25 22:00 03/18/25 22:05
Alprazolam 0.25 Mg Tablet PO 04/11/25 21:59 0.5 mg
HS ELIDIA Administration
Bisacodyl 10 mg 03/12/25 23:48
Bisacodyl 10 Mg Rectal Suppository RECTAL 04/09/25 23:47
[id number] PRN
constipation
Enoxaparin Sodium 40 mg 03/13/25 18:00 03/19/25 17:01
Enoxaparin Sodium 40 Mg/0.4 Ml Syringe SC 04/10/25 17:59 40 mg
QPM ELIDIA Administration
Famotidine 40 mg 03/13/25 02:00 03/19/25 08:12
Famotidine 20 Mg Tablet PO 04/10/25 01:59 40 mg
BID ELIDIA Administration
Dextrose/Lactated Ringer's 1,000 mls @ 75 mls/hr 03/18/25 18:00 03/19/25 13:34
D5lr IV 1,000 mls
.[id number] ELIDIA Administration
Levothyroxine Sodium 75 mcg 03/13/25 22:00 03/18/25 21:17
Levothyroxine 75 Mcg Tablet PO 04/10/25 21:59 75 mcg
HS ELIDIA Administration
Lisinopril 10 mg 03/19/25 08:00 03/19/25 08:12
Lisinopril 10 Mg Tablet PO 04/16/25 07:59 10 mg
DAILY ELIDIA Administration
Methenamine Hippurate 1 gram 03/20/25 08:00
Methenamine Hippurate 1 Gram Tablet PO
DAILY ELIDIA
Ondansetron HCl 4 mg 03/12/25 23:48
Ondansetron 4 Mg/2 Ml Vial IV 04/09/25 23:47
Q6HPRN PRN
nausea and vomiting
Oxybutynin Chloride 5 mg 03/13/25 02:00 03/19/25 08:12
Oxybutynin 5 Mg Tablet PO 04/10/25 01:59 5 mg
BID ELIDIA Administration
Polyethylene Glycol 17 grams 03/12/25 23:48
Polyethylene Glycol Powder 17 Grams Packet PO 04/09/25 23:47
DAILYPRN PRN
constipation
Prednisone 60 mg 03/14/25 15:05 03/19/25 08:13
Prednisone 20 Mg Tablet PO 04/11/25 07:59 60 mg
DAILY ELIDIA Administration
Pyridostigmine [place] 30 mg 03/15/25 16:00 03/19/25 16:03
Pyridostigmine 60 Mg Tablet PO 04/12/25 15:59 30 mg
TID ELIDIA Administration
Senna/Docusate Sodium 1 tablet 03/12/25 23:48 03/17/25 16:14
Docusate W/Senna (Doreen-Colace) Tablet PO 04/09/25 23:47 1 tablet
BIDPRN PRN Administration
constipation
Sodium Chloride 0 flush 03/13/25 02:00
Sodium Chloride 0.9% (Flush) Syringe IV 04/10/25 01:59
PER PROTOCOL ELIDIA
Tramadol HCl 25 mg 03/14/25 08:32 03/18/25 01:09
Tramadol Hcl 50 Mg Tablet PO 04/11/25 08:31 25 mg
Q8HPRN PRN Administration
moderate-severe pain
Home Medications
�Medication �Instructions �Recorded
oxybutynin chloride 5 mg tablet 5 mg PO BID Urinary Issue 07/09/16
alprazolam 0.5 mg tablet 0.5 mg PO HS Mental Health/Anxiety 07/10/16
famotidine 40 mg tablet 40 mg PO BID Gastrointestinal Issue 05/13/24
levothyroxine 75 mcg tablet 75 mcg PO HS Thyroid 05/13/24
Vitamin R34-Wgugjea D3 1 tab PO DAILY Supplement 09/14/24
acetaminophen 500 mg tablet 500 mg PO Q6H PRN mild pain 09/14/24
ascorbic acid (vitamin C) 500 mg 500 mg PO DAILY Supplement 09/14/24
tablet (Vitamin C)
calcium carbonate (Calcium 600) 600 mg PO DAILY Supplement 09/14/24
prednisone 20 mg tablet 7 mg PO DAILY Autoimmune disorder 09/14/24
vitamin D3-vitamin K2 1 tab PO DAILY Supplement 09/14/24
pyridostigmine bromide 60 mg 30 mg PO TID myasthenia gravis 03/12/25
tablet (Mestinon)
--- NOTE | 2025-03-19 19:05 | PTCARENOTE ---
Neurologist assessed the patient on this afternoon after the transfer from ICU. Neurology stated 'Looking at NIF and VC I would recommend to keep her in Step down unit.' Dr Rios notified but not available anymore. Cross cover Dr Davidson
notified of the need to transfer to IMU. Transfer order received from Dr Davidson to transfer IMU. Report given to CAROLE Velásquez in IMU. Pt was transferred via wheelchair to room 3353 with all her belongings.
[2025-03-19 19:16] VITALS: BP 164/83
[2025-03-19] MEDS: XANAX 0.5 MG PO (21:39)
[2025-03-19] MEDS: SYNTHROID 75 MCG PO (21:39)
[2025-03-19 22:00] VITALS: BP 126/88
--- NOTE | 2025-03-19 22:59 | PTCARENOTE ---
Assumed care for patient overnight. Pt transported to IMU via wheelchair. Pt oriented to the new room/unit. Pt AAOx3, pleasant and appropriate. Pt states experiencing some confusion at nighttime. Pt utilizing IS. Pt remains on RA, 95%. Pt w/ dyspnea
on exertion. Pt encouraged deep breathing. NSR on the monitor. IVF cont. Pt ambulating to the bathroom w/ standby assistance and rolling walker. Pt has call farris within reach, bed alarm on for safety.
[2025-03-20] VITALS (13 sets, daily range): BP systolic 91–157; BP diastolic 53–104; BMI 21.6
[2025-03-20] MEDS: D5LR 1000 IV ×2 (03:17→15:53)
[2025-03-20 05:05] LABS: ALT (SGPT) 27 U/L (0-35); AST (SGOT) 33 U/L (14-36); Albumin 3.6 g/dl (3.5-5.0); Alkaline Phosphatase 73 U/L (38-126); LDH 290 U/L (120-246); Total Protein 8.4 g/dl (6.3-8.2)
--- NOTE | 2025-03-20 07:32 | W.PN.GI.CBS2 ---
Today's Communication / Plan
-
recommend hematology eval, gi signing off
Assessment / Plan
-
74-year-old female with prior history of myasthenia gravis admitted with shortness of breath/ weakness. Treated as exacerbation of myasthenia gravis with IVIG during this admission (completed) . GI was consulted for elevated indirect bilirubin
noted since 03/15/2025 - Initially total bilirubin was 2 with indirect bilirubin 1.8. Recent labs 03/19/2025 total bilirubin 6.6 with indirect bilirubin 6.2. AST/ALT/alkaline phosphatase/albumin normal.
Platelets normal. No prior history of any liver disease.
Patient was noted to have elevated LDH 262 --- repeat 313 . Reticulocyte count/haptoglobin normal. Celestino test was positive as well. As per medical note blood smear is pending.
Indirect bilirubinemia with normal AST/ALT/alkaline phosphatase/albumin/platelets. US with gallstones (some tenderness with US probe denies any abd pain, n/v or GI symptoms at this time).
Indirect hyperbilirubinemia hematologic in etiology.
Elevated LDH/positive Celestino test suggestive of possible hemolytic anemia although normal reticulocyte count/haptoglobin. Other differential possibilities are component of Gilbert's disease ( exacerbated by MG crisis ) with component of hemolytic
anemia with IVIG use.
-Recommend hematology evaluation
GI will sign off please call with ?s
Subjective
Subjective
Date of Service: March 20, 2025
Pt upgraded to IMU due to SOB thought to be due to MG exacerbation
Denies any GI complaints
Objective
Data Reviewed
Laboratory Data:
Laboratory Results
03/19/25 03:26
Laboratory Results
PT 13.2 Sec (11.4-14.6) 03/18/25 09:01
INR 0.99 03/18/25 09:01
Magnesium 2.0 mg/dl (1.6-2.3) 03/13/25 04:25
Total Bilirubin 5.6 mg/dl (0.2-1.3) H 03/20/25 04:12
AST 33 U/L (14-36) 03/20/25 04:12
ALT 27 U/L (0-35) 03/20/25 04:12
Alkaline Phosphatase 73 U/L (38-126) 03/20/25 04:12
Vital Signs and I&O:
Vital Signs
Temp Pulse Resp BP Pulse Ox
97.8 F 88 15 149/80 92
03/20/25 02:14 03/20/25 06:00 03/20/25 06:00 03/20/25 06:00 03/20/25 06:00
I&O
03/19/25 03/20/25 03/21/25
06:59 06:59 06:59
Intake Total 480 / 480 1025 / 1025
Balance 480 / 480 1025 / 1025
Physical Exam
Physical Exam
Cardiology: Normal Sinus Rhythm
Pulmonary: Clear
GI: Non Distended and Non Tender
[2025-03-20] MEDS: PEPCID 40 MG PO ×2 (08:42→20:51)
[2025-03-20] MEDS: DELTASONE 60 MG PO (08:43)
[2025-03-20] MEDS: ZESTRIL 10 MG PO (08:43)
[2025-03-20] MEDS: MESTINON 60 MG PO ×3 (08:43→21:32)
[2025-03-20] MEDS: DITROPAN 5 MG PO ×2 (08:44→20:51)
[2025-03-20] MEDS: HIPREX 1 GRAM PO (08:44)
--- NOTE | 2025-03-20 09:00 | W.PN.NEURO.1 ---
Addendum entered and electronically signed by Jeff Mcmillan MD 03/20/25 10:35:
Studies reviewed.
I have personally examined the patient. I reviewed and agree with the SHOT FIREMAN's Note.
My addenda:
Awake, alert, interactive. Appears to be minimally dyspneic at rest
Speech intact.
Follows 2-step requests w/o difficulty. No tremor.
Extra-ocular movements grossly intact.
Facial movements full and symmetric. Hearing intact to normal conversational volume.
Normal UE movements bilaterally.
Neck: full ROM.
Chest: no dyspnea
Heart: no JVD
Ext: (-) Clubbing, (-) Cyanosis, (-) Edema
IMPRESSIONS/RECOMMENDATIONS:
Abrupt onset of respiratory decline attributable to underlying myasthenia gravis
Patient has not had significant improvement despite use of immunoglobulin
Advance pyridostigmine from 30 mg 3 times a day to 60 mg 3 times a day
Provide a 5th dose of immunoglobulin
Continue to follow forced vital capacity and negative inspiratory force
Provide BiPAP 12/8 nightly to ensure that the patient is receiving additional respite
Check echocardiogram to ensure a cardiac dysfunction is not also contributing to the patient's issues although unlikely
D/W patient
All questions answered.
Will continue to follow patient.
Original Note:
Today's Communication / Plan
-
-continue prednisone 60 mg
-increase pyridostigmine 60 mg TID, monitor secretions
-continue to follow NIF and vital capacity
-start bipap at hs
Neuro Assessment/Plan
Assessment
This is a 74-year-old female with past medical history significant for myasthenia gravis, hypertension, hyperlipidemia, hypothyroid, GERD, UTI presented to [facility] on 03/12/2025 with shortness of breath.
Plan
Impression: abrupt onset of shortness of breath most likely due to myasthenia gravis exacerbation
-continue prednisone 60 mg
-increase pyridostigmine 60 mg TID, monitor secretions
-continue to follow NIF and vital capacity
-start bipap at hs
All questions encouraged and answered, plan of care discussed with Dr. Mcmillan and patient
Subjective/Objective
Subjective Data
Date of Service: March 20, 2025
No acute overnight events, patient continues off of O2. Denies diplopia, denies difficulty swallowing. Continues to c/o dyspnea on exertion. MIP increased from 30 to 44 today.
Objective Data
Vital Signs
Temp Pulse Resp BP Pulse Ox
98.2 F 88 15 149/80 92
03/20/25 07:25 03/20/25 06:00 03/20/25 06:00 03/20/25 06:00 03/20/25 06:00
Lab Results
03/19/25 03:26
PT 13.2 Sec (11.4-14.6) 03/18/25 09:01
INR 0.99 03/18/25 09:01
Sodium 141 mmol/L (135-145) 03/19/25 03:26
Potassium 4.0 mmol/L (3.5-5.1) 03/19/25 03:26
BUN 28 mg/dl (7-17) H 03/19/25 03:26
Glucose 78 mg/dl (70-99) 03/19/25 03:26
Calcium 9.4 mg/dl (8.4-10.2) 03/19/25 03:26
Sqv-A-Qxnxrrdarbm Pept 107 pg/ml 03/12/25 16:03
Patient Allergies
adhesive tape Allergy (Verified 11/10/24 10:37)
causes skin tears easily
amoxicillin Allergy (Verified 11/10/24 10:37)
Hives
gabapentin Allergy (Verified 11/10/24 10:37)
severe headache
lidocaine Allergy (Verified 11/10/24 10:37)
IV only causes Mystinia gravis
Penicillins Allergy (Verified 11/10/24 10:37)
Hives/SWELLING
sulfamethoxazole (From Bactrim) Allergy (Verified 11/10/24 10:37)
chest tightness
trimethoprim (From Bactrim) Allergy (Verified 11/10/24 10:37)
chest tightness
Physical Exam
-
General: Appears Chronically Ill and Wearing Oxygen
HEENT: Normocephalic and Atraumatic
Neck: Full Range of Motion
Respiratory: Accessory Resp Muscle Use
Cardiac: No JVD
GI: Non-distended
Skin: Unremarkable
Extremities: No Clubbing, No Cyanosis and No Edema
Psych: Unremarkable
Extended Neurological Exam
Mood & Affect: Mood Unremarkable
Attention Span & Concentration: Awake, Alert, Interactive and No Difficulty with 2 Step Request
Memory: Unremarkable
Speech: Quality Unremarkable, Quantity Unremarkable and Rate of Production Unremarkable
Cranial Nerves III, IV, : Extraocular Movement: Extraocular Movement Full in all Directions and Ptosis on Right
Cranial Nerve VII: Facial Symmetry: Normal Facial Symmetry
Cranial Nerve VIII: Hearing: Unremarkable Hearing to Normal Conversational Volume
Muscle Strength, Overall: Reduced Bilaterally (5-/5 b/l UEs)
--- NOTE | 2025-03-20 09:10 | W.PN.HOSP.TC ---
Today's Communication/Plan
-
steroids mestinon IVIG as per neurology
Assessment / Plan
Assessment / Plan
Physical Exam
General: No acute distress, appears comfortable
HEENT: Normocephalic atraumatic EOMI
Cardiac: Regular Rhythm no murmurs rubs gallops
GI: Soft, Nontender, Nondistended, bowel sounds present
Musculoskeletal: No Clubbing, No Cyanosis and No Edema
Neuro: AOx3 conversant coherent some confusion/memory issues noted
Psych: Calm
74yo F with PMHx of anxiety, hypothyroidism, GERD, urinary urgency, Myasthenia Gravis came with worsening weakness and SOB started after her Prednisone was tapered to 2.5mg, found in MG crisis, started on IVIG with MIP and VC monitoring. Functions
remained fluctuating however hypoxia resolved after IVIG course. Developed unexplained indirect bilirubinemia
A/P:
#Indirect bilirubinemia suspect Gilbert syndrome exacerbated by IVIG
minimal LDH elevation with no anemia and normal retics, but positive Celestino (IgG and complement pending)
Follow LFT
Blood smear neg for parasites
GGT WNL
Retics not elevated
INR WNL
Unclear reason, can be liver uptake, however with normal alk.phos and GGT - would not be concerned of PBC
IVF completed
GI consult appreciated
US RUQ appreciated cholelithiasis no bile duct dilation
#MG crisis
#Acute hypoxic inefficiency 2/2 MG and atelectasis
usual MIP -91syO2L, now -30. COnt VC and MIP q12h - remains stable around -[id number] and 1.0L
IVIG Prednisone Mestinon as per neurology
proBNP low - no concern for CHF component
Incentive spirometry
cont O2 NC
#In hospital delirium
combination of sun-downing, increased steroids on baseline cognitive deficit
patient with significant impairment of short memory, most likely due to dementia
Head CT neg
#Recurrent UTI
#Asymptomatic bacteriuria
UA on 03/13/25 with minimal elevated WBC, but no leukocytosis on CBC, no fever and patient does not report urinary symptoms
Will monitor off Abx
Ucx with 30kk of E.coli - no indication to treat
#GERD
#Hypothyroidism
#Urinary urgency
#Anxiety
cont home meds
TSH 1.84
DVT ppx Lovenox
Full code
Discussed with patient and patient's daughter Annabel
I spent a total of 40 minutes with the patient or on the floor. More than 50% of this time involved counseling and coordination of care.
Anticipated Discharge: 24 - 48 hours
Subjective/Interval History
-
Date of Service: March 20, 2025
No acute distress, sitting up comfortably in bed. AOx3 conversant largely coherent. Some memory issues/confusion noted. Overall patient appears well, mildly anxious.
Objective Data
-
Labs:
Laboratory Results
03/20/25
04:12
WBC Pending
Hgb Pending
Hct Pending
Plt Count Pending
Total Bilirubin 5.6 H
AST 33
ALT 27
Alkaline Phosphatase 73
Vital Signs:
Vital Signs
Temp Pulse Resp BP Pulse Ox
98.2 F 88 15 149/80 92
03/20/25 07:25 03/20/25 06:00 03/20/25 06:00 03/20/25 06:00 03/20/25 06:00
I&O
03/19/25 03/20/25 03/21/25
06:59 06:59 06:59
Intake Total 480 / 480 1025 / 1025
Balance 480 / 480 1025 / 1025
[2025-03-20 11:03] LABS: Blood Urea Nitrogen 24 mg/dl (7-17); Calcium 9.1 mg/dl (8.4-10.2); Carbon Dioxide 28 mmol/L (22-30); Chloride 110 mmol/L (98-107); Estimated Creatinine Clearance 62 ml/min; Glucose 88 mg/dl (70-99); Potassium 3.8 mmol/L (3.5-5.1); Sodium 140 mmol/L (135-145); eGFR > 60.00
--- NOTE | 2025-03-20 12:06 | PTCARENOTE ---
Assumed care of patient this AM. Patient awake and alert. Patient is forgetful and has some word recall, some intermittent confusion. Patient can be reoriented. Assist x1 with walker to bathroom. Bed alarm on, it was reported that patient
forgot where she was and was getting out of bed on her own. NSR on monitor with HR's 90's. VS stable. Call farris in reach. Will monitor.
[2025-03-20 14:48] LABS: Hematocrit 38.4 % (37.0-47.0); Hemoglobin 12.7 g/dL (12.0-16.0); Mean Corp Hgb Conc. 33.1 g/dL (33.0-37.0); Mean Corpuscular Volume 93.0 fL (81.0-99.0); Platelet Count 414 10^3/uL (130-400); Red Cell Dist. Width 15.1 % (11.5-14.5); Reticulocyte Count 2.7 % (0.4-2.8)
[2025-03-20] MEDS: LOVENOX 40 MG SC (17:08)
[2025-03-20] MEDS: SYNTHROID 75 MCG PO (21:32)
[2025-03-20] MEDS: XANAX 0.5 MG PO (21:33)
--- NOTE | 2025-03-20 22:21 | PTCARENOTE ---
Patient on room air, 96%. Despite education regarding BiPAP, pt refusing to wear BiPAP overnight. Will pass along to dayshift.
[2025-03-21] VITALS (12 sets, daily range): BP systolic 86–158; BP diastolic 52–87; BMI 22.0
[2025-03-21] MEDS: D5LR 1000 IV (04:35)
[2025-03-21 05:07] LABS: Hematocrit 33.7 % (37.0-47.0); Hemoglobin 11.8 g/dL (12.0-16.0); Mean Corp Hgb Conc. 35.0 g/dL (33.0-37.0); Mean Corpuscular Volume 86.6 fL (81.0-99.0); Platelet Count 325 10^3/uL (130-400); Red Cell Dist. Width 14.9 % (11.5-14.5)
--- NOTE | 2025-03-21 05:07 | PTCARENOTE ---
Patient AAOx3, pleasant. Pt can be forgetful at times. Assist x1 with rolling walker up to the bathroom. Pt expresses improvement in SOB w/ ambulation. IVF cont. NSR on the monitor. 96% on room air. Pt ringing appropriately, call farris within reach.
[2025-03-21 05:20] LABS: ALT (SGPT) 26 U/L (0-35); AST (SGOT) 33 U/L (14-36); Albumin 3.4 g/dl (3.5-5.0); Alkaline Phosphatase 59 U/L (38-126); Blood Urea Nitrogen 19 mg/dl (7-17); Calcium 9.1 mg/dl (8.4-10.2); Carbon Dioxide 28 mmol/L (22-30); Chloride 111 mmol/L (98-107); Estimated Creatinine Clearance 73 ml/min; Glucose 94 mg/dl (70-99); Magnesium 2.0 mg/dl (1.6-2.3); Potassium 3.8 mmol/L (3.5-5.1); Sodium 140 mmol/L (135-145); Total Protein 7.4 g/dl (6.3-8.2); eGFR > 60.00
--- NOTE | 2025-03-21 07:16 | W.PN.HOSP.TC ---
Today's Communication/Plan
-
see a/p
Assessment / Plan
Assessment / Plan
Physical Exam
General: No acute distress, appears comfortable
HEENT: Normocephalic atraumatic EOMI
Cardiac: Regular Rhythm no murmurs rubs gallops
GI: Soft, Nontender, Nondistended, bowel sounds present
Musculoskeletal: No Clubbing, No Cyanosis and No Edema
Neuro: AOx3 conversant coherent some confusion/memory issues noted
Psych: Calm
74yo F with PMHx of anxiety, hypothyroidism, GERD, urinary urgency, Myasthenia Gravis came with worsening weakness and SOB started after her Prednisone was tapered to 2.5mg, found in MG crisis, started on IVIG with MIP and VC monitoring. Functions
remained fluctuating however hypoxia resolved after IVIG course. Developed unexplained indirect bilirubinemia
A/P:
#Indirect bilirubinemia suspect Gilbert syndrome exacerbated by IVIG
minimal LDH elevation with no anemia and normal retics, but positive Celestino (IgG and complement pending)
Follow LFT
Blood smear neg for parasites
GGT WNL
Retics not elevated
INR WNL
Unclear reason, can be liver uptake, however with normal alk.phos and GGT - would not be concerned of PBC
IVF completed
GI consult appreciated
US RUQ appreciated cholelithiasis no bile duct dilation
#MG crisis
#Acute hypoxic inefficiency 2/2 MG and atelectasis
usual MIP -[id number], now -30. COnt VC and MIP q12h - remains stable around -65wlV2u and 1.0L
IVIG Prednisone Mestinon as per neurology, IVIG tx's completed, Mestinon titrated up to 90 mg TID, scheduled BIPAP HS started
proBNP low - no concern for CHF component, ECHO appreciated EF 70-75% mild valve abn's noted
Incentive spirometry
weaned off oxygen supplementation to room air
#In hospital delirium
combination of sun-downing, increased steroids on baseline cognitive deficit
patient with significant impairment of short memory, most likely due to dementia
Head CT neg
#Recurrent UTI
#Asymptomatic bacteriuria
UA on 03/13/25 with minimal elevated WBC, but no leukocytosis on CBC, no fever and patient does not report urinary symptoms
Ucx with 30kk of E.coli - no indication to treat
#GERD
#Hypothyroidism
#Urinary urgency
#Anxiety
cont home meds
TSH 1.84
DVT ppx Lovenox
Full code
Discussed with patient and patient's daughter Annabel
I spent a total of 40 minutes with the patient or on the floor. More than 50% of this time involved counseling and coordination of care.
Anticipated Discharge: 24 - 48 hours
Subjective/Interval History
-
Date of Service: March 21, 2025
Reporting sob/anxious this morning, requested once low dose xanax, provided with improvement in symptoms noted. AOx3 conversant coherent. Symptoms improved as day progressed.
Objective Data
-
Labs:
Laboratory Results
03/21/25
04:48
WBC 16.1 H
Hgb 11.8 L
Hct 33.7 L
Plt Count 325 D
Sodium 140
Potassium 3.8
Chloride 111 H
Carbon Dioxide 28
BUN 19 H
Creatinine 0.6
Glucose 94
Calcium 9.1
Total Bilirubin 4.4 H
AST 33
ALT 26
Alkaline Phosphatase 59
Vital Signs:
Vital Signs
Temp Pulse Resp BP Pulse Ox
98.1 F 73 13 144/64 92
03/21/25 02:42 03/21/25 06:00 03/21/25 06:00 03/21/25 06:00 03/21/25 06:00
I&O
03/20/25 03/21/25 03/22/25
06:59 06:59 06:59
Intake Total 1025 / 1025 2805 / 2805
Balance 1025 / 1025 2805 / 2805
[2025-03-21] MEDS: PEPCID 40 MG PO ×2 (08:53→21:00)
[2025-03-21] MEDS: MESTINON 60 MG PO (08:53)
[2025-03-21] MEDS: HIPREX 1 GRAM PO (08:53)
[2025-03-21] MEDS: ZESTRIL 10 MG PO (08:53)
[2025-03-21] MEDS: DELTASONE 60 MG PO (08:53)
[2025-03-21] MEDS: DITROPAN 5 MG PO ×2 (08:54→21:00)
--- NOTE | 2025-03-21 09:29 | W.PN.NEURO.1 ---
Today's Communication / Plan
-
increase pyridostigmine again from 60 mg to dosing of 90 mg TID, monitor secretions
Neuro Assessment/Plan
Assessment
This is a 74-year-old female with past medical history significant for myasthenia gravis, hypertension, hyperlipidemia, hypothyroid, GERD, UTI presented to [facility] on 03/12/2025 with shortness of breath.
Impression: abrupt onset of shortness of breath most likely due to myasthenia gravis exacerbation
-
Plan
continue prednisone 60 mg
-increase pyridostigmine again from 60 mg to dosing of 90 mg TID, monitor secretions
-continue to follow NIF and vital capacity
-Attempted to start bipap at hs, unclear if patient refused
Will follow-up as needed. Patient should follow with her usual outpatient neurologist
Subjective/Objective
Subjective Data
Date of Service: March 21, 2025
'I'm anxious'
Objective Data
Vital Signs
Temp Pulse Resp BP Pulse Ox
36.8 C 73 13 144/64 92
03/21/25 07:25 03/21/25 06:00 03/21/25 06:00 03/21/25 06:00 03/21/25 06:00
Lab Results
03/21/25 04:48
03/21/25 04:48
PT 13.2 Sec (11.4-14.6) 03/18/25 09:01
INR 0.99 03/18/25 09:01
Sodium 140 mmol/L (135-145) 03/21/25 04:48
Potassium 3.8 mmol/L (3.5-5.1) 03/21/25 04:48
BUN 19 mg/dl (7-17) H 03/21/25 04:48
Glucose 94 mg/dl (70-99) 03/21/25 04:48
Calcium 9.1 mg/dl (8.4-10.2) 03/21/25 04:48
Phosphorus 3.5 mg/dl (2.5-4.5) 03/21/25 04:48
Mzm-W-Rdehpbtmove Pept 107 pg/ml 03/12/25 16:03
Patient Allergies
adhesive tape Allergy (Verified 11/10/24 10:37)
causes skin tears easily
amoxicillin Allergy (Verified 11/10/24 10:37)
Hives
gabapentin Allergy (Verified 11/10/24 10:37)
severe headache
lidocaine Allergy (Verified 11/10/24 10:37)
IV only causes Mystinia gravis
Penicillins Allergy (Verified 11/10/24 10:37)
Hives/SWELLING
sulfamethoxazole (From Bactrim) Allergy (Verified 11/10/24 10:37)
chest tightness
trimethoprim (From Bactrim) Allergy (Verified 11/10/24 10:37)
chest tightness
Review of Systems
-
History Source: Patient
All other systems: Reviewed and negative
EENT: Negative Blurry Vision or Swallowing Difficulty
Respiratory: Trouble Breathing
Cardiac: Negative Chest Pain
Abdomen/GI: Negative Incontinence of Stool
Genitourinary: Negative Incontinence
Musculoskeletal: Negative Back Pain or Neck Pain
Neuro: Negative Dizzy or Headache
Physical Exam
-
General: Appears Chronically Ill
HEENT: Normocephalic and Atraumatic
Neck: Full Range of Motion
Respiratory: Accessory Resp Muscle Use (occasional )
Cardiac: No JVD
GI: Non-distended
Skin: Unremarkable
Extremities: No Clubbing, No Cyanosis and No Edema
Psych: Unremarkable
Extended Neurological Exam
Mood & Affect: Anxious
Attention Span & Concentration: Awake, Alert and Interactive
Memory: Unremarkable
Tremor: Hand Tremor Absent and Head Tremor Absent
Speech: Quality Unremarkable, Quantity Unremarkable, Rate of Production Unremarkable and Other (Able to count to 15 on a single breath)
Cranial Nerve II: Left Eye: Pupillary Size Unremarkable
Cranial Nerve II: Right Eye: Pupillary Size Unremarkable
Cranial Nerves III, IV, : Extraocular Movement: Ptosis on Left (Touches iris), Ptosis on Right (Touches iris) and Grossly Intact
Cranial Nerve VII: Facial Symmetry: Normal Facial Symmetry
Cranial Nerve VIII: Hearing: Unremarkable Hearing to Normal Conversational Volume
Muscle Strength, Overall: Spontaneously Moves
Data Reviewed
-
CT Head: Report Reviewed
Labs: Report Reviewed
Reviewed with: Physician, Nurse Practioner and Patient
Old Records: Summarized
Past History
Past History
ED Past Medical History: GERD, HTN, Hypercholesterolemia, Hypothyroidism, Psychiatric and Other (Osteoarthritis, neuropathy, Myasthenia Gravis)
ED Past Surgical History: Orthopedic
Social History
Alcohol: Occasional
Personal:
Living: with family
Employment: Employed
Family History
Family History: Other (Reviewed and Noncontributory)
Medications
-
Medications:
Generic Name Dose Route Start Last Admin
Trade Name Freq PRN Reason Stop Dose Admin
Acetaminophen 650 mg 03/12/25 23:48 03/14/25 20:31
Acetaminophen 325 Mg Tablet PO 04/09/25 23:47 650 mg
Q4HPRN PRN Administration
mild pain/NAVA/temp> 100.4F
Alprazolam 0.5 mg 03/14/25 22:00 03/20/25 21:33
Alprazolam 0.25 Mg Tablet PO 04/11/25 21:59 0.5 mg
HS ELIDIA Administration
Bisacodyl 10 mg 03/12/25 23:48
Bisacodyl 10 Mg Rectal Suppository RECTAL 04/09/25 23:47
[id number] PRN
constipation
Enoxaparin Sodium 40 mg 03/13/25 18:00 03/20/25 17:08
Enoxaparin Sodium 40 Mg/0.4 Ml Syringe SC 04/10/25 17:59 40 mg
QPM ELIDIA Administration
Famotidine 40 mg 03/13/25 02:00 03/21/25 08:53
Famotidine 20 Mg Tablet PO 04/10/25 01:59 40 mg
BID ELIDIA Administration
Levothyroxine Sodium 75 mcg 03/13/25 22:00 03/20/25 21:32
Levothyroxine 75 Mcg Tablet PO 04/10/25 21:59 75 mcg
HS ELIDIA Administration
Lisinopril 10 mg 03/19/25 08:00 03/21/25 08:53
Lisinopril 10 Mg Tablet PO 04/16/25 07:59 10 mg
DAILY ELIDIA Administration
Methenamine Hippurate 1 gram 03/20/25 08:00 03/21/25 08:53
Methenamine Hippurate 1 Gram Tablet PO 1 gram
DAILY ELIDIA Administration
Ondansetron HCl 4 mg 03/12/25 23:48
Ondansetron 4 Mg/2 Ml Vial IV 04/09/25 23:47
Q6HPRN PRN
nausea and vomiting
Oxybutynin Chloride 5 mg 03/13/25 02:00 03/21/25 08:54
Oxybutynin 5 Mg Tablet PO 04/10/25 01:59 5 mg
BID ELIDIA Administration
Polyethylene Glycol 17 grams 03/12/25 23:48
Polyethylene Glycol Powder 17 Grams Packet PO 04/09/25 23:47
DAILYPRN PRN
constipation
Prednisone 60 mg 03/14/25 15:05 03/21/25 08:53
Prednisone 20 Mg Tablet PO 04/11/25 07:59 60 mg
DAILY ELIDIA Administration
Pyridostigmine [place] 60 mg 03/20/25 07:39 03/21/25 08:53
Pyridostigmine 60 Mg Tablet PO 04/12/25 15:59 60 mg
TID ELIDIA Administration
Senna/Docusate Sodium 1 tablet 03/12/25 23:48 03/17/25 16:14
Docusate W/Senna (Doreen-Colace) Tablet PO 04/09/25 23:47 1 tablet
BIDPRN PRN Administration
constipation
Sodium Chloride 0 flush 03/13/25 02:00
Sodium Chloride 0.9% (Flush) Syringe IV 04/10/25 01:59
PER PROTOCOL ELIIDA
Tramadol HCl 25 mg 03/14/25 08:32 03/18/25 01:09
Tramadol Hcl 50 Mg Tablet PO 04/11/25 08:31 25 mg
Q8HPRN PRN Administration
moderate-severe pain
[2025-03-21] MEDS: XANAX 0.25 MG PO (09:33)
--- NOTE | 2025-03-21 11:21 | VATNOTE ---
Right forearm MAB PIV site infiltrated approx 6 inches with lactated ringers. PIV removed. Warm compress applied. Pt denies pain to site. Will continue to monitor.
--- NOTE | 2025-03-21 15:29 | CM ---
F/U: DOMI Llamas saw the recommendation for Home PT so spoke to patient who has [facility] in the summer and would like to use them again. PLAN: [facility] for Home VN/PT when discharge.
--- NOTE | 2025-03-21 16:38 | PTCARENOTE ---
OOB twice today- ambulated to bathroom with assist and RW. SR on tele. RT and I both discussed bipap use for tonight. Oriented today- appropriate. LC/ RA. Incontinent of bowel x1 this shift. Voids adequate. Skin is icteric.
[2025-03-21] MEDS: LOVENOX 40 MG SC (17:06)
[2025-03-21] MEDS: MESTINON 90 MG PO ×2 (17:06→21:00)
[2025-03-21] MEDS: SYNTHROID 75 MCG PO (21:01)
[2025-03-21] MEDS: XANAX 0.5 MG PO (21:01)
--- NOTE | 2025-03-21 22:46 | RESPNOTE ---
Addendum entered by RT Amelia 03/21/25 22:54:
2230: Attempted to place patient on bipap 12/5 at this time. Patient became extremely anxious when RT attempted to secure bipap mask. RT encouraged pt to attempt once more but patient anxious and stating she's 'claustrophobic' and scared. Maintained
on RA at this time; spo2 93-98%. RN aware
Original Note:
2030: Attempted to place patient on bipap 12/5 at this time. Patient became extremely anxious when RT attempted to secure bipap mask. RT encouraged pt to attempt once more but patient anxious and stating she's 'claustrophobic' and scared. Maintained
on RA at this time; spo2 93-98%. RN aware
[2025-03-22] VITALS (7 sets, daily range): BP systolic 128–167; BP diastolic 70–118; BMI 21.5
--- NOTE | 2025-03-22 02:49 | PTCARENOTE ---
Pt AAOx3, however very anxious and tearful tonight. RT bedside to attempt BiPAP mask x2. Pt becoming anxious and states that she feels 'very claustrophobic'. Despite education from both RN and RT, patient refused BiPAP HS. Will pass along to
dayshift team. Pt ambulating to the bathroom with standby assistance and rolling walker. NSR on the monitor. 95% on room air. Call farris within reach, bed alarm on for safety.
[2025-03-22 06:38] LABS: ALT (SGPT) 26 U/L (0-35); AST (SGOT) 32 U/L (14-36); Albumin 3.6 g/dl (3.5-5.0); Alkaline Phosphatase 68 U/L (38-126); Blood Urea Nitrogen 21 mg/dl (7-17); Calcium 9.1 mg/dl (8.4-10.2); Carbon Dioxide 28 mmol/L (22-30); Chloride 110 mmol/L (98-107); Estimated Creatinine Clearance 62 ml/min; Glucose 76 mg/dl (70-99); Magnesium 2.0 mg/dl (1.6-2.3); Potassium 3.6 mmol/L (3.5-5.1); Sodium 139 mmol/L (135-145); Total Protein 7.6 g/dl (6.3-8.2); eGFR > 60.00
[2025-03-22 06:57] LABS: Hematocrit 35.5 % (37.0-47.0); Hemoglobin 12.3 g/dL (12.0-16.0); Mean Corp Hgb Conc. 34.6 g/dL (33.0-37.0); Mean Corpuscular Volume 89.4 fL (81.0-99.0); Platelet Count 414 10^3/uL (130-400); Red Cell Dist. Width 16.1 % (11.5-14.5)
--- NOTE | 2025-03-22 07:06 | W.PN.HOSP.TC ---
Addendum entered and electronically signed by Mindy Pinzon MD 03/23/25 07:22:
After study respiratory failure has been ruled out; prevented with treatments given for MG flare
Original Note:
Today's Communication/Plan
-
patient is ready for discharge - discussed with Neurology
Assessment / Plan
Assessment / Plan
Physical Exam
General: No acute distress, appears comfortable
HEENT: Normocephalic atraumatic EOMI
Cardiac: Regular Rhythm no murmurs rubs gallops
GI: Soft, Nontender, Nondistended, bowel sounds present
Musculoskeletal: No Clubbing, No Cyanosis and No Edema
Neuro: AOx3 conversant coherent some confusion/memory issues noted
Psych: Calm
74yo F with PMHx of anxiety, hypothyroidism, GERD, urinary urgency, Myasthenia Gravis came with worsening weakness and SOB started after her Prednisone was tapered to 2.5mg, found in MG crisis, started on IVIG with MIP and VC monitoring. Functions
remained fluctuating however hypoxia resolved after IVIG course. Developed unexplained indirect bilirubinemia
A/P:
#Indirect bilirubinemia suspect Gilbert syndrome exacerbated by IVIG
minimal LDH elevation with no anemia and normal retics, nl haptoglobin but positive Celestino (IgG and complement pending)
GI consult appreciated
US RUQ appreciated cholelithiasis no bile duct dilation
#MG crisis
#Acute hypoxic inefficiency 2/2 MG and atelectasis
usual MIP -70vpH1G, now -30. COnt VC and MIP q12h - remains stable around -52ouI0p and 1.0L. MIP 50 this morning
IVIG Prednisone Mestinon as per neurology, IVIG tx's completed, Mestinon titrated up to 90 mg TID, scheduled BIPAP HS started but patient does not tolerate
DC on Prednisone 60mg PO QD without taper (needs to be determined by outpatient provider)
proBNP low - no concern for CHF component, ECHO appreciated EF 70-75% mild valve abn's noted
Incentive spirometry
weaned off oxygen supplementation to room air
#In hospital delirium
combination of sun-downing, increased steroids on baseline cognitive deficit
patient with significant impairment of short memory, most likely due to dementia
Head CT neg
#Recurrent UTI
#Asymptomatic bacteriuria
UA on 03/13/25 with minimal elevated WBC, but no leukocytosis on CBC, no fever and patient does not report urinary symptoms
Ucx with 30kk of E.coli - no indication to treat
#GERD
#Hypothyroidism
#Urinary urgency
#Anxiety
cont home meds
TSH 1.84
DVT ppx Lovenox
Full code
Discussed with patient and patient's daughter Annabel
I spent a total of 40 minutes with the patient or on the floor. More than 50% of this time involved counseling and coordination of care.
Anticipated Discharge: Today
Subjective/Interval History
-
Date of Service: March 22, 2025
feeling like her breaths are getting deeper
does not tilerate BiPAP tried twice
no fevers/chills
Objective Data
-
Labs:
Laboratory Results
03/22/25
05:41
WBC 17.5 H
Hgb 12.3
Hct 35.5 L
Plt Count 414 H D
Sodium 139
Potassium 3.6
Chloride 110 H
Carbon Dioxide 28
BUN 21 H
Creatinine 0.7
Glucose 76
Calcium 9.1
Total Bilirubin 4.3 H
AST 32
ALT 26
Alkaline Phosphatase 68
Vital Signs:
Vital Signs
Temp Pulse Resp BP Pulse Ox
98.2 F 91 17 153/111 94
03/22/25 03:00 03/22/25 06:00 03/22/25 06:00 03/22/25 06:00 03/22/25 06:00
I&O
03/21/25 03/22/25 03/23/25
06:59 06:59 06:59
Intake Total 2805 / 2805
Balance 2805 / 2805
Review of Systems
-
History Source: Patient
All other systems: Reviewed and negative
Physical Exam
-
General: Comfortable
HEENT: Normocephalic
Cardiac: Regular Rhythm
GI: Soft, Nontender and Nondistended
Musculoskeletal: No Clubbing, No Cyanosis and No Edema
Psych: Calm
Data Reviewed
-
Diagnostic Radiology: Report Reviewed by me
Labs: Labs Reviewed by me
--- NOTE | 2025-03-22 07:35 | W.DS.TRANS ---
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
-
Discharge Instructions:
Discharge Diagnosis/Procedures Myasthenia Gravis Flare
Diet Regular
Activity As tolerated
Driving Restrictions Not until seen by your Dr
Bathing Restrictions None
Other Services PT,OT
Instructions:
Stand-Alone Forms:
Changes to Home Medications: Yes
Discharge Medications:
DC Medications w/original date entered in [facility]
oxybutynin chloride 5 mg tablet 5 mg PO BID Urinary Issue 07/09/16
alprazolam 0.5 mg tablet 0.5 mg PO HS Mental Health/Anxiety 07/10/16
famotidine 40 mg tablet 40 mg PO BID Gastrointestinal Issue 05/13/24
levothyroxine 75 mcg tablet 75 mcg PO HS Thyroid 05/13/24
Vitamin X38-Kfisxbm D3 1 tab PO DAILY Supplement 09/14/24
acetaminophen 500 mg tablet 500 mg PO Q6H PRN mild pain 09/14/24
ascorbic acid (vitamin C) 500 mg tablet (Vitamin C) 500 mg PO DAILY Supplement 09/14/24
calcium carbonate (Calcium 600) 600 mg PO DAILY Supplement 09/14/24
vitamin D3-vitamin K2 1 tab PO DAILY Supplement 09/14/24
lisinopril 5 mg tablet 5 mg PO DAILY #30 tabs 03/22/25
methenamine hippurate 1 gram tablet 1 g PO DAILY #30 tabs 03/22/25
prednisone 20 mg tablet 60 mg (3 x 20 mg) PO DAILY #90 tabs 03/22/25
pyridostigmine bromide 60 mg tablet (Mestinon) 90 mg (1.5 x 60 mg) PO TID 30 days #135 tabs 03/22/25
Home Medication Changes
Please follow up with Dr. Terry at next available appointment.
Take Prednisone 60mg (3 tabs of 20mg) until directed by Dr. Terry. You are prescribed 1 month with refill, but please get directions from Dr. Terry within the next month on how to taper prednisone down.
Your Mestinon (Pyridostigmine) is increased to 90mg (1.5 tabs) 3x/day.
Your blood pressure was high in the hospital. You are started on Lisinopril 5mg daily. I recommend checking your blood pressure at home (1-2 hours after Lisinopril) and recording results to show your PCP.
Pending Results: No
--- NOTE | 2025-03-22 07:45 | W.PN.NEURO.1 ---
Today's Communication / Plan
-
continue prednisone 60 mg
Maintain pyridostigmine 90 mg TID, monitor secretions
continue to follow NIF and vital capacity
Patient unable to tolerate BiPAP, will need outpatient at home sleep testing
Patient should have replacement therapy for routine benzodiazepine use to treat anxiety
Outpatient myasthenia gravis steroid-sparing therapy in the form of either complement inhibitor or FcRN antibody
Neuro Assessment/Plan
Assessment
This is a 74-year-old female with past medical history significant for myasthenia gravis, hypertension, hyperlipidemia, hypothyroid, GERD, UTI presented to [facility] on 03/12/2025 with shortness of breath.
Impression: abrupt onset of shortness of breath most likely due to myasthenia gravis exacerbation
Plan
continue prednisone 60 mg
Maintain pyridostigmine 90 mg TID, monitor secretions
continue to follow NIF and vital capacity
Patient unable to tolerate BiPAP, will need outpatient at home sleep testing
Patient should have replacement therapy for routine benzodiazepine use to treat anxiety
Outpatient myasthenia gravis steroid-sparing therapy in the form of either complement inhibitor or FcRN antibody
Patient should follow with her usual outpatient neurologist
Subjective/Objective
Subjective Data
Date of Service: March 22, 2025
Objective Data
Vital Signs
Temp Pulse Resp BP Pulse Ox
36.8 C 91 17 153/111 94
03/22/25 07:19 03/22/25 06:00 03/22/25 06:00 03/22/25 06:00 03/22/25 06:00
Lab Results
03/22/25 05:41
03/22/25 05:41
PT 13.2 Sec (11.4-14.6) 03/18/25 09:01
INR 0.99 03/18/25 09:01
Sodium 139 mmol/L (135-145) 03/22/25 05:41
Potassium 3.6 mmol/L (3.5-5.1) 03/22/25 05:41
BUN 21 mg/dl (7-17) H 03/22/25 05:41
Glucose 76 mg/dl (70-99) 03/22/25 05:41
Calcium 9.1 mg/dl (8.4-10.2) 03/22/25 05:41
Phosphorus 3.8 mg/dl (2.5-4.5) 03/22/25 05:41
Keo-L-Maufobayuyb Pept 107 pg/ml 03/12/25 16:03
Patient Allergies
adhesive tape Allergy (Verified 11/10/24 10:37)
causes skin tears easily
amoxicillin Allergy (Verified 11/10/24 10:37)
Hives
gabapentin Allergy (Verified 11/10/24 10:37)
severe headache
lidocaine Allergy (Verified 11/10/24 10:37)
IV only causes Mystinia gravis
Penicillins Allergy (Verified 11/10/24 10:37)
Hives/SWELLING
sulfamethoxazole (From Bactrim) Allergy (Verified 11/10/24 10:37)
chest tightness
trimethoprim (From Bactrim) Allergy (Verified 11/10/24 10:37)
chest tightness
Data Reviewed
-
Labs: Report Reviewed
Reviewed with: Physician
Old Records: Summarized
Past History
Past History
ED Past Medical History: GERD, HTN, Hypercholesterolemia, Hypothyroidism, Psychiatric and Other (Osteoarthritis, neuropathy, Myasthenia Gravis)
ED Past Surgical History: Orthopedic
Social History
Alcohol: Occasional
Personal:
Living: with family
Employment: Employed
Family History
Family History: Other (Reviewed and Noncontributory)
Medications
-
Medications:
Generic Name Dose Route Start Last Admin
Trade Name Freq PRN Reason Stop Dose Admin
Acetaminophen 650 mg 03/12/25 23:48 03/14/25 20:31
Acetaminophen 325 Mg Tablet PO 04/09/25 23:47 650 mg
Q4HPRN PRN Administration
mild pain/NAVA/temp> 100.4F
Alprazolam 0.5 mg 03/14/25 22:00 03/21/25 21:01
Alprazolam 0.25 Mg Tablet PO 04/11/25 21:59 0.5 mg
HS ELIDIA Administration
Bisacodyl 10 mg 03/12/25 23:48
Bisacodyl 10 Mg Rectal Suppository RECTAL 04/09/25 23:47
[id number] PRN
constipation
Enoxaparin Sodium 40 mg 03/13/25 18:00 03/21/25 17:06
Enoxaparin Sodium 40 Mg/0.4 Ml Syringe SC 04/10/25 17:59 40 mg
QPM ELIDIA Administration
Famotidine 40 mg 03/13/25 02:00 03/21/25 21:00
Famotidine 20 Mg Tablet PO 04/10/25 01:59 40 mg
BID ELIDIA Administration
Levothyroxine Sodium 75 mcg 03/13/25 22:00 03/21/25 21:01
Levothyroxine 75 Mcg Tablet PO 04/10/25 21:59 75 mcg
HS ELIDIA Administration
Lisinopril 5 mg 03/22/25 08:00
Lisinopril 5 Mg Tablet PO 04/19/25 07:59
DAILY ELIDIA
Methenamine Hippurate 1 gram 03/20/25 08:00 03/21/25 08:53
Methenamine Hippurate 1 Gram Tablet PO 1 gram
DAILY ELIDIA Administration
Ondansetron HCl 4 mg 03/12/25 23:48
Ondansetron 4 Mg/2 Ml Vial IV 04/09/25 23:47
Q6HPRN PRN
nausea and vomiting
Oxybutynin Chloride 5 mg 03/13/25 02:00 03/21/25 21:00
Oxybutynin 5 Mg Tablet PO 04/10/25 01:59 5 mg
BID ELIDIA Administration
Polyethylene Glycol 17 grams 03/12/25 23:48
Polyethylene Glycol Powder 17 Grams Packet PO 04/09/25 23:47
DAILYPRN PRN
constipation
Prednisone 60 mg 03/14/25 15:05 03/21/25 08:53
Prednisone 20 Mg Tablet PO 04/11/25 07:59 60 mg
DAILY ELIDIA Administration
Pyridostigmine [place] 90 mg 03/21/25 10:27 03/21/25 21:00
Pyridostigmine 60 Mg Tablet PO 04/12/25 15:59 90 mg
TID ELIDIA Administration
Senna/Docusate Sodium 1 tablet 03/12/25 23:48 03/17/25 16:14
Docusate W/Senna (Doreen-Colace) Tablet PO 04/09/25 23:47 1 tablet
BIDPRN PRN Administration
constipation
Sodium Chloride 0 flush 03/13/25 02:00
Sodium Chloride 0.9% (Flush) Syringe IV 04/10/25 01:59
PER PROTOCOL ELIDIA
Tramadol HCl 25 mg 03/14/25 08:32 03/18/25 01:09
Tramadol Hcl 50 Mg Tablet PO 04/11/25 08:31 25 mg
Q8HPRN PRN Administration
moderate-severe pain
--- NOTE | 2025-03-22 07:53 | PTCARENOTE ---
Assumed care of patient this AM. Patient offers no complaints. Patient to be discharged to home today with visiting nurses.
--- NOTE | 2025-03-22 08:48 | VNURNOTE ---
Chart reviewed. Home Health Liaison spoke with patient to discuss [facility] nurse/therapy, visits, schedule and homebound status. Patient is agreeable and understands that visits at home will be 2-3 x per week to assess and teach medical management.
She is familiar with [facility] services- had us over the summer. She is aware that [facility] will contact them for start of care within a week after discharge from .
[facility] referral completed and accepted in [facility].
[2025-03-22] MEDS: MESTINON 90 MG PO (09:49)
--- NOTE | 2025-03-22 09:49 | PN.CDI ---
CDI
- -
CDI:
Physician Documentation Request
Admit Date: 03/12/25 23:02
Dear Doctor Jeromy,
Please review the following and provide your response in the progress notes.
The purpose of this query is to ensure the accuracy of the conditions reported for your patient.
Clinical Indicators:
ED, 03/12
#...placed on 2 L of nasal cannula by EMS on arrival to home.
#...On room air in the ED her pulse ox dropped to 91-92%.
#...remains on 2 L nasal cannula in the ED and pulse ox is holding and it is 96-97%.
#...Chest x-ray shows low lung volume.
#...NIF was completed by respiratory.
#...recommends every 4 hour NIF, low threshold for intubation.
Sindi PN,, 03/13
#...General: Appears Chronically Ill and Wearing Oxygen
#...Respiratory: Accessory Resp Muscle Use
Pulmonary consult, 03/15
#Reason for Consultation: Hypoxemic respiratory failure-myasthenia gravis crisis
#...history of myasthenia gravis-reports worsening respiratory symptoms
#...including shortness of breath, difficulty taking a deep breath as her prednisone
#...was tapered down.
#...consulted for pulmonary evaluation regarding worsening respiratory status,
#Hypoxemic respiratory failure: Likely due to hypoventilation from muscle weakness
#...Chest x-ray 03/14/2025: Low lung volumes with subsegmental atelectasis.
#...AB.41/40/70
Neuro, PN, 03/20
#...General: Appears Chronically Ill and Wearing Oxygen
#...Respiratory: Accessory Resp Muscle Use
PN, 03/22
#MG crisis
#Acute hypoxic inefficiency 2/2 MG and atelectasis
#...weaned off oxygen supplementation to room air
Recognized standard criteria for respiratory failure includes:
(Source: Danna S. Kathryn. 2019February 09. Documentation tips: Acute Respiratory Failure, The Hospitalist)
ABGs (1 or more)
�PO2 <60 or RA SpO2 <91%
�PcO2 >45 and pH <7.35
�pO2 decrease or pcO2 increase by 10 mmHg from baseline if known
- P/F ratio (pO2/FiO2) less than 300 Symptoms:
�Tachypnea, SOB, dyspnea
�Pallor or cyanosis
�Anxiety or restlessness
�Use of accessory muscles
�Unable to speak in complete sentences
Based on the above information and the recognized standard for respiratory failure, please verify this diagnoses is still accurate and reflective of the patient�s condition to ensure quality of the medical record.
Please clarify in the Progress Notes:
Respiratory failure is/was present and is a clinical diagnosis based on (please include this additional support in the medical record)
After study respiratory failure has been ruled out
Acute respiratory insufficiency, only, POA
Other
Use of terms such as suspected, likely, concern for, or probable (associated with a specific diagnosis that is being evaluated, monitored, or treated as if it exists) are acceptable and can be coded in the inpatient setting, when documented at the
time of discharge.
Thank you,
Nehal Gardiner RN BSN CCDS
CDI Specialist
Please contact via tiger text
Please use your independent medical judgment in providing your response.
[2025-03-22] MEDS: HIPREX 1 GRAM PO (09:50)
[2025-03-22] MEDS: ZESTRIL 5 MG PO (09:50)
[2025-03-22] MEDS: PEPCID 40 MG PO (09:50)
[2025-03-22] MEDS: DITROPAN 5 MG PO (09:51)
[2025-03-22] MEDS: DELTASONE 60 MG PO (09:51)
--- NOTE | 2025-03-22 11:06 | CM ---
F/U: Patient is ready so informed [facility] that patient is leaving. CM completed IMM with patient. PLAN: Home w/ [facility].
--- NOTE | 2025-03-22 14:57 | W.DCSUMMARY ---
Discharge Summary
Discharge Data
Date of Admission: 03/12/25
Date of Discharge: 03/22/25
-
Pending Results: No
Hospital Course
Discharging Physician : Dr. Mindy Pinzon
Disposition : Home with Home Health
Primary care physician : Dr. Steffany Terry
Principal Discharge diagnosis : Myasthenia Gravis Flare
Hospital Course :
Ms. Jennifer Luz is a 74 yo woman with hx anxiety, hypothyroidism, GERD, myasthenia gravis presents to the ER with increased weakness and shortness of breath. Her prednisone was recently tapered to 2.5mg daily.
In the emergency department the patient was afebrile, blood pressure was 147 100, pulse was 95 and she was satting 95% on room air. Respiratory was 24. Chest x-ray shows mild atelectasis but no acute infiltrate. BNP was negative. ECG shows a
normal sinus rhythm. CBC was completely unremarkable. Electrolytes BUN and creatinine were all normal.'
She was admitted to the IMU. Neurology and Pulmonary were consulted. IVIG initiated for myasthenia crisis. She was also started on Prednisone 60mg daily. Her Mestinon was resumed at 30mg then increased to 90mg TID.
Patient improved with these interventions with MIP increasing from -30 on admit to -50 on day of discharge. She worked with PT and OT recommending HH. Neurology recommended BiPAP while sleeping but patient cannot tolerate. She is referred to
Pulmonary for outpatient sleep study on discharge.
Per Neurology patient is discharged on Prednisone 60mg daily with taper to be determined as outpatient after initiation of new medication for MG. I discussed with patient's daughter who has been in touch with patient's neurologist, Dr. Terry,
with plans to follow up shortly.
Hospital course complicated by elevated indirect bilirubin suspect Gilbert syndrome. RUQ US without duct dilation and hemolytic anemia work up negative (nl haptoglobin).
Patient was hypertensive during hospital stay. She takes Amlodipine at home which wasn't on her home med list but she can resume it on discharge.
Patient felt ready for discharge home today. PLan discussed with patient and daughter. Time spent on discharge was 35 minutes.
Important imaging findings :
Abdomen US 03/19
IMPRESSION:
Cholelithiasis. Equivocal sonographic Choi's sign, with mild discomfort secondary to transducer pressure.
No bile duct dilatation, common bile duct measuring 4 mm.
The pancreatic tail is obscured. Otherwise unremarkable.
Limited visualization secondary to positioning and overlying bowel gas. Normal in size.
Procedure findings :
Discharge Plan
-
Patient Disposition: Home with Home Care
Discharge Diagnosis/Procedures: Myasthenia Gravis Flare
Diet: Regular
Activity: As tolerated
Driving Restrictions: Not until seen by your Dr
Bathing Restrictions: None
Other Services: PT and OT
Referrals:
Steffany Terry MD [Family Provider, Neurology]
Omar Jordan MD [Active, Pulmonary Medicine]
Referral Note: [facility] eval and alpha one AT eval.
Additional Discharge Medication Instructions: Please follow up with Dr. Terry at next available appointment.
Take Prednisone 60mg (3 tabs of 20mg) until directed by Dr. Terry. You are prescribed 1 month with refill, but please get directions from Dr. Terry within the next month on how to taper prednisone down.
Your Mestinon (Pyridostigmine) is increased to 90mg (1.5 tabs) 3x/day.
Your blood pressure was high in the hospital. You are started on Lisinopril 5mg daily. I recommend checking your blood pressure at home (1-2 hours after Lisinopril) and recording results to show your PCP.
Prescriptions:
New
prednisone 20 mg Tablet
60 mg PO DAILY Qty: 90 1RF
pyridostigmine bromide [Mestinon] 60 mg tablet
90 mg PO TID 30 Days Qty: 135 0RF
methenamine hippurate 1 gram Tablet
1 g PO DAILY Qty: 30 0RF
amlodipine 5 mg tablet
5 mg PO DAILY Qty: 30 0RF
Continued
oxybutynin chloride 5 MG tablet
5 mg PO BID
alprazolam 0.5 MG tablet
0.5 mg PO HS
famotidine 40 mg Tablet
40 mg PO BID
levothyroxine 75 mcg Tablet
75 mcg PO HS
acetaminophen 500 mg Tablet
500 mg PO Q6H PRN (Reason: mild pain)
calcium carbonate [Calcium 600] 600 mg calcium (1,500 mg) Tablet
600 mg PO DAILY
ascorbic acid (vitamin C) [Vitamin C] 500 mg Tablet
500 mg PO DAILY
Patient Comments:
09/22/2024, take with 1 gm of methenamine hippurate.
Vitamin [id number]-[id number] D3
1 tab PO DAILY
vitamin D3-vitamin K2
1 tab PO DAILY
Discontinued
prednisone 20 mg tablet
7 mg PO DAILY
pyridostigmine bromide [Mestinon] 60 mg Tablet
30 mg PO TID
Discharge Orders:
Discharge Patient (As Directed); Ordered 03/22/25
Ordered By: Mindy Pinzon
Discharge Date and Time
Discharge Date/Time: 03/22/25 13:05
Print Language: [id number]
== END 2025-03-22 13:05 | disposition home health service (06) | DRG 57 ==
LOC: IMU 23:02
PROVIDERS: Internal Medicine; Nurse Practitioner Family; ADMITTING PHYSICIAN Internal Medicine; ATTENDING PHYSICIAN Student in an Organized Health Care Education/Training Program; CONSULT PHYSICIAN Internal Medicine Gastroenterology; EMERGENCY PHYSICIAN Emergency Medicine; FAMILY PHYSICIAN Psychiatry & Neurology Neurology; OTHER PHYSICIAN Internal Medicine Critical Care Medicine; OTHER PHYSICIAN Psychiatry & Neurology Neurology
DX: G70.01 Myasthenia gravis with (acute) exacerbation (principal); J98.11 Atelectasis; E03.9 Hypothyroidism, unspecified; K21.9 Gastro-esophageal reflux disease without esophagitis; F41.9 Anxiety disorder, unspecified; Z79.890 Hormone replacement therapy; I10 Essential (primary) hypertension; E78.00 Pure hypercholesterolemia, unspecified; Z88.0 Allergy status to penicillin; K80.20 Calculus of gallbladder without cholecystitis without obstruction; G62.9 Polyneuropathy, unspecified; Z88.2 Allergy status to sulfonamides; Z88.8 Allergy status to other drugs, medicaments and biological substances; Z91.048 Other nonmedicinal substance allergy status
CPT/HCPCS: 36600; 70450; 71045; 71046; 76700; 80048; 80053; 80076; 81003; 81015; 82103; 82140; 82248; 82805; 82962; 82977; 83010; 83615; 83735; 83880; 84100; 84443; 85025; 85027; 85045; 85610; 86880; 87015; 87077; 87086; 87186; 87207; 92526; 92610; 93005; 93306; 94150; 94799; 96374; 97162; 97166; 99285; J1569